=== PATIENT | female | born 1960 | race Two or more races ===

== ENCOUNTER 2017-12-22 13:53 | Inpatient (IN) | payer OTHER ==
[~2017-12-22] VITALS: Ht 149.9 cm; Wt 68.0 kg
[2017-12-22] MEDS ORDERED: ASPIRIN81 MG ORAL (14:08)
[2017-12-22] MEDS ORDERED: BENAZEPRIL HCL10 MG ORAL (14:08)
[2017-12-22] MEDS ORDERED: NITROGLYCERIN0.4 MG SL (14:08)
[2017-12-22] MEDS ORDERED: METFORMIN HCL1000 M1 ORAL (14:08)
[2017-12-22] MEDS ORDERED: LIPITOR40 MG ORAL (14:08)
[2017-12-22] MEDS ORDERED: Aspirin Baby 81mg ORAL ONE (14:15)
--- NOTE | 2017-12-22 14:20 | Emergency Room Report ---
History of Present Illness General Chief Complaint: Chest Pain Source: Patient Present Illness HPI Patient is a 57-year-old female brought in by self after increased chest discomfort. Patient had onset of symptoms approximately 7 PM last night. She reports having increased chest tightness sensation. She reports having recent cardiac stress testing but does not know results. She states that she had been having increased chest discomfort constantly since pain began. Patient was having increased fatigue with exercise but denies any worsening of chest pain. She has prior history of high blood pressure diabetes and high cholesterol. Allergies: Coded Allergies: MORPHINE (Verified Allergy, Unknown, 12/22/17) Patient History Past Medical History: see triage record Last Menstrual Period: Post Reviewed Nursing Documentation: PMH: Agreed; PSxH: Agreed Nursing Documentation-PMH Hx Hypertension: Yes Hx Diabetes: Yes - DM2 Review of Systems All Other Systems: negative except mentioned in HPI Physical Exam Vital Signs Date Time Temp Pulse Resp B/P (MAP) Pulse Ox O2 Delivery O2 Flow Rate FiO2 12/22/17 14:01 Room Air Sp02 EP Interpretation: reviewed, normal General Appearance: normal inspection, well appearing, no apparent distress, alert, GCS 15, obese Head: atraumatic ENT: normal ENT inspection, hearing grossly normal, normal voice Neck: normal inspection, full range of motion, supple, no bony tend Respiratory: normal inspection, lungs clear, normal breath sounds, no respiratory distress, no retraction, no wheezing Cardiovascular #1: regular rate, rhythm, edema - trace edema Gastrointestinal: normal inspection, normal bowel sounds, non tender, soft, no guarding, no hernia Genitourinary: no CVA tenderness Musculoskeletal: normal inspection, back normal, normal range of motion Neurologic: normal inspection, alert, oriented x3, responsive, rim buster III-XII nml as tested, speech normal Psychiatric: normal inspection, judgement/insight normal, mood/affect normal Skin: no rash, other Medical Decision Making Diagnostic Impression: Primary Impression: Chest pain Additional Impression: ACS (acute coronary syndrome) ER Course Patient presented for chest pain. Differential diagnosis included but was not limited to acute coronary syndrome, pulmonary embolism, pneumonia, aortic dissection, shingles, pneumothorax, aortic dissection, esophageal rupture, pericarditis. Because of complexity of patient's case laboratory testing and imaging studies were ordered.Laboratory testing showed negative troponin and negative d-dimer.Patient was given aspirin and nitroglycerin.Dr. Mcknight was contacted for for inpatient management Labs Test 12/22/17 14:10 White Blood Count 8.1 K/UL (4.8-10.8) Red Blood Count 4.01 M/UL (4.20-5.40) Hemoglobin 11.7 G/DL (12.0-16.0) Hematocrit 34.6 % (37.0-47.0) Mean Corpuscular Volume 86 FL (80-99) Mean Corpuscular Hemoglobin 29.1 PG (27.0-31.0) Mean Corpuscular Hemoglobin Concent 33.7 G/DL (32.0-36.0) Red Cell Distribution Width 11.9 % (11.6-14.8) Platelet Count 145 K/UL (150-450) Mean Platelet Volume 11.9 FL (6.5-10.1) Neutrophils (%) (Auto) 62.8 % (45.0-75.0) Lymphocytes (%) (Auto) 26.6 % (20.0-45.0) Monocytes (%) (Auto) 8.6 % (1.0-10.0) Eosinophils (%) (Auto) 0.9 % (0.0-3.0) Basophils (%) (Auto) 1.1 % (0.0-2.0) D-Dimer 0.23 mg/L FEU (0.00-0.49) Sodium Level 140 MMOL/L (136-145) Potassium Level 3.9 MMOL/L (3.5-5.1) Chloride Level 104 MMOL/L (98-107) Carbon Dioxide Level 27 MMOL/L (21-32) Anion Gap 9 mmol/L (5-15) Blood Urea Nitrogen 17 mg/dL (7-18) Creatinine 0.7 MG/DL (0.55-1.30) Estimat Glomerular Filtration Rate > 60 mL/min (>60) Glucose Level 254 MG/DL (74-106) Calcium Level 8.2 MG/DL (8.5-10.1) Total Bilirubin 0.9 MG/DL (0.2-1.0) Aspartate Amino Transf (AST/SGOT) 16 U/L (15-37) Alanine Aminotransferase (ALT/SGPT) 27 U/L (12-78) Alkaline Phosphatase 89 U/L (46-116) Total Creatine Kinase 74 U/L (26-308) Creatine Kinase MB 0.6 NG/ML (0.0-3.6) Creatine Kinase MB Relative Index 0.8 Troponin I 0.000 ng/mL (0.000-0.056) Pro-B-Type Natriuretic Peptide 109 pg/mL (0-125) Total Protein 7.7 G/DL (6.4-8.2) Albumin 3.8 G/DL (3.4-5.0) Globulin 3.9 g/dL Albumin/Globulin Ratio 1.0 (1.0-2.7) EKG Diagnostic Results Rate: normal - 82 Rhythm: NSR ST Segments: no acute changes Rhythm Strip Diag. Results EP Interpretation: yes Rhythm: NSR - 82., no PVC's, no ectopy Chest X-Ray Diagnostic Results Chest X-Ray Diagnostic Results : Chest X-Ray Ordered: Yes # of Views/Limited/Complete: 1 View Indication: Chest Pain EP Interpretation: Yes PA Xray: Interpretation reviewed Interpretation: no consolidation, no effusion, no pneumothorax, no acute cardiopulmonary disease Impression: No acute disease Electronically Signed by: Electronically signed by Dr. Mc Bush M.D. Last Vital Signs Date Time Temp Pulse Resp B/P (MAP) Pulse Ox O2 Delivery O2 Flow Rate FiO2 12/22/17 14:01 Room Air Status: improved Disposition: ADMITTED INPATIENT Condition: Stable Mc Bush Dec 22, 2017 14:20
[2017-12-22 14:26] LABS: BASOPHILS % (AUTO) 1.1 % (0.0-2.0); EOSINOPHILS % (AUTO) 0.9 % (0.0-3.0); HEMATOCRIT 34.6 % (37.0-47.0); HEMOGLOBIN 11.7 G/DL (12.0-16.0); LYMPHOCYTES % (AUTO) 26.6 % (20.0-45.0); MEAN CORPUSCULAR VOLUME 86 FL (80-99); MONOCYTES % (AUTO) 8.6 % (1.0-10.0); NEUTROPHILS % (AUTO) 62.8 % (45.0-75.0); PLATELET COUNT 145 K/UL (150-450); RED BLOOD COUNT 4.01 M/UL (4.20-5.40); RED CELL DISTRIBUTION WIDTH 11.9 % (11.6-14.8); WHITE BLOOD COUNT 8.1 K/UL (4.8-10.8)
[2017-12-22] MEDS ORDERED: Nitroglycerin Subl 0.4mg tab SL PRN (14:30)
[2017-12-22 14:40] LABS: ANION GAP 9 mmol/L (5-15); BLOOD UREA NITROGEN 17 mg/dL (7-18); CALCIUM 8.2 MG/DL (8.5-10.1); CARBON DIOXIDE 27 MMOL/L (21-32); CHLORIDE 104 MMOL/L (98-107); CREATININE 0.7 MG/DL (0.55-1.30); POTASSIUM 3.9 MMOL/L (3.5-5.1); SODIUM 140 MMOL/L (136-145)
[2017-12-22 14:53] VITALS: BP 139/73
[2017-12-22 14:56] LABS: ALANINE AMINOTRANSFERASE 27 U/L (12-78); ALBUMIN 3.8 G/DL (3.4-5.0); ALKALINE PHOSPHATASE 89 U/L (46-116); ASPARTATE AMINO TRANSFERASE 16 U/L (15-37); BILIRUBIN,TOTAL 0.9 MG/DL (0.2-1.0); CKMB 0.6 NG/ML (0.0-3.6); CREATINE KINASE 74 U/L (26-308)
[2017-12-22 16:09] VITALS: BP 142/80
[2017-12-22] MEDS ORDERED: Mylanta II UD 30ml ORAL PRN (16:30)
[2017-12-22] MEDS ORDERED: Milk of Magnesia 30ml Ud ORAL PRN (16:30)
[2017-12-22] MEDS ORDERED: OMEPRAZOLE10 M1 ORAL (17:11)
[2017-12-22] MEDS ORDERED: OXYBUTYNIN CHLOR5 M1 ORAL (17:11)
[2017-12-22 17:34] VITALS: BP 139/75
[2017-12-22 19:30] VITALS: BP 120/62
[2017-12-22] MEDS: Nitroglycerin Subl 0.4mg tab SL PRN ×3 (20:33→20:59)
[2017-12-22] MEDS: Heparin 5000 units/ml inj SUBQ SCH (20:45)
[2017-12-22] MEDS: Docusate 100mg cap ORAL SCH (20:50)
[2017-12-22] MEDS: Atorvastatin 20mg tab ORAL SCH (20:50)
[2017-12-22] MEDS: NovoLOG Insulin Flexpen SUBQ SCH (20:57)
[2017-12-22] MEDS: Hydromorphone 0.5mg/0.5ml inj IVP PRN (23:02)
[2017-12-23] VITALS: BP 134/74
[2017-12-23 04:00] VITALS: BP 111/67
[2017-12-23 04:52] LABS: BASOPHILS % (AUTO) 2.1 % (0.0-2.0); EOSINOPHILS % (AUTO) 2.3 % (0.0-3.0); HEMATOCRIT 33.4 % (37.0-47.0); HEMOGLOBIN 11.3 G/DL (12.0-16.0); MEAN CORPUSCULAR VOLUME 86 FL (80-99); MONOCYTES % (AUTO) 8.8 % (1.0-10.0); NEUTROPHILS % (AUTO) 42.9 % (45.0-75.0); PLATELET COUNT 144 K/UL (150-450); RED BLOOD COUNT 3.87 M/UL (4.20-5.40); RED CELL DISTRIBUTION WIDTH 11.8 % (11.6-14.8); WHITE BLOOD COUNT 6.2 K/UL (4.8-10.8)
[2017-12-23 05:23] LABS: BLOOD UREA NITROGEN 11 mg/dL (7-18); CALCIUM 8.5 MG/DL (8.5-10.1); CARBON DIOXIDE 28 MMOL/L (21-32); CHOLESTEROL 138 MG/DL (< 200); CREATININE 0.7 MG/DL (0.55-1.30); TRIGLYCERIDES 143 MG/DL (30-150)
[2017-12-23 05:34] LABS: HDL CHOLESTEROL 45 MG/DL (40-60)
[2017-12-23] MEDS: NovoLOG Insulin Flexpen SUBQ SCH ×4 (06:08→21:40)
[2017-12-23] MEDS: Hydromorphone 0.5mg/0.5ml inj IVP PRN ×2 (06:17→09:21)
[2017-12-23 07:16] LABS: CHLORIDE 106 MMOL/L (98-107); POTASSIUM 3.8 MMOL/L (3.5-5.1); SODIUM 143 MMOL/L (136-145)
[2017-12-23 07:19] LABS: ANION GAP 9 mmol/L (5-15)
[2017-12-23 08:00] VITALS: BP 125/73
[2017-12-23] MEDS: Aspirin Baby 81mg ORAL SCH (09:21)
[2017-12-23] MEDS: Docusate 100mg cap ORAL SCH ×2 (09:21→21:33)
[2017-12-23] MEDS: Benazepril 10mg tab ORAL SCH (09:21)
[2017-12-23] MEDS: Heparin 5000 units/ml inj SUBQ SCH ×2 (09:24→21:35)
[2017-12-23 12:00] VITALS: BP 111/59
--- NOTE | 2017-12-23 13:00 | Diagnostic Imaging Report ---
Indication: Shortness of breath Technique: One view of the chest Comparison: none Findings: Lungs and pleural spaces are clear. Heart size is normal Impression: No acute process
--- NOTE | 2017-12-23 14:23 | History and Physical ---
History of Present Illness General Date patient seen: Dec 23, 2017 Time patient seen: 14:23 Reason for Hospitalization: Chest Pain Present Illness HPI 57y/o female with pmh of DM2, HLD, GERD, HTN who presents with chest pain. . Patient had onset of symptoms approximately 7 PM on night of presentation to ER. She reports having increased chest tightness sensation. Pt states pain radiates to upper back and shoulder. She reports having recent cardiac stress testing but does not know results. She states that she had been having increased chest discomfort constantly since pain began. Patient was having increased fatigue with exercise but denies any worsening of chest pain. Denies SOB, f/c, n/v, d/c, chest pain, SOB. In ED, trop neg and EKG wnl. Allergies: Coded Allergies: MORPHINE (Verified Allergy, Unknown, 12/22/17) Medication History Scheduled Aspirin* (Aspirin*), 81 MG ORAL DAILY, (Reported) Atorvastatin Calcium* (Lipitor*), 40 MG ORAL DAILY, (Reported) Benazepril Hcl* (Benazepril Hcl*), 10 MG ORAL DAILY, (Reported) Metformin Hcl* (Metformin Hcl*), 1,000 MG ORAL BID, (Reported) Nitroglycerin (Nitroglycerin), 0.4 MG SL PRN, (Reported) Omeprazole (Omeprazole), 10 MG ORAL DAILY, (Reported) Oxybutynin Chloride (Oxybutynin Chloride), 5 MG ORAL BID, (Reported) Patient History History Provided By: Patient, Medical Record Healthcare decision maker Resuscitation status Advanced Directive on File Past Medical/Surgical History Past Medical/Surgical History: (1) DM2 (diabetes mellitus, type 2) (2) HTN (hypertension) (3) HLD (hyperlipidemia) (4) GERD (gastroesophageal reflux disease) Family History Family History: Patient reports no known family medical history. Social History Social History: (1) No significant social history Review of Systems Constitutional: Reports: no symptoms Eye: Reports: no symptoms Respiratory: Reports: no symptoms Cardiovascular: Reports: chest pain Gastrointestinal: Reports: no symptoms Genitourinary: Reports: no symptoms Musculoskeletal: Reports: no symptoms Skin: Reports: no symptoms Psychiatric: Reports: no symptoms Neurological: Reports: no symptoms Endocrine: Reports: no symptoms Hematologic/Lymphatic: Reports: no symptoms Physical Exam Physical Exam Narrative General: alert, cooperative, no distress, appears stated age Head: normocephalic, without obvious abnormality, atraumatic Eyes: conjunctivae/corneas clear. PERRL, EOM's intact Throat: lips, mucosa, and tongue normal. MMM Neck: supple, symmetrical, trachea midline, and no JVD Lungs: clear to auscultation bilaterally Heart: regular rate and rhythm, S1, S2 normal, no murmur, click, rub or gallop Abdomen: soft, non-tender, non-distended, bowel sounds normal; no masses or organomegaly Extremities: extremities normal, atraumatic, no cyanosis or edema Pulses: 2+ and symmetric Skin: skin color, texture, turgor normal; no rashes or lesions Neurologic: grossly normal, no focal deficits Last 24 Hour Vital Signs Date Time Temp Pulse Resp B/P (MAP) Pulse Ox O2 Delivery O2 Flow Rate FiO2 12/23/17 12:00 60 12/23/17 12:00 97.9 60 18 111/59 100 Nasal Cannula 2.0 97.9 12/23/17 09:21 97.7 12/23/17 09:21 125/73 12/23/17 08:00 61 12/23/17 08:00 97.7 77 18 125/73 98 Nasal Cannula 2.0 97.7 12/23/17 04:00 98.1 80 16 111/67 98 Nasal Cannula 2.0 98.1 12/23/17 04:00 65 12/23/17 00:00 63 12/23/17 00:00 97.3 58 17 134/74 99 Nasal Cannula 2.0 97.3 12/22/17 20:59 132/71 12/22/17 20:42 140/78 12/22/17 20:33 147/95 12/22/17 19:45 98.0 67 20 120/62 99 Room Air 98.0 12/22/17 19:30 98.0 67 20 120/62 99 Room Air 98.0 12/22/17 17:34 98.0 95 16 139/75 100 Room Air 98.0 12/22/17 16:09 98.0 67 16 142/80 100 Room Air 98.0 12/22/17 14:53 69 15 Room Air 12/22/17 14:53 98.0 69 16 139/73 100 Room Air 98.0 Intake and Output 12/22/17 12/23/17 19:00 07:00 Intake Total 240 ml 240 ml Balance 240 ml 240 ml Intake Oral 240 ml 240 ml Laboratory Tests Test 12/22/17 20:40 12/23/17 04:20 Troponin I 0.000 ng/mL (0.000-0.056) 0.000 ng/mL (0.000-0.056) White Blood Count 6.2 K/UL (4.8-10.8) Red Blood Count 3.87 M/UL (4.20-5.40) L Hemoglobin 11.3 G/DL (12.0-16.0) L Hematocrit 33.4 % (37.0-47.0) L Mean Corpuscular Volume 86 FL (80-99) Mean Corpuscular Hemoglobin 29.3 PG (27.0-31.0) Mean Corpuscular Hemoglobin Concent 33.9 G/DL (32.0-36.0) Red Cell Distribution Width 11.8 % (11.6-14.8) Platelet Count 144 K/UL (150-450) L Mean Platelet Volume 11.1 FL (6.5-10.1) H Neutrophils (%) (Auto) 42.9 % (45.0-75.0) L Lymphocytes (%) (Auto) 44.0 % (20.0-45.0) Monocytes (%) (Auto) 8.8 % (1.0-10.0) Eosinophils (%) (Auto) 2.3 % (0.0-3.0) Basophils (%) (Auto) 2.1 % (0.0-2.0) H Sodium Level 143 MMOL/L (136-145) Potassium Level 3.8 MMOL/L (3.5-5.1) Chloride Level 106 MMOL/L (98-107) Carbon Dioxide Level 28 MMOL/L (21-32) Anion Gap 9 mmol/L (5-15) Blood Urea Nitrogen 11 mg/dL (7-18) Creatinine 0.7 MG/DL (0.55-1.30) Estimat Glomerular Filtration Rate > 60 mL/min (>60) Glucose Level 115 MG/DL (74-106) #H Hemoglobin A1c 7.1 % (4.3-6.0) H Calcium Level 8.5 MG/DL (8.5-10.1) Magnesium Level 1.8 MG/DL (1.8-2.4) Pro-B-Type Natriuretic Peptide 79 pg/mL (0-125) Triglycerides Level 143 MG/DL (30-150) Cholesterol Level 138 MG/DL (< 200) LDL Cholesterol 75 mg/dL (<100) HDL Cholesterol 45 MG/DL (40-60) Cholesterol/HDL Ratio 3.1 (3.3-4.4) L Thyroid Stimulating Hormone (TSH) 5.100 uiU/mL (0.358-3.740) Height (Feet): 4 Height (Inches): 11.00 Weight (Pounds): 150 Medications Current Medications Medications (Trade) Dose Ordered Sig/Luz Maria Route PRN Reason Start Time Stop Time Status Last Admin Dose Admin Acetaminophen (Tylenol) 650 mg Q4H PRN ORAL Mild Pain (Pain Scale 1-3) 12/22/17 16:30 01/21/18 16:29 Acetaminophen (Tylenol) 650 mg Q4H PRN ORAL fever 12/22/17 16:30 01/21/18 16:29 Al Hydroxide/Mg Hydroxide (Mylanta II) 30 ml Q6H PRN ORAL dyspepsia 12/22/17 16:30 01/21/18 16:29 Aspirin (ASA) 81 mg DAILY ORAL 12/23/17 09:00 01/22/18 08:59 12/23/17 09:21 Atorvastatin Calcium (Lipitor) 40 mg QHS ORAL 12/22/17 21:00 01/21/18 20:59 12/22/17 20:50 Benazepril HCl (Lotensin) 10 mg DAILY ORAL 12/23/17 09:00 01/22/18 08:59 12/23/17 09:21 Bisacodyl (Dulcolax) 10 mg DAILYPRN PRN RECTAL Constipation 12/22/17 16:30 01/21/18 16:29 Dextrose (Dextrose 50%) STAT PRN IV Hypoglycemia 12/22/17 16:45 01/21/18 16:44 Diphenhydramine HCl (Benadryl) 25 mg Q6H PRN ORAL Itching/Pruritis 12/22/17 16:30 01/21/18 16:29 Docusate Sodium (Colace) 100 mg EVERY 12 HOURS ORAL 12/22/17 21:00 5/1/18 20:59 12/23/17 09:21 Heparin Sodium (Porcine) (Heparin 5000 units/ml) 5,000 units EVERY 12 HOURS SUBQ 12/22/17 21:00 01/21/18 20:59 12/23/17 09:24 Hydromorphone HCl (Dilaudid) 0.5 mg Q3HR PRN IVP For Pain 12/22/17 22:30 12/29/17 22:29 12/23/17 09:21 Insulin Aspart (NovoLOG) BEFORE MEALS AND HS SUBQ 12/22/17 21:00 01/21/18 20:59 12/23/17 12:49 Magnesium Hydroxide (Mom) 30 ml HSPRN PRN ORAL Constipation 12/22/17 16:30 01/21/18 16:29 Nitroglycerin (Ntg) 0.4 mg Q5M PRN SL Prn Chest Pain 12/22/17 16:30 01/21/18 16:29 12/22/17 20:59 Ondansetron HCl (Zofran) 4 mg Q6H PRN IVP Nausea & Vomiting 12/22/17 16:30 01/21/18 16:29 Assessment/Plan Problem List: (1) Chest pain Assessment & Plan: Appears atypical ICD Codes: R07.9 - Chest pain, unspecified SNOMED: 23843639 (2) DM2 (diabetes mellitus, type 2) ICD Codes: E11.9 - Type 2 diabetes mellitus without complications SNOMED: 54863374 (3) HLD (hyperlipidemia) ICD Codes: E78.5 - Hyperlipidemia, unspecified SNOMED: 19133306 (4) HTN (hypertension) ICD Codes: I10 - Essential (primary) hypertension SNOMED: 88161441 (5) GERD (gastroesophageal reflux disease) ICD Codes: K21.9 - Gastro-esophageal reflux disease without esophagitis SNOMED: 172865972 Status: stable Assessment/Plan Admit to tele Trend trop/EKG Check TTE Cardiology consulted ASA, statin Cont home meds Check CTA chest to r/o PE and aortic dissection Pain control, bowel regimen Supportive care Likely d/c tomorrow if workup neg FULL CODE D/w pt, RN, cardiology regarding mgmt and dispo Natalio Jeff M.D. Dec 23, 2017 14:23
[2017-12-23] MEDS ORDERED: Norco 5mg/325mg tab ORAL PRN (14:30)
[2017-12-23] MEDS ORDERED: HYDROcodone/Acetamin 10/325 tab ORAL PRN (14:30)
--- NOTE | 2017-12-23 14:33 | Cardiac Electrophysiology PN ---
Subjective Subjective [id number] Objective Last 24 Hour Vital Signs Date Time Temp Pulse Resp B/P (MAP) Pulse Ox O2 Delivery O2 Flow Rate FiO2 12/23/17 12:00 60 12/23/17 12:00 97.9 60 18 111/59 100 Nasal Cannula 2.0 97.9 12/23/17 09:21 97.7 12/23/17 09:21 125/73 12/23/17 08:00 61 12/23/17 08:00 97.7 77 18 125/73 98 Nasal Cannula 2.0 97.7 12/23/17 04:00 98.1 80 16 111/67 98 Nasal Cannula 2.0 98.1 12/23/17 04:00 65 12/23/17 00:00 63 12/23/17 00:00 97.3 58 17 134/74 99 Nasal Cannula 2.0 97.3 12/22/17 20:59 132/71 12/22/17 20:42 140/78 12/22/17 20:33 147/95 12/22/17 19:45 98.0 67 20 120/62 99 Room Air 98.0 12/22/17 19:30 98.0 67 20 120/62 99 Room Air 98.0 12/22/17 17:34 98.0 95 16 139/75 100 Room Air 98.0 12/22/17 16:09 98.0 67 16 142/80 100 Room Air 98.0 12/22/17 14:53 69 15 Room Air 12/22/17 14:53 98.0 69 16 139/73 100 Room Air 98.0 Intake and Output 12/22/17 12/23/17 19:00 07:00 Intake Total 240 ml 240 ml Balance 240 ml 240 ml Intake Oral 240 ml 240 ml Laboratory Tests Test 12/22/17 20:40 12/23/17 04:20 Troponin I 0.000 ng/mL (0.000-0.056) 0.000 ng/mL (0.000-0.056) White Blood Count 6.2 K/UL (4.8-10.8) Red Blood Count 3.87 M/UL (4.20-5.40) L Hemoglobin 11.3 G/DL (12.0-16.0) L Hematocrit 33.4 % (37.0-47.0) L Mean Corpuscular Volume 86 FL (80-99) Mean Corpuscular Hemoglobin 29.3 PG (27.0-31.0) Mean Corpuscular Hemoglobin Concent 33.9 G/DL (32.0-36.0) Red Cell Distribution Width 11.8 % (11.6-14.8) Platelet Count 144 K/UL (150-450) L Mean Platelet Volume 11.1 FL (6.5-10.1) H Neutrophils (%) (Auto) 42.9 % (45.0-75.0) L Lymphocytes (%) (Auto) 44.0 % (20.0-45.0) Monocytes (%) (Auto) 8.8 % (1.0-10.0) Eosinophils (%) (Auto) 2.3 % (0.0-3.0) Basophils (%) (Auto) 2.1 % (0.0-2.0) H Sodium Level 143 MMOL/L (136-145) Potassium Level 3.8 MMOL/L (3.5-5.1) Chloride Level 106 MMOL/L (98-107) Carbon Dioxide Level 28 MMOL/L (21-32) Anion Gap 9 mmol/L (5-15) Blood Urea Nitrogen 11 mg/dL (7-18) Creatinine 0.7 MG/DL (0.55-1.30) Estimat Glomerular Filtration Rate > 60 mL/min (>60) Glucose Level 115 MG/DL (74-106) #H Hemoglobin A1c 7.1 % (4.3-6.0) H Calcium Level 8.5 MG/DL (8.5-10.1) Magnesium Level 1.8 MG/DL (1.8-2.4) Pro-B-Type Natriuretic Peptide 79 pg/mL (0-125) Triglycerides Level 143 MG/DL (30-150) Cholesterol Level 138 MG/DL (< 200) LDL Cholesterol 75 mg/dL (<100) HDL Cholesterol 45 MG/DL (40-60) Cholesterol/HDL Ratio 3.1 (3.3-4.4) L Thyroid Stimulating Hormone (TSH) 5.100 uiU/mL (0.358-3.740) Vipul Toth MD Dec 23, 2017 14:33
[2017-12-23] MEDS ORDERED: Lexiscan 0.4mg/5ml syringe IV ONE (15:15)
[2017-12-23 16:00] VITALS: BP 112/62
--- NOTE | 2017-12-23 16:57 | Diagnostic Imaging Report ---
Indication: Chest pain, suspected aortic dissection Technique: IV administration nonionic contrast. Arterial phase spiral acquisitions obtained through the chest, abdomen, and pelvis Multiplanar and 3-D reconstructions were generated. Total dose length product 1020 mGycm. CTDIvol(s) 8, 40, 50 mGy. Radiation dose was minimized using automated exposure control Comparison: none Findings Vascular: The pulmonary arteries are well opacified and there is no evidence of acute pulmonary embolus. No evidence of thoracic aortic aneurysm or dissection. Classic branching anatomy of the great neck vessels, which are patent, nonstenotic. No evidence of abdominal aortic aneurysm or dissection. No significant stenosis. No significant neural atherosclerosis. The nonstenotic visceral vessels. Patent nonstenotic bilateral iliac arteries and proximal branches. Chest: The lungs demonstrate minimal atelectasis or linear scarring at the lung bases. They are otherwise clear. No infiltrates, effusions, masses, or nodules. The heart is borderline enlarged. No mediastinal or hilar mass or adenopathy. No axillary or chest wall mass or adenopathy. The bones are unremarkable. Abdomen and pelvis: The liver is diffusely hypoattenuating, consistent with fatty change. No focal abnormality. It is mildly enlarged. The gallbladder, bile ducts, pancreas, spleen, adrenals, kidneys are unremarkable. There is evidence of prior hysterectomy and oophorectomy with surgical clips suggesting prior pelvic node dissection. The bladder is unremarkable. No pelvic mass or adenopathy demonstrated. The appendix is not definitely demonstrated, but no findings to suggest acute appendicitis are evident. The small bowel is nondilated. No free or loculated intraperitoneal air or fluid is evident. No evidence of diverticulosis or diverticulitis. The bones are unremarkable. Impression: No evidence of thoracic or abdominal aortic aneurysm or dissection, pulmonary embolus, or other acute vascular pathology No findings to explain stated clinical history of chest pain Borderline cardiomegaly Enlarged fatty liver Evidence of prior hysterectomy, oophorectomy, and pelvic node dissection The CT scanner at [facility] is accredited by the [employer] and the scans are performed using protocols designed to limit radiation exposure to as low as reasonably achievable to attain images of sufficient resolution adequate for diagnostic evaluation.
--- NOTE | 2017-12-23 18:45 | Consultation ---
DATE OF CONSULTATION: 12/23/2017 CARDIOLOGY CONSULTATION CONSULTING PHYSICIAN: Vipul Toth M.D. REFERRING PHYSICIAN: Flora Osorio M.D. and Natalio Jeff M.D. REASON FOR CONSULTATION: Chest pain. HISTORY OF PRESENT ILLNESS: The patient is a 57-year-old lady who came to the emergency room complaining of chest pain that was started around 7 o'clock the night before. The patient's pain was 5/10. She states that she had a recent cardiac stress test, but she does not know the result. The chest pain has become more constant. The patient with increasing fatigue on exercise, but denies any worsening of chest pain. The patient was admitted and a Cardiology consultation was obtained for further evaluation and management. PAST MEDICAL HISTORY: 1. Hypertension. 2. Hyperlipidemia. 3. Diabetes. FAMILY HISTORY: Noncontributory. PHYSICAL EXAMINATION: VITAL SIGNS: Blood pressure is 111/59, pulse 60, respirations 18, and she is afebrile. HEAD AND NECK: No JVD or carotid bruits. LUNGS: Clear. CARDIOVASCULAR: Regular S1 and S2 with no gallop or murmur. ABDOMEN: Soft. EXTREMITIES: No pitting edema. LABORATORY AND DIAGNOSTIC DATA: Her EKG is completely normal. Troponins are negative x3. Sodium 143, potassium 3.8, BUN of 11, and creatinine 0.7. Her LDL is 75. TSH is 5.1. Her D-dimer is negative. White count 6.7, hemoglobin 11.2, hematocrit 33.5, and platelet count 144. ASSESSMENT AND PLAN: 1. Chest pain. The patient already ruled out for myocardial infarction. Her EKG is completely normal. Echocardiogram showed normal left ventricular systolic function and no wall motion abnormality. D-dimer is negative, making pulmonary embolism highly unlikely. the patient for chest CT to rule out aortic dissection or aneurysm. We will try to get old stress test that she recently had and if not able to, we may schedule the patient for a stress test in the morning or if the patient prefers can be done as an outpatient. 2. Hypertension, on benazepril 10 mg daily. 3. Hyperlipidemia, on Lipitor. 4. Diabetes, on insulin. Thank you very much, Dr. Lance, for allowing me to participate in the care of this patient. Please do not hesitate to contact me for any questions regarding my evaluation. Vipul Toth M.D. DR: OZZIE JOB#: [id number] CC:
--- NOTE | 2017-12-23 18:46 | Cardiology Report ---
APPROVED REPORT EXAM: Two-dimensional and M-mode echocardiogram with Doppler and color Doppler. INDICATION Chest Pain M-Mode DIMENSIONS IVSd1.2 (0.7-1.1cm)Left Atrium (MM)3.0 (1.6-4.0cm) LVDd5.0 (3.5-5.6cm)Aortic Root3.5 (2.0-3.7cm) PWd1.2 (0.7-1.1cm)Aortic Cusp Exc.1.9 (1.5-2.0cm) IVSs1.9 cm LVDs3.4 (2.5-4.0cm) PWs1.6 cm Technically difficult study due to poor acoustical windows. Normal left ventricular chamber size, systolic function and wall motion to extent visualized. Left ventricular ejection fraction estimated to be 70 %. No evidence of left ventricular hypertrophy. No evidence of pericardial effusion. All other cardiac chamber sizes are within normal limits. Focal aortic valve sclerosis with adequate cusp excursion. Mildly Thickened mitral valve leaflets with normal excursion. Mildly Mitral annulus and aortic root calcification. Pulmonic valve not well visualized. Normal tricuspid valve structure. IVC at normal size with physiologic collapse. A color flow and spectral Doppler study was performed and revealed: No aortic regurgitation. Mild mitral regurgitation. Mitral diastolic velocities suggest reduced left ventricular relaxation c/w mild LV diastolic dysfunction (Grade I ). Trace tricuspid regurgitation. Tricuspid systolic velocities suggests peak right ventricular systolic pressure of 24 mmHg No Pulmonic regurgitation present.
--- NOTE | 2017-12-23 18:54 | Cardiology Report ---
APPROVED REPORT EKG Measurement Heart [id number] Normal sinus rhythm Normal ECG
[2017-12-23 20:00] VITALS: BP 128/74
[2017-12-23] MEDS: Atorvastatin 20mg tab ORAL SCH (21:33)
[2017-12-23 21:54] LABS: FERRITIN 28 NG/ML (8-388)
[2017-12-23 22:03] LABS: % IRON SATURATION 14 % (15-50); IRON 53 ug/dL (50-175); TOTAL IRON BINDING CAPACITY 378 ug/dL (250-450)
[2017-12-24] VITALS: BP 138/73
[2017-12-24 02:41] LABS: LACTATE DEHYDROGENASE 230 U/L (81-234)
[2017-12-24 04:00] VITALS: BP 129/66
[2017-12-24] MEDS: NovoLOG Insulin Flexpen SUBQ SCH ×3 (06:05→17:33)
[2017-12-24 08:00] VITALS: BP 112/71
[2017-12-24] MEDS: Docusate 100mg cap ORAL SCH (09:12)
[2017-12-24] MEDS: Aspirin Baby 81mg ORAL SCH (09:12)
[2017-12-24] MEDS: Benazepril 10mg tab ORAL SCH (09:13)
[2017-12-24] MEDS: Heparin 5000 units/ml inj SUBQ SCH (09:14)
--- NOTE | 2017-12-24 09:15 | Consultation ---
DATE OF CONSULTATION: 12/23/2017 NOTE: "POOR AUDIO QUALITY" HEMATOLOGY/ONCOLOGY CONSULTATION CONSULTING PHYSICIAN: Rivas Rodgers M.D. REQUESTING PHYSICIAN: Natalio Jeff M.D. and Flora Osorio M.D. REASON FOR CONSULTATION: Evaluation of anemia and thrombocytopenia. IDENTIFYING DATA: Dear Dr. Lance and Dr. Osorio: The patient is a pleasant 57-year-old female with past medical history which is significant for diabetes mellitus, hyperlipidemia, hypertension, at this time presents with chest pain, 01/30. Review of the record reveals that this is her first admission here at [facility]. Her platelet count was noted to be decreased at 144,000 and hemoglobin 11.3. Hematology Service was consulted for further evaluation and treatment. PAST MEDICAL HISTORY: As noted above. SURGICAL HISTORY: FAMILY HISTORY: Noncontributory. ALLERGIES: Morphine. REVIEW OF SYSTEMS: CONSTITUTIONAL: No fever, chills, or night sweats. SKIN: No rashes, bumps, or itching. HEENT: No headache, hearing or vision changes. BREASTS: No lumps, pain, or discharge. PULMONARY: No cough, sputum, or shortness of breath. GASTROINTESTINAL: No nausea, vomiting, or diarrhea. GENITOURINARY: No dysuria, urgency, or frequency. MUSCULOSKELETAL: Some chest pain noted. PHYSICAL EXAMINATION: VITAL SIGNS: Reviewed. GENERAL: No distress. PULMONARY: Decreased breath sounds. Some crackles noted. CARDIOVASCULAR: Regular rate. No S3. No S4. ABDOMEN: Soft, nontender, nondistended. EXTREMITIES: No cyanosis, swelling, or edema. LABORATORY DATA: BUN 11, creatinine 0.7. Hemoglobin A1c 7.1. Troponin . TSH 5.1. . WBC 6.3, hemoglobin 11.3, platelet count . ASSESSMENT AND PLAN: 1. Thrombocytopenia. I reviewed the patient's imaging. She thus far has borderline splenomegaly and fatty liver. , likely inflammatory cause. Will obtain hepatitis panel, HIV. 2. Anemia due to underlying chronic disease. Obtain anemia workup at this time. 3. Diabetes mellitus. A1c goal is less than 7. Blood sugar goal between 80 and 120. 4. Chest pain, rule out ACS. She has been seen by Cardiology Service, Dr. Toth. Currently on aspirin, Lotensin. A 2D echo is pending. 5. Hypoxemia, currently on 2 L nasal cannula. I appreciate the consultation. Rivas Rodgers M.D. DR: Sachin JOB#: [id number] CC:
[2017-12-24 12:00] VITALS: BP_SYST 101; BP_SYST 133; BP_DIAS 64; BP_DIAS 85
--- NOTE | 2017-12-24 14:46 | Cardiac Electrophysiology PN ---
Assessment/Plan Assessment/Plan 1. Chest pain. The patient already ruled out for myocardial infarction. Her EKG is completely normal. Echocardiogram showed normal left ventricular systolic function and no wall motion abnormality. D-dimer is negative, making pulmonary embolism highly unlikely. Chest CT ruled out aortic dissection or aneurysm. Stress test result from today is pending. 2. Hypertension, on benazepril 10 mg daily. 3. Hyperlipidemia, on Lipitor. 4. Diabetes, on insulin. ALLEN RN Subjective Subjective Had nuclear stress test today. No chest pain or SOB. Objective Last 24 Hour Vital Signs Date Time Temp Pulse Resp B/P (MAP) Pulse Ox O2 Delivery O2 Flow Rate FiO2 12/24/17 12:00 98.2 72 19 101/64 96 Room Air 98.2 12/24/17 12:00 97.0 68 20 133/85 99 Room Air 97.0 12/24/17 12:00 65 12/24/17 09:13 112/71 12/24/17 08:00 97.7 90 20 112/71 97 Nasal Cannula 2.0 97.7 12/24/17 08:00 91 12/24/17 04:00 97.7 67 18 129/66 100 Nasal Cannula 2.0 97.7 12/24/17 03:25 84 12/24/17 00:00 98.2 80 18 138/73 100 Nasal Cannula 2.0 98.2 12/24/17 00:00 73 12/23/17 20:00 84 12/23/17 20:00 98.4 72 18 128/74 98 Nasal Cannula 2.0 98.4 12/23/17 16:00 69 12/23/17 16:00 98.2 69 18 112/62 100 Nasal Cannula 2.0 98.2 Intake and Output 12/23/17 12/24/17 19:00 07:00 Intake Total 360 ml 60 ml Balance 360 ml 60 ml Intake Oral 360 ml 60 ml # Voids 2 2 # Bowel Movements 1 Laboratory Tests Test 12/23/17 21:05 PTT Mixing Study Pending APTT Patient/Control Mix Pending Mix PTT Incubation Time Pending Mix PTT Normal/Saline 1:1 Immediate Pending Thrombin Time Normal Plasma Pending Fibrinogen 387 mg/dL (200-400) Iron Level 53 ug/dL (50-175) Total Iron Binding Capacity 378 ug/dL (250-450) Percent Iron Saturation 14 % (15-50) L Unsaturated Iron Binding 325 ug/dL (112-346) Ferritin 28 NG/ML (8-388) Lactate Dehydrogenase 230 U/L (81-234) Vitamin B12 Level 574 PG/ML (193-986) Methylmalonic Acid Pending Folate 16.0 NG/ML (8.6-58.9) Homocystine Pending Hepatitis A IgM Antibody Pending Hepatitis B Surface Antigen Pending Hepatitis B Core IgM Antibody Pending Hepatitis C Antibody Pending HIV (1&2) Antibody Rapid Negative (NEGATIVE) Objective HEAD AND NECK: No JVD or carotid bruits. LUNGS: Clear. CARDIOVASCULAR: Regular S1 and S2 with no gallop or murmur. ABDOMEN: Soft. EXTREMITIES: No pitting edema. Vipul Toth MD Dec 24, 2017 14:46
[2017-12-24 16:00] VITALS: BP 139/78
--- NOTE | 2017-12-24 16:16 | Diagnostic Imaging Report ---
Indications: 57-year-old female with chest pain Technique: Single day single isotope protocol utilized. Initially, resting images obtained using IV administration 10.1 millicuries 99M technetium Myoview. Subsequently, patient underwent lexiscan stress testing. See cardiology report for details. During Lexiscan infusion, IV administration 31.4 mCi 99 M technetium Myoview. SPECT and planar images obtained. SPECT images gated to 8 phases of the cardiac cycle were also obtained, and reformatted into cine images for evaluation of ejection fraction. Comparison: none Findings: Per cardiology report, patient experienced chest pain, shortness of breath, and dizziness. Per cardiology report, resting EKG demonstrates sinus rhythm with biphasic T-wave inversion. No EKG changes noted during the infusion. Imaging demonstrates normal poststress perfusion. No fixed nor reversible perfusion defects. Normal cardiac chamber size. Calculated post stress ejection fraction 89%. No focal wall motion abnormality Impression: Nondiagnostic clinical response to pharmacologic stress, per cardiology report Nondiagnostic electrocardiographic response to pharmacologic stress, per cardiology report No imaging findings to suggest ischemia, at level of stress achieved. Calculated post stress ejection fraction greater than 70%
[2017-12-24 20:00] VITALS: BP 149/70
--- NOTE | 2017-12-25 23:19 | General Progress Note ---
Assessment/Plan Status: stable Assessment/Plan 1. Thrombocytopenia. --> I reviewed the patient's imaging. --> She thus far has borderline splenomegaly and fatty liver, likely inflammatory cause. --> Hepatitis panel and HIV negative 2. Anemia due to underlying chronic disease. --> Anemia workup reviewed. Iron 53, TIBC 378, Ferritin 28, B12 574, Folate 16 --> Transfuse if hgb <7 3. Diabetes mellitus. --> A1c goal is less than 7. Blood sugar goal between 80 and 120. 4. Chest pain, rule out ACS. --> She has been seen by Cardiology Service, Dr. Toth. --> Currently on aspirin, Lotensin. A 2D echo is pending. 5. Hypoxemia, currently on 2 L nasal cannula. Subjective Date patient seen: Dec 24, 2017 Constitutional: Denies: no symptoms, chills, diaphoresis, fever, malaise, weakness, other HEENT: Denies: no symptoms, eye pain, blurred vision, tearing, double vision, ear pain, ear discharge, nose pain, nose congestion, throat pain, throat swelling, mouth pain, mouth swelling, other Cardiovascular: Denies: no symptoms, chest pain, edema, irregular heart rate, lightheadedness, palpitations, syncope, other Respiratory: Denies: no symptoms, cough, orthopnea, shortness of breath, SOB with excertion, SOB at rest, sputum, stridor, wheezing, other Gastrointestinal/Abdominal: Denies: no symptoms, abdomen distended, abdominal pain, black stools, tarry stools, blood in stool, constipated, diarrhea, difficulty swallowing, nausea, poor appetite, poor fluid intake, rectal bleeding , vomiting, other Genitourinary: Denies: no symptoms, burning, discharge, frequency, flank pain, hematuria, incontinence, pain, urgency, other Neurologic/Psychiatric: Denies: no symptoms, anxiety, depressed, emotional problems, headache, numbness, paresthesia, pre-existing deficit, seizure, tingling, tremors, weakness, other Hematologic/Lymphatic: Reports: anemia Allergies: Coded Allergies: MORPHINE (Verified Allergy, Unknown, 12/22/17) Subjective No fever or chills. No active bleeding. Objective Intake and Output 12/24/17 12/25/17 19:00 07:00 Intake Total 430 ml Balance 430 ml Other 430 ml # Voids 3 Height (Feet): 4 Height (Inches): 11.00 Weight (Pounds): 150 General Appearance: no apparent distress Respiratory/Chest: lungs clear Abdomen: soft Rivas Rodgers MD Dec 25, 2017 23:19
[2017-12-26 07:08] LABS: APTT 1:1 MIX SALINE 36.3 sec (Not Estab.); APTT 1:1 NORMAL PLASMA 24.5 sec (22.9-30.2)
--- NOTE | 2017-12-26 11:07 | Discharge Summary ---
Discharge Summary Discharge Summary Discharge Summary DATE OF ADMISSION: 12/22/2017 DATE OF DISCHARGE: 01/20/2018 CONSULTANTS: Dr. Vipul Rodgers BRIEF HOSPITAL COURSE: Patient is a 57-year-old female with medical history of diabetes mellitus, hyperlipidemia, GERD, hypertension presented to ED complaining of chest pain. Symptoms started 7 PM of the night of presentation to ED, she reported increased chest tightness sensation and pain radiates to the upper back and shoulder. She reported having cardiac stress testing done before however is not aware of the results. She stated she had been having increased chest discomfort constantly since being begun. She was having increased fatigue with exercise but denied any worsening of pain, she denied shortness of breath, nausea or vomiting, diarrhea or constipation. She underwent cardiac evaluation. Echocardiogram showed normal left ventricular systolic function and no wall motion abnormality. D-dimer was negative making pulmonary embolism this likely. Chest CT ruled out aortic dissection or aneurysm. She underwent myocardial perfusion scan results were nonischemic. She had thrombocytopenia and had borderline splenomegaly and fatty liver likely inflammatory cause. Anemia was treated underlying chronic disease. She was given aspirin and Lipitor. She was then discharged home. FINAL DIAGNOSES: Chest pain and ruled out for MO Hypertension hyperlipidemia Diabetes mellitus Thrombocytopenia anemia due to underlying chronic disease Hypoxemia DISPOSITION: Patient was discharged home DISCHARGE MEDICATIONS: Refer to Discharge Medication List. I have been assigned to dictate discharge summary on this account, and I was not involved in the patient's management. Anita Alfaro NP Dec 26, 2017 11:07
== END 2017-12-24 20:10 | disposition home or self-care (01) | DRG 203 ==
LOC: EMR 15:02 → 2W 15:20 → EDBEDREQ 16:58 → 2E 17:53 → EDBEDREQ 18:48
DX: R07.89 Other chest pain (principal); D69.6 Thrombocytopenia, unspecified; K76.0 Fatty (change of) liver, not elsewhere classified; I10 Essential (primary) hypertension; E11.9 Type 2 diabetes mellitus without complications; D63.8 Anemia in other chronic diseases classified elsewhere; Z79.4 Long term (current) use of insulin; E78.5 Hyperlipidemia, unspecified; K21.9 Gastro-esophageal reflux disease without esophagitis; Z88.6 Allergy status to analgesic agent; R09.02 Hypoxemia
CPT/HCPCS: 36415; 71045; 71275; 74174; 78452; 80048; 80053; 80061; 82550; 82553; 82607; 82728; 82746; 82962; 83036; 83090; 83540; 83550; 83615; 83735; 83880; 83921; 84439; 84443; 84484; 85025; 85379; 85384; 85730; 86703; 86705; 86709; 86803; 87340; 93005; 93017; 93306; 99285; J1815; J2785

== ENCOUNTER 2020-09-24 17:31 | Inpatient (IN) | payer OTHER ==
[~2020-09-24] VITALS: Ht 165.1 cm; Wt 61.2 kg
[~2020-09-24 17:31] MED LIST: ASPIRIN81 MG ORAL; BENAZEPRIL HCL10 MG ORAL; LIPITOR40 MG ORAL; METFORMIN HCL1000 M1 ORAL; NITROGLYCERIN0.4 MG SL; OMEPRAZOLE10 M1 ORAL; OXYBUTYNIN CHLOR5 M1 ORAL
--- NOTE | 2020-09-24 17:40 | NUR ---
ED Nurse Note:pt. came from home with c/o heart palpitations, no chest pain, VSS, placed on crepe sole scourer, EKG done, pt. is A/ox4 ambulatory
--- NOTE | 2020-09-24 18:14 | Emergency Room Report ---
History of Present Illness General Chief Complaint: Palpitations Source: Patient Present Illness HPI Disclaimer: Please note that this report is being documented using DRAGON technology. This can lead to erroneous entry secondary to incorrect interpretation by the dictating instrument. HPI: 59-year-old female presents for evaluation of palpitations. She states over the past 3 days she feels her heart is racing when walking. Relieved by rest. Denies chest pain during these episodes. Sometimes briefly short of breath when she feels her heart racing but usually resolves. Denies cough, fever, chills. No prior history of heart disease. She has a history of hypertension and diabetes. Non-smoker. She does note hemorrhoidal bleeding over the past few weeks. She has had problems with hemorrhoids in the past. Has not required transfusion in the past. Denies problems with thyroid or other hormonal imbalance. Currently asymptomatic. PMH: Hypertension, diabetes, hemorrhoids PSH: Reviewed Allergies: Morphine Social Hx: Non-smoker Allergies: Coded Allergies: MORPHINE (Verified Allergy, Unknown, 12/22/17) COVID-19 Screening Contact w/high risk pt: No Experienced COVID-19 symptoms?: No COVID-19 Testing performed NEUROLOGY HOSPITALIST: No Nursing Documentation-PMH Hx Hypertension: Yes - high cholesterol Hx Diabetes: Yes - DM2 Review of Systems All Other Systems: negative except mentioned in HPI Physical Exam Vital Signs Date Time Temp Pulse Resp B/P (MAP) Pulse Ox O2 Delivery O2 Flow Rate FiO2 09/24/20 17:42 98.6 92 18 140/80 (100) 98 Room Air General: Awake and alert, no acute distress HEENT: NC/AT. EOMI. Cardiovascular: RRR. S1 and S2 normal. No murmur appreciated Resp: Normal work of breathing. No cough, wheezing or crackles appreciated Abdomen: Abdomen is soft, nondistended. Nontender Skin: Intact. No abrasions, laceration or rash over the exposed skin MSK: Normal tone and bulk. Moving all extremities. No obvious deformity. Neuro: Awake and alert. Mentating appropriately. Procedures Critical Care Time Critical Care Time Total critical care time: Approximately 45 minutes Due to a high probability of clinically significant, life threatening deterio ration, the patient required the highest level of preparedness to intervene emergently and I personally spent this critical care time directly and personally managing the patient. This critical care time included obtaining a history, examining the patient, pulse oximetry, ordering and reviewing studies, ordering treatments, evaluating response to treatment and updating management p samina as needed, frequent reassessment and discussion with other providers as well as arranging for ultimate disposition. This critical to care time was performed to assess and manage the high probability of life-threatening deterioration that could result in multiorgan failure. This critical care time is separate from the separately billable procedures and treating other patients. Medical Decision Making Diagnostic Impression: Primary Impression: Anemia Additional Impressions: Palpitations Elevated TSH ER Course 59-year-old female presents for evaluation of palpitations. Differential includes not limited to ACS, arrhythmia, anemia, dehydration, thyroid dysfunction, electrolyte abnormality among others. She arrives with stable vital signs, saturating 100%, no acute distress and is chest pain-free at this time. EKG shows normal sinus rhythm without signs of ischemia. Hemoglobin returned critically low at 6.3. Will arrange for transfusion. Other labs are within normal limits aside from elevation in TSH. We will send off thyroid study panel. Will require admission. Accepted by [facility]. Dr. Cardoza physician global vp creative + content marketing this evening. Additional labs sent at the request of admitting team. Laboratory Tests Test 09/24/20 18:00 White Blood Count 5.1 K/UL (4.8-10.8) Red Blood Count 2.57 M/UL (4.20-5.40) L Hemoglobin 6.3 G/DL (12.0-16.0) *L Hematocrit 20.1 % (37.0-47.0) L Mean Corpuscular Volume 78 FL (80-99) L Mean Corpuscular Hemoglobin 24.4 PG (27.0-31.0) L Mean Corpuscular Hemoglobin Concent 31.2 G/DL (32.0-36.0) L Red Cell Distribution Width 17.8 % (11.6-14.8) H Platelet Count 248 K/UL (150-450) Mean Platelet Volume 8.3 FL (6.5-10.1) Neutrophils (%) (Auto) % (45.0-75.0) Lymphocytes (%) (Auto) % (20.0-45.0) Monocytes (%) (Auto) % (1.0-10.0) Eosinophils (%) (Auto) % (0.0-3.0) Basophils (%) (Auto) % (0.0-2.0) Neutrophils % (Manual) Pending Lymphocytes % (Manual) Pending Platelet Estimate Pending Platelet Morphology Pending Sodium Level 136 MMOL/L (136-145) Potassium Level 3.7 MMOL/L (3.5-5.1) Chloride Level 103 MMOL/L (98-107) Carbon Dioxide Level 29 MMOL/L (21-32) Anion Gap 4 mmol/L (5-15) L Blood Urea Nitrogen 18 mg/dL (7-18) Creatinine 1.2 MG/DL (0.55-1.30) Estimated Glomerular Filtration Rate 45.7 mL/min (>60) Glucose Level 169 MG/DL (74-106) H Calcium Level 8.9 MG/DL (8.5-10.1) Total Bilirubin 0.4 MG/DL (0.2-1.0) Aspartate Amino Transferase (AST) 12 U/L (15-37) L Alanine Aminotransferase (ALT) 15 U/L (12-78) Alkaline Phosphatase 63 U/L (46-116) Troponin I 0.003 ng/mL (0.000-0.056) Total Protein 6.9 G/DL (6.4-8.2) Albumin 3.2 G/DL (3.4-5.0) L Globulin 3.7 g/dL Albumin/Globulin Ratio 0.9 (1.0-2.7) L Thyroid Stimulating Hormone (TSH) 3.874 uiU/mL (0.358-3.740) Free Thyroxine Pending Free Triiodothyronine Pending EKG Diagnostic Results Troponin ordered: Yes When was troponin ordered?: Sep 24, 2020 EKG Time: 17:53 Rate: normal Rhythm: NSR ST Segments: no acute changes Other Impression Sinus rhythm, normal axis, normal intervals, QTC 457 ms Rhythm Strip Diag. Results Rhythm Strip Time: 17:53 EP Interpretation: yes Rate: 80s Rhythm: NSR, no PVC's, no ectopy Chest X-Ray Diagnostic Results Chest X-Ray Diagnostic Results : Chest X-Ray Ordered: Yes # of Views/Limited/Complete: 1 View Indication: Chest Pain EP Interpretation: Yes Interpretation: no consolidation, no effusion, no pneumothorax, no acute cardiopulmonary disease Impression: No acute disease Electronically Signed by: Electronically signed by Dr. Mark Anthony Crawley MD Last Vital Signs Date Time Temp Pulse Resp B/P (MAP) Pulse Ox O2 Delivery O2 Flow Rate FiO2 09/24/20 17:42 98.6 92 18 140/80 (100) 98 Room Air Disposition: ADMITTED INPATIENT Condition: Serious Mark Anthony Crawley MD Sep 24, 2020 18:14
[2020-09-24 18:39] LABS: HEMATOCRIT 20.1 % (37.0-47.0); MEAN CORPUSCULAR VOLUME 78 FL (80-99); PLATELET COUNT 248 K/UL (150-450); RED BLOOD COUNT 2.57 M/UL (4.20-5.40); RED CELL DISTRIBUTION WIDTH 17.8 % (11.6-14.8); WHITE BLOOD COUNT 5.1 K/UL (4.8-10.8)
[2020-09-24 18:45] LABS: HEMOGLOBIN 6.3 G/DL (12.0-16.0)
[2020-09-24 18:46] VITALS: BP 140/80
[2020-09-24 18:49] LABS: CALCIUM 8.9 MG/DL (8.5-10.1); CREATININE 1.2 MG/DL (0.55-1.30); POTASSIUM 3.7 MMOL/L (3.5-5.1)
[2020-09-24 19:01] LABS: ALBUMIN 3.2 G/DL (3.4-5.0); ALBUMIN/GLOBULIN RATIO 0.9 (1.0-2.7); BILIRUBIN,TOTAL 0.4 MG/DL (0.2-1.0)
--- NOTE | 2020-09-24 19:08 | Diagnostic Imaging Report ---
EXAM: XR Chest, 1 View CLINICAL HISTORY: CP TECHNIQUE: Frontal view of the chest. COMPARISON: Chest x-ray 12/22/2017 FINDINGS: Lungs: Mild opacities at the right greater than left lung bases. Pleural space: Unremarkable. No pneumothorax. Heart: Unremarkable. Mediastinum: Unremarkable. Bones/joints: Unremarkable. IMPRESSION: Mild opacities at the right greater than left lung bases compatible with atelectasis with a superimposed infectious/inflammatory process not excluded.
--- NOTE | 2020-09-24 19:08 | NUR ---
HAND-OFF: Report given to Randell.
--- NOTE | 2020-09-24 19:10 | NUR ---
ED Nurse Note: Report received from ELLIE RN Patient awake and alert on bed. VSS as documented
--- NOTE | 2020-09-24 20:00 | NUR ---
ED Nurse Note: 2nd pink top sent
--- NOTE | 2020-09-24 20:40 | NUR ---
ED Nurse Note: 2nd set of blood exam sent before start of blood transfusion.
[2020-09-24 20:54] LABS: % IRON SATURATION 4 % (15-50); IRON 18 ug/dL (50-175); TOTAL IRON BINDING CAPACITY 465 ug/dL (250-450)
[2020-09-24 20:56] LABS: FERRITIN 8 NG/ML (8-388)
[2020-09-24 21:40] VITALS: BP 114/65
--- NOTE | 2020-09-24 21:40 | NUR ---
ED Nurse Note: Blood transfuion: 1st unit of PRBC started at right AC g20. Blood infusing well, monitored for 15mins for BT reaction Baseline VS: 114/68, 83, 20, 98%, 98.6
[2020-09-24 21:55] VITALS: BP 116/68
--- NOTE | 2020-09-24 22:00 | NUR ---
ED Nurse Note: Report given to RADHA LEWIS
[2020-09-24] MEDS ORDERED: GLUCOPHAGE500 MG ORAL (22:17)
[2020-09-24] MEDS ORDERED: ATORVASTATIN CA40 MG ORAL (22:18)
[2020-09-24] MEDS ORDERED: LOTENSIN40 MG ORAL (22:18)
[2020-09-24 22:35] VITALS: BP 128/64
--- NOTE | 2020-09-24 22:38 | NUR ---
TRANSFER TO FLOOR: Patient [facility] to TELE at rm [facility] with bus driver/monitor accompanied by RN. Belongings checked and given to RN. Patient transferred safely to bed and endorsed to RN
--- NOTE | 2020-09-24 22:45 | NUR ---
NURSE NOTES: Patient received from Flo CARRANZA, RN. Patient is A/4 x0 patient Nepali speaking only. able to make needs known. belonging went over with patient, and ED RN. Patient has medication in hand went over the medication and will send them to pharmacy. Patient is on room air. No SOB or acute distress noted. Patient has IV on left forearm 20G running the first unit of PRBC out of 2units ordered. Patient and flushed. No bleeding or erythema noted. Patient is not feeling any pain or discomfort at this time. Patient placed on fall precautions. Bed locked and in lowest position, side rails up x2. explained to patient how to use the call light. patient verbalized understanding. call light and belongings within reach. Will call MD to get admission orders. Will continue to monitor.
--- NOTE | 2020-09-24 23:00 | NUR ---
NURSE NOTES: Left message for account resolution analyst MD in Dr. Phillips's group regarding admission orders. Awaiting call back from Dr. Cardoza.
[2020-09-24] MEDS ORDERED: FERROUS SULFAT325 MG ORAL (23:09)
--- NOTE | 2020-09-24 23:10 | NUR ---
NURSE NOTES: Spoke with Dr. Cardoza and received admission orders. Noted and carried out.
[2020-09-25] VITALS: BP 113/58
[2020-09-25] MEDS ORDERED: NovoLOG Insulin Flexpen SUBQ SCH
--- NOTE | 2020-09-25 00:48 | NUR ---
NURSE NOTES: Second unit of blood hanging. Verified with 2nd RN. Patient pre VS are BP 113/58, temp 97.9, and HR 68. Will continue to monitor patient.
--- NOTE | 2020-09-25 01:02 | NUR ---
NURSE NOTES: 15 mins after start second unit blood hung VS temp 98.2 hr 65 bp 122/70
--- NOTE | 2020-09-25 04:43 | NUR ---
NURSE NOTES: Patient second unit of blood transfusion is complted final VS are Temp 98.2, HR 65, BP 122/70
[2020-09-25] MEDS: NovoLOG Insulin Flexpen SUBQ SCH ×4 (06:00→22:21)
--- NOTE | 2020-09-25 07:45 | NUR ---
NURSE HAND-OFF REPORT: Important Events on Shift:Pt received 2 units PRBC Patient Status: No acute distress Diet: NPO Pending Orders: Pending Results/Labs: Pending MD notification: Latest Vital Signs: Temperature 97.9 , Pulse 70 , B/P 113 /58 , Respiratory Rate 19 , O2 SAT 98 , Room Air, O2 Flow Rate . Vital Sign Comment: EKG Rhythm: Sinus Rhythm Rhythm change?: N MD Notified?: - MD Response: Latest Christensen Fall Score: 45 Fall Risk: High Risk Safety Measures: Call light Within Reach, Bed Alarm Zone 1, Side Rails Side Rails x2, Bed position Low and Locked. Fall Precautions: Yellow Socks Yellow Gown Door Sign Patient Fall Education Report given to ILIR LEWIS .
--- NOTE | 2020-09-25 07:45 | NUR ---
NURSE NOTES: REceived patient A/A/Ox4. ambulates with steady gait. PIV patent and intact. no acute resp distress noted. NPO. awaiting for gi consult. kept bed in the lowest position. sidrails are upx2. call light is within reach. will cont to monitor.
[2020-09-25 08:00] VITALS: BP 109/59
--- NOTE | 2020-09-25 08:37 | History and Physical ---
History of Present Illness General Date patient seen: Sep 25, 2020 Reason for Hospitalization: Palpitations Present Illness Allergies: Coded Allergies: MORPHINE (Verified Allergy, Unknown, 12/22/17) COVID-19 Screening Contact w/high risk pt: Yes Experienced COVID-19 symptoms?: No Medication History Scheduled Aspirin* (Aspirin*), 81 MG ORAL DAILY, (Reported) Atorvastatin Calcium* (Lipitor*), 40 MG ORAL DAILY, (Reported) Atorvastatin Calcium* (Atorvastatin Calcium*), 80 MG ORAL BEDTIME, (Reported) Benazepril Hcl* (Benazepril Hcl*), 10 MG ORAL DAILY, (Reported) Benazepril Hcl* (Lotensin*), 40 MG ORAL DAILY, (Reported) Ferrous Sulfate* (Ferrous Sulfate*), 325 MG ORAL DAILY, (Reported) Metformin Hcl* (Metformin Hcl*), 1,000 MG ORAL BID, (Reported) Metformin Hcl* (Glucophage*), 1,000 MG ORAL DAILY, (Reported) Nitroglycerin (Nitroglycerin), 0.4 MG SL PRN, (Reported) Omeprazole (Omeprazole), 10 MG ORAL DAILY, (Reported) Oxybutynin Chloride (Oxybutynin Chloride), 5 MG ORAL BID, (Reported) Patient History Healthcare decision maker Resuscitation status Advanced Directive on File Patient History 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 She states over the past 3 days she feels her heart is racing when walking. She also feels a pressure which radiates to left shoulder, relieved by rest. It is mild 2/10. Also with some dyspnea on exertion. Not at rest, no orthopnea or LE swelling. No history of CAD or other heart history. No history of smoking or family history of CAD. Denies cough, fever, chills. No prior history of heart disease. She has a history of hypertension and diabetes. Non-smoker. She also notes hemorrhoidal bleeding over the past few weeks. She has had problems with hemorrhoids in the past. Has not required transfusion in the past. Denies problems with thyroid or other hormonal imbalance. THe patient also mentions that her has been hospitalized for the past week with COVID-19. She is not experiencing any symptoms at this time. In the ER the patient was found to have a hemoglobin of 6.3. She was given 2 units of PRBC and improved to 9.5. CXR showing airspace disease. PMH: Hypertension, diabetes, hemorrhoids PSurgHx: Oopherectomy for cysts Allergies: Morphine Meds: Reviewed Social Hx: Denies h/o smoking, drinking or drug use Family hx: no history of CAD. Family History Family History: Patient reports no known family medical history. Review of Systems ROS Narrative Review of systems: Constitutional: Denies: chills, diaphoresis, fever, malaise, weakness, HEENT: Denies: eye pain, blurred vision, double vision, ear pain, nose pain, throat pain, Cardiovascular: See HPI Respiratory: Denies: cough, orthopnea, shortness of breath, SOB with excertion, SOB at rest, Gastrointestinal/Abdominal: Denies: abdominal pain, black stools, blood in stool, constipation, diarrhea, nausea, poor fluid intake vomiting, other Genitourinary: Denies: burning, discharge, frequency, Neurologic/Psychiatric: Denies: headache, numbness, paresthesia, new weakness, other Endocrine: Denies: excessive sweating, flushing, intolerance to cold, MSK: denies joint pains, swelling, stiffness Hematologic/Lymphatic: Denies: anemia, easy bleeding, easy bruising, Psych: no anxiety, depression, SI or HI Physical Exam Physical Exam Narrative General: WDWN female in NAD, A&O x 4 HEENT: Normocephalic cephalic atraumatic, pupils equal round reactive to light and accommodation, nares patent and no symmetrical, no tonsillar exudates, mucous membranes moist CV: Regular rate regular rhythm, no murmurs, rubs, or gallops Pulm: Lungs clear to auscultation bilaterally. No wheezes, rhonchi, or rales GI: Soft, nontender, nondistended, bowel sounds present Neuro: CN 2-12 intact bilaterally, no focal signs. Ext: No lower extremity edema bilaterally Skin: no rashes lesions or ulcers Msk: Joints symmetrical in upper extremity and lower extremity bilaterally, no joint swelling. Lymph: No lymphadenopathy in upper extremity and lower extremity Last 24 Hour Vital Signs Date Time Temp Pulse Resp B/P (MAP) Pulse Ox O2 Delivery O2 Flow Rate FiO2 09/25/20 05:39 70 09/25/20 00:00 97.9 68 19 113/58 (76) 98 09/25/20 00:00 75 09/24/20 22:59 Room Air 09/24/20 22:39 98.6 80 20 116/68 99 Room Air 09/24/20 22:35 98.7 72 19 128/64 (85) 98 09/24/20 22:35 75 09/24/20 21:55 98.6 80 20 116/68 99 Room Air 09/24/20 21:40 98.6 80 20 114/65 98 Room Air 09/24/20 21:40 98.6 83 20 09/24/20 18:46 98.6 78 18 140/80 98 Room Air 09/24/20 17:42 98.6 92 18 140/80 (100) 98 Room Air Intake and Output 09/24/20 09/25/20 19:00 07:00 Intake Total 120 ml Balance 120 ml Intake Oral 120 ml Laboratory Tests Test 09/24/20 18:00 09/25/20 05:48 White Blood Count 5.1 K/UL (4.8-10.8) Red Blood Count 2.57 M/UL (4.20-5.40) L Hemoglobin 6.3 G/DL (12.0-16.0) *L Hematocrit 20.1 % (37.0-47.0) L Mean Corpuscular Volume 78 FL (80-99) L Mean Corpuscular Hemoglobin 24.4 PG (27.0-31.0) L Mean Corpuscular Hemoglobin Concent 31.2 G/DL (32.0-36.0) L Red Cell Distribution Width 17.8 % (11.6-14.8) H Platelet Count 248 K/UL (150-450) Mean Platelet Volume 8.3 FL (6.5-10.1) Neutrophils (%) (Auto) % (45.0-75.0) Lymphocytes (%) (Auto) % (20.0-45.0) Monocytes (%) (Auto) % (1.0-10.0) Eosinophils (%) (Auto) % (0.0-3.0) Basophils (%) (Auto) % (0.0-2.0) Differential Total Cells Counted 100 Neutrophils % (Manual) 52 % (45-75) Lymphocytes % (Manual) 35 % (20-45) Monocytes % (Manual) 11 % (1-10) H Eosinophils % (Manual) 2 % (0-3) Basophils % (Manual) 0 % (0-2) Band Neutrophils 0 % (0-8) Platelet Estimate Adequate Platelet Morphology Normal Hypochromasia 3+ Anisocytosis 2+ Microcytosis 2+ Reticulocyte Count 2.2 % (0.5-2.0) H Haptoglobin Pending Prothrombin Time 11.0 SEC (9.30-11.50) Prothromb Time International Ratio 1.0 (0.9-1.1) Activated Partial Thromboplast Time 19 SEC (23-33) L Sodium Level 136 MMOL/L (136-145) Potassium Level 3.7 MMOL/L (3.5-5.1) Chloride Level 103 MMOL/L (98-107) Carbon Dioxide Level 29 MMOL/L (21-32) Anion Gap 4 mmol/L (5-15) L Blood Urea Nitrogen 18 mg/dL (7-18) Creatinine 1.2 MG/DL (0.55-1.30) Estimat Glomerular Filtration Rate 45.7 mL/min (>60) Glucose Level 169 MG/DL (74-106) H Calcium Level 8.9 MG/DL (8.5-10.1) Iron Level 18 ug/dL (50-175) L Total Iron Binding Capacity 465 ug/dL (250-450) H Percent Iron Saturation 4 % (15-50) L Unsaturated Iron Binding 447 ug/dL (112-346) H Ferritin 8 NG/ML (8-388) Total Bilirubin 0.4 MG/DL (0.2-1.0) Aspartate Amino Transf (AST/SGOT) 12 U/L (15-37) L Alanine Aminotransferase (ALT/SGPT) 15 U/L (12-78) Alkaline Phosphatase 63 U/L (46-116) Lactate Dehydrogenase 329 U/L (135-225) H Troponin I 0.003 ng/mL (0.000-0.056) Total Protein 6.9 G/DL (6.4-8.2) Albumin 3.2 G/DL (3.4-5.0) L Globulin 3.7 g/dL Albumin/Globulin Ratio 0.9 (1.0-2.7) L Vitamin B12 Level 589 PG/ML (193-986) Folate 19.2 NG/ML (8.6-58.9) Thyroid Stimulating Hormone (TSH) 3.874 uiU/mL (0.358-3.740) Free Thyroxine 0.89 NG/DL (0.76-1.46) Triiodothyonine (T3) Pending Free Triiodothyronine 2.2 pg/mL (2.3-4.2) L POC Whole Blood Glucose 108 MG/DL (74-106) H Height (Feet): 5 Height (Inches): 2.00 Weight (Pounds): 135 Medications Current Medications Medications (Trade) Dose Ordered Sig/Luz Maria Route PRN Reason Start Time Stop Time Status Last Admin Dose Admin Acetaminophen (Tylenol) 650 mg Q6H PRN ORAL For Headache 09/24/20 23:45 10/24/20 23:44 Acetaminophen (Tylenol) 650 mg Q6H PRN ORAL For Pain 09/24/20 23:45 10/24/20 23:44 Acetaminophen (Tylenol) 650 mg Q6H PRN ORAL fever 09/24/20 23:45 10/24/20 23:44 Dextrose (Dextrose 50%) 25 ml Q30M PRN IV Hypoglycemia 09/24/20 23:45 12/23/20 23:44 Dextrose (Dextrose 50%) 50 ml Q30M PRN IV Hypoglycemia 09/24/20 23:45 12/23/20 23:44 Insulin Aspart (NovoLOG) Q6HR SUBQ 09/25/20 06:00 12/24/20 00:00 Assessment/Plan Assessment/Plan: #Acute blood loss anemia secondary to Hematochezia > not currently bleeding #Hematochezia secondary to hemorrhoids -Admit to tele -Transfuse for Hgb <7 -Trend CBC -Stool OB -Appreciate GI consult: Dr. Marie/Alfie -Appreciate Surgery consult: Dr. Lee #Contact with COVID + -Send COVID PCR. Not done in ER -CXR reviewed. No clinical signs of pneumonia at this time -ID and pulm consult if worsens #Chest pain rule out ACS #Palpitations suspect secondary to anemia - Trend troponins -TTE ordered -Monitor on tele -Cardiology consulted: Dr. Filsoof #Diabetes mellitus type 2 -Hold metformin -SSI -Accuchecks -Hypoglycemia protocol #Essential hypertension -Continue home benazepril 10mg daily -Hydralazine PRN #GERD -Continue home PPI FENPPX DVTPPX: SCDs. Holding HSQ due to bleed GI PPX: none Fluids: none Diet: Diabetic Lines: PIV PT/OT: pending Code status: Full Dispo: home Reason for Continued Hospitalization: Acute bleed, chest pain MIPS ([employer]-based Incentive Payment System) Applicable CPT: 26405, 55481 CHECK ALL THAT ARE MET: [] Measure #5 (CHF): All ages. Prescribe MIKE/ARB upon discharge for patients with left ventricular systolic dysfunction. If not, the reason is clearly documented in the medical chart [] Measure #8 (CHF): All ages. Prescribe a beta taylor upon discharge for patients with left ventricular systolic dysfunction. If not, the reason is clearly documented in the medical chart. [] Measure #47: Advance care plan or surrogate decision maker documented in the medical record. [x] Measure #130 The provider has documented, updated, or reviewed the patients current medication list and has documented it in the patients note. [x] Measure #374 (All): Send report to referring provider. [] Measure #407(Sepsis due to MSSA bacteremia): Age 18+ Patient treated with a beta-lactam antibiotic (Nafcillin, Oxacillin or Cefazolin) as definitive therapy. MEDICAL COMPLEXITYHigh complexity medical decision making (need 2/3 categories)Problem - need 4 points [x]Acute/new problem with new plan for workup (4 points, 1 max) [] Acute/new problem without additional workup (3 points, 1 max) [x] Unstable chronic problem actively being managed (2 point each, 2 max) [x] Stable chronic problem actively being managed (1 point each, 2 max) [] Self-limited/transient process (constipation, muscle ache, etc) (1 point each, 2 max) Data - need 4 points [x] Reviewed labs/imaging studies (1 points, 2 max) [x] Independent review of imaging (EKG, xrays, etc) (2 points, 2 max) [x] Discussed case with consult/other MD/RN (2 points, 2 max) High Risk - qualify if have one of the following: [x] Severe exacerbation of acute problem, acute mental status change, IV n arcotics, monitoring drug levels (vancomycin, INR, tacrolimus etc) I spent 73 minutes on this patient's case, and 40 mins was dedicated to counseling and/or care coordination. Discussed with GI, surgery, RN Time of note may not reflect time of encounter Jonel Stone D.O. Sep 25, 2020 08:37
[2020-09-25 10:27] LABS: EOSINOPHILS % (AUTO) 2.6 % (0.0-3.0); HEMATOCRIT 29.1 % (37.0-47.0); HEMOGLOBIN 9.5 G/DL (12.0-16.0); LYMPHOCYTES % (AUTO) 46.1 % (20.0-45.0); MEAN CORPUSCULAR VOLUME 81 FL (80-99); NEUTROPHILS % (AUTO) 39.3 % (45.0-75.0); PLATELET COUNT 257 K/UL (150-450); RED BLOOD COUNT 3.59 M/UL (4.20-5.40); RED CELL DISTRIBUTION WIDTH 17.9 % (11.6-14.8); WHITE BLOOD COUNT 5.8 K/UL (4.8-10.8)
[2020-09-25 10:56] LABS: ANION GAP 8 mmol/L (5-15); BLOOD UREA NITROGEN 13 mg/dL (7-18); CALCIUM 9.1 MG/DL (8.5-10.1); CARBON DIOXIDE 27 MMOL/L (21-32); CHLORIDE 104 MMOL/L (98-107); CREATININE 0.7 MG/DL (0.55-1.30); POTASSIUM 3.8 MMOL/L (3.5-5.1); SODIUM 139 MMOL/L (136-145)
--- NOTE | 2020-09-25 11:29 | NUR ---
NURSE NOTES: called and informed dr veliz re; current diet order NPO. no n/v noted. awaiting for a callback. will cont to monitor.
[2020-09-25 12:00] VITALS: BP 128/66
--- NOTE | 2020-09-25 13:33 | Consultation ---
History of Present Illness General Date patient seen: Sep 25, 2020 Reason for Hospitalization: Palpitations Present Illness HPI HPI: 59-year-old female presents for evaluation of palpitations. She states over the past 3 days she feels her heart is racing when walking. Relieved by re st. Denies chest pain during these episodes. Sometimes briefly short of breath when she feels her heart racing but usually resolves. Denies cough, fever, chills. No prior history of heart disease. She has a history of hypertension and diabetes. Non-smoker. She does note hemorrhoidal bleeding over the past few weeks. She has had problems with hemorrhoids in the past. Has not required transfusion in the past. Denies problems with thyroid or other hormonal imbalance. Currently asymptomatic. surgery called to evaluate for bleeding hemorrhoids. currently states not bleeding anymore. feels okay. recent covid + PMH: Hypertension, diabetes, hemorrhoids PSH: Reviewed Allergies: Morphine Social Hx: Non-smoker Allergies: Coded Allergies: MORPHINE (Verified Allergy, Unknown, 12/22/17) COVID-19 Screening Contact w/high risk pt: No Experienced COVID-19 symptoms?: No Medication History Scheduled Aspirin* (Aspirin*), 81 MG ORAL DAILY, (Reported) Atorvastatin Calcium* (Lipitor*), 40 MG ORAL DAILY, (Reported) Atorvastatin Calcium* (Atorvastatin Calcium*), 80 MG ORAL BEDTIME, (Reported) Benazepril Hcl* (Benazepril Hcl*), 10 MG ORAL DAILY, (Reported) Benazepril Hcl* (Lotensin*), 40 MG ORAL DAILY, (Reported) Ferrous Sulfate* (Ferrous Sulfate*), 325 MG ORAL DAILY, (Reported) Metformin Hcl* (Metformin Hcl*), 1,000 MG ORAL BID, (Reported) Metformin Hcl* (Glucophage*), 1,000 MG ORAL DAILY, (Reported) Nitroglycerin (Nitroglycerin), 0.4 MG SL PRN, (Reported) Omeprazole (Omeprazole), 10 MG ORAL DAILY, (Reported) Oxybutynin Chloride (Oxybutynin Chloride), 5 MG ORAL BID, (Reported) Patient History History Provided By: Patient, Medical Record, PMD Healthcare decision maker Resuscitation status Advanced Directive on File Past Medical/Surgical History Past Medical/Surgical History: (1) GERD (gastroesophageal reflux disease) (2) HTN (hypertension) (3) HLD (hyperlipidemia) (4) DM2 (diabetes mellitus, type 2) (5) Palpitations (6) Elevated TSH (7) Anemia Family History Family History: Patient reports no known family medical history. Review of Systems Review of Symptoms General ROS: no weight loss or fever Psychological ROS: no depression or mood changes, no memory loss Ophthalmic ROS: no visual changes or eye irritation ENT ROS: no nasal congestion, hearing loss, dizziness Allergy and Immunology ROS: no allergic symptoms or urticaria Hematological and Lymphatic ROS: no swollen glands, unusual bleeding or bruising Endocrine ROS: no polyuria, polydipsia, weight changes, temperature intolerance Respiratory ROS: no cough, shortness of breath, or wheezing Cardiovascular ROS: no chest pain or dyspnea on exertion Gastrointestinal ROS: denies abdominal pain, bright red blood in stool. Musculoskeletal ROS: no myalgias or arthralgias Neurological ROS: no TIA or stroke symptoms Dermatological ROS: no new or changing skin lesions, rashes or pruritis Physical Exam Physical Exam General appearance: alert, cooperative, no distress, appears stated age Head: Normocephalic, without obvious abnormality, atraumatic Eyes: conjunctivae/corneas clear. PERRL, EOM's intact. Fundi benign Throat: Lips, mucosa, and tongue normal. Teeth and gums normal Neck: supple, symmetrical, trachea midline, no adenopathy, thyroid: not enlarged, symmetric, no tenderness/mass/nodules, no carotid bruit and no JVD Lungs: clear to auscultation bilaterally Heart: regular rate and rhythm, S1, S2 normal, no murmur, click, rub or gallop Abdomen: soft, non-tender. Bowel sounds normal. No masses, no organomegaly Extremities: extremities normal, atraumatic, no cyanosis or edema Pulses: 2+ and symmetric Skin: Skin color, texture, turgor normal. No rashes or lesions Neurologic: Grossly normal Last 24 Hour Vital Signs Date Time Temp Pulse Resp B/P (MAP) Pulse Ox O2 Delivery O2 Flow Rate FiO2 09/25/20 12:00 70 09/25/20 12:00 98.2 72 18 128/66 (86) 100 09/25/20 09:00 Room Air 09/25/20 08:00 98.3 72 18 109/59 (76) 100 09/25/20 08:00 65 09/25/20 05:39 70 09/25/20 00:00 97.9 68 19 113/58 (76) 98 09/25/20 00:00 75 09/24/20 22:59 Room Air 09/24/20 22:39 98.6 80 20 116/68 99 Room Air 09/24/20 22:35 98.7 72 19 128/64 (85) 98 09/24/20 22:35 75 09/24/20 21:55 98.6 80 20 116/68 99 Room Air 09/24/20 21:40 98.6 80 20 114/65 98 Room Air 09/24/20 21:40 98.6 83 20 09/24/20 18:46 98.6 78 18 140/80 98 Room Air 09/24/20 17:42 98.6 92 18 140/80 (100) 98 Room Air Intake and Output 09/24/20 09/25/20 18:59 06:59 Intake Total 120 ml Balance 120 ml Intake Oral 120 ml Laboratory Tests Test 09/24/20 18:00 09/25/20 05:48 09/25/20 10:05 White Blood Count 5.1 K/UL (4.8-10.8) 5.8 K/UL (4.8-10.8) Red Blood Count 2.57 M/UL (4.20-5.40) L 3.59 M/UL (4.20-5.40) L Hemoglobin 6.3 G/DL (12.0-16.0) *L 9.5 G/DL (12.0-16.0) #L Hematocrit 20.1 % (37.0-47.0) L 29.1 % (37.0-47.0) #L Mean Corpuscular Volume 78 FL (80-99) L 81 FL (80-99) Mean Corpuscular Hemoglobin 24.4 PG (27.0-31.0) L 26.4 PG (27.0-31.0) L Mean Corpuscular Hemoglobin Concent 31.2 G/DL (32.0-36.0) L 32.5 G/DL (32.0-36.0) Red Cell Distribution Width 17.8 % (11.6-14.8) H 17.9 % (11.6-14.8) H Platelet Count 248 K/UL (150-450) 257 K/UL (150-450) Mean Platelet Volume 8.3 FL (6.5-10.1) 8.9 FL (6.5-10.1) Neutrophils (%) (Auto) % (45.0-75.0) 39.3 % (45.0-75.0) L Lymphocytes (%) (Auto) % (20.0-45.0) 46.1 % (20.0-45.0) H Monocytes (%) (Auto) % (1.0-10.0) 10.0 % (1.0-10.0) Eosinophils (%) (Auto) % (0.0-3.0) 2.6 % (0.0-3.0) Basophils (%) (Auto) % (0.0-2.0) 2.0 % (0.0-2.0) Differential Total Cells Counted 100 Neutrophils % (Manual) 52 % (45-75) Lymphocytes % (Manual) 35 % (20-45) Monocytes % (Manual) 11 % (1-10) H Eosinophils % (Manual) 2 % (0-3) Basophils % (Manual) 0 % (0-2) Band Neutrophils 0 % (0-8) Platelet Estimate Adequate Platelet Morphology Normal Hypochromasia 3+ Anisocytosis 2+ Microcytosis 2+ Reticulocyte Count 2.2 % (0.5-2.0) H Haptoglobin Pending Prothrombin Time 11.0 SEC (9.30-11.50) Prothromb Time International Ratio 1.0 (0.9-1.1) Activated Partial Thromboplast Time 19 SEC (23-33) L Sodium Level 136 MMOL/L (136-145) 139 MMOL/L (136-145) Potassium Level 3.7 MMOL/L (3.5-5.1) 3.8 MMOL/L (3.5-5.1) Chloride Level 103 MMOL/L (98-107) 104 MMOL/L (98-107) Carbon Dioxide Level 29 MMOL/L (21-32) 27 MMOL/L (21-32) Anion Gap 4 mmol/L (5-15) L 8 mmol/L (5-15) Blood Urea Nitrogen 18 mg/dL (7-18) 13 mg/dL (7-18) Creatinine 1.2 MG/DL (0.55-1.30) 0.7 MG/DL (0.55-1.30) Estimat Glomerular Filtration Rate 45.7 mL/min (>60) > 60 mL/min (>60) Glucose Level 169 MG/DL (74-106) H 120 MG/DL (74-106) H Calcium Level 8.9 MG/DL (8.5-10.1) 9.1 MG/DL (8.5-10.1) Iron Level 18 ug/dL (50-175) L Total Iron Binding Capacity 465 ug/dL (250-450) H Percent Iron Saturation 4 % (15-50) L Unsaturated Iron Binding 447 ug/dL (112-346) H Ferritin 8 NG/ML (8-388) Total Bilirubin 0.4 MG/DL (0.2-1.0) Aspartate Amino Transf (AST/SGOT) 12 U/L (15-37) L Alanine Aminotransferase (ALT/SGPT) 15 U/L (12-78) Alkaline Phosphatase 63 U/L (46-116) Lactate Dehydrogenase 329 U/L (135-225) H Troponin I 0.003 ng/mL (0.000-0.056) Total Protein 6.9 G/DL (6.4-8.2) Albumin 3.2 G/DL (3.4-5.0) L Globulin 3.7 g/dL Albumin/Globulin Ratio 0.9 (1.0-2.7) L Vitamin B12 Level 589 PG/ML (193-986) Folate 19.2 NG/ML (8.6-58.9) Thyroid Stimulating Hormone (TSH) 3.874 uiU/mL (0.358-3.740) Free Thyroxine 0.89 NG/DL (0.76-1.46) Triiodothyonine (T3) Pending Free Triiodothyronine 2.2 pg/mL (2.3-4.2) L POC Whole Blood Glucose 108 MG/DL (74-106) H Phosphorus Level 5.0 MG/DL (2.5-4.9) H Magnesium Level 2.1 MG/DL (1.8-2.4) Height (Feet): 5 Height (Inches): 2.00 Weight (Pounds): 135 Medications Current Medications Medications (Trade) Dose Ordered Sig/Luz Maria Route PRN Reason Start Time Stop Time Status Last Admin Dose Admin Acetaminophen (Tylenol) 650 mg Q6H PRN ORAL For Headache 09/24/20 23:45 10/24/20 23:44 Acetaminophen (Tylenol) 650 mg Q6H PRN ORAL For Pain 09/24/20 23:45 10/24/20 23:44 Acetaminophen (Tylenol) 650 mg Q6H PRN ORAL fever 09/24/20 23:45 10/24/20 23:44 Atorvastatin Calcium (Lipitor) 40 mg DAILY ORAL 09/26/20 09:00 12/25/20 08:59 Benazepril HCl (Lotensin) 10 mg DAILY ORAL 09/26/20 09:00 10/26/20 08:59 Dextrose (Dextrose 50%) 25 ml Q30M PRN IV Hypoglycemia 09/24/20 23:45 12/23/20 23:44 Dextrose (Dextrose 50%) 50 ml Q30M PRN IV Hypoglycemia 09/24/20 23:45 12/23/20 23:44 Ferrous Sulfate (Feosol) 325 mg DAILY ORAL 09/26/20 09:00 12/25/20 08:59 Hydralazine HCl (Apresoline) 10 mg Q4H PRN IV SBP >160 09/25/20 12:30 12/24/20 12:29 Insulin Aspart (NovoLOG) Q6HR SUBQ 09/25/20 06:00 12/24/20 00:00 Oxybutynin Chloride (Ditropan) 5 mg BID ORAL 09/25/20 18:00 10/25/20 17:59 Assessment/Plan Problem List: (1) Bleeding hemorrhoids Assessment & Plan: 59F presented with severe anemia noted to have hemorrhoidal bleeding afebrile, HD stable no active bleeding on exam no bleeding noted states feels better transfused prbc improved no n/v okay for diet monitor for bleeding outpatient eval for hemorrhoidal sx intervention thank you ICD Codes: K64.9 - Unspecified hemorrhoids SNOMED: 30885612 (2) Palpitations ICD Codes: R00.2 - Palpitations SNOMED: 43738805 (3) Elevated TSH ICD Codes: R79.89 - Other specified abnormal findings of blood chemistry SNOMED: 585299513 (4) Anemia ICD Codes: D64.9 - Anemia, unspecified SNOMED: 773664483 (5) GERD (gastroesophageal reflux disease) ICD Codes: K21.9 - Gastro-esophageal reflux disease without esophagitis SNOMED: 214073274 (6) HTN (hypertension) ICD Codes: I10 - Essential (primary) hypertension SNOMED: 73496088 (7) HLD (hyperlipidemia) ICD Codes: E78.5 - Hyperlipidemia, unspecified SNOMED: 24831923 (8) DM2 (diabetes mellitus, type 2) ICD Codes: E11.9 - Type 2 diabetes mellitus without complications SNOMED: 57520737 Corbin Lee Sep 25, 2020 13:33
--- NOTE | 2020-09-25 14:51 | NUR ---
NURSE NOTES: sent rapid covid swab to lab. will cont to monitor. Addendum: 09/25/20 at 1513 by CHATO OLIVER LVN rapid covid swab came positive.
--- NOTE | 2020-09-25 15:15 | NUR ---
NURSE NOTES: Dr noble made aware of the blood in stool. no acute distress noted. will cont to monitor.
--- NOTE | 2020-09-25 15:28 | General Progress Note ---
Subjective Allergies: Coded Allergies: MORPHINE (Verified Allergy, Unknown, 12/22/17) Objective Last 24 Hour Vital Signs Date Time Temp Pulse Resp B/P (MAP) Pulse Ox O2 Delivery O2 Flow Rate FiO2 09/25/20 12:00 70 09/25/20 12:00 98.2 72 18 128/66 (86) 100 09/25/20 09:00 Room Air 09/25/20 08:00 98.3 72 18 109/59 (76) 100 09/25/20 08:00 65 09/25/20 05:39 70 09/25/20 00:00 97.9 68 19 113/58 (76) 98 09/25/20 00:00 75 09/24/20 22:59 Room Air 09/24/20 22:39 98.6 80 20 116/68 99 Room Air 09/24/20 22:35 98.7 72 19 128/64 (85) 98 09/24/20 22:35 75 09/24/20 21:55 98.6 80 20 116/68 99 Room Air 09/24/20 21:40 98.6 80 20 114/65 98 Room Air 09/24/20 21:40 98.6 83 20 09/24/20 18:46 98.6 78 18 140/80 98 Room Air 09/24/20 17:42 98.6 92 18 140/80 (100) 98 Room Air Intake and Output 09/24/20 09/25/20 19:00 07:00 Intake Total 120 ml Balance 120 ml Intake Oral 120 ml Laboratory Tests 09/24/20 18:00: White Blood Count 5.1, Red Blood Count 2.57L, Hemoglobin 6.3*L, Hematocrit 20.1L , Mean Corpuscular Volume 78L, Mean Corpuscular Hemoglobin 24.4L, Mean Corpuscular Hemoglobin Concent 31.2L, Red Cell Distribution Width 17.8H, Platelet Count 248, Mean Platelet Volume 8.3, Neutrophils (%) (Auto) , Lymphocytes (%) (Auto) , Monocytes (%) (Auto) , Eosinophils (%) (Auto) , Basophils (%) (Auto) , Differential Total Cells Counted 100, Neutrophils % (Manual) 52, Lymphocytes % (Manual) 35, Monocytes % (Manual) 11H, Eosinophils % (Manual) 2, Basophils % (Manual) 0, Band Neutrophils 0, Platelet Estimate Adequate, Platelet Morphology Normal, Hypochromasia 3+, Anisocytosis 2+, Microcytosis 2+, Reticulocyte Count 2.2H, Haptoglobin [Pending], Prothrombin Time 11.0, Prothromb Time International Ratio 1.0, Activated Partial Thromboplast Time 19L, Sodium Level 136, Potassium Level 3.7, Chloride Level 103, Carbon Dioxide Level 29, Anion Gap 4L, Blood Urea Nitrogen 18, Creatinine 1.2, Estimat Glomerular Filtration Rate 45.7, Glucose Level 169H, Calcium Level 8.9, Iron Level 18L, Total Iron Binding Capacity 465H, Percent Iron Saturation 4L, Unsaturated Iron Binding 447H, Ferritin 8, Total Bilirubin 0.4, Aspartate Am vaughn Transf (AST/SGOT) 12L, Alanine Aminotransferase (ALT/SGPT) 15, Alkaline Phosphatase 63, Lactate Dehydrogenase 329H, Troponin I 0.003, Total Protein 6.9, Albumin 3.2L, Globulin 3.7, Albumin/Globulin Ratio 0.9L, Vitamin B12 Level 589, Folate 19.2, Thyroid Stimulating Hormone (TSH) 3.874H, Free Thyroxine 0.89, Triiodothyonine (T3) [Pending], Free Triiodothyronine 2.2L 09/25/20 05:48: POC Whole Blood Glucose 108H 09/25/20 10:05: White Blood Count 5.8, Red Blood Count 3.59L, Hemoglobin 9.5#L, Hematocrit 29.1#L, Mean Corpuscular Volume 81, Mean Corpuscular Hemoglobin 26.4L, Mean Corpuscular Hemoglobin Concent 32.5, Red Cell Distribution Width 17.9H, Platelet Count 257, Mean Platelet Volume 8.9, Neutrophils (%) (Auto) 39.3L, Lymphocytes (%) (Auto) 46.1H, Monocytes (%) (Auto) 10.0, Eosinophils (%) (Auto) 2.6, Basophils (%) (Auto) 2.0, Sodium Level 139, Potassium Level 3.8, Chloride Level 104, Carbon Dioxide Level 27, Anion Gap 8, Blood Urea Nitrogen 13, Creatinine 0.7, Estimat Glomerular Filtration Rate > 60, Glucose Level 120H, Calcium Level 9.1, Phosphorus Level 5.0H, Magnesium Level 2.1 09/25/20 13:25: Troponin I 0.000 Height (Feet): 5 Height (Inches): 2.00 Weight (Pounds): 135 Assessment/Plan Assessment/Plan: Assessment - rectal bleeding - microcytic, symptomatic anemia Recommendations - clear liquids - d/c po FeSO4 - PPI - IV Fe - will need EGD/Colon - timing to be determined Thank you MD Alfie Fox Payman MD Sep 25, 2020 15:28
[2020-09-25] MEDS ORDERED: Sorbitol Solution UD 30ml ORAL SCH (15:30)
[2020-09-25 16:00] VITALS: BP 148/76
[2020-09-25] MEDS: Oxybutynin 5mg tab ORAL SCH (17:09)
--- NOTE | 2020-09-25 18:01 | General Progress Note ---
Advance Care Planning Advance Care Planning Advance Care Planning [facility] An independent Hospitalist group, where every patient is our [facility] Internal Medicine Hospitalist Advanced Care Planning Note Please contact us at Date of Discussion: A [id number] discussion with the patient regarding the patient's advanced care planning took place during this hospitalization on the above date. The discussion included the explanation and discussion of advance directives and associated forms/documents, as well as the patient's current code status. We also discussed at length the patient's medical conditions (both acute and chroni c), general prognosis, treatment options, and goals of care. The following summarizes the discussion: Advance Care Planning/Goals of Care: - Will attempt to fill out an AD and/or POLST with the patient prior to discharge, if not already completed - Continue current evaluation and management of any acute and chronic medical issues - Will continue to support the patient/family - Will continue to discuss both short- and long-term goals of care DPOA-HC/Surrogate Decision Maker: None currently appointed Code Status: Full Code but no prolonged intubation Advanced Care Planning Forms/Documents Completed: Deferred until later encounter/visit A total of 16 minutes was spent on this discussion, including counseling, answering questions, and completing, if any, pertinent advanced care planning forms/documents. Time of note may not reflect time of encounter. Jonel Stone D.O. Sep 25, 2020 18:00
--- NOTE | 2020-09-25 19:10 | NUR ---
NURSE NOTES: Received report from CARY Trammell. Patient is A/O x4 and vebally responsive in Trinidadian with simple Italian. Patient is on room air. No SOB or acute distress noted. Pt has IV on LFA 20G which is saline locked. No pain at this time. Bed locked and in lowest position, side rails up x2. Pt's call light placed within reach and along with belongings. Will continue to plan of care.
--- NOTE | 2020-09-25 19:11 | NUR ---
NURSE HAND-OFF REPORT: Important Events on Shift:[rapid covid positive; monitor for rectal bleeding; ambulates with steady gait] Patient Status: [stable] Diet: [clear] Pending Orders: [labs] Pending Results/Labs:[in am] Pending MD notification:[] Latest Vital Signs: Temperature 98.5 , Pulse 69 , B/P 148 /76 , Respiratory Rate 18 , O2 SAT 99 , Room Air, O2 Flow Rate . Vital Sign Comment: [] EKG Rhythm: Sinus Rhythm Rhythm change?: N MD Notified?: - MD Response: Latest Christensen Fall Score: 45 Fall Risk: High Risk Safety Measures: Call light Within Reach, Bed Alarm Zone 1, Side Rails Side Rails x2, Bed position Low and Locked. Fall Precautions: Yellow Socks Yellow Gown Door Sign Patient Fall Education Report given to [bjorn].
[2020-09-25] MEDS: Iron Sucrose 100 MG in NS 55 ML IVPB SCH (21:00)
--- NOTE | 2020-09-25 23:14 | Consultation ---
DATE OF CONSULTATION: 09/25/2020 GASTROENTEROLOGY CONSULTATION CONSULTING PHYSICIAN: Micah Judge M.D. CHIEF COMPLAINT: I was asked to see this patient for evaluation of gastrointestinal bleeding. HISTORY OF PRESENT ILLNESS: The patient is a 59-year-old woman who comes in with lightheadedness and palpitation. She was seen in the emergency room and was found to have profound microcytic anemia. She states she has had a problem with hemorrhoids in the past and had a colonoscopy about a year ago. She states she has had 2 weeks of hematochezia the past 3 days. The patient had some bowel movements here today where they initially revealed black stools reported and subsequently red stools are reported. She has had nausea and vomiting, but no abdominal pain. The patient has not had an endoscopy in the past. PAST MEDICAL HISTORY: Hypertension, diabetes, hemorrhoids. ALLERGIES: Morphine. PAST MEDICAL HISTORY: History of diabetes, hypercholesterolemia, hypertension, hemorrhoids. FAMILY HISTORY: Negative for malignancy. SOCIAL HISTORY: The patient is . She has 4 children. She does not smoke or drink alcohol. MEDICATIONS: See chart list for details. The patient has been on proton pump inhibitor for acid reflux and iron tablet daily. REVIEW OF SYSTEMS: Otherwise negative. PHYSICAL EXAMINATION: GENERAL: A well-developed, well-nourished woman seen in her room. HEENT: Normocephalic and atraumatic. NECK: Supple. CHEST: Clear to auscultation. CARDIAC: Regular rate. ABDOMEN: Soft and nontender. The rectal exam with nurse at bedside showed no external lesions and no blood in the digital exam of the finger. LABORATORY DATA: Noted. ASSESSMENT: This patient presents with symptomatic microcytic anemia due to gastrointestinal blood loss. The patient does report some intermittent hematochezia on stools, which has been attributed to hemorrhoids. However, she is significantly anemic and also microcytic, which are not typical features of simple hemorrhoidal bleeding. The patient may require another endoscopy and colonoscopy to survey the entire GI tract for any other pathology, which could explain this level of blood loss. This can be done now or potentially done at a later date once the patient has recovered from her acute illness. The patient also has COVID infection, which will need to be monitored for anemia progression. For the time being, I would hold oral iron since it makes the stools dark and making it more difficult acute GI bleed. We also gave her intravenous iron to replace some source. Her proton pump inhibitor should be continued since she has a history of gastroesophageal reflux disease. RECOMMENDATIONS: Per above discussion and per orders written in chart. Thank you for asking me to participate in the care of this patient. Micah Judge M.D. DR: MIGUEL JOB#: [id number] CC:
[2020-09-26] VITALS: BP 129/73
[2020-09-26 04:00] VITALS: BP 126/69
[2020-09-26] MEDS: NovoLOG Insulin Flexpen SUBQ SCH ×4 (05:52→20:33)
[2020-09-26 06:36] LABS: BASOPHILS % (AUTO) 1.6 % (0.0-2.0); EOSINOPHILS % (AUTO) 3.1 % (0.0-3.0); HEMATOCRIT 27.4 % (37.0-47.0); HEMOGLOBIN 8.8 G/DL (12.0-16.0); LYMPHOCYTES % (AUTO) 36.6 % (20.0-45.0); MEAN CORPUSCULAR VOLUME 82 FL (80-99); MONOCYTES % (AUTO) 11.6 % (1.0-10.0); NEUTROPHILS % (AUTO) 47.1 % (45.0-75.0); PLATELET COUNT 246 K/UL (150-450); RED BLOOD COUNT 3.35 M/UL (4.20-5.40); RED CELL DISTRIBUTION WIDTH 17.7 % (11.6-14.8)
[2020-09-26 07:29] LABS: ALANINE AMINOTRANSFERASE 19 U/L (12-78); ALBUMIN 3.1 G/DL (3.4-5.0); ALBUMIN/GLOBULIN RATIO 0.8 (1.0-2.7); ALKALINE PHOSPHATASE 55 U/L (46-116); ANION GAP 7 mmol/L (5-15); ASPARTATE AMINO TRANSFERASE 18 U/L (15-37); BILIRUBIN,TOTAL 1.2 MG/DL (0.2-1.0); BLOOD UREA NITROGEN 11 mg/dL (7-18); CALCIUM 8.8 MG/DL (8.5-10.1); CARBON DIOXIDE 27 MMOL/L (21-32); CHLORIDE 105 MMOL/L (98-107); CREATININE 0.8 MG/DL (0.55-1.30); PHOSPHORUS 4.6 MG/DL (2.5-4.9); POTASSIUM 3.4 MMOL/L (3.5-5.1); SODIUM 139 MMOL/L (136-145)
--- NOTE | 2020-09-26 07:33 | NUR ---
NURSE HAND-OFF REPORT: Important Events on Shift: OB stool collected. Labs collected. Venofer given. Patient Status: Guarded Diet: Regular Pending Orders: Pending Results/Labs: Pending MD notification: Latest Vital Signs: Temperature 98.0 , Pulse 69 , B/P 126 /69 , Respiratory Rate 18 , O2 SAT 98 , Room Air, O2 Flow Rate . Vital Sign Comment: EKG Rhythm: Sinus Rhythm Rhythm change?: N MD Notified?: - MD Response: Latest Christenesn Fall Score: 45 Fall Risk: High Risk Safety Measures: Call light Within Reach, Bed Alarm Zone 1, Side Rails Side Rails x2, Bed position Low and Locked. Fall Precautions: Yellow Socks Yellow Gown Door Sign Patient Fall Education Report given to Pat.
--- NOTE | 2020-09-26 08:00 | NUR ---
NURSE NOTES: pt in bed resting awake and alert. 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 Bed locked and in lowest position, call light within reach. Will continue to monitor.
[2020-09-26 08:14] LABS: BILIRUBIN,DIRECT 0.1 MG/DL (0.0-0.3)
[2020-09-26] MEDS: Oxybutynin 5mg tab ORAL SCH ×2 (10:08→17:19)
[2020-09-26] MEDS: Atorvastatin 20mg tab ORAL SCH (10:09)
[2020-09-26] MEDS: Benazepril 10mg tab ORAL SCH (10:18)
--- NOTE | 2020-09-26 12:50 | General Progress Note ---
Subjective ROS Limited/Unobtainable: Yes Allergies: Coded Allergies: MORPHINE (Verified Allergy, Unknown, 12/22/17) Objective Last 24 Hour Vital Signs Date Time Temp Pulse Resp B/P (MAP) Pulse Ox O2 Delivery O2 Flow Rate FiO2 09/26/20 10:18 135/71 09/26/20 04:00 98.0 69 18 126/69 (88) 98 09/26/20 04:00 63 09/26/20 00:00 68 09/26/20 00:00 98.1 70 18 129/73 (91) 98 09/25/20 22:10 Room Air 09/25/20 20:00 64 09/25/20 16:00 98.5 69 18 148/76 (100) 99 09/25/20 16:00 67 Intake and Output 09/25/20 09/26/20 19:00 07:00 Intake Total 640 ml 680 ml Balance 640 ml 680 ml Intake Oral 640 ml 680 ml # Voids 2 # Bowel Movements 1 1 Laboratory Tests 09/25/20 13:25: Troponin I 0.000 09/25/20 19:35: Troponin I 0.000 09/25/20 22:17: POC Whole Blood Glucose 113H 09/26/20 00:50: Troponin I 0.000 09/26/20 05:30: White Blood Count 5.0, Red Blood Count 3.35L, Hemoglobin 8.8L, Hematocrit 27.4L, Mean Corpuscular Volume 82, Mean Corpuscular Hemoglobin 26.3L, Mean Corpuscular Hemoglobin Concent 32.2, Red Cell Distribution Width 17.7H, Platelet Count 246, Mean Platelet Volume 8.7, Neutrophils (%) (Auto) 47.1, Lymphocytes (%) (Auto) 36.6, Monocytes (%) (Auto) 11.6H, Eosinophils (%) (Auto) 3.1H, Basophils (%) (Auto) 1.6, Stool Occult Blood Positive, Sodium Level 139, Potassium Level 3.4L, Chloride Level 105, Carbon Dioxide Level 27, Anion Gap 7, Blood Urea Nitrogen 11, Creatinine 0.8, Estimat Glomerular Filtration Rate > 60, Glucose Level 115H, Calcium Level 8.8, Phosphorus Level 4.6, Magnesium Level 2.1, Total Bilirubin 1.2H, Direct Bilirubin 0.1, Aspartate Amino Transf (AST/SGOT) 18, Alanine Aminotransferase (ALT/SGPT) 19, Alkaline Phosphatase 55, Total Protein 7.0, Albumin 3.1L, Globulin 3.9, Albumin/Globulin Ratio 0.8L 09/26/20 05:38: POC Whole Blood Glucose 110H Height (Feet): 5 Height (Inches): 2.00 Weight (Pounds): 135 General Appearance: no apparent distress EENT: normal ENT inspection Neck: supple Cardiovascular: normal rate Respiratory/Chest: decreased breath sounds Abdomen: normal bowel sounds, non tender, soft Extremities: non-tender Assessment/Plan Assessment/Plan: Assessment - rectal bleeding - microcytic, symptomatic anemia Recommendations - clear liquids>> will advance -anusol HC - PPI - IV Fe - will need EGD/Colon - timing to be determined Andre Marie MD Sep 26, 2020 12:50
--- NOTE | 2020-09-26 13:07 | Surgery Progress Note ---
Surgery Progress Note Subjective Symptoms: improved, pain absent, tolerating diet, voiding well, passing flatus, BM Objective Last 24 Hour Vital Signs Date Time Temp Pulse Resp B/P (MAP) Pulse Ox O2 Delivery O2 Flow Rate FiO2 09/26/20 10:18 135/71 09/26/20 04:00 98.0 69 18 126/69 (88) 98 09/26/20 04:00 63 09/26/20 00:00 68 09/26/20 00:00 98.1 70 18 129/73 (91) 98 09/25/20 22:10 Room Air 09/25/20 20:00 64 09/25/20 16:00 98.5 69 18 148/76 (100) 99 09/25/20 16:00 67 I&O Intake and Output 09/25/20 09/26/20 19:00 07:00 Intake Total 640 ml 680 ml Balance 640 ml 680 ml Intake Oral 640 ml 680 ml # Voids 2 # Bowel Movements 1 1 Dressing: dry Wound: clean Cardiovascular: RSR Respiratory: clear Abdomen: soft, flat, non-tender, present bowel sounds, non-distended Extremities: no edema, no tenderness, no cyanosis Laboratory Tests Test 09/25/20 13:25 09/25/20 19:35 09/25/20 22:17 09/26/20 00:50 Troponin I 0.000 ng/mL (0.000-0.056) 0.000 ng/mL (0.000-0.056) 0.000 ng/mL (0.000-0.056) POC Whole Blood Glucose 113 MG/DL (74-106) H Test 09/26/20 05:30 09/26/20 05:38 White Blood Count 5.0 K/UL (4.8-10.8) Red Blood Count 3.35 M/UL (4.20-5.40) L Hemoglobin 8.8 G/DL (12.0-16.0) L Hematocrit 27.4 % (37.0-47.0) L Mean Corpuscular Volume 82 FL (80-99) Mean Corpuscular Hemoglobin 26.3 PG (27.0-31.0) L Mean Corpuscular Hemoglobin Concent 32.2 G/DL (32.0-36.0) Red Cell Distribution Width 17.7 % (11.6-14.8) H Platelet Count 246 K/UL (150-450) Mean Platelet Volume 8.7 FL (6.5-10.1) Neutrophils (%) (Auto) 47.1 % (45.0-75.0) Lymphocytes (%) (Auto) 36.6 % (20.0-45.0) Monocytes (%) (Auto) 11.6 % (1.0-10.0) H Eosinophils (%) (Auto) 3.1 % (0.0-3.0) H Basophils (%) (Auto) 1.6 % (0.0-2.0) Stool Occult Blood Positive (NEGATIVE) Sodium Level 139 MMOL/L (136-145) Potassium Level 3.4 MMOL/L (3.5-5.1) L Chloride Level 105 MMOL/L (98-107) Carbon Dioxide Level 27 MMOL/L (21-32) Anion Gap 7 mmol/L (5-15) Blood Urea Nitrogen 11 mg/dL (7-18) Creatinine 0.8 MG/DL (0.55-1.30) Estimat Glomerular Filtration Rate > 60 mL/min (>60) Glucose Level 115 MG/DL (74-106) H Calcium Level 8.8 MG/DL (8.5-10.1) Phosphorus Level 4.6 MG/DL (2.5-4.9) Magnesium Level 2.1 MG/DL (1.8-2.4) Total Bilirubin 1.2 MG/DL (0.2-1.0) H Direct Bilirubin 0.1 MG/DL (0.0-0.3) Aspartate Amino Transf (AST/SGOT) 18 U/L (15-37) Alanine Aminotransferase (ALT/SGPT) 19 U/L (12-78) Alkaline Phosphatase 55 U/L (46-116) Total Protein 7.0 G/DL (6.4-8.2) Albumin 3.1 G/DL (3.4-5.0) L Globulin 3.9 g/dL Albumin/Globulin Ratio 0.8 (1.0-2.7) L POC Whole Blood Glucose 110 MG/DL (74-106) H Plan Problems: (1) Bleeding hemorrhoids Assessment & Plan: 59F presented with severe anemia noted to have hemorrhoidal bleeding afebrile, HD stable no active bleeding on exam no bleeding noted states feels better transfused prbc improved no n/v okay for diet monitor for bleeding outpatient eval for hemorrhoidal sx intervention thank you (2) Palpitations (3) Elevated TSH (4) Anemia (5) GERD (gastroesophageal reflux disease) (6) HTN (hypertension) (7) HLD (hyperlipidemia) (8) DM2 (diabetes mellitus, type 2) Corbin Lee Sep 26, 2020 13:07
--- NOTE | 2020-09-26 14:01 | NUR ---
CASE MANAGEMENT:REVIEW 59 YR OLD FEMALE WALKED IN TO ER CC: PALPITATIONS SI: ANEMIA. PALPITATIONS 98.6 92 18 140/80 98% ON RA H/H-6.3/20.1 IS: TRANSFUSE 2 UNITS PRBC'S CHEST XRAY : TO TELEMETRY UNIT
--- NOTE | 2020-09-26 15:24 | General Progress Note ---
Subjective Date patient seen: Sep 26, 2020 Allergies: Coded Allergies: MORPHINE (Verified Allergy, Unknown, 12/22/17) Subjective site interpreter used. No acute events overnight per nursing. This a.m. patient with atypical left-sided intermittent chest pain described as sharp and pointing. About 8 out of 10 however did not complain to this to the nursing. Complaining of some shortness of breath. Some cough. Still with some hematochezia. Hemoglobin dropped again to 8.8. Stool occult blood is positive. GI plans noted. Telemetry reviewed Review of systems: Constitutional: Denies: chills, diaphoresis, fever, malaise, weakness, HEENT: Denies: eye pain, blurred vision, double vision, ear pain, nose pain, throat pain, Cardiovascular: See HPI Respiratory: Denies: cough, orthopnea, shortness of breath, SOB with excertion, SOB at rest, Gastrointestinal/Abdominal: Denies: abdominal pain, black stools, blood in stool, constipation, diarrhea, nausea, poor fluid intake vomiting, other Genitourinary: Denies: burning, discharge, frequency, Neurologic/Psychiatric: Denies: headache, numbness, paresthesia, new weakness, other Endocrine: Denies: excessive sweating, flushing, intolerance to cold, MSK: denies joint pains, swelling, stiffness Hematologic/Lymphatic: Denies: anemia, easy bleeding, easy bruising, Psych: no anxiety, depression, SI or HI Objective Last 24 Hour Vital Signs Date Time Temp Pulse Resp B/P (MAP) Pulse Ox O2 Delivery O2 Flow Rate FiO2 09/26/20 10:18 135/71 09/26/20 04:00 98.0 69 18 126/69 (88) 98 09/26/20 04:00 63 09/26/20 00:00 68 09/26/20 00:00 98.1 70 18 129/73 (91) 98 09/25/20 22:10 Room Air 09/25/20 20:00 64 09/25/20 16:00 98.5 69 18 148/76 (100) 99 09/25/20 16:00 67 l Intake and Output 09/25/20 09/26/20 19:00 07:00 Intake Total 640 ml 680 ml Balance 640 ml 680 ml Intake Oral 640 ml 680 ml # Voids 2 # Bowel Movements 1 1 Laboratory Tests 09/25/20 19:35: Troponin I 0.000 09/25/20 22:17: POC Whole Blood Glucose 113H 09/26/20 00:50: Troponin I 0.000 09/26/20 05:30: White Blood Count 5.0, Red Blood Count 3.35L, Hemoglobin 8.8L, Hematocrit 27.4L, Mean Corpuscular Volume 82, Mean Corpuscular Hemoglobin 26.3L, Mean Corpuscular Hemoglobin Concent 32.2, Red Cell Distribution Width 17.7H, Platelet Count 246, Mean Platelet Volume 8.7, Neutrophils (%) (Auto) 47.1, Lymphocytes (%) (Auto) 36.6, Monocytes (%) (Auto) 11.6H, Eosinophils (%) (Auto) 3.1H, Basophils (%) (Auto) 1.6, Stool Occult Blood Positive, Sodium Level 139, Potassium Level 3.4L, Chloride Level 105, Carbon Dioxide Level 27, Anion Gap 7, Blood Urea Nitrogen 11, Creatinine 0.8, Estimat Glomerular Filtration Rate > 60, Glucose Level 115H, Calcium Level 8.8, Phosphorus Level 4.6, Magnesium Level 2.1, Total Bilirubin 1.2H, Direct Bilirubin 0.1, Aspartate Amino Transf (AST/SGOT) 18, Alanine Aminotransferase (ALT/SGPT) 19, Alkaline Phosphatase 55, Total Protein 7.0, Albumin 3.1L, Globulin 3.9, Albumin/Globulin Ratio 0.8L 09/26/20 05:38: POC Whole Blood Glucose 110H Height (Feet): 5 Height (Inches): 2.00 Weight (Pounds): 135 Objective General: WDWN female in NAD, A&O x 4 HEENT: Normocephalic cephalic atraumatic, pupils equal round reactive to light and accommodation, nares patent and no symmetrical, no tonsillar exudates, mucous membranes moist CV: Regular rate regular rhythm, no murmurs, rubs, or gallops Pulm: Lungs clear to auscultation bilaterally. No wheezes, rhonchi, or rales GI: Soft, nontender, nondistended, bowel sounds present Neuro: CN 2-12 intact bilaterally, no focal signs. Ext: No lower extremity edema bilaterally Skin: no rashes lesions or ulcers Msk: Joints symmetrical in upper extremity and lower extremity bilaterally, no joint swelling. Lymph: No lymphadenopathy in upper extremity and lower extremity Assessment/Plan Assessment/Plan: #Acute blood loss anemia secondary to Hematochezia > not currently bleeding #Hematochezia secondary to hemorrhoids -Admit to tele -Transfuse for Hgb <7 -Trend CBC -Stool OB -Appreciate GI consult: Dr. Marie/Alfie - > Possible EGD and [place] needed -Appreciate Surgery consult: Dr. Lee #COVID -19 -Send COVID PCR. Not done in ER -CXR reviewed. No clinical signs of pneumonia at this time -ID and pulm consult if worsens -CTM #Chest pain rule out ACS #Palpitations suspect secondary to anemia - Trend troponins: Neg -TTE ordered -Monitor on tele -Cardiology consulted: Dr. Collazo - CTA chest to rule out PE given persistent chest pain #Diabetes mellitus type 2 -Hold metformin -SSI -Accuchecks -Hypoglycemia protocol #Essential hypertension -Continue home benazepril 10mg daily -Hydralazine PRN #GERD -Continue home PPI FENPPX DVTPPX: SCDs. Holding HSQ due to bleed GI PPX: none Fluids: none Diet: Diabetic Lines: PIV PT/OT: pending Code status: Full Dispo: home Reason for Continued Hospitalization: Acute bleed, chest pain MIPS (Merit-based Incentive Payment System) Applicable CPT: 26852, 20788 CHECK ALL THAT ARE MET: [] Measure #5 (CHF): All ages. Prescribe MIKE/ARB upon discharge for patients with left ventricular systolic dysfunction. If not, the reason is clearly documented in the medical chart [] Measure #8 (CHF): All ages. Prescribe a beta taylor upon discharge for patients with left ventricular systolic dysfunction. If not, the reason is clearly documented in the medical chart. [] Measure #47: Advance care plan or surrogate decision maker documented in the medical record. [x] Measure #130 The provider has documented, updated, or reviewed the patients current medication list and has documented it in the patients note. [x] Measure #374 (All): Send report to referring provider. [] Measure #407(Sepsis due to MSSA bacteremia): Age 18+ Patient treated with a beta-lactam antibiotic (Nafcillin, Oxacillin or Cefazolin) as definitive therapy. MEDICAL COMPLEXITYHigh complexity medical decision making (need 2/3 categories)Problem - need 4 points [x]Acute/new problem with new plan for workup (4 points, 1 max) [] Acute/new problem without additional workup (3 points, 1 max) [x] Unstable chronic problem actively being managed (2 point each, 2 max) [x] Stable chronic problem actively being managed (1 point each, 2 max) [] Self-limited/transient process (constipation, muscle ache, etc) (1 point each, 2 max) Data - need 4 points [x] Reviewed labs/imaging studies (1 points, 2 max) [x] Independent review of imaging (EKG, xrays, etc) (2 points, 2 max) [x] Discussed case with consult/other MD/RN (2 points, 2 max) High Risk - qualify if have one of the following: [x] Severe exacerbation of acute problem, acute mental status change, IV narcotics, monitoring drug levels (vancomycin, INR, tacrolimus etc) I spent 40 minutes on this patient's case, and 23 mins was dedicated to counseling and/or care coordination. Discussed with GI, cardioogy, surgery, RN Time of note may not reflect time of encounter Jonel Stone D.O. Sep 26, 2020 15:24
[2020-09-26] MEDS ORDERED: Omnipaque 350 100ml vial INJ PRN (15:30)
[2020-09-26] MEDS ORDERED: Hydrocortisone 25mg supp RECTAL SCH (18:00)
--- NOTE | 2020-09-26 19:06 | NUR ---
NURSE NOTES: Received report from DEBBIE Stewart. Patient is A/O x4 and verbally responsive in Armenian with simple Sinhala. Patient is on room air. No SOB or acute distress noted. Pt has IV on LFA 20G which is saline locked. inspector tubes shows SR. No pain at this time. Bed locked and in lowest position, side rails up x2. Pt's call light placed within reach and along with belongings. Will continue to plan of care.
[2020-09-26 20:00] VITALS: BP 118/64
--- NOTE | 2020-09-26 20:09 | NUR ---
NURSE HAND-OFF REPORT: Important Events on Shift:[]pt had CT. also pt had no BM but when she used the restroom some blood came out Patient Status: []full code Diet: []full liquid Pending Orders: [] Pending Results/Labs:[] Pending MD notification:[] Latest Vital Signs: Temperature 98.0 , Pulse 51 , B/P 135 /71 , Respiratory Rate 18 , O2 SAT 98 , Room Air, O2 Flow Rate . Vital Sign Comment: [] EKG Rhythm: Sinus Rhythm Rhythm change?: N MD Notified?: - MD Response: Latest Christensen Fall Score: 45 Fall Risk: High Risk Safety Measures: Call light Within Reach, Bed Alarm Zone 1, Side Rails Side Rails x2, Bed position Low and Locked. Fall Precautions: y Yellow Socks y Yellow Gown y Door Sign y Patient Fall Education y Report given to []. Monie/Radha
[2020-09-26] MEDS: Iron Sucrose 100 MG in NS 55 ML IVPB SCH (20:20)
--- NOTE | 2020-09-26 22:16 | Diagnostic Imaging Report ---
EXAM: CT Angiography Chest With Intravenous Contrast CLINICAL HISTORY: PE TECHNIQUE: Axial computed tomographic angiography images of the chest with intravenous contrast. CTDI is 44.20 mGy and DLP is 180.10 mGy-cm. One or more of the following dose reduction techniques were used: automated exposure control, adjustment of the mA and/or kV according to patient size, use of iterative reconstruction technique. 3D and MIP reconstructed images were created and reviewed. COMPARISON: 12/23/2017. FINDINGS: Pulmonary arteries: Unremarkable. No pulmonary embolism. Aorta: Minor atherosclerotic disease at the level of the aortic arch. No thoracic aortic aneurysm. Lungs: Unremarkable. No mass. No consolidation. Pleural space: Unremarkable. No significant effusion. No pneumothorax. Heart: Unremarkable. No cardiomegaly. No significant pericardial effusion. No evidence of RV dysfunction. Bones/joints: Multilevel disc degenerative disease through the thoracic spine. No acute fracture. No dislocation. Soft tissues: Unremarkable. Lymph nodes: Unremarkable. No enlarged lymph nodes. IMPRESSION: 1. No pulmonary embolus or aortic dissection. 2. No acute cardio pulmonary disease.
[2020-09-27] VITALS: BP 109/61
[2020-09-27 04:00] VITALS: BP 102/60
[2020-09-27] MEDS: NovoLOG Insulin Flexpen SUBQ SCH ×4 (05:36→21:55)
--- NOTE | 2020-09-27 06:44 | Consultation ---
History of Present Illness General Chief Complaint: Palpitations Present Illness Allergies: Coded Allergies: MORPHINE (Verified Allergy, Unknown, 12/22/17) Medication History Scheduled Aspirin* (Aspirin*), 81 MG ORAL DAILY, (Reported) Atorvastatin Calcium* (Lipitor*), 40 MG ORAL DAILY, (Reported) Atorvastatin Calcium* (Atorvastatin Calcium*), 80 MG ORAL BEDTIME, (Reported) Benazepril Hcl* (Benazepril Hcl*), 10 MG ORAL DAILY, (Reported) Benazepril Hcl* (Lotensin*), 40 MG ORAL DAILY, (Reported) Ferrous Sulfate* (Ferrous Sulfate*), 325 MG ORAL DAILY, (Reported) Metformin Hcl* (Metformin Hcl*), 1,000 MG ORAL BID, (Reported) Metformin Hcl* (Glucophage*), 1,000 MG ORAL DAILY, (Reported) Nitroglycerin (Nitroglycerin), 0.4 MG SL PRN, (Reported) Omeprazole (Omeprazole), 10 MG ORAL DAILY, (Reported) Oxybutynin Chloride (Oxybutynin Chloride), 5 MG ORAL BID, (Reported) Patient History Healthcare decision maker Resuscitation status Advanced Directive on File Physical Exam Last 24 Hour Vital Signs Date Time Temp Pulse Resp B/P (MAP) Pulse Ox O2 Delivery O2 Flow Rate FiO2 09/27/20 04:00 78 09/27/20 04:00 97.9 60 16 102/60 (74) 96 09/27/20 00:00 97.8 64 18 109/61 (77) 95 09/27/20 00:00 66 09/26/20 20:00 60 09/26/20 20:00 97.8 62 18 118/64 (82) 96 09/26/20 19:58 Room Air 09/26/20 16:00 51 09/26/20 12:00 59 09/26/20 10:18 135/71 09/26/20 09:00 Room Air 09/26/20 08:00 63 Intake and Output 09/26/20 09/27/20 19:00 07:00 Intake Total 680 ml 780 ml Balance 680 ml 780 ml Intake Oral 680 ml 780 ml # Voids 2 3 Height (Feet): 5 Height (Inches): 2.00 Weight (Pounds): 135 Medications Current Medications Medications (Trade) Dose Ordered Sig/Luz Maria Route PRN Reason Start Time Stop Time Status Last Admin Dose Admin Acetaminophen (Tylenol) 650 mg Q6H PRN ORAL For Headache 09/24/20 23:45 10/24/20 23:44 09/26/20 13:48 Acetaminophen (Tylenol) 650 mg Q6H PRN ORAL For Pain 09/24/20 23:45 10/24/20 23:44 09/27/20 05:38 Acetaminophen (Tylenol) 650 mg Q6H PRN ORAL fever 09/24/20 23:45 10/24/20 23:44 Atorvastatin Calcium (Lipitor) 40 mg DAILY ORAL 09/26/20 09:00 12/25/20 08:59 09/26/20 10:09 Benazepril HCl (Lotensin) 10 mg DAILY ORAL 09/26/20 09:00 10/26/20 08:59 09/26/20 10:18 Dextrose (Dextrose 50%) 25 ml Q30M PRN IV Hypoglycemia 09/24/20 23:45 12/23/20 23:44 Dextrose (Dextrose 50%) 50 ml Q30M PRN IV Hypoglycemia 09/24/20 23:45 12/23/20 23:44 Hydralazine HCl (Apresoline) 10 mg Q4H PRN IV SBP >160 09/25/20 12:30 12/24/20 12:29 Hydrocortisone (Anusol HC) 25 mg TWICE A DAY RECTAL 09/26/20 18:00 12/25/20 17:59 09/26/20 17:19 Insulin Aspart (NovoLOG) BEFORE MEALS AND HS SUBQ 09/26/20 06:30 12/24/20 00:00 09/26/20 13:02 Iohexol (Omnipaque 350 100ml) 100 ml NOW PRN INJ Radiology Procedure 09/26/20 15:30 09/28/20 15:29 Iron Sucrose 100 mg/Sodium Chloride 60 ml @ 240 mls/hr BEDTIME IVPB 09/25/20 21:00 09/29/20 21:14 09/26/20 20:20 Oxybutynin Chloride (Ditropan) 5 mg BID ORAL 09/25/20 18:00 10/25/20 17:59 09/26/20 17:19 Assessment/Plan Assessment/Plan: Hematology Consultation Note REQ MD: Jo ZULUAGA 09/27/20 RFC: GI bleeding, anemia HPI: 59-year-old female with a PMHx DM, HTN, iron deficiency anemia and hemorroids who presents for evaluation of palpitations and chest pain. She states over the past 3 days she feels her heart is racing when walking. She also feels a pressure which radiates to left shoulder, relieved by rest. It is mild 2/10. A lso with some dyspnea on exertion. Not at rest, no orthopnea or LE swelling. No history of CAD or other heart history. No history of smoking or family history of CAD. Denies cough, fever, chills. No prior history of heart disease. She has a history of hypertension and diabetes. Non-smoker. She also notes hemorrhoidal bleeding over the past few weeks. She has had problems with hemorrhoids in the past. Has not required transfusion in the past. Denies problems with thyroid or other hormonal imbalance. In the ER the patient was found to have a hemoglobin of 6.3. She was given 2 units of PRBC and improved to 9.5. CXR showing airspace disease. PMH: Hypertension, diabetes, hemorrhoids PSurgHx: Oopherectomy for cysts Allergies: Morphine Meds: Reviewed Social Hx: Denies h/o smoking, drinking or drug use Family hx: no history of CAD. Family History Family History: Patient reports no known family medical history. Review of Systems ROS Narrative Review of systems: Constitutional: Denies: chills, diaphoresis, fever, malaise, weakness, HEENT: Denies: eye pain, blurred vision, double vision, ear pain, nose pain, throat pain, Cardiovascular: See HPI Respiratory: Denies: cough, orthopnea, shortness of breath, SOB with excertion, SOB at rest, Gastrointestinal/Abdominal: Denies: abdominal pain, black stools, blood in stool+++ Genitourinary: Denies: burning, discharge, frequency, Neurologic/Psychiatric: Denies: headache, numbness, paresthesia, new weakness, other Endocrine: Denies: excessive sweating, flushing, intolerance to cold, MSK: denies joint pains, swelling, stiffness Hematologic/Lymphatic: Denies: anemia, easy bleeding, easy bruising, Psych: no anxiety, depression, SI or HI Physical Exam General: WDWN female in NAD, A&O x 4 HEENT: Normocephalic cephalic atraumatic CV: Regular rate regular rhythm, no murmurs, rubs, or gallops Pulm: Lungs clear to auscultation bilaterally. No wheezes, rhonchi, or rales GI: Soft, nontender, nondistended, bowel sounds present Neuro: CN 2-12 intact bilaterally, no focal signs. Ext: No lower extremity edema bilaterally Skin: no rashes lesions or ulcers Msk: Joints symmetrical in upper extremity and lower extremity bilaterally Lymph: No lymphadenopathy in upper extremity and lower extremity Labs: reviewed Imaging: noted Assessment/Plan: # Anemia due to iron deficiency with loss anemia secondary to Hematochezia --> is having bleeding hemorrhoidal --> as per gi eval --> iv iron daily has been started --> s/p 1 unit / --> hgb 6.3-->8.8 --> transfuse as prn basis # Hematochezia secondary to hemorrhoids --> transfuse for Hgb <7 --> as per gi, surg recs --> now improved # Chest pain rule out ACS --> trop neg, per cards # Diabetes mellitus type 2 --> Hold metformin --> SSI # Essential hypertension --> Continue home benazepril 10mg daily --> Hydralazine PRN # GERD --> Continue home PPI # DVT PPX: SCDs Appreciate consultation and dw Rivas Stapleton MD Sep 27, 2020 06:44
--- NOTE | 2020-09-27 07:20 | NUR ---
NURSE HAND-OFF REPORT: Important Events on Shift: Bleeding still occurring. Ana Maria added to the case. Ferrous Sulfate started again. Patient Status: Stable Diet: Full Liquid Diet Pending Orders: Pending Results/Labs: Pending MD notification: Latest Vital Signs: Temperature 97.9 , Pulse 78 , B/P 102 /60 , Respiratory Rate 16 , O2 SAT 96 , Room Air, O2 Flow Rate . Vital Sign Comment: EKG Rhythm: Sinus Rhythm Rhythm change?: N MD Notified?: - MD Response: Latest Christensen Fall Score: 45 Fall Risk: High Risk Safety Measures: Call light Within Reach, Bed Alarm Zone 1, Side Rails Side Rails x2, Bed position Low and Locked. Fall Precautions: Yellow Socks Yellow Gown Door Sign Patient Fall Education Report given to
[2020-09-27 07:58] LABS: BASOPHILS % (AUTO) 1.1 % (0.0-2.0); EOSINOPHILS % (AUTO) 2.6 % (0.0-3.0); HEMATOCRIT 27.9 % (37.0-47.0); LYMPHOCYTES % (AUTO) 38.8 % (20.0-45.0); MEAN CORPUSCULAR VOLUME 81 FL (80-99); MONOCYTES % (AUTO) 9.8 % (1.0-10.0); NEUTROPHILS % (AUTO) 47.7 % (45.0-75.0); PLATELET COUNT 228 K/UL (150-450); RED BLOOD COUNT 3.43 M/UL (4.20-5.40); RED CELL DISTRIBUTION WIDTH 18.3 % (11.6-14.8); WHITE BLOOD COUNT 5.9 K/UL (4.8-10.8)
[2020-09-27 08:00] VITALS: BP 136/62
--- NOTE | 2020-09-27 08:12 | CDS Physician Query ---
Clarification is required for compliance, coding accuracy, and to reflect severity of illness for this patient Dear Dr. Jonel Stone D.O Date 09/27/2020 CDIS Name Kevin Enciso 59-year-old female with a PMHx DM, HTN, iron deficiency anemia and hemorroids who presents for evaluation of palpitations and chest pain. Assessment/Plan: Acute blood loss anemia secondary to Hematochezia, Contact with COVID +, Chest pain rule out ACS Palpitations suspect secondary to anemia, DM2, GERD, HTN Labs: 09/24/20 18:00: White Blood Count 5.1, Red Blood Count 2.57L, Hemoglobin 6.3*L, Hematocrit 20.1L , Mean Corpuscular Volume 78L, Mean Corpuscular Hemoglobin 24.4L, Mean Corpuscular Hemoglobin Concent 31.2L, Red Cell Distribution Width 17.8H, Platelet Count 248, Mean Platelet Volume 8.3, Please document the suspected etiology of Chest Pain: [] Aortic dissection [] Acute myocardial infarction [] Acute Coronary Syndrome [] Pericarditis [] Anxiety [] Pneumonia [] Costochondritis [] Pneumothorax [] GERD/Esophagitis [] Pulmonary embolism [] Other: [] Unable to determine Present on Admission: [] Yes [] No [] Clinically Undetermined Physician signature Date Please also document in your Progress Notes and/or Discharge Summary and indicate if the condition was present on admission. CECIL
--- NOTE | 2020-09-27 08:16 | NUR ---
NURSE NOTES: pt in bed, AOx4, pt is able to verbalize needs. pt on playground monitor no signs of cardiac or respiratory distress. Bed is locked and in lowest position. Call light within reach. Notified doctor Paul pt bleeds from the rectum everytime she feels like she needs to have a BM.
[2020-09-27 08:24] LABS: ALANINE AMINOTRANSFERASE 21 U/L (12-78); ALBUMIN 3.2 G/DL (3.4-5.0); ALBUMIN/GLOBULIN RATIO 0.9 (1.0-2.7); ALKALINE PHOSPHATASE 53 U/L (46-116); ANION GAP 9 mmol/L (5-15); ASPARTATE AMINO TRANSFERASE 17 U/L (15-37); BILIRUBIN,TOTAL 0.9 MG/DL (0.2-1.0); BLOOD UREA NITROGEN 13 mg/dL (7-18); CALCIUM 8.6 MG/DL (8.5-10.1); CARBON DIOXIDE 25 MMOL/L (21-32); CHLORIDE 106 MMOL/L (98-107); CREATININE 0.7 MG/DL (0.55-1.30); POTASSIUM 3.4 MMOL/L (3.5-5.1); SODIUM 140 MMOL/L (136-145)
--- NOTE | 2020-09-27 08:24 | General Progress Note ---
Subjective ROS Limited/Unobtainable: Yes Allergies: Coded Allergies: MORPHINE (Verified Allergy, Unknown, 12/22/17) Objective Last 24 Hour Vital Signs Date Time Temp Pulse Resp B/P (MAP) Pulse Ox O2 Delivery O2 Flow Rate FiO2 09/27/20 04:00 78 09/27/20 04:00 97.9 60 16 102/60 (74) 96 09/27/20 00:00 97.8 64 18 109/61 (77) 95 09/27/20 00:00 66 09/26/20 20:00 60 09/26/20 20:00 97.8 62 18 118/64 (82) 96 09/26/20 19:58 Room Air 09/26/20 16:00 51 09/26/20 12:00 59 09/26/20 10:18 135/71 09/26/20 09:00 Room Air Intake and Output 09/26/20 09/27/20 19:00 07:00 Intake Total 680 ml 780 ml Balance 680 ml 780 ml Intake Oral 680 ml 780 ml # Voids 2 3 Laboratory Tests 09/27/20 06:00: White Blood Count [Pending], Red Blood Count [Pending], Hemoglobin [Pending], Hematocrit [Pending], Mean Corpuscular Volume [Pending], Mean Corpuscular Hemoglobin [Pending], Mean Corpuscular Hemoglobin Concent [Pending], Red Cell Distribution Width [Pending], Platelet Count [Pending], Mean Platelet Volume [Pending], Neutrophils (%) (Auto) [Pending], Lymphocytes (%) (Auto) [Pending], Monocytes (%) (Auto) [Pending], Eosinophils (%) (Auto) [Pending], Basophils (%) (Auto) [Pending], Sodium Level [Pending], Potassium Level [Pending], Chloride Level [Pending], Carbon Dioxide Level [Pending], Blood Urea Nitrogen [Pending], Creatinine [Pending], Estimat Glomerular Filtration Rate [Pending], Glucose Level [Pending], Calcium Level [Pending], Phosphorus Level [Pending], Magnesium Level [Pending], Total Bilirubin [Pending], Aspartate Amino Transf (AST/SGOT) [Pending], Alanine Aminotransferase (ALT/SGPT) [Pending], Alkaline Phosphatase [Pending], Total Protein [Pending], Albumin [Pending], Globulin [Pending] Height (Feet): 5 Height (Inches): 2.00 Weight (Pounds): 135 General Appearance: no apparent distress EENT: normal ENT inspection Neck: supple Cardiovascular: normal rate Respiratory/Chest: decreased breath sounds Abdomen: normal bowel sounds, non tender, soft Extremities: non-tender Assessment/Plan Assessment/Plan: Assessment - rectal bleeding - microcytic, symptomatic anemia Recommendations -anusol HC -sitz bath - PPI - IV Fe - will need Colon - plan in patient if cont to bleed o/w as out patient Andre Marie MD Sep 27, 2020 08:24
[2020-09-27 08:26] LABS: PHOSPHORUS 4.9 MG/DL (2.5-4.9)
[2020-09-27] MEDS: Hydrocortisone 25mg supp RECTAL SCH ×3 (09:04→18:13)
[2020-09-27] MEDS: Atorvastatin 20mg tab ORAL SCH (09:04)
[2020-09-27] MEDS: Oxybutynin 5mg tab ORAL SCH ×2 (09:04→18:13)
[2020-09-27] MEDS: Benazepril 10mg tab ORAL SCH (09:18)
[2020-09-27 12:00] VITALS: BP 125/69
--- NOTE | 2020-09-27 13:06 | NUR ---
CASE MANAGEMENT:REVIEW 09/27/20 SI: PALPITATIONS.COVID PNA. ANEMIA...S/P 2 UNIT PRBC RECTAL BLEEDING 98.1 65 16 136/62 98% ON RA H/H-9.0/27.9 K-3.4 IS: IV VENOFER QHS ANUSOL IL TID LOTENSIN PO QD DITROPAN PO BID : TELEMETRY STATUS DCP: FROM HOME Addendum: 09/27/20 at 1329 by ANGELA DE LOS SANTOS LVN LVN PLAN::: COLONOSCOPY
--- NOTE | 2020-09-27 14:56 | Surgery Progress Note ---
Surgery Progress Note Subjective Additional Comments doing well no acute events comfortable stable no n/v no bleeding Objective Last 24 Hour Vital Signs Date Time Temp Pulse Resp B/P (MAP) Pulse Ox O2 Delivery O2 Flow Rate FiO2 09/27/20 09:18 136/62 09/27/20 08:00 98.1 65 16 136/62 (86) 98 09/27/20 04:00 78 09/27/20 04:00 97.9 60 16 102/60 (74) 96 09/27/20 00:00 97.8 64 18 109/61 (77) 95 09/27/20 00:00 66 09/26/20 20:00 60 09/26/20 20:00 97.8 62 18 118/64 (82) 96 09/26/20 19:58 Room Air 09/26/20 16:00 51 I&O Intake and Output 09/26/20 09/27/20 19:00 07:00 Intake Total 680 ml 780 ml Balance 680 ml 780 ml Intake Oral 680 ml 780 ml # Voids 2 3 Cardiovascular: RSR Respiratory: clear, decreased breath sounds Abdomen: soft, non-tender, present bowel sounds, non-distended Extremities: no tenderness, no cyanosis Laboratory Tests Test 09/27/20 06:00 09/27/20 13:31 White Blood Count 5.9 K/UL (4.8-10.8) Red Blood Count 3.43 M/UL (4.20-5.40) L Hemoglobin 9.0 G/DL (12.0-16.0) L Hematocrit 27.9 % (37.0-47.0) L Mean Corpuscular Volume 81 FL (80-99) Mean Corpuscular Hemoglobin 26.3 PG (27.0-31.0) L Mean Corpuscular Hemoglobin Concent 32.3 G/DL (32.0-36.0) Red Cell Distribution Width 18.3 % (11.6-14.8) H Platelet Count 228 K/UL (150-450) Mean Platelet Volume 8.5 FL (6.5-10.1) Neutrophils (%) (Auto) 47.7 % (45.0-75.0) Lymphocytes (%) (Auto) 38.8 % (20.0-45.0) Monocytes (%) (Auto) 9.8 % (1.0-10.0) Eosinophils (%) (Auto) 2.6 % (0.0-3.0) Basophils (%) (Auto) 1.1 % (0.0-2.0) Sodium Level 140 MMOL/L (136-145) Potassium Level 3.4 MMOL/L (3.5-5.1) L Chloride Level 106 MMOL/L (98-107) Carbon Dioxide Level 25 MMOL/L (21-32) Anion Gap 9 mmol/L (5-15) Blood Urea Nitrogen 13 mg/dL (7-18) Creatinine 0.7 MG/DL (0.55-1.30) Estimat Glomerular Filtration Rate > 60 mL/min (>60) Glucose Level 81 MG/DL (74-106) Calcium Level 8.6 MG/DL (8.5-10.1) Phosphorus Level 4.9 MG/DL (2.5-4.9) Magnesium Level 2.1 MG/DL (1.8-2.4) Total Bilirubin 0.9 MG/DL (0.2-1.0) Aspartate Amino Transf (AST/SGOT) 17 U/L (15-37) Alanine Aminotransferase (ALT/SGPT) 21 U/L (12-78) Alkaline Phosphatase 53 U/L (46-116) Total Protein 6.8 G/DL (6.4-8.2) Albumin 3.2 G/DL (3.4-5.0) L Globulin 3.6 g/dL Albumin/Globulin Ratio 0.9 (1.0-2.7) L POC Whole Blood Glucose 85 MG/DL (74-106) Plan Problems: (1) Bleeding hemorrhoids Assessment & Plan: 59F presented with severe anemia noted to have hemorrhoidal bleeding afebrile, HD stable no active bleeding on exam no bleeding noted states feels better transfused prbc improved no n/v okay for diet monitor for bleeding outpatient eval for hemorrhoidal sx intervention thank you (2) Palpitations (3) Elevated TSH (4) Anemia (5) GERD (gastroesophageal reflux disease) (6) HTN (hypertension) (7) HLD (hyperlipidemia) (8) DM2 (diabetes mellitus, type 2) Corbin Lee Sep 27, 2020 14:56
[2020-09-27 16:00] VITALS: BP 132/75
[2020-09-27] MEDS ORDERED: Golytely 4L ORAL SCH (16:00)
--- NOTE | 2020-09-27 17:50 | General Progress Note ---
Subjective Date patient seen: Sep 27, 2020 ROS Limited/Unobtainable: No Allergies: Coded Allergies: MORPHINE (Verified Allergy, Unknown, 12/22/17) Subjective No acute events overnight per nursing. Reports still seeing blood in stool. Chest pain improved today. Review of systems: Constitutional: Denies: chills, diaphoresis, fever, malaise, weakness, HEENT: Denies: eye pain, blurred vision, double vision, ear pain, nose pain, throat pain, Cardiovascular: See HPI Respiratory: Denies: cough, orthopnea, shortness of breath, SOB with excertion, SOB at rest, Gastrointestinal/Abdominal: Denies: abdominal pain, black stools, blood in stool, constipation, diarrhea, nausea, poor fluid intake vomiting, other Genitourinary: Denies: burning, discharge, frequency, Neurologic/Psychiatric: Denies: headache, numbness, paresthesia, new weakness, other Endocrine: Denies: excessive sweating, flushing, intolerance to cold, MSK: denies joint pains, swelling, stiffness Hematologic/Lymphatic: Denies: anemia, easy bleeding, easy bruising, Psych: no anxiety, depression, SI or HI Objective Last 24 Hour Vital Signs Date Time Temp Pulse Resp B/P (MAP) Pulse Ox O2 Delivery O2 Flow Rate FiO2 09/27/20 09:18 136/62 09/27/20 08:00 98.1 65 16 136/62 (86) 98 09/27/20 04:00 78 09/27/20 04:00 97.9 60 16 102/60 (74) 96 09/27/20 00:00 97.8 64 18 109/61 (77) 95 09/27/20 00:00 66 09/26/20 20:00 60 09/26/20 20:00 97.8 62 18 118/64 (82) 96 09/26/20 19:58 Room Air Intake and Output 09/26/20 09/27/20 19:00 07:00 Intake Total 680 ml 780 ml Balance 680 ml 780 ml Intake Oral 680 ml 780 ml # Voids 2 3 Laboratory Tests 09/27/20 06:00: White Blood Count 5.9, Red Blood Count 3.43L, Hemoglobin 9.0L, Hematocrit 27.9L, Mean Corpuscular Volume 81, Mean Corpuscular Hemoglobin 26.3L, Mean Corpuscular Hemoglobin Concent 32.3, Red Cell Distribution Width 18.3H, Platelet Count 228, Mean Platelet Volume 8.5, Neutrophils (%) (Auto) 47.7, Lymphocytes (%) (Auto) 38.8, Monocytes (%) (Auto) 9.8, Eosinophils (%) (Auto) 2.6, Basophils (%) (Auto) 1.1, Sodium Level 140, Potassium Level 3.4L, Chloride Level 106, Carbon Dioxide Level 25, Anion Gap 9, Blood Urea Nitrogen 13, Creatinine 0.7, Estimat Glomerular Filtration Rate > 60, Glucose Level 81, Calcium Level 8.6, Phosphorus Level 4.9, Magnesium Level 2.1, Total Bilirubin 0.9, Aspartate Amino Transf (AST/SGOT) 17, Alanine Aminotransferase (ALT/SGPT) 21, Alkaline Phosphatase 53, Total Protein 6.8, Albumin 3.2L, Globulin 3.6, Albumin/Globulin Ratio 0.9L 09/27/20 13:31: POC Whole Blood Glucose 85 Height (Feet): 5 Height (Inches): 2.00 Weight (Pounds): 135 Objective General: WDWN female in NAD, A&O x 4, pleasant, conversant HEENT: Normocephalic cephalic atraumatic, pupils equal round reactive to light and accommodation, nares patent and no symmetrical, no tonsillar exudates, mucous membranes moist CV: Regular rate regular rhythm, no murmurs, rubs, or gallops Pulm: Lungs clear to auscultation bilaterally. No wheezes, rhonchi, or rales GI: Soft, nontender, nondistended, bowel sounds present Neuro: CN 2-12 intact bilaterally, no focal signs. Ext: No lower extremity edema bilaterally Skin: no rashes lesions or ulcers Msk: Joints symmetrical in upper extremity and lower extremity bilaterally, no joint swelling. Lymph: No lymphadenopathy in upper extremity and lower extremity Assessment/Plan Assessment/Plan: #Acute blood loss anemia secondary to Hematochezia - Ggb stable > reports blood in BM, discussed with GI #Hematochezia secondary to hemorrhoids -Admit to tele -Transfuse for Hgb <7 -Trend CBC -Stool OB positive -Appreciate GI consult: Dr. Marie/Alfie - > Possible EGD and [place] needed -Appreciate Surgery consult: Dr. Lee #COVID -19 -PCR positive -CXR reviewed. No clinical signs of pneumonia at this time -ID and pulm consult if worsens -CTM #Chest pain rule out ACS #Palpitations suspect secondary to anemia - Trend troponins: Neg -TTE with possible early diastolic dysfunction, likely needs outpatient follow up with cardiology -Monitor on tele -Cardiology consulted: Dr. Collazo - CTA chest negative for PE #Diabetes mellitus type 2 -Hold metformin -SSI -Accuchecks -Hypoglycemia protocol #Essential hypertension -Continue home benazepril 10mg daily -Hydralazine PRN #GERD -Continue home PPI FENPPX DVTPPX: SCDs. Holding HSQ due to bleed GI PPX: none Fluids: none Diet: Diabetic Lines: PIV PT/OT: pending Code status: Full Dispo: home Reason for Continued Hospitalization: rectal bleed MIPS ([employer]-based Incentive Payment System) Applicable CPT: 11863, 90590 CHECK ALL THAT ARE MET: [] Measure #5 (CHF): All ages. Prescribe MIKE/ARB upon discharge for patients with left ventricular systolic dysfunction. If not, the reason is clearly documented in the medical chart [] Measure #8 (CHF): All ages. Prescribe a beta taylor upon discharge for patients with left ventricular systolic dysfunction. If not, the reason is clearly documented in the medical chart. [] Measure #47: Advance care plan or surrogate decision maker documented in the medical record. [x] Measure #130 The provider has documented, updated, or reviewed the patients current medication list and has documented it in the patients note. [x] Measure #374 (All): Send report to referring provider. [] Measure #407(Sepsis due to MSSA bacteremia): Age 18+ Patient treated with a beta-lactam antibiotic (Nafcillin, Oxacillin or Cefazolin) as definitive therapy. MEDICAL COMPLEXITYHigh complexity medical decision making (need 2/3 categories)Problem - need 4 points [x]Acute/new problem with new plan for workup (4 points, 1 max) [] Acute/new problem without additional workup (3 points, 1 max) [x] Unstable chronic problem actively being managed (2 point each, 2 max) [x] Stable chronic problem actively being managed (1 point each, 2 max) [] Self-limited/transient process (constipation, muscle ache, etc) (1 point each, 2 max) Data - need 4 points [x] Reviewed labs/imaging studies (1 points, 2 max) [x] Independent review of imaging (EKG, xrays, etc) (2 points, 2 max) [x] Discussed case with consult/other MD/RN (2 points, 2 max) High Risk - qualify if have one of the following: [x] Severe exacerbation of acute problem, acute mental status change, IV narcotics, monitoring drug levels (vancomycin, INR, tacrolimus etc) I spent 36 minutes on this patient's case, and 20 mins was dedicated to counseling and/or care coordination. Discussed with GI, cardiology, surgery, RN Time of note may not reflect time of encounter Robi Aguirre M.D. Sep 27, 2020 17:50
--- NOTE | 2020-09-27 19:30 | NUR ---
NURSE NOTES: Received pt and report from DEBBIE Stewart. Observed pt sitting on bedside chair and watching television. Pt is A/Ox4. hotel engineer is in placed; pt is NSR. IV site intact, asymptomatic, and patent. Pt is on room air; sating at 100%. Bed is in the lowest position and locked. Call light and bedside table is within reach. Pt is currently drinking Golytely for scheduled colonoscopy in AM. No signs/symptoms of acute distress noted. Will continue plan care.
[2020-09-27 20:00] VITALS: BP 110/65
--- NOTE | 2020-09-27 20:29 | NUR ---
NURSE HAND-OFF REPORT: Important Events on Shift:[]pt started taking golitely, and is going to the restroom to clean her bowl, however pt stated she that on her last trip to restroom she didnt bleed. Patient Status: []full code Diet: []NPO for colonoscopy consent is signed Pending Orders: [] Pending Results/Labs:[] Pending MD notification:[] Latest Vital Signs: Temperature 98.5 , Pulse 67 , B/P 132 /75 , Respiratory Rate 18 , O2 SAT 98 , Room Air, O2 Flow Rate . Vital Sign Comment: [] EKG Rhythm: Sinus Rhythm Rhythm change?: N MD Notified?: - MD Response: Latest Christensen Fall Score: 45 Fall Risk: High Risk Safety Measures: Call light Within Reach, Bed Alarm Zone 1, Side Rails Side Rails x2, Bed position Low and Locked. Fall Precautions: Yellow Socks y Yellow Gown y Door Sign y Patient Fall Education Report given to []. Angely/DEBBIE
[2020-09-27] MEDS: Iron Sucrose 100 MG in NS 55 ML IVPB SCH (21:54)
--- NOTE | 2020-09-27 23:15 | NUR ---
NURSE NOTES: Pt completed Golytely 4L bottle and been having clear BMs. Witnessed by RN.
[2020-09-28] VITALS (12 sets, daily range): BP systolic 110–171; BP diastolic 54–91
[2020-09-28 06:07] LABS: BASOPHILS % (AUTO) 1.3 % (0.0-2.0); EOSINOPHILS % (AUTO) 3.7 % (0.0-3.0); HEMOGLOBIN 8.1 G/DL (12.0-16.0); LYMPHOCYTES % (AUTO) 33.7 % (20.0-45.0); MEAN CORPUSCULAR VOLUME 81 FL (80-99); MONOCYTES % (AUTO) 10.3 % (1.0-10.0); NEUTROPHILS % (AUTO) 51.1 % (45.0-75.0); PLATELET COUNT 215 K/UL (150-450); RED BLOOD COUNT 3.09 M/UL (4.20-5.40); RED CELL DISTRIBUTION WIDTH 18.8 % (11.6-14.8); WHITE BLOOD COUNT 5.2 K/UL (4.8-10.8)
[2020-09-28 06:26] LABS: ANION GAP 7 mmol/L (5-15); BLOOD UREA NITROGEN 6 mg/dL (7-18); CALCIUM 8.5 MG/DL (8.5-10.1); CARBON DIOXIDE 29 MMOL/L (21-32); CHLORIDE 108 MMOL/L (98-107); CREATININE 0.7 MG/DL (0.55-1.30); POTASSIUM 3.3 MMOL/L (3.5-5.1); SODIUM 144 MMOL/L (136-145)
--- NOTE | 2020-09-28 06:28 | Hematology/Onc Progress Note ---
Assessment/Plan Assessment/Plan Assessment/Plan: # Anemia due to iron deficiency with loss anemia secondary to Hematochezia --> is having bleeding hemorrhoidal --> as per gi eval endoscopy --> iv iron daily has been started --> s/p 1 unit 09/25 --> hgb 6.3-->8.8 --> transfuse as prn basis # Hematochezia secondary to hemorrhoids --> transfuse for Hgb <7 --> as per gi, surg recs --> now improved # Chest pain rule out ACS --> trop neg, per cards # Diabetes mellitus type 2 --> Hold metformin --> SSI # Essential hypertension --> Continue home benazepril 10mg daily --> Hydralazine PRN # GERD --> Continue home PPI # DVT PPX: SCDs Appreciate consultation and prince LEWIS Subjective HEENT: Denies: no symptoms, eye pain, blurred vision, tearing, double vision, ear pain, ear discharge, nose pain, nose congestion, throat pain, throat swelling, mouth pain, mouth swelling, other Respiratory: Denies: no symptoms, cough, shortness of breath, SOB with excertion, SOB at rest, sputum, wheezing, other Genitourinary: Denies: no symptoms, burning, discharge, frequency, flank pain, hematuria, incontinence, pain, urgency, other Neurologic/Psychiatric: Denies: no symptoms, anxiety, depressed, emotional problems, headache, numbness, paresthesia, pre-existing deficit, seizure, tingling, tremors, weakness, other Endocrine: Denies: no symptoms, excessive sweating, flushing, intolerance to cold, intolerance to heat, increased hunger, increased thirst, increased urine, unexplained weight gain, unexplained weight loss, other Hematologic/Lymphatic: Denies: no symptoms, anemia, easy bleeding, easy bruising, adenopathy, other Allergies: Coded Allergies: MORPHINE (Verified Allergy, Unknown, 12/22/17) Subjective 09/28 labs noted, meds reviewed, remains on iv iron, for endoscopy Objective Objective Current Medications Medications (Trade) Dose Ordered Sig/Luz Maria Route PRN Reason Start Time Stop Time Status Last Admin Dose Admin Acetaminophen (Tylenol) 650 mg Q6H PRN ORAL For Headache 09/24/20 23:45 10/24/20 23:44 09/26/20 13:48 Acetaminophen (Tylenol) 650 mg Q6H PRN ORAL For Pain 09/24/20 23:45 10/24/20 23:44 09/27/20 05:38 Acetaminophen (Tylenol) 650 mg Q6H PRN ORAL fever 09/24/20 23:45 10/24/20 23:44 Atorvastatin Calcium (Lipitor) 40 mg DAILY ORAL 09/26/20 09:00 12/25/20 08:59 09/27/20 09:04 Benazepril HCl (Lotensin) 10 mg DAILY ORAL 09/26/20 09:00 10/26/20 08:59 09/27/20 09:18 Dextrose (Dextrose 50%) 25 ml Q30M PRN IV Hypoglycemia 09/24/20 23:45 12/23/20 23:44 Dextrose (Dextrose 50%) 50 ml Q30M PRN IV Hypoglycemia 09/24/20 23:45 12/23/20 23:44 Ferrous Sulfate (Feosol) 325 mg DAILY ORAL 09/27/20 09:00 12/26/20 08:59 09/27/20 09:03 Hydralazine HCl (Apresoline) 10 mg Q4H PRN IV SBP >160 09/25/20 12:30 12/24/20 12:29 Hydrocortisone (Anusol HC) 25 mg TID RECTAL 09/27/20 09:00 09/28/20 18:01 09/27/20 18:13 Insulin Aspart (NovoLOG) BEFORE MEALS AND HS SUBQ 09/26/20 06:30 12/24/20 00:00 09/27/20 21:55 Iohexol (Omnipaque 350 100ml) 100 ml NOW PRN INJ Radiology Procedure 09/26/20 15:30 09/28/20 15:29 Iron Sucrose 100 mg/Sodium Chloride 60 ml @ 240 mls/hr BEDTIME IVPB 09/25/20 21:00 09/29/20 21:14 09/27/20 21:54 Oxybutynin Chloride (Ditropan) 5 mg BID ORAL 09/25/20 18:00 10/25/20 17:59 09/27/20 18:13 Last 24 Hour Vital Signs Date Time Temp Pulse Resp B/P (MAP) Pulse Ox O2 Delivery O2 Flow Rate FiO2 09/28/20 04:00 97.9 66 16 118/56 (76) 99 09/28/20 04:00 58 09/28/20 00:00 97.6 56 17 133/68 (89) 100 09/28/20 00:00 53 09/27/20 21:00 Room Air 09/27/20 20:00 51 09/27/20 20:00 97.9 61 17 110/65 (80) 100 09/27/20 16:00 67 09/27/20 16:00 98.5 75 18 132/75 (94) 98 09/27/20 12:00 63 09/27/20 12:00 98.9 70 18 125/69 (87) 96 09/27/20 09:18 136/62 09/27/20 09:00 Room Air 09/27/20 08:00 76 09/27/20 08:00 98.1 65 16 136/62 (86) 98 09/27/20 04:00 78 09/27/20 04:00 97.9 60 16 102/60 (74) 96 09/27/20 00:00 97.8 64 18 109/61 (77) 95 09/27/20 00:00 66 09/26/20 20:00 60 09/26/20 20:00 97.8 62 18 118/64 (82) 96 09/26/20 19:58 Room Air 09/26/20 16:00 51 09/26/20 12:00 59 09/26/20 10:18 135/71 09/26/20 09:00 Room Air 09/26/20 08:00 63 Intake and Output 09/27/20 09/28/20 19:00 07:00 Intake Total 640 ml 2200 ml Balance 640 ml 2200 ml Intake Oral 640 ml 2200 ml # Voids 2 3 # Bowel Movements 4 6 Labs Test 09/25/20 10:05 09/25/20 13:25 09/25/20 19:35 09/25/20 22:17 White Blood Count 5.8 K/UL (4.8-10.8) Red Blood Count 3.59 M/UL (4.20-5.40) Hemoglobin 9.5 G/DL (12.0-16.0) Hematocrit 29.1 % (37.0-47.0) Mean Corpuscular Volume 81 FL (80-99) Mean Corpuscular Hemoglobin 26.4 PG (27.0-31.0) Mean Corpuscular Hemoglobin Concent 32.5 G/DL (32.0-36.0) Red Cell Distribution Width 17.9 % (11.6-14.8) Platelet Count 257 K/UL (150-450) Mean Platelet Volume 8.9 FL (6.5-10.1) Neutrophils (%) (Auto) 39.3 % (45.0-75.0) Lymphocytes (%) (Auto) 46.1 % (20.0-45.0) Monocytes (%) (Auto) 10.0 % (1.0-10.0) Eosinophils (%) (Auto) 2.6 % (0.0-3.0) Basophils (%) (Auto) 2.0 % (0.0-2.0) Sodium Level 139 MMOL/L (136-145) Potassium Level 3.8 MMOL/L (3.5-5.1) Chloride Level 104 MMOL/L (98-107) Carbon Dioxide Level 27 MMOL/L (21-32) Anion Gap 8 mmol/L (5-15) Blood Urea Nitrogen 13 mg/dL (7-18) Creatinine 0.7 MG/DL (0.55-1.30) Estimat Glomerular Filtration Rate > 60 mL/min (>60) Glucose Level 120 MG/DL (74-106) Calcium Level 9.1 MG/DL (8.5-10.1) Phosphorus Level 5.0 MG/DL (2.5-4.9) Magnesium Level 2.1 MG/DL (1.8-2.4) Troponin I 0.000 ng/mL (0.000-0.056) 0.000 ng/mL (0.000-0.056) POC Whole Blood Glucose 113 MG/DL (74-106) Test 09/26/20 00:50 09/26/20 05:30 09/26/20 05:38 09/27/20 06:00 Troponin I 0.000 ng/mL (0.000-0.056) White Blood Count 5.0 K/UL (4.8-10.8) 5.9 K/UL (4.8-10.8) Red Blood Count 3.35 M/UL (4.20-5.40) 3.43 M/UL (4.20-5.40) Hemoglobin 8.8 G/DL (12.0-16.0) 9.0 G/DL (12.0-16.0) Hematocrit 27.4 % (37.0-47.0) 27.9 % (37.0-47.0) Mean Corpuscular Volume 82 FL (80-99) 81 FL (80-99) Mean Corpuscular Hemoglobin 26.3 PG (27.0-31.0) 26.3 PG (27.0-31.0) Mean Corpuscular Hemoglobin Concent 32.2 G/DL (32.0-36.0) 32.3 G/DL (32.0-36.0) Red Cell Distribution Width 17.7 % (11.6-14.8) 18.3 % (11.6-14.8) Platelet Count 246 K/UL (150-450) 228 K/UL (150-450) Mean Platelet Volume 8.7 FL (6.5-10.1) 8.5 FL (6.5-10.1) Neutrophils (%) (Auto) 47.1 % (45.0-75.0) 47.7 % (45.0-75.0) Lymphocytes (%) (Auto) 36.6 % (20.0-45.0) 38.8 % (20.0-45.0) Monocytes (%) (Auto) 11.6 % (1.0-10.0) 9.8 % (1.0-10.0) Eosinophils (%) (Auto) 3.1 % (0.0-3.0) 2.6 % (0.0-3.0) Basophils (%) (Auto) 1.6 % (0.0-2.0) 1.1 % (0.0-2.0) Stool Occult Blood Positive (NEGATIVE) Sodium Level 139 MMOL/L (136-145) 140 MMOL/L (136-145) Potassium Level 3.4 MMOL/L (3.5-5.1) 3.4 MMOL/L (3.5-5.1) Chloride Level 105 MMOL/L (98-107) 106 MMOL/L (98-107) Carbon Dioxide Level 27 MMOL/L (21-32) 25 MMOL/L (21-32) Anion Gap 7 mmol/L (5-15) 9 mmol/L (5-15) Blood Urea Nitrogen 11 mg/dL (7-18) 13 mg/dL (7-18) Creatinine 0.8 MG/DL (0.55-1.30) 0.7 MG/DL (0.55-1.30) Estimat Glomerular Filtration Rate > 60 mL/min (>60) > 60 mL/min (>60) Glucose Level 115 MG/DL (74-106) 81 MG/DL (74-106) Calcium Level 8.8 MG/DL (8.5-10.1) 8.6 MG/DL (8.5-10.1) Phosphorus Level 4.6 MG/DL (2.5-4.9) 4.9 MG/DL (2.5-4.9) Magnesium Level 2.1 MG/DL (1.8-2.4) 2.1 MG/DL (1.8-2.4) Total Bilirubin 1.2 MG/DL (0.2-1.0) 0.9 MG/DL (0.2-1.0) Direct Bilirubin 0.1 MG/DL (0.0-0.3) Aspartate Amino Transf (AST/SGOT) 18 U/L (15-37) 17 U/L (15-37) Alanine Aminotransferase (ALT/SGPT) 19 U/L (12-78) 21 U/L (12-78) Alkaline Phosphatase 55 U/L (46-116) 53 U/L (46-116) Total Protein 7.0 G/DL (6.4-8.2) 6.8 G/DL (6.4-8.2) Albumin 3.1 G/DL (3.4-5.0) 3.2 G/DL (3.4-5.0) Globulin 3.9 g/dL 3.6 g/dL Albumin/Globulin Ratio 0.8 (1.0-2.7) 0.9 (1.0-2.7) POC Whole Blood Glucose 110 MG/DL (74-106) Test 09/27/20 13:31 09/28/20 04:55 09/28/20 05:17 POC Whole Blood Glucose 85 MG/DL (74-106) White Blood Count 5.2 K/UL (4.8-10.8) Red Blood Count 3.09 M/UL (4.20-5.40) Hemoglobin 8.1 G/DL (12.0-16.0) Hematocrit 25.0 % (37.0-47.0) Mean Corpuscular Volume 81 FL (80-99) Mean Corpuscular Hemoglobin 26.3 PG (27.0-31.0) Mean Corpuscular Hemoglobin Concent 32.6 G/DL (32.0-36.0) Red Cell Distribution Width 18.8 % (11.6-14.8) Platelet Count 215 K/UL (150-450) Mean Platelet Volume 8.6 FL (6.5-10.1) Neutrophils (%) (Auto) 51.1 % (45.0-75.0) Lymphocytes (%) (Auto) 33.7 % (20.0-45.0) Monocytes (%) (Auto) 10.3 % (1.0-10.0) Eosinophils (%) (Auto) 3.7 % (0.0-3.0) Basophils (%) (Auto) 1.3 % (0.0-2.0) Height (Feet): 5 Height (Inches): 2.00 Weight (Pounds): 135 Objective Physical Exam General: WDWN female in NAD, A&O x 4 HEENT: Normocephalic cephalic atraumatic CV: Regular rate regular rhythm, no murmurs, rubs, or gallops Pulm: Lungs clear to auscultation bilaterally. No wheezes, rhonchi, or rales GI: Soft, nontender, nondistended, bowel sounds present Neuro: CN 2-12 intact bilaterally, no focal signs. Ext: No lower extremity edema bilaterally Skin: no rashes lesions or ulcers Msk: Joints symmetrical in upper extremity and lower extremity bilaterally Lymph: No lymphadenopathy in upper extremity and lower extremity Rivas Rodgers MD Sep 28, 2020 06:28
[2020-09-28] MEDS: NovoLOG Insulin Flexpen SUBQ SCH ×4 (06:30→21:00)
--- NOTE | 2020-09-28 07:23 | NUR ---
NURSE HAND-OFF REPORT: Important Events on Shift: No significant changes during night shit. Pt had bowel prep last night. BM clear. Dayshift RN made aware. Pt has been NPO since midnight. Patient Status: Stable Diet: NPO Pending Orders: Colonoscopy Pending Results/Labs: AM Labs Pending MD notification: N Latest Vital Signs: Temperature 97.9 , Pulse 58 , B/P 118 /56 , Respiratory Rate 16 , O2 SAT 99 , Room Air, O2 Flow Rate . EKG Rhythm: Sinus Bradycardia Rhythm change?: N Latest Christensen Fall Score: 45 Fall Risk: High Risk Safety Measures: Call light Within Reach, Bed Alarm Zone 1, Side Rails Side Rails x2, Bed position Low and Locked. Fall Precautions: Yellow Socks Yellow Gown Door Sign Patient Fall Education Report given to DEBBIE Lopez.
--- NOTE | 2020-09-28 07:30 | NUR ---
NURSE NOTES: Received pt from RN Angely, pt is awake and alert, pt is in RA, no SOB or acute respiratory distress noted. pt has intact iv access LAC 20G SL. pt is on continues heart monitoring, Pt is NPO due to colonoscopy today. Dr Marie notified K 3.3, waiting to call back. All needs attended, bed is locked and is in the lowest position, call light within easy reach. will continue to monitor.
--- NOTE | 2020-09-28 08:50 | Pre-Procedure Note/Attestation ---
Pre-Procedure Note/Attestation Complete Prior to Procedure Planned Procedure: not applicable Procedure Narrative: colonoscopy Indications for Procedure Pre-Operative Diagnosis: rectal bleed Attestation I attest that I discussed the nature of the procedure; its benefits; risks and complications; and alternatives (and the risks and benefits of such alternatives), prior to the procedure, with the patient (or the patient's legal promotional representative). I attest that, if there was a reasonable possibility of needing a blood transfusion, the patient (or the patient's legal promotional representative) was given the [facility] standardized written summary, pursuant to the Shorty Lesia Blood Safety Act ([place] Health and Safety Code # 1645, as amended). I attest that I re-evaluated the patient just prior to the surgery and that there has been no change in the patient's H&P, except as documented below: Andre Marie MD Sep 28, 2020 08:50
[2020-09-28] MEDS: Benazepril 10mg tab ORAL SCH (09:00)
[2020-09-28] MEDS: Atorvastatin 20mg tab ORAL SCH (09:06)
[2020-09-28] MEDS: Hydrocortisone 25mg supp RECTAL SCH ×3 (09:06→17:09)
[2020-09-28] MEDS: Oxybutynin 5mg tab ORAL SCH ×2 (09:07→17:08)
--- NOTE | 2020-09-28 09:35 | NUR ---
NURSE NOTES: Lotensin wasted in med room.
--- NOTE | 2020-09-28 10:08 | General Progress Note ---
Subjective Constitutional: Reports: weakness Allergies: Coded Allergies: MORPHINE (Verified Allergy, Unknown, 12/22/17) All Systems: reviewed and negative except above Subjective calm in bed Objective Last 24 Hour Vital Signs Date Time Temp Pulse Resp B/P (MAP) Pulse Ox O2 Delivery O2 Flow Rate FiO2 09/28/20 09:00 110/59 09/28/20 08:00 98.0 97 18 110/59 (76) 100 09/28/20 04:00 97.9 66 16 118/56 (76) 99 09/28/20 04:00 58 09/28/20 00:00 97.6 56 17 133/68 (89) 100 09/28/20 00:00 53 09/27/20 21:00 Room Air 09/27/20 20:00 51 09/27/20 20:00 97.9 61 17 110/65 (80) 100 09/27/20 16:00 67 09/27/20 16:00 98.5 75 18 132/75 (94) 98 09/27/20 12:00 63 09/27/20 12:00 98.9 70 18 125/69 (87) 96 Intake and Output 09/27/20 09/28/20 19:00 07:00 Intake Total 640 ml 2200 ml Balance 640 ml 2200 ml Intake Oral 640 ml 2200 ml # Voids 2 3 # Bowel Movements 4 6 Laboratory Tests 09/27/20 13:31: POC Whole Blood Glucose 85 09/28/20 04:55: White Blood Count 5.2, Red Blood Count 3.09L, Hemoglobin 8.1L, Hematocrit 25.0L, Mean Corpuscular Volume 81, Mean Corpuscular Hemoglobin 26.3L, Mean Corpuscular Hemoglobin Concent 32.6, Red Cell Distribution Width 18.8H, Platelet Count 215, Mean Platelet Volume 8.6, Neutrophils (%) (Auto) 51.1, Lymphocytes (%) (Auto) 33.7, Monocytes (%) (Auto) 10.3H, Eosinophils (%) (Auto) 3.7H, Basophils (%) (Auto) 1.3, Sodium Level 144, Potassium Level 3.3L, Chloride Level 108H, Carbon Dioxide Level 29, Anion Gap 7, Blood Urea Nitrogen 6L, Creatinine 0.7, Estimat Glomerular Filtration Rate > 60, Glucose Level 86, Calcium Level 8.5 09/28/20 05:17: POC Whole Blood Glucose [Pending] Height (Feet): 5 Height (Inches): 5.00 Weight (Pounds): 135 General Appearance: lethargic EENT: normal ENT inspection Neck: normal alignment Cardiovascular: normal peripheral pulses, normal rate, regular rhythm Respiratory/Chest: chest wall non-tender, lungs clear, normal breath sounds Abdomen: normal bowel sounds, non tender, soft Extremities: normal inspection Edema: no edema noted Arm (L), no edema noted Arm (R), no edema noted Leg (L), no edema noted Leg (R), no edema noted Pedal (L), no edema noted Pedal (R), no edema noted Generalized Neurologic: motor weakness Skin: normal pigmentation, warm/dry Assessment/Plan Problem List: (1) Anemia ICD Codes: D64.9 - Anemia, unspecified SNOMED: 580038480 (2) COVID-19 ICD Codes: U07.1 - COVID-19 SNOMED: 470861486 (3) GIB (gastrointestinal bleeding) ICD Codes: K92.2 - Gastrointestinal hemorrhage, unspecified SNOMED: 26762324 Status: unchanged Assessment/Plan: o2 pulm tx abx cbc bmp am Stuart Palmer DO Sep 28, 2020 10:08
--- NOTE | 2020-09-28 10:14 | Anethesia Preoperative Eval ---
Anesthesia Pre-op PMH/ROS General Date of Evaluation: Sep 28, 2020 Time of Evaluation: 10:59 Anesthesiologist: Sejal ASA Score: ASA 3 Mallampati Score Class I : Soft palate, uvula, fauces, pillars visible Class II: Soft palate, uvula, fauces visible Class III: Soft palate, base of uvula visible Class IV: Only hard plate visible Mallampati Classification: Class II Surgeon: Cynthia Diagnosis: Abd Pain Surgical Procedure: Colonoscopy Anesthesia History: none Family History: no anesthesia problems Allergies: Coded Allergies: MORPHINE (Verified Allergy, Unknown, 12/22/17) Medications: see eMAR Patient NPO?: Yes Past Medical History Cardiovascular: Reports: HTN, other - HL Endocrine: Reports: DM Hematology/Immune: Reports: anemia Anesthesia Pre-op Phys. Exam Physician Exam Last Vital Signs Date Time Temp Pulse Resp B/P (MAP) Pulse Ox O2 Delivery O2 Flow Rate FiO2 09/28/20 09:00 110/59 09/28/20 08:00 98.0 97 18 100 09/27/20 21:00 Room Air Constitutional: NAD Neurologic: CN 2-12 intact Cardiovascular: RRR Respiratory: CTA Gastrointestinal: S/NT/ND Airway Exam Mallampati Score: Class I MO: limited ROM: limited Teeth: missing, intact Anesthesia Pre-op A/P Labs Hematology Test 09/28/20 04:55 White Blood Count 5.2 K/UL (4.8-10.8) Red Blood Count 3.09 M/UL (4.20-5.40) L Hemoglobin 8.1 G/DL (12.0-16.0) L Hematocrit 25.0 % (37.0-47.0) L Mean Corpuscular Volume 81 FL (80-99) Mean Corpuscular Hemoglobin 26.3 PG (27.0-31.0) L Mean Corpuscular Hemoglobin Concent 32.6 G/DL (32.0-36.0) Red Cell Distribution Width 18.8 % (11.6-14.8) H Platelet Count 215 K/UL (150-450) Mean Platelet Volume 8.6 FL (6.5-10.1) Neutrophils (%) (Auto) 51.1 % (45.0-75.0) Lymphocytes (%) (Auto) 33.7 % (20.0-45.0) Monocytes (%) (Auto) 10.3 % (1.0-10.0) H Eosinophils (%) (Auto) 3.7 % (0.0-3.0) H Basophils (%) (Auto) 1.3 % (0.0-2.0) Chemistry Test 09/27/20 13:31 09/28/20 04:55 09/28/20 05:17 POC Whole Blood Glucose 85 MG/DL (74-106) Pending Sodium Level 144 MMOL/L (136-145) Potassium Level 3.3 MMOL/L (3.5-5.1) L Chloride Level 108 MMOL/L (98-107) H Carbon Dioxide Level 29 MMOL/L (21-32) Anion Gap 7 mmol/L (5-15) Blood Urea Nitrogen 6 mg/dL (7-18) L Creatinine 0.7 MG/DL (0.55-1.30) Estimat Glomerular Filtration Rate > 60 mL/min (>60) Glucose Level 86 MG/DL (74-106) Calcium Level 8.5 MG/DL (8.5-10.1) Risk Assessment & Plan Assessment: ASA 3 Plan: TIVA Status Change Before Surgery: No Mik Post MD Sep 28, 2020 10:14
--- NOTE | 2020-09-28 10:16 | 48 Hour Post Anesthesia Eval ---
Post Anesthesia Evaluation Procedure: Colonoscopy Date of Evaluation: Sep 28, 2020 Time of Evaluation: 14:12 Blood Pressure Systolic: 162 0: 88 Pulse Rate: 67 Respiratory Rate: 18 Temperature (Fahrenheit): 98 O2 Sat by Pulse Oximetry: 100 Airway: patent Nausea: No Vomiting: No Pain Intensity: 1 Hydration Status: adequate Cardiopulmonary Status: Stable Mental Status/LOC: patient returned to baseline Follow-up Care/Observations: 0 Post-Anesthesia Complications: 0 Follow-up care needed: ready to discharge Mik Post MD Sep 28, 2020 10:16
--- NOTE | 2020-09-28 10:16 | Immediate Post-Op Evaluation ---
Immediate Post-Op Evalulation Immediate Post-Op Evalulation Procedure: Colonoscopy Date of Evaluation: Sep 28, 2020 Time of Evaluation: 11:58 IV Fluids: 400 LR Blood Products: 0 Estimated Blood Loss: 2 Urinary Output: 0 Blood Pressure Systolic: 163 Blood Pressure Diastolic: 82 Pulse Rate: 92 Respiratory Rate: 16 O2 Sat by Pulse Oximetry: 100 Temperature (Fahrenheit): 98 Pain Score (1-10): 1 Nausea: No Vomiting: No Complications 0 Patient Status: awake, reacts, patent, none Hydration Status: adequate Mik Post MD Sep 28, 2020 10:16
[2020-09-28] MEDS ORDERED: NS 500ML IVPB ONE (10:50)
[2020-09-28] MEDS ORDERED: LR 1000ml ONE (11:00)
[2020-09-28] MEDS ORDERED: Lidocaine 1% MPF 10mg/ml 5ml ONE (11:00)
--- NOTE | 2020-09-28 11:00 | NUR ---
NURSE NOTES: Dr Marie visited pt and is aware HB 8.1, NNO. Will continue to monitor.
--- NOTE | 2020-09-28 11:15 | NUR ---
NURSE NOTES: pt is alert and stable, V/S stable, HR 70 BS 88, gi lab are here to do procedure in pt's room.
--- NOTE | 2020-09-28 11:51 | Endoscopy Procedure Note ---
Endoscopy Procedure Note General Indication for Procedure: rectal bleed Procedures Performed: colonoscopy Operative Findings/Diagnosis: hemorrhoids Specimen: none Pt Tolerated Procedure Well: Yes Estimated Blood Loss: none Anesthesia Anesthesiologist: josselyn Anesthesia: MAC Inserted Devices Implant(s) used?: No GI Core Measures 50 yrs or older w/o bx or poly: Not Applicable 10yrs. F/U recommended: Not Applicable Andre Marie MD Sep 28, 2020 11:51
--- NOTE | 2020-09-28 12:00 | NUR ---
NURSE NOTES: colonoscopy finished now, pt is awake and alert and have dizziness, V/S stable, will continue to close monitoring.
--- NOTE | 2020-09-28 12:09 | NUR ---
NURSE NOTES: per Dr Marie pt can get diet and hydrocortisone supp now. will continue to monitor.
--- NOTE | 2020-09-28 12:29 | Procedure Note ---
DATE OF PROCEDURE: 09/28/2020 SURGEON: Andre Marie MD. PROCEDURE: Colonoscopy. INDICATION: Rectal bleeding. ANESTHESIA: Per Dr. Bishop. REASON FOR PROCEDURE: The procedure, risks, benefits, and possible consequences, including hemorrhage, aspiration, perforation and infection, and alternative treatments, were explained to the patient/legal guardian by Dr. Andre Marie and the patient/legal guardian understood and accepted these risks. PROCEDURE IN DETAIL: After informed consent was obtained and the patient was adequately sedated, first rectal exam was performed, which was positive for internal hemorrhoids. Then, the scope was advanced from rectum into the cecum documented by appendiceal orifice, ileocecal valve, and right upper quadrant palpation. Quality of prep was overall good. The patient had normal colonoscopy examination. No obvious mass, diverticulosis, polyp, or any pathology was seen. Retroflexion of rectum showed evidence of internal hemorrhoids most probably the source of bleeding. The patient tolerated procedure very well without complication. SUMMARY FINDINGS: Internal hemorrhoids, most probably the source of bleeding. Otherwise normal colonoscopy examination. RECOMMENDATIONS: 1. Resume diet. 2. Follow labs. 3. Transfuse as needed. 4. Treat for the internal hemorrhoids aggressively. Andre Marie M.D. DR: Lisa JOB#: [id number] CC:
--- NOTE | 2020-09-28 12:38 | Surgery Progress Note ---
Surgery Progress Note Subjective Additional Comments Patient seen and examined bedside. No acute events. Resting comfortably. Labs noted. Exam stable. No complaints at this time. Imaging reviewed micro revi ewed afebrile hemodynamic stable Objective Last 24 Hour Vital Signs Date Time Temp Pulse Resp B/P (MAP) Pulse Ox O2 Delivery O2 Flow Rate FiO2 09/28/20 12:00 98.2 69 20 130/74 (92) 97 09/28/20 11:42 67 18 100 09/28/20 09:00 110/59 09/28/20 09:00 Room Air 09/28/20 08:00 98.0 97 18 110/59 (76) 100 09/28/20 07:31 82 09/28/20 04:00 97.9 66 16 118/56 (76) 99 09/28/20 04:00 58 09/28/20 00:00 97.6 56 17 133/68 (89) 100 09/28/20 00:00 53 09/27/20 21:00 Room Air 09/27/20 20:00 51 09/27/20 20:00 97.9 61 17 110/65 (80) 100 09/27/20 16:00 67 09/27/20 16:00 98.5 75 18 132/75 (94) 98 I&O Intake and Output 09/27/20 09/28/20 19:00 07:00 Intake Total 640 ml 2200 ml Balance 640 ml 2200 ml Intake Oral 640 ml 2200 ml # Voids 2 3 # Bowel Movements 4 6 Dressing: other Cardiovascular: RSR Respiratory: decreased breath sounds Abdomen: soft, non-tender, present bowel sounds Extremities: no tenderness, no cyanosis Laboratory Tests Test 09/27/20 13:31 09/28/20 04:55 09/28/20 05:17 09/28/20 11:13 POC Whole Blood Glucose 85 MG/DL (74-106) Pending 88 MG/DL (74-106) White Blood Count 5.2 K/UL (4.8-10.8) Red Blood Count 3.09 M/UL (4.20-5.40) L Hemoglobin 8.1 G/DL (12.0-16.0) L Hematocrit 25.0 % (37.0-47.0) L Mean Corpuscular Volume 81 FL (80-99) Mean Corpuscular Hemoglobin 26.3 PG (27.0-31.0) L Mean Corpuscular Hemoglobin Concent 32.6 G/DL (32.0-36.0) Red Cell Distribution Width 18.8 % (11.6-14.8) H Platelet Count 215 K/UL (150-450) Mean Platelet Volume 8.6 FL (6.5-10.1) Neutrophils (%) (Auto) 51.1 % (45.0-75.0) Lymphocytes (%) (Auto) 33.7 % (20.0-45.0) Monocytes (%) (Auto) 10.3 % (1.0-10.0) H Eosinophils (%) (Auto) 3.7 % (0.0-3.0) H Basophils (%) (Auto) 1.3 % (0.0-2.0) Sodium Level 144 MMOL/L (136-145) Potassium Level 3.3 MMOL/L (3.5-5.1) L Chloride Level 108 MMOL/L (98-107) H Carbon Dioxide Level 29 MMOL/L (21-32) Anion Gap 7 mmol/L (5-15) Blood Urea Nitrogen 6 mg/dL (7-18) L Creatinine 0.7 MG/DL (0.55-1.30) Estimat Glomerular Filtration Rate > 60 mL/min (>60) Glucose Level 86 MG/DL (74-106) Calcium Level 8.5 MG/DL (8.5-10.1) Plan Problems: (1) Bleeding hemorrhoids Assessment & Plan: 59F presented with severe anemia noted to have hemorrhoidal bleeding afebrile, HD stable no active bleeding on exam no bleeding noted states feels better transfused prbc improved no n/v okay for diet monitor for bleeding outpatient eval for hemorrhoidal sx intervention thank you (2) Palpitations (3) Elevated TSH (4) Anemia (5) GERD (gastroesophageal reflux disease) (6) HTN (hypertension) (7) HLD (hyperlipidemia) (8) DM2 (diabetes mellitus, type 2) Corbin Lee Sep 28, 2020 12:38
--- NOTE | 2020-09-28 13:07 | NUR ---
CASE MANAGEMENT:REVIEW 09/28/20 SI: PALPITATIONS.COVID PNA. ANEMIA...S/P 2 UNIT PRBC RECTAL BLEEDING 98.2 103 20 130/74 97% ON RA H/H-8.1/25.0 K-3.3 IS: K-DUR PO X1 ANUSOL CO TID FEOSOL PO QD LOTENSIN PO QD LIPITOR PO QD IV VENOFER QHS DITROPAN PO BID : TELEMETRY STATUS DCP: FROM HOME
--- NOTE | 2020-09-28 19:15 | Cardiology Report ---
APPROVED REPORT EXAM: Two-dimensional and M-mode echocardiogram with Doppler and color Doppler. INDICATION Congestive Heart Failure M-Mode DIMENSIONS IVSd0.9 (0.7-1.1cm)Left Atrium (MM)3.7 (1.6-4.0cm) LVDd4.1 (3.5-5.6cm)Aortic Root3.0 (2.0-3.7cm) PWd0.9 (0.7-1.1cm)Aortic Cusp Exc.2.0 (1.5-2.0cm) IVSs1.6 cm LVDs2.6 (2.5-4.0cm) PWs1.5 cm <Conclusion> Technically difficult study due to poor parasternal acoustical windows. M-mode measurements of left ventricle not obtainable due to cardiac position (angle) Normal left ventricular chamber size, systolic function and wall motion to extent visualized. Left ventricular ejection fraction estimated to be 60-65 %. Anterior Echo-free space, may be due to pericardial fat or effusion. All other cardiac chamber sizes are within normal limits. Focal aortic valve sclerosis with adequate cusp excursion. Thickened mitral valve leaflets with normal excursion. Mitral annulus and aortic root calcification. Pulmonic valve not well visualized. Normal tricuspid valve structure. IVC at normal size with physiologic collapse. A color flow and spectral Doppler study was performed and revealed: Trace aortic regurgitation. Mitral diastolic velocities of E & A equalization & Tissue Doppler Imaging suggest mildly reduced left ventricular relaxation c/w impaired relaxation diastolic dysfunction. Trace mitral regurgitation. Mild tricuspid regurgitation. Tricuspid systolic velocities suggests peak right ventricular systolic pressure of 35 mmHg, consistent with boderline mild pulmonary hypertension. Pulmonic regurgitation present.
--- NOTE | 2020-09-28 19:16 | NUR ---
NURSE HAND-OFF REPORT: Important Events on Shift: Colonoscopy done today. Patient Status: Diet: Pending Orders: Pending Results/Labs: Pending MD notification: Latest Vital Signs: Temperature 98.9 , Pulse 72 , B/P 113 /54 , Respiratory Rate 20 , O2 SAT 98 , Room Air, O2 Flow Rate 6 . Vital Sign Comment: EKG Rhythm: Sinus Rhythm Rhythm change?: N MD Notified?: - MD Response: Latest Christensen Fall Score: 45 Fall Risk: High Risk Safety Measures: Call light Within Reach, Bed Alarm Zone 1, Side Rails Side Rails x2, Bed position Low and Locked. Fall Precautions: Yellow Socks Yellow Gown Door Sign Patient Fall Education Report given to . Pt is awake and stable, no stress noted, endorsed plan of care, endorsed to monitor K tomorrow.
--- NOTE | 2020-09-28 19:33 | Cardiology Report ---
APPROVED REPORT EKG Measurement Heart [id number] <Conclusion> Normal sinus rhythm Normal ECG
--- NOTE | 2020-09-28 19:46 | NUR ---
NURSE NOTES: Patient received from Taylorsoon RN. Patient is alert and oriented x4. No s/s of respiratory distress and no c/o pain. On room air. IV site patent and intact on Left FA 20G saline locked. Bed in lowest position and locked. Call light and bedside table within reach.
[2020-09-28] MEDS: Iron Sucrose 100 MG in NS 55 ML IVPB SCH (21:04)
[2020-09-29] VITALS: BP 127/63
[2020-09-29 04:00] VITALS: BP 114/61
[2020-09-29 06:08] LABS: BASOPHILS % (AUTO) 0.9 % (0.0-2.0); HEMATOCRIT 24.4 % (37.0-47.0); LYMPHOCYTES % (AUTO) 35.3 % (20.0-45.0); MEAN CORPUSCULAR VOLUME 82 FL (80-99); NEUTROPHILS % (AUTO) 52.8 % (45.0-75.0); PLATELET COUNT 201 K/UL (150-450); RED BLOOD COUNT 2.98 M/UL (4.20-5.40); RED CELL DISTRIBUTION WIDTH 18.6 % (11.6-14.8); WHITE BLOOD COUNT 6.5 K/UL (4.8-10.8)
[2020-09-29 06:11] LABS: ANION GAP 5 mmol/L (5-15); BLOOD UREA NITROGEN 10 mg/dL (7-18); CALCIUM 8.4 MG/DL (8.5-10.1); CARBON DIOXIDE 28 MMOL/L (21-32); CHLORIDE 107 MMOL/L (98-107); CREATININE 0.7 MG/DL (0.55-1.30); POTASSIUM 3.6 MMOL/L (3.5-5.1); SODIUM 140 MMOL/L (136-145)
--- NOTE | 2020-09-29 06:26 | Hematology/Onc Progress Note ---
Assessment/Plan Assessment/Plan Assessment/Plan: # Anemia due to iron deficiency with loss anemia secondary to Hematochezia --> is having bleeding hemorrhoidal --> as per gi endoscopy 09/28 shows hemorrhoids --> iv iron daily has been started --> s/p 1 unit 09/25 --> hgb 6.3-->8.8->8 --> transfuse as prn basis # Hematochezia secondary to hemorrhoids --> transfuse for Hgb <7 --> as per gi, surg recs --> now improved # Chest pain rule out ACS --> trop neg, per cards # Diabetes mellitus type 2 --> Hold metformin --> SSI # Essential hypertension --> Continue home benazepril 10mg daily --> Hydralazine PRN # GERD --> Continue home PPI # DVT PPX: SCDs Appreciate consultation and dw RN Subjective Constitutional: Denies: no symptoms, chills, fever, malaise, weakness, other HEENT: Denies: no symptoms, eye pain, blurred vision, tearing, double vision, ear pain, ear discharge, nose pain, nose congestion, throat pain, throat swelling, mouth pain, mouth swelling, other Cardiovascular: Denies: no symptoms, chest pain, edema, irregular heart rate, lightheadedness, palpitations, syncope, other Genitourinary: Denies: no symptoms, burning, discharge, frequency, flank pain, hematuria, incontinence, pain, urgency, other Neurologic/Psychiatric: Denies: no symptoms, anxiety, depressed, emotional problems, headache, numbness, paresthesia, pre-existing deficit, seizure, tingling, tremors, weakness, other Endocrine: Denies: no symptoms, excessive sweating, flushing, intolerance to cold, intolerance to heat, increased hunger, increased thirst, increased urine, unexplained weight gain, unexplained weight loss, other Allergies: Coded Allergies: MORPHINE (Verified Allergy, Unknown, 12/22/17) Subjective 09/28 labs noted, meds reviewed, remains on iv iron, for endoscopy 09/29 labs reviewed, colo results noted, with hemorrhoids, meds reviewed Objective Objective Current Medications Medications (Trade) Dose Ordered Sig/Luz Maria Route PRN Reason Start Time Stop Time Status Last Admin Dose Admin Acetaminophen (Tylenol) 650 mg Q6H PRN ORAL For Headache 09/24/20 23:45 10/24/20 23:44 09/26/20 13:48 Acetaminophen (Tylenol) 650 mg Q6H PRN ORAL For Pain 09/24/20 23:45 10/24/20 23:44 09/28/20 21:15 Acetaminophen (Tylenol) 650 mg Q6H PRN ORAL fever 09/24/20 23:45 10/24/20 23:44 Atorvastatin Calcium (Lipitor) 40 mg DAILY ORAL 09/26/20 09:00 12/25/20 08:59 09/28/20 09:06 Benazepril HCl (Lotensin) 10 mg DAILY ORAL 09/26/20 09:00 10/26/20 08:59 09/27/20 09:18 Dextrose (Dextrose 50%) 25 ml Q30M PRN IV Hypoglycemia 09/24/20 23:45 12/23/20 23:44 Dextrose (Dextrose 50%) 50 ml Q30M PRN IV Hypoglycemia 09/24/20 23:45 12/23/20 23:44 Ferrous Sulfate (Feosol) 325 mg DAILY ORAL 09/27/20 09:00 12/26/20 08:59 09/28/20 09:07 Hydralazine HCl (Apresoline) 10 mg Q4H PRN IV SBP >160 09/25/20 12:30 12/24/20 12:29 Insulin Aspart (NovoLOG) BEFORE MEALS AND HS SUBQ 09/26/20 06:30 12/24/20 00:00 09/27/20 21:55 Iron Sucrose 100 mg/Sodium Chloride 60 ml @ 240 mls/hr BEDTIME IVPB 09/25/20 21:00 09/29/20 21:14 09/28/20 21:04 Oxybutynin Chloride (Ditropan) 5 mg BID ORAL 09/25/20 18:00 10/25/20 17:59 09/28/20 17:08 Last 24 Hour Vital Signs Date Time Temp Pulse Resp B/P (MAP) Pulse Ox O2 Delivery O2 Flow Rate FiO2 09/29/20 04:00 69 09/29/20 04:00 98.3 67 17 114/61 (78) 98 09/29/20 00:00 98.2 68 18 127/63 (84) 98 09/29/20 00:00 59 09/28/20 21:00 Room Air 09/28/20 20:00 69 09/28/20 20:00 97.6 73 18 118/61 (80) 97 09/28/20 16:00 98.9 72 20 113/54 (73) 98 09/28/20 15:21 81 09/28/20 12:00 98.2 69 20 130/74 (92) 97 09/28/20 11:55 66 16 155/70 100 Room Air 09/28/20 11:50 74 16 160/83 100 Room Air 09/28/20 11:45 99 16 160/82 100 Room Air 09/28/20 11:42 67 18 100 09/28/20 11:40 123 18 171/91 100 Simple Mask 6 09/28/20 11:35 118 18 160/85 100 Simple Mask 6 09/28/20 11:35 103 09/28/20 11:30 97.2 65 18 163/85 100 Simple Mask 6 09/28/20 09:00 110/59 09/28/20 09:00 Room Air 09/28/20 08:00 98.0 97 18 110/59 (76) 100 09/28/20 07:31 82 09/28/20 04:00 97.9 66 16 118/56 (76) 99 09/28/20 04:00 58 09/28/20 00:00 97.6 56 17 133/68 (89) 100 09/28/20 00:00 53 09/27/20 21:00 Room Air 09/27/20 20:00 51 09/27/20 20:00 97.9 61 17 110/65 (80) 100 09/27/20 16:00 67 09/27/20 16:00 98.5 75 18 132/75 (94) 98 09/27/20 12:00 63 09/27/20 12:00 98.9 70 18 125/69 (87) 96 09/27/20 09:18 136/62 09/27/20 09:00 Room Air 09/27/20 08:00 76 09/27/20 08:00 98.1 65 16 136/62 (86) 98 Intake and Output 09/28/20 09/29/20 19:00 07:00 Intake Total 390 ml Balance 390 ml Intake Oral 240 ml IV Total 150 ml # Voids 3 # Bowel Movements 4 Labs Test 09/27/20 06:00 09/27/20 13:31 09/28/20 04:55 09/28/20 05:17 White Blood Count 5.9 K/UL (4.8-10.8) 5.2 K/UL (4.8-10.8) Red Blood Count 3.43 M/UL (4.20-5.40) 3.09 M/UL (4.20-5.40) Hemoglobin 9.0 G/DL (12.0-16.0) 8.1 G/DL (12.0-16.0) Hematocrit 27.9 % (37.0-47.0) 25.0 % (37.0-47.0) Mean Corpuscular Volume 81 FL (80-99) 81 FL (80-99) Mean Corpuscular Hemoglobin 26.3 PG (27.0-31.0) 26.3 PG (27.0-31.0) Mean Corpuscular Hemoglobin Concent 32.3 G/DL (32.0-36.0) 32.6 G/DL (32.0-36.0) Red Cell Distribution Width 18.3 % (11.6-14.8) 18.8 % (11.6-14.8) Platelet Count 228 K/UL (150-450) 215 K/UL (150-450) Mean Platelet Volume 8.5 FL (6.5-10.1) 8.6 FL (6.5-10.1) Neutrophils (%) (Auto) 47.7 % (45.0-75.0) 51.1 % (45.0-75.0) Lymphocytes (%) (Auto) 38.8 % (20.0-45.0) 33.7 % (20.0-45.0) Monocytes (%) (Auto) 9.8 % (1.0-10.0) 10.3 % (1.0-10.0) Eosinophils (%) (Auto) 2.6 % (0.0-3.0) 3.7 % (0.0-3.0) Basophils (%) (Auto) 1.1 % (0.0-2.0) 1.3 % (0.0-2.0) Sodium Level 140 MMOL/L (136-145) 144 MMOL/L (136-145) Potassium Level 3.4 MMOL/L (3.5-5.1) 3.3 MMOL/L (3.5-5.1) Chloride Level 106 MMOL/L (98-107) 108 MMOL/L (98-107) Carbon Dioxide Level 25 MMOL/L (21-32) 29 MMOL/L (21-32) Anion Gap 9 mmol/L (5-15) 7 mmol/L (5-15) Blood Urea Nitrogen 13 mg/dL (7-18) 6 mg/dL (7-18) Creatinine 0.7 MG/DL (0.55-1.30) 0.7 MG/DL (0.55-1.30) Estimat Glomerular Filtration Rate > 60 mL/min (>60) > 60 mL/min (>60) Glucose Level 81 MG/DL (74-106) 86 MG/DL (74-106) Calcium Level 8.6 MG/DL (8.5-10.1) 8.5 MG/DL (8.5-10.1) Phosphorus Level 4.9 MG/DL (2.5-4.9) Magnesium Level 2.1 MG/DL (1.8-2.4) Total Bilirubin 0.9 MG/DL (0.2-1.0) Aspartate Amino Transf (AST/SGOT) 17 U/L (15-37) Alanine Aminotransferase (ALT/SGPT) 21 U/L (12-78) Alkaline Phosphatase 53 U/L (46-116) Total Protein 6.8 G/DL (6.4-8.2) Albumin 3.2 G/DL (3.4-5.0) Globulin 3.6 g/dL Albumin/Globulin Ratio 0.9 (1.0-2.7) POC Whole Blood Glucose 85 MG/DL (74-106) Test 09/28/20 11:13 09/28/20 17:15 09/28/20 21:07 09/29/20 03:30 POC Whole Blood Glucose 88 MG/DL (74-106) 116 MG/DL (74-106) White Blood Count 6.5 K/UL (4.8-10.8) Red Blood Count 2.98 M/UL (4.20-5.40) Hemoglobin 8.0 G/DL (12.0-16.0) Hematocrit 24.4 % (37.0-47.0) Mean Corpuscular Volume 82 FL (80-99) Mean Corpuscular Hemoglobin 26.7 PG (27.0-31.0) Mean Corpuscular Hemoglobin Concent 32.7 G/DL (32.0-36.0) Red Cell Distribution Width 18.6 % (11.6-14.8) Platelet Count 201 K/UL (150-450) Mean Platelet Volume 8.7 FL (6.5-10.1) Neutrophils (%) (Auto) 52.8 % (45.0-75.0) Lymphocytes (%) (Auto) 35.3 % (20.0-45.0) Monocytes (%) (Auto) 8.0 % (1.0-10.0) Eosinophils (%) (Auto) 3.0 % (0.0-3.0) Basophils (%) (Auto) 0.9 % (0.0-2.0) Sodium Level 140 MMOL/L (136-145) Potassium Level 3.6 MMOL/L (3.5-5.1) Chloride Level 107 MMOL/L (98-107) Carbon Dioxide Level 28 MMOL/L (21-32) Anion Gap 5 mmol/L (5-15) Blood Urea Nitrogen 10 mg/dL (7-18) Creatinine 0.7 MG/DL (0.55-1.30) Estimat Glomerular Filtration Rate > 60 mL/min (>60) Glucose Level 84 MG/DL (74-106) Calcium Level 8.4 MG/DL (8.5-10.1) Test 09/29/20 05:43 POC Whole Blood Glucose 93 MG/DL (74-106) Height (Feet): 5 Height (Inches): 5.00 Weight (Pounds): 135 Objective Physical Exam General: WDWN female in NAD, A&O x 4 HEENT: Normocephalic cephalic atraumatic CV: Regular rate regular rhythm, no murmurs, rubs, or gallops Pulm: Lungs clear to auscultation bilaterally. No wheezes, rhonchi, or rales GI: Soft, nontender, nondistended, bowel sounds present Neuro: CN 2-12 intact bilaterally, no focal signs. Ext: No lower extremity edema bilaterally Skin: no rashes lesions or ulcers Msk: Joints symmetrical in upper extremity and lower extremity bilaterally Lymph: No lymphadenopathy in upper extremity and lower extremity Rivas Rodgers MD Sep 29, 2020 06:26
[2020-09-29] MEDS: NovoLOG Insulin Flexpen SUBQ SCH ×4 (06:30→21:00)
--- NOTE | 2020-09-29 07:28 | NUR ---
NURSE HAND-OFF REPORT: Important Events on Shift:[Still with hematochezia MD aware] Patient Status: [FC, ALert oriented x4] Diet: [CCHO low] Pending Orders: [] Pending Results/Labs:[] Pending MD notification:[] Latest Vital Signs: Temperature 98.3 , Pulse 69 , B/P 114 /61 , Respiratory Rate 17 , O2 SAT 98 , Room Air, O2 Flow Rate 6 . Vital Sign Comment: [] EKG Rhythm: Sinus Rhythm Rhythm change?: N MD Notified?: - MD Response: Latest Christensen Fall Score: 45 Fall Risk: High Risk Safety Measures: Call light Within Reach, Bed Alarm Zone 1, Side Rails Side Rails x2, Bed position Low and Locked. Fall Precautions: Yellow Socks Yellow Gown Door Sign Patient Fall Education Report given to [Tori LEWIS].
--- NOTE | 2020-09-29 07:32 | NUR ---
NURSE NOTES: Received report from DEBBIE Reynoso. Pt is stable, sitting high fowlers eating breakfast independently. Pt is stable on RA unlabored and even respirations. Pt IV on LFA 20g, SL. Pt bed low and locked, call light in reach and bed alarm on. Pt verbalized understanding to call for help. Cane and bedside commode within reach as well.
[2020-09-29 08:00] VITALS: BP 130/61
[2020-09-29] MEDS: Atorvastatin 20mg tab ORAL SCH (08:15)
[2020-09-29] MEDS: Oxybutynin 5mg tab ORAL SCH ×2 (08:15→18:04)
[2020-09-29] MEDS: Benazepril 10mg tab ORAL SCH (08:16)
--- NOTE | 2020-09-29 09:13 | General Progress Note ---
Subjective Constitutional: Reports: weakness Allergies: Coded Allergies: MORPHINE (Verified Allergy, Unknown, 12/22/17) All Systems: reviewed and negative except above Subjective calm in bed Objective Last 24 Hour Vital Signs Date Time Temp Pulse Resp B/P (MAP) Pulse Ox O2 Delivery O2 Flow Rate FiO2 09/29/20 09:05 Room Air 09/29/20 08:16 130/61 09/29/20 08:00 68 09/29/20 08:00 98.3 70 18 130/61 (84) 98 09/29/20 04:00 69 09/29/20 04:00 98.3 67 17 114/61 (78) 98 09/29/20 00:00 98.2 68 18 127/63 (84) 98 09/29/20 00:00 59 09/28/20 21:00 Room Air 09/28/20 20:00 69 09/28/20 20:00 97.6 73 18 118/61 (80) 97 09/28/20 16:00 98.9 72 20 113/54 (73) 98 09/28/20 15:21 81 09/28/20 12:00 98.2 69 20 130/74 (92) 97 09/28/20 11:55 66 16 155/70 100 Room Air 09/28/20 11:50 74 16 160/83 100 Room Air 09/28/20 11:45 99 16 160/82 100 Room Air 09/28/20 11:42 67 18 100 09/28/20 11:40 123 18 171/91 100 Simple Mask 6 09/28/20 11:35 118 18 160/85 100 Simple Mask 6 09/28/20 11:35 103 09/28/20 11:30 97.2 65 18 163/85 100 Simple Mask 6 l Intake and Output 09/28/20 09/29/20 19:00 07:00 Intake Total 390 ml 120 ml Balance 390 ml 120 ml Intake Oral 240 ml 120 ml IV Total 150 ml # Voids 3 1 # Bowel Movements 4 Laboratory Tests 09/28/20 11:13: POC Whole Blood Glucose 88 09/28/20 17:15: POC Whole Blood Glucose [Pending] 09/28/20 21:07: POC Whole Blood Glucose 116H 09/29/20 03:30: White Blood Count 6.5, Red Blood Count 2.98L, Hemoglobin 8.0L, Hematocrit 24.4L, Mean Corpuscular Volume 82, Mean Corpuscular Hemoglobin 26.7L, Mean Corpuscular Hemoglobin Concent 32.7, Red Cell Distribution Width 18.6H, Platelet Count 201, Mean Platelet Volume 8.7, Neutrophils (%) (Auto) 52.8, Lymphocytes (%) (Auto) 35.3, Monocytes (%) (Auto) 8.0, Eosinophils (%) (Auto) 3.0, Basophils (%) (Auto) 0.9, Sodium Level 140, Potassium Level 3.6, Chloride Level 107, Carbon Dioxide Level 28, Anion Gap 5, Blood Urea Nitrogen 10, Creatinine 0.7, Estimat Glomerular Filtration Rate > 60, Glucose Level 84, Calcium Level 8.4L 09/29/20 05:43: POC Whole Blood Glucose 93 Height (Feet): 5 Height (Inches): 5.00 Weight (Pounds): 135 General Appearance: lethargic EENT: normal ENT inspection Neck: normal alignment Cardiovascular: normal peripheral pulses, normal rate, regular rhythm Respiratory/Chest: chest wall non-tender, lungs clear, normal breath sounds Abdomen: normal bowel sounds, non tender, soft Extremities: normal inspection Edema: no edema noted Arm (L), no edema noted Arm (R), no edema noted Leg (L), no edema noted Leg (R), no edema noted Pedal (L), no edema noted Pedal (R), no edema noted Generalized Neurologic: motor weakness Skin: normal pigmentation, warm/dry Lymphatic: normal anterior cervical (L), normal anterior cervical (R), normal posterior cervical (L), normal posterior cervical (R), normal submandibular (L), normal submandibular (R), normal supraclavicular (L), normal supraclavicular (R), normal axillary (L), normal axillary (R), normal inguinal (L), normal inguinal (R), normal other Assessment/Plan Problem List: (1) Anemia ICD Codes: D64.9 - Anemia, unspecified SNOMED: 215706679 (2) COVID-19 ICD Codes: U07.1 - COVID-19 SNOMED: 504233496 (3) GIB (gastrointestinal bleeding) ICD Codes: K92.2 - Gastrointestinal hemorrhage, unspecified SNOMED: 35622156 Status: unchanged Assessment/Plan: o2 pulm tx abx cbc bmp am Stuart Palmer DO Sep 29, 2020 09:13
--- NOTE | 2020-09-29 11:58 | Surgery Progress Note ---
Surgery Progress Note Subjective Symptoms: improved, pain absent, tolerating diet, voiding well, passing flatus, BM Objective Last 24 Hour Vital Signs Date Time Temp Pulse Resp B/P (MAP) Pulse Ox O2 Delivery O2 Flow Rate FiO2 09/29/20 09:05 Room Air 09/29/20 08:16 130/61 09/29/20 08:00 68 09/29/20 08:00 98.3 70 18 130/61 (84) 98 09/29/20 04:00 69 09/29/20 04:00 98.3 67 17 114/61 (78) 98 09/29/20 00:00 98.2 68 18 127/63 (84) 98 09/29/20 00:00 59 09/28/20 21:00 Room Air 09/28/20 20:00 69 09/28/20 20:00 97.6 73 18 118/61 (80) 97 09/28/20 16:00 98.9 72 20 113/54 (73) 98 09/28/20 15:21 81 09/28/20 12:00 98.2 69 20 130/74 (92) 97 I&O Intake and Output 09/28/20 09/29/20 19:00 07:00 Intake Total 390 ml 120 ml Balance 390 ml 120 ml Intake Oral 240 ml 120 ml IV Total 150 ml # Voids 3 1 # Bowel Movements 4 Cardiovascular: RSR Respiratory: clear Abdomen: soft, non-tender, present bowel sounds, non-distended Extremities: no edema, no tenderness, no cyanosis Laboratory Tests Test 09/28/20 17:15 09/28/20 21:07 09/29/20 03:30 09/29/20 05:43 POC Whole Blood Glucose Pending 116 MG/DL (74-106) H 93 MG/DL (74-106) White Blood Count 6.5 K/UL (4.8-10.8) Red Blood Count 2.98 M/UL (4.20-5.40) L Hemoglobin 8.0 G/DL (12.0-16.0) L Hematocrit 24.4 % (37.0-47.0) L Mean Corpuscular Volume 82 FL (80-99) Mean Corpuscular Hemoglobin 26.7 PG (27.0-31.0) L Mean Corpuscular Hemoglobin Concent 32.7 G/DL (32.0-36.0) Red Cell Distribution Width 18.6 % (11.6-14.8) H Platelet Count 201 K/UL (150-450) Mean Platelet Volume 8.7 FL (6.5-10.1) Neutrophils (%) (Auto) 52.8 % (45.0-75.0) Lymphocytes (%) (Auto) 35.3 % (20.0-45.0) Monocytes (%) (Auto) 8.0 % (1.0-10.0) Eosinophils (%) (Auto) 3.0 % (0.0-3.0) Basophils (%) (Auto) 0.9 % (0.0-2.0) Sodium Level 140 MMOL/L (136-145) Potassium Level 3.6 MMOL/L (3.5-5.1) Chloride Level 107 MMOL/L (98-107) Carbon Dioxide Level 28 MMOL/L (21-32) Anion Gap 5 mmol/L (5-15) Blood Urea Nitrogen 10 mg/dL (7-18) Creatinine 0.7 MG/DL (0.55-1.30) Estimat Glomerular Filtration Rate > 60 mL/min (>60) Glucose Level 84 MG/DL (74-106) Calcium Level 8.4 MG/DL (8.5-10.1) L Test 09/29/20 11:27 POC Whole Blood Glucose 130 MG/DL (74-106) H Plan Problems: (1) Bleeding hemorrhoids Assessment & Plan: 59F presented with severe anemia noted to have hemorrhoidal bleeding afebrile, HD stable no active bleeding on exam no bleeding noted states feels better transfused prbc improved no n/v okay for diet monitor for bleeding outpatient eval for hemorrhoidal sx intervention thank you no bleeding stable okay to d/c (2) Palpitations (3) Elevated TSH (4) Anemia (5) GERD (gastroesophageal reflux disease) (6) HTN (hypertension) (7) HLD (hyperlipidemia) (8) DM2 (diabetes mellitus, type 2) Corbin Lee Sep 29, 2020 11:58
[2020-09-29 12:00] VITALS: BP 106/60
--- NOTE | 2020-09-29 13:28 | Diagnostic Imaging Report ---
Indication: Lower extremity pain Technique: Grayscale and duplex images of the bilateral lower extremity veins Comparison: none Findings: Bilaterally, grayscale and duplex images demonstrate no evidence of intraluminal thrombus. Normal phasic Doppler waveforms, demonstrating normal augmentation response and no evidence of valvular insufficiency. Greater saphenous vein(s) and tibial veins are patent. Normal compressibility. Incidental finding is varicose veins in the left calf region Impression: Negative for evidence of lower extremity deep venous thrombosis bilaterally
--- NOTE | 2020-09-29 13:32 | NUR ---
CASE MANAGEMENT:REVIEW 09/29/20 SI: PALPITATIONS.COVID PNA. ANEMIA...S/P 2 UNIT PRBC RECTAL BLEEDING 98.4 77 18 106/60 98% ON RA H/H-8.0/24.4 IS:FEOSOL PO QD LOTENSIN PO QD LIPITOR PO QD IV VENOFER QHS DITROPAN PO BID : TELEMETRY STATUS DCP: FROM HOME
--- NOTE | 2020-09-29 13:57 | General Progress Note ---
Subjective ROS Limited/Unobtainable: No Allergies: Coded Allergies: MORPHINE (Verified Allergy, Unknown, 12/22/17) Objective Last 24 Hour Vital Signs Date Time Temp Pulse Resp B/P (MAP) Pulse Ox O2 Delivery O2 Flow Rate FiO2 09/29/20 12:00 98.4 77 18 106/60 (75) 98 09/29/20 12:00 87 09/29/20 09:05 Room Air 09/29/20 08:16 130/61 09/29/20 08:00 68 09/29/20 08:00 98.3 70 18 130/61 (84) 98 09/29/20 04:00 69 09/29/20 04:00 98.3 67 17 114/61 (78) 98 09/29/20 00:00 98.2 68 18 127/63 (84) 98 09/29/20 00:00 59 09/28/20 21:00 Room Air 09/28/20 20:00 69 09/28/20 20:00 97.6 73 18 118/61 (80) 97 09/28/20 16:00 98.9 72 20 113/54 (73) 98 09/28/20 15:21 81 Intake and Output 09/28/20 09/29/20 19:00 07:00 Intake Total 390 ml 120 ml Balance 390 ml 120 ml Intake Oral 240 ml 120 ml IV Total 150 ml # Voids 3 1 # Bowel Movements 4 Laboratory Tests 09/28/20 17:15: POC Whole Blood Glucose [Pending] 09/28/20 21:07: POC Whole Blood Glucose 116H 09/29/20 03:30: White Blood Count 6.5, Red Blood Count 2.98L, Hemoglobin 8.0L, Hematocrit 24.4L, Mean Corpuscular Volume 82, Mean Corpuscular Hemoglobin 26.7L, Mean Corpuscular Hemoglobin Concent 32.7, Red Cell Distribution Width 18.6H, Platelet Count 201, Mean Platelet Volume 8.7, Neutrophils (%) (Auto) 52.8, Lymphocytes (%) (Auto) 35.3, Monocytes (%) (Auto) 8.0, Eosinophils (%) (Auto) 3.0, Basophils (%) (Auto) 0.9, Sodium Level 140, Potassium Level 3.6, Chloride Level 107, Carbon Dioxide Level 28, Anion Gap 5, Blood Urea Nitrogen 10, Creatinine 0.7, Estimat Glomerular Filtration Rate > 60, Glucose Level 84, Calcium Level 8.4L 09/29/20 05:43: POC Whole Blood Glucose 93 09/29/20 11:27: POC Whole Blood Glucose 130H Height (Feet): 5 Height (Inches): 5.00 Weight (Pounds): 135 General Appearance: no apparent distress EENT: normal ENT inspection Neck: supple Cardiovascular: normal rate Respiratory/Chest: decreased breath sounds Abdomen: hypoactive bowel sounds Extremities: non-tender Assessment/Plan Status: unchanged Assessment/Plan: Assessment - rectal bleeding - microcytic, symptomatic anemia Recommendations -anusol HC -sitz bath - PPI - IV Fe s/p colonoscopy Andre Marie MD Sep 29, 2020 13:57
[2020-09-29 16:00] VITALS: BP 106/66
--- NOTE | 2020-09-29 16:00 | NUR ---
NURSE NOTES: Report previously given to Melinda/DEBBIE Malone at [facility]. Pt tele removed. pt cleaned at this time, BMx1, urine x1. Pt optifoam dressings changed at this time. Awaiting berry picker. Addendum: 09/29/20 at 1756 by Tori Ngo RN RN wrong Pt. disregard.
--- NOTE | 2020-09-29 17:19 | NUR ---
NURSE NOTES: Called central supply and spoke to Handy regarding acquiring a sitz bath for the Pt. Per Handy, there are none in stock at this time and to call back tmr morning to see if there are more in stock. Notified Dr Marie via telephone at this time regarding lack of supplies and Pt blood w/ stool continues. Dr Marie acknowledged this page, no new orders at this time.
--- NOTE | 2020-09-29 18:00 | NUR ---
NURSE HAND-OFF REPORT: Important Events on Shift: no sitz bath per Handy, central supply Patient Status: FC, stable Diet: CCHO low, regular texture, independent nutrition Pending Orders: NEED SITZ BATH, ask central in AM 09/30 Pending Results/Labs:09/30 0400 CBC BMP Pending MD notification: Latest Vital Signs: Temperature 98.2 , Pulse 62 , B/P 106 /66 , Respiratory Rate 16 , O2 SAT 97 , Room Air, O2 Flow Rate 6 . Vital Sign Comment: EKG Rhythm: Sinus Rhythm Rhythm change?: N MD Notified?: - MD Response: Latest Christensen Fall Score: 45 Fall Risk: High Risk Safety Measures: Call light Within Reach, Bed Alarm Zone 1, Side Rails Side Rails x2, Bed position Low and Locked. Fall Precautions: Yellow Socks Yellow Gown Door Sign Patient Fall Education Report to be given. Addendum: 09/29/20 at 1905 by Tori Ngo RN RN Report update given to DEBBIE Reynoso. pt is stable on RA, no s/s or complaint of distress at this time.
--- NOTE | 2020-09-29 19:48 | NUR ---
NURSE NOTES: Patient received from Tori Ngo. Patient comfortable in bed. Alert and oriented x4. Saturating well on room air. No s/s of respiratory distress and no c/o pain. IV site patent and intact on Left AC 20G SL. Bed in lowest position and locked. Call light, bedside table, cane and bedside commode within reach.
[2020-09-29 20:00] VITALS: BP 143/78
[2020-09-29] MEDS: Iron Sucrose 100 MG in NS 55 ML IVPB SCH (21:06)
[2020-09-30] VITALS: BP 119/56
[2020-09-30 04:00] VITALS: BP 109/50
[2020-09-30 04:52] LABS: BASOPHILS % (AUTO) 0.6 % (0.0-2.0); EOSINOPHILS % (AUTO) 1.8 % (0.0-3.0); HEMATOCRIT 25.5 % (37.0-47.0); HEMOGLOBIN 8.3 G/DL (12.0-16.0); LYMPHOCYTES % (AUTO) 26.3 % (20.0-45.0); MEAN CORPUSCULAR VOLUME 82 FL (80-99); MONOCYTES % (AUTO) 7.4 % (1.0-10.0); NEUTROPHILS % (AUTO) 63.9 % (45.0-75.0); PLATELET COUNT 193 K/UL (150-450); RED BLOOD COUNT 3.12 M/UL (4.20-5.40); WHITE BLOOD COUNT 7.5 K/UL (4.8-10.8)
[2020-09-30 05:07] LABS: ANION GAP 4 mmol/L (5-15); BLOOD UREA NITROGEN 13 mg/dL (7-18); CALCIUM 8.7 MG/DL (8.5-10.1); CARBON DIOXIDE 30 MMOL/L (21-32); CHLORIDE 105 MMOL/L (98-107); CREATININE 0.7 MG/DL (0.55-1.30); POTASSIUM 4.2 MMOL/L (3.5-5.1); SODIUM 138 MMOL/L (136-145)
[2020-09-30] MEDS: NovoLOG Insulin Flexpen SUBQ SCH ×4 (06:30→21:00)
--- NOTE | 2020-09-30 07:23 | NUR ---
NURSE NOTES: Received report update from DEBBIE Reynoso. Pt is stable, sitting high fowlers eating breakfast independently. Pt is stable on RA unlabored and even respirations. Pt IV on LFA 20g, SL. Pt bed low and locked, call light in reach and bed alarm on. Pt verbalized understanding to call for help. Cane bedside and belongings in reach.
--- NOTE | 2020-09-30 07:27 | NUR ---
NURSE HAND-OFF REPORT: Important Events on Shift:[No significant events] Patient Status: [FC, Stable, A&Ox4] Diet: [CCHO LOW] Pending Orders: [] Pending Results/Labs:[] Pending MD notification:[] Latest Vital Signs: Temperature 98.1 , Pulse 75 , B/P 109 /50 , Respiratory Rate 16 , O2 SAT 98 , Room Air, O2 Flow Rate 6 . Vital Sign Comment: [] EKG Rhythm: Sinus Rhythm Rhythm change?: N MD Notified?: - MD Response: Latest Christensen Fall Score: 45 Fall Risk: High Risk Safety Measures: Call light Within Reach, Bed Alarm Zone 1, Side Rails Side Rails x2, Bed position Low and Locked. Fall Precautions: Yellow Socks Yellow Gown Door Sign Patient Fall Education Report given to [Tori Ngo RN].
[2020-09-30 08:00] VITALS: BP 116/57
[2020-09-30] MEDS: Benazepril 10mg tab ORAL SCH (08:05)
[2020-09-30] MEDS: Oxybutynin 5mg tab ORAL SCH ×3 (08:06→17:10)
[2020-09-30] MEDS: Atorvastatin 20mg tab ORAL SCH (08:06)
--- NOTE | 2020-09-30 08:10 | NUR ---
NURSE NOTES: Pt refusing oxybutinin at this time because she believes to make her throat dry and make her cough. risks and benefits explained.
--- NOTE | 2020-09-30 08:13 | NUR ---
RD ASSESSMENT & RECOMMENDATIONS SEE CARE ACTIVITY FOR COMPLETE ASSESSMENT DAILY ESTIMATED NEEDS: Needs based on DM, pulmonary 61.5kg 25-30 kcals/kg 1327-7377 total kcals 1-1.5 g protein/kg 62-92 g total protein 25-30 mL/kg 6811-0771 total fluid mLs NUTRITION DIAGNOSIS: Altered nutrition related lab values r/t hemorrhoids as evidenced by low Hgb (8.3), s/p colonoscopy. CURRENT DIET: CCHO LOW PO DIET RECOMMENDATIONS: CCHO LOW/ LOW FIBER DIET ADDITIONAL RECOMMENDATIONS: 1) maintain daily wts 2) good glycemic control, monitor for hypoglycemia
--- NOTE | 2020-09-30 08:57 | General Progress Note ---
Subjective Constitutional: Reports: weakness Allergies: Coded Allergies: MORPHINE (Verified Allergy, Unknown, 12/22/17) All Systems: reviewed and negative except above Subjective calm in bed Objective Last 24 Hour Vital Signs Date Time Temp Pulse Resp B/P (MAP) Pulse Ox O2 Delivery O2 Flow Rate FiO2 09/30/20 08:05 116/57 09/30/20 04:00 98.1 66 16 109/50 (69) 98 09/30/20 04:00 75 09/30/20 00:00 67 09/30/20 00:00 98.1 68 16 119/56 (77) 99 09/29/20 21:00 Room Air 09/29/20 20:00 98.4 80 18 143/78 (99) 99 09/29/20 20:00 72 09/29/20 16:00 62 09/29/20 16:00 98.2 72 16 106/66 (79) 97 09/29/20 12:00 98.4 77 18 106/60 (75) 98 09/29/20 12:00 87 09/29/20 09:05 Room Air Intake and Output 09/29/20 09/30/20 19:00 07:00 Intake Total 600 ml Balance 600 ml Intake Oral 600 ml # Voids 2 2 Laboratory Tests 09/29/20 11:27: POC Whole Blood Glucose 130H 09/30/20 04:00: White Blood Count 7.5, Red Blood Count 3.12L, Hemoglobin 8.3L, Hematocrit 25.5L, Mean Corpuscular Volume 82, Mean Corpuscular Hemoglobin 26.7L, Mean Corpuscular Hemoglobin Concent 32.7, Red Cell Distribution Width 20.0H, Platelet Count 193, Mean Platelet Volume 8.1, Neutrophils (%) (Auto) 63.9, Lymphocytes (%) (Auto) 26.3, Monocytes (%) (Auto) 7.4, Eosinophils (%) (Auto) 1.8, Basophils (%) (Auto) 0.6, Sodium Level 138, Potassium Level 4.2, Chloride Level 105, Carbon Dioxide Level 30, Anion Gap 4L, Blood Urea Nitrogen 13, Creatinine 0.7, Estimat Glomerular Filtration Rate > 60, Glucose Level 91, Calcium Level 8.7 Height (Feet): 5 Height (Inches): 5.00 Weight (Pounds): 135 General Appearance: lethargic EENT: normal ENT inspection Cardiovascular: normal peripheral pulses, normal rate, regular rhythm Respiratory/Chest: chest wall non-tender, lungs clear, normal breath sounds Abdomen: normal bowel sounds, non tender, soft Extremities: normal inspection Edema: no edema noted Arm (L), no edema noted Arm (R), no edema noted Leg (L), no edema noted Leg (R), no edema noted Pedal (L), no edema noted Pedal (R), no edema noted Generalized Neurologic: motor weakness Skin: normal pigmentation, warm/dry Assessment/Plan Problem List: (1) Anemia ICD Codes: D64.9 - Anemia, unspecified SNOMED: 333116335 (2) COVID-19 ICD Codes: U07.1 - COVID-19 SNOMED: 367332216 (3) GIB (gastrointestinal bleeding) ICD Codes: K92.2 - Gastrointestinal hemorrhage, unspecified SNOMED: 41096918 Status: unchanged Assessment/Plan: o2 pulm tx abx cbc bmp am dc if clear by all Sutart Palmer DO Sep 30, 2020 08:57
--- NOTE | 2020-09-30 11:01 | Surgery Progress Note ---
Surgery Progress Note Subjective Additional Comments Patient seen and examined bedside. No acute events. Resting comfortably. Labs reviewed micro reviewed imaging reviewed. Afebrile hemodynamically stable at this time Objective Last 24 Hour Vital Signs Date Time Temp Pulse Resp B/P (MAP) Pulse Ox O2 Delivery O2 Flow Rate FiO2 09/30/20 09:00 Room Air 09/30/20 08:05 116/57 09/30/20 08:00 98.3 79 16 116/57 (76) 97 09/30/20 08:00 77 09/30/20 04:00 98.1 66 16 109/50 (69) 98 09/30/20 04:00 75 09/30/20 00:00 67 09/30/20 00:00 98.1 68 16 119/56 (77) 99 09/29/20 21:00 Room Air 09/29/20 20:00 98.4 80 18 143/78 (99) 99 09/29/20 20:00 72 09/29/20 16:00 62 09/29/20 16:00 98.2 72 16 106/66 (79) 97 09/29/20 12:00 98.4 77 18 106/60 (75) 98 09/29/20 12:00 87 I&O Intake and Output 09/29/20 09/30/20 19:00 07:00 Intake Total 600 ml Balance 600 ml Intake Oral 600 ml # Voids 2 2 Cardiovascular: RSR Respiratory: clear Abdomen: soft, non-tender, present bowel sounds Extremities: no tenderness, no cyanosis Laboratory Tests Test 09/29/20 11:27 09/30/20 04:00 POC Whole Blood Glucose 130 MG/DL (74-106) H White Blood Count 7.5 K/UL (4.8-10.8) Red Blood Count 3.12 M/UL (4.20-5.40) L Hemoglobin 8.3 G/DL (12.0-16.0) L Hematocrit 25.5 % (37.0-47.0) L Mean Corpuscular Volume 82 FL (80-99) Mean Corpuscular Hemoglobin 26.7 PG (27.0-31.0) L Mean Corpuscular Hemoglobin Concent 32.7 G/DL (32.0-36.0) Red Cell Distribution Width 20.0 % (11.6-14.8) H Platelet Count 193 K/UL (150-450) Mean Platelet Volume 8.1 FL (6.5-10.1) Neutrophils (%) (Auto) 63.9 % (45.0-75.0) Lymphocytes (%) (Auto) 26.3 % (20.0-45.0) Monocytes (%) (Auto) 7.4 % (1.0-10.0) Eosinophils (%) (Auto) 1.8 % (0.0-3.0) Basophils (%) (Auto) 0.6 % (0.0-2.0) Sodium Level 138 MMOL/L (136-145) Potassium Level 4.2 MMOL/L (3.5-5.1) Chloride Level 105 MMOL/L (98-107) Carbon Dioxide Level 30 MMOL/L (21-32) Anion Gap 4 mmol/L (5-15) L Blood Urea Nitrogen 13 mg/dL (7-18) Creatinine 0.7 MG/DL (0.55-1.30) Estimat Glomerular Filtration Rate > 60 mL/min (>60) Glucose Level 91 MG/DL (74-106) Calcium Level 8.7 MG/DL (8.5-10.1) Plan Problems: (1) Bleeding hemorrhoids Assessment & Plan: 59F presented with severe anemia noted to have hemorrhoidal bleeding afebrile, HD stable no active bleeding on exam no bleeding noted states feels better transfused prbc improved no n/v okay for diet monitor for bleeding outpatient eval for hemorrhoidal sx intervention thank you no bleeding stable okay to d/c (2) Palpitations (3) Elevated TSH (4) Anemia (5) GERD (gastroesophageal reflux disease) (6) HTN (hypertension) (7) HLD (hyperlipidemia) (8) DM2 (diabetes mellitus, type 2) Corbin Lee Sep 30, 2020 11:01
--- NOTE | 2020-09-30 11:21 | Hematology/Onc Progress Note ---
Assessment/Plan Assessment/Plan Assessment/Plan: # Anemia due to iron deficiency with loss anemia secondary to Hematochezia --> is having bleeding hemorrhoidal --> as per gi endoscopy 09/28 shows hemorrhoids --> iv iron daily has been started --> s/p 1 unit 09/25 --> hgb 6.3-->8.8->8 --> transfuse as prn basis # Hematochezia secondary to hemorrhoids --> transfuse for Hgb <7 --> as per gi, surg recs --> now improved # Chest pain rule out ACS --> trop neg, per cards # Diabetes mellitus type 2 --> Hold metformin --> SSI # Essential hypertension --> Continue home benazepril 10mg daily --> Hydralazine PRN # GERD --> Continue home PPI # DVT PPX: SCDs Appreciate consultation and dw RN Subjective Allergies: Coded Allergies: MORPHINE (Verified Allergy, Unknown, 12/22/17) Subjective 09/30: pt is on RA, no acute distress noted. Objective Objective Current Medications Medications (Trade) Dose Ordered Sig/Luz Maria Route PRN Reason Start Time Stop Time Status Last Admin Dose Admin Acetaminophen (Tylenol) 650 mg Q6H PRN ORAL For Headache 09/24/20 23:45 10/24/20 23:44 09/26/20 13:48 Acetaminophen (Tylenol) 650 mg Q6H PRN ORAL For Pain 09/24/20 23:45 10/24/20 23:44 09/28/20 21:15 Acetaminophen (Tylenol) 650 mg Q6H PRN ORAL fever 09/24/20 23:45 10/24/20 23:44 Atorvastatin Calcium (Lipitor) 40 mg DAILY ORAL 09/26/20 09:00 12/25/20 08:59 09/30/20 08:06 Benazepril HCl (Lotensin) 10 mg DAILY ORAL 09/26/20 09:00 10/26/20 08:59 09/30/20 08:05 Dextrose (Dextrose 50%) 25 ml Q30M PRN IV Hypoglycemia 09/24/20 23:45 12/23/20 23:44 Dextrose (Dextrose 50%) 50 ml Q30M PRN IV Hypoglycemia 09/24/20 23:45 12/23/20 23:44 Ferrous Sulfate (Feosol) 325 mg DAILY ORAL 09/27/20 09:00 12/26/20 08:59 09/30/20 08:06 Hydralazine HCl (Apresoline) 10 mg Q4H PRN IV SBP >160 09/25/20 12:30 12/24/20 12:29 Insulin Aspart (NovoLOG) BEFORE MEALS AND HS SUBQ 09/26/20 06:30 12/24/20 00:00 09/29/20 16:36 Oxybutynin Chloride (Ditropan) 5 mg BID ORAL 09/25/20 18:00 10/25/20 17:59 09/29/20 18:04 Last 24 Hour Vital Signs Date Time Temp Pulse Resp B/P (MAP) Pulse Ox O2 Delivery O2 Flow Rate FiO2 09/30/20 09:00 Room Air 09/30/20 08:05 116/57 09/30/20 08:00 98.3 79 16 116/57 (76) 97 09/30/20 08:00 77 09/30/20 04:00 98.1 66 16 109/50 (69) 98 09/30/20 04:00 75 09/30/20 00:00 67 09/30/20 00:00 98.1 68 16 119/56 (77) 99 09/29/20 21:00 Room Air 09/29/20 20:00 98.4 80 18 143/78 (99) 99 09/29/20 20:00 72 09/29/20 16:00 62 09/29/20 16:00 98.2 72 16 106/66 (79) 97 09/29/20 12:00 98.4 77 18 106/60 (75) 98 09/29/20 12:00 87 09/29/20 09:05 Room Air 09/29/20 08:16 130/61 09/29/20 08:00 68 09/29/20 08:00 98.3 70 18 130/61 (84) 98 09/29/20 04:00 69 09/29/20 04:00 98.3 67 17 114/61 (78) 98 09/29/20 00:00 98.2 68 18 127/63 (84) 98 09/29/20 00:00 59 09/28/20 21:00 Room Air 09/28/20 20:00 69 09/28/20 20:00 97.6 73 18 118/61 (80) 97 09/28/20 16:00 98.9 72 20 113/54 (73) 98 09/28/20 15:21 81 09/28/20 12:00 98.2 69 20 130/74 (92) 97 09/28/20 11:55 66 16 155/70 100 Room Air 09/28/20 11:50 74 16 160/83 100 Room Air 09/28/20 11:45 99 16 160/82 100 Room Air 09/28/20 11:42 67 18 100 09/28/20 11:40 123 18 171/91 100 Simple Mask 6 09/28/20 11:35 118 18 160/85 100 Simple Mask 6 09/28/20 11:35 103 09/28/20 11:30 97.2 65 18 163/85 100 Simple Mask 6 l Intake and Output 09/29/20 09/30/20 19:00 07:00 Intake Total 600 ml Balance 600 ml Intake Oral 600 ml # Voids 2 2 Labs Test 09/27/20 13:31 09/28/20 04:55 09/28/20 05:17 09/28/20 11:13 POC Whole Blood Glucose 85 MG/DL (74-106) 88 MG/DL (74-106) White Blood Count 5.2 K/UL (4.8-10.8) Red Blood Count 3.09 M/UL (4.20-5.40) Hemoglobin 8.1 G/DL (12.0-16.0) Hematocrit 25.0 % (37.0-47.0) Mean Corpuscular Volume 81 FL (80-99) Mean Corpuscular Hemoglobin 26.3 PG (27.0-31.0) Mean Corpuscular Hemoglobin Concent 32.6 G/DL (32.0-36.0) Red Cell Distribution Width 18.8 % (11.6-14.8) Platelet Count 215 K/UL (150-450) Mean Platelet Volume 8.6 FL (6.5-10.1) Neutrophils (%) (Auto) 51.1 % (45.0-75.0) Lymphocytes (%) (Auto) 33.7 % (20.0-45.0) Monocytes (%) (Auto) 10.3 % (1.0-10.0) Eosinophils (%) (Auto) 3.7 % (0.0-3.0) Basophils (%) (Auto) 1.3 % (0.0-2.0) Sodium Level 144 MMOL/L (136-145) Potassium Level 3.3 MMOL/L (3.5-5.1) Chloride Level 108 MMOL/L (98-107) Carbon Dioxide Level 29 MMOL/L (21-32) Anion Gap 7 mmol/L (5-15) Blood Urea Nitrogen 6 mg/dL (7-18) Creatinine 0.7 MG/DL (0.55-1.30) Estimat Glomerular Filtration Rate > 60 mL/min (>60) Glucose Level 86 MG/DL (74-106) Calcium Level 8.5 MG/DL (8.5-10.1) Test 09/28/20 17:15 09/28/20 21:07 09/29/20 03:30 09/29/20 05:43 POC Whole Blood Glucose 116 MG/DL (74-106) 93 MG/DL (74-106) White Blood Count 6.5 K/UL (4.8-10.8) Red Blood Count 2.98 M/UL (4.20-5.40) Hemoglobin 8.0 G/DL (12.0-16.0) Hematocrit 24.4 % (37.0-47.0) Mean Corpuscular Volume 82 FL (80-99) Mean Corpuscular Hemoglobin 26.7 PG (27.0-31.0) Mean Corpuscular Hemoglobin Concent 32.7 G/DL (32.0-36.0) Red Cell Distribution Width 18.6 % (11.6-14.8) Platelet Count 201 K/UL (150-450) Mean Platelet Volume 8.7 FL (6.5-10.1) Neutrophils (%) (Auto) 52.8 % (45.0-75.0) Lymphocytes (%) (Auto) 35.3 % (20.0-45.0) Monocytes (%) (Auto) 8.0 % (1.0-10.0) Eosinophils (%) (Auto) 3.0 % (0.0-3.0) Basophils (%) (Auto) 0.9 % (0.0-2.0) Sodium Level 140 MMOL/L (136-145) Potassium Level 3.6 MMOL/L (3.5-5.1) Chloride Level 107 MMOL/L (98-107) Carbon Dioxide Level 28 MMOL/L (21-32) Anion Gap 5 mmol/L (5-15) Blood Urea Nitrogen 10 mg/dL (7-18) Creatinine 0.7 MG/DL (0.55-1.30) Estimat Glomerular Filtration Rate > 60 mL/min (>60) Glucose Level 84 MG/DL (74-106) Calcium Level 8.4 MG/DL (8.5-10.1) Test 09/29/20 11:27 09/30/20 04:00 POC Whole Blood Glucose 130 MG/DL (74-106) White Blood Count 7.5 K/UL (4.8-10.8) Red Blood Count 3.12 M/UL (4.20-5.40) Hemoglobin 8.3 G/DL (12.0-16.0) Hematocrit 25.5 % (37.0-47.0) Mean Corpuscular Volume 82 FL (80-99) Mean Corpuscular Hemoglobin 26.7 PG (27.0-31.0) Mean Corpuscular Hemoglobin Concent 32.7 G/DL (32.0-36.0) Red Cell Distribution Width 20.0 % (11.6-14.8) Platelet Count 193 K/UL (150-450) Mean Platelet Volume 8.1 FL (6.5-10.1) Neutrophils (%) (Auto) 63.9 % (45.0-75.0) Lymphocytes (%) (Auto) 26.3 % (20.0-45.0) Monocytes (%) (Auto) 7.4 % (1.0-10.0) Eosinophils (%) (Auto) 1.8 % (0.0-3.0) Basophils (%) (Auto) 0.6 % (0.0-2.0) Sodium Level 138 MMOL/L (136-145) Potassium Level 4.2 MMOL/L (3.5-5.1) Chloride Level 105 MMOL/L (98-107) Carbon Dioxide Level 30 MMOL/L (21-32) Anion Gap 4 mmol/L (5-15) Blood Urea Nitrogen 13 mg/dL (7-18) Creatinine 0.7 MG/DL (0.55-1.30) Estimat Glomerular Filtration Rate > 60 mL/min (>60) Glucose Level 91 MG/DL (74-106) Calcium Level 8.7 MG/DL (8.5-10.1) Height (Feet): 5 Height (Inches): 5.00 Weight (Pounds): 135 Objective Physical Exam General: WDWN female in NAD, A&O x 4 HEENT: Normocephalic cephalic atraumatic CV: Regular rate regular rhythm, no murmurs, rubs, or gallops Pulm: Lungs clear to auscultation bilaterally. No wheezes, rhonchi, or rales GI: Soft, nontender, nondistended, bowel sounds present Neuro: CN 2-12 intact bilaterally, no focal signs. Ext: No lower extremity edema bilaterally Skin: no rashes lesions or ulcers Msk: Joints symmetrical in upper extremity and lower extremity bilaterally Lymph: No lymphadenopathy in upper extremity and lower extremity Julia Gamino NP Sep 30, 2020 11:21
[2020-09-30 12:00] VITALS: BP 103/56
--- NOTE | 2020-09-30 12:02 | NUR ---
NURSE NOTES: Contacted Spencer regarding Pt L arm from possible [id number] ago. pt arm is hard and swollen at bend. said ok for venous duplex. and to notify alok. order acknowledged and carried out
--- NOTE | 2020-09-30 12:34 | General Progress Note ---
Subjective Allergies: Coded Allergies: MORPHINE (Verified Allergy, Unknown, 12/22/17) Objective Last 24 Hour Vital Signs Date Time Temp Pulse Resp B/P (MAP) Pulse Ox O2 Delivery O2 Flow Rate FiO2 09/30/20 12:00 98.4 65 16 103/56 (72) 97 09/30/20 09:00 Room Air 09/30/20 08:05 116/57 09/30/20 08:00 98.3 79 16 116/57 (76) 97 09/30/20 08:00 77 09/30/20 04:00 98.1 66 16 109/50 (69) 98 09/30/20 04:00 75 09/30/20 00:00 67 09/30/20 00:00 98.1 68 16 119/56 (77) 99 09/29/20 21:00 Room Air 09/29/20 20:00 98.4 80 18 143/78 (99) 99 09/29/20 20:00 72 09/29/20 16:00 62 09/29/20 16:00 98.2 72 16 106/66 (79) 97 Intake and Output 09/29/20 09/30/20 19:00 07:00 Intake Total 600 ml Balance 600 ml Intake Oral 600 ml # Voids 2 2 Laboratory Tests 09/30/20 04:00: White Blood Count 7.5, Red Blood Count 3.12L, Hemoglobin 8.3L, Hematocrit 25.5L, Mean Corpuscular Volume 82, Mean Corpuscular Hemoglobin 26.7L, Mean Corpuscular Hemoglobin Concent 32.7, Red Cell Distribution Width 20.0H, Platelet Count 193, Mean Platelet Volume 8.1, Neutrophils (%) (Auto) 63.9, Lymphocytes (%) (Auto) 26.3, Monocytes (%) (Auto) 7.4, Eosinophils (%) (Auto) 1.8, Basophils (%) (Auto) 0.6, Sodium Level 138, Potassium Level 4.2, Chloride Level 105, Carbon Dioxide Level 30, Anion Gap 4L, Blood Urea Nitrogen 13, Creatinine 0.7, Estimat Glomerular Filtration Rate > 60, Glucose Level 91, Calcium Level 8.7 Height (Feet): 5 Height (Inches): 5.00 Weight (Pounds): 135 General Appearance: no apparent distress EENT: PERRL/EOMI Neck: supple Cardiovascular: normal rate Respiratory/Chest: decreased breath sounds Abdomen: normal bowel sounds, non tender, soft Extremities: non-tender Assessment/Plan Status: unchanged Assessment/Plan: Assessment - rectal bleeding - microcytic, symptomatic anemia Recommendations -anusol HC -sitz bath - PPI - IV Fe s/p colonoscopy Andre Marie MD Sep 30, 2020 12:34
--- NOTE | 2020-09-30 14:39 | NUR ---
NURSE NOTES: Alerted Md Palmer of clot in Pts L arm result from VD. awaiting call back Pt is stable Addendum: 09/30/20 at 1504 by Tori Ngo RN RN ordered to patito Rodgers.. order acknowledged and carried out
--- NOTE | 2020-09-30 14:58 | NUR ---
NURSE NOTES: Removed IV on LFA, catheter intact, minimal bleeding. new IV placed on R hand 22g, SL. Pt educated on test result.
[2020-09-30 16:00] VITALS: BP 110/60
[2020-09-30] MEDS ORDERED: Enoxaparin 40mg Inj SUBQ SCH (16:00)
--- NOTE | 2020-09-30 16:05 | NUR ---
NURSE NOTES: Per Dr Rodgers, Ok to give even with bleeding from hemrroids.
--- NOTE | 2020-09-30 16:06 | Diagnostic Imaging Report ---
Indication: Left arm pain and swelling Technique: Grayscale and duplex images of the left upper extremity veins Comparison: none Findings: Acute thrombus is seen in the left cephalic vein in the forearm to the mid upper arm. The remaining venous segments are patent, demonstrating normal Doppler signal and compressibility. Impression: Positive for left cephalic venous thrombosis. Patient's nurse notified at the time of interpretation
--- NOTE | 2020-09-30 16:23 | NUR ---
CASE MANAGEMENT:REVIEW 09/30/20 SI: PALPITATIONS.COVID PNA. ANEMIA...S/P 2 UNIT PRBC RECTAL BLEEDING 98.4 65 16 103/56 97% ON RA H/H-8.3/25.5 IS:FEOSOL PO QD LOVENOX SQ QD LOTENSIN PO QD LIPITOR PO QD IV VENOFER QHS : TELEMETRY STATUS DCP: FROM HOME PLAN: PLAN WAS TO DISCHARGE HOME TODAY AFTER VENOUS DUPLEX OF UPPER EXTREMITY HOWEVER DUPLEX WAS POSITIVE FOR THROMBOSIS
--- NOTE | 2020-09-30 17:23 | NUR ---
NURSE HAND-OFF REPORT: Important Events on Shift: L arm clot- MD aware, D/C held Patient Status: FC, stable, Diet: ccho low Pending Orders: D/C Pending Results/Labs: Pending MD notification: Latest Vital Signs: Temperature 98.4 , Pulse 77 , B/P 110 /60 , Respiratory Rate 16 , O2 SAT 97 , Room Air, O2 Flow Rate 6 . Vital Sign Comment: EKG Rhythm: Sinus Rhythm Rhythm change?: N MD Notified?: - MD Response: Latest Christensen Fall Score: 45 Fall Risk: High Risk Safety Measures: Call light Within Reach, Bed Alarm Zone 1, Side Rails Side Rails x2, Bed position Low and Locked. Fall Precautions: Yellow Socks Yellow Gown Door Sign Patient Fall Education Report to be given. Addendum: 09/30/20 at 1920 by Tori Ngo RN RN Report given to DEBBIE Werner
[2020-09-30] MEDS ORDERED: NS 275ml ONE (17:45)
[2020-09-30] MEDS ORDERED: Tubing IV Secondary IV ONE (17:45)
--- NOTE | 2020-09-30 19:20 | NUR ---
NURSE NOTES: Discharge held at this time per Ana Marai DONALD
[2020-09-30 20:00] VITALS: BP 129/66
--- NOTE | 2020-09-30 20:00 | NUR ---
NURSE NOTES: RECEIVED PATIENT LYING IN BED, APPEAR TO BE ASLEEP, AWAKENED TO NAME, ORIENTED X3, VERBALLY RESPONSIVE, DENIES PAIN. PATIENT ON ROOM AIR, SP02 97%, NO SIGNS AND SYMPTOMS OF ACUTE CARDIO RESPIRATORY DISTRESS/SHORTNESS OF BREATH, DENIES CHEST PAIN, NO PERIPHERAL EDEMA NOTED. IV INTACT TO LEFT FOREARM/GAUGE 20, NO REDNESS/SWELLING NOTED. DENIES GI DISCOMFORT, NO N/V/D. SIDE RAILS UP X2 FOR MOBILITY, CANE AT BEDSIDE. BED IN LOWEST POSITION FOR SAFETY, ENCOURAGED PATIENT TO UTILIZE CALL LIGHT FOR ASSISTANCE, VERBALIZED UNDERSTANDING. DISCHARGE HOME HELD DUE TO POSITIVE VENOUS DUPLEX LEFT UPPER EXTREMITY.
[2020-10-01] VITALS: BP 126/69
[2020-10-01 04:00] VITALS: BP 118/66
[2020-10-01 06:21] LABS: EOSINOPHILS % (AUTO) 2.7 % (0.0-3.0); HEMATOCRIT 25.4 % (37.0-47.0); HEMOGLOBIN 8.1 G/DL (12.0-16.0); LYMPHOCYTES % (AUTO) 35.2 % (20.0-45.0); MEAN CORPUSCULAR VOLUME 84 FL (80-99); NEUTROPHILS % (AUTO) 52.2 % (45.0-75.0); PLATELET COUNT 168 K/UL (150-450); RED BLOOD COUNT 3.03 M/UL (4.20-5.40); RED CELL DISTRIBUTION WIDTH 19.7 % (11.6-14.8); WHITE BLOOD COUNT 5.4 K/UL (4.8-10.8)
[2020-10-01 06:24] LABS: ANION GAP 8 mmol/L (5-15); BLOOD UREA NITROGEN 11 mg/dL (7-18); CALCIUM 8.3 MG/DL (8.5-10.1); CARBON DIOXIDE 26 MMOL/L (21-32); CHLORIDE 108 MMOL/L (98-107); CREATININE 0.6 MG/DL (0.55-1.30); POTASSIUM 3.5 MMOL/L (3.5-5.1); SODIUM 142 MMOL/L (136-145)
[2020-10-01] MEDS: NovoLOG Insulin Flexpen SUBQ SCH ×4 (06:30→21:00)
--- NOTE | 2020-10-01 07:00 | General Progress Note ---
Subjective ROS Limited/Unobtainable: Yes Allergies: Coded Allergies: MORPHINE (Verified Allergy, Unknown, 12/22/17) Objective Last 24 Hour Vital Signs Date Time Temp Pulse Resp B/P (MAP) Pulse Ox O2 Delivery O2 Flow Rate FiO2 10/01/20 00:00 97.8 60 18 126/69 (88) 99 10/01/20 00:00 57 09/30/20 21:00 Room Air 09/30/20 20:00 57 09/30/20 20:00 98.7 79 18 129/66 (87) 99 09/30/20 16:50 98.4 09/30/20 16:00 98.2 77 16 110/60 (77) 97 09/30/20 15:59 61 09/30/20 12:00 98.4 65 16 103/56 (72) 97 09/30/20 12:00 63 09/30/20 09:00 Room Air 09/30/20 08:05 116/57 09/30/20 08:00 98.3 79 16 116/57 (76) 97 09/30/20 08:00 77 Intake and Output 09/30/20 10/01/20 19:00 07:00 Intake Total 900 ml Balance 900 ml Intake Oral 900 ml # Voids 3 Laboratory Tests 09/30/20 16:23: POC Whole Blood Glucose 123H 09/30/20 21:09: POC Whole Blood Glucose [Pending] 10/01/20 05:00: White Blood Count 5.4, Red Blood Count 3.03L, Hemoglobin 8.1L, Hematocrit 25.4L, Mean Corpuscular Volume 84, Mean Corpuscular Hemoglobin 26.7L, Mean Corpuscular Hemoglobin Concent 31.8L, Red Cell Distribution Width 19.7H, Platelet Count 168, Mean Platelet Volume 9.0, Neutrophils (%) (Auto) 52.2, Lymphocytes (%) (Auto) 35.2, Monocytes (%) (Auto) 9.0, Eosinophils (%) (Auto) 2.7, Basophils (%) (Auto) 1.0, Sodium Level 142, Potassium Level 3.5, Chloride Level 108H, Carbon Dioxide Level 26, Anion Gap 8, Blood Urea Nitrogen 11, Creatinine 0.6, Estimat Glomerular Filtration Rate > 60, Glucose Level 86, Calcium Level 8.3L Height (Feet): 5 Height (Inches): 5.00 Weight (Pounds): 135 General Appearance: no apparent distress EENT: normal ENT inspection Neck: supple Cardiovascular: normal rate Respiratory/Chest: decreased breath sounds Abdomen: normal bowel sounds, non tender, soft Extremities: non-tender Assessment/Plan Status: unchanged Assessment/Plan: Assessment - rectal bleeding - microcytic, symptomatic anemia Recommendations -anusol HC -sitz bath - PPI - IV Fe s/p colonoscopy -dc canceled due to LUE Andre Beltran MD Oct 01, 2020 07:00
--- NOTE | 2020-10-01 07:35 | NUR ---
NURSE NOTES: RECEIVED PATIENT SITTING ON A CHAIR. CALM AND COMFORTABLE. ABLE TO MAKE NEEDS KNOWN. DENIES PAIN/DISCOMFORT. PATIENT ON ROOM AIR, ON LEAD ATHLETE INPLACED. NO SIGNS AND SYMPTOMS OF ACUTE CARDIO- RESPIRATORY DISTRESS/SHORTNESS OF BREATH, DENIES CHEST PAIN, NO PERIPHERAL EDEMA NOTED. PIV INTACT TO LEFT FOREARM/GAUGE 20, NO REDNESS/SWELLING NOTED. DENIES GI DISCOMFORT, NO N/V/D. SIDE RAILS UP X2 FOR MOBILITY, CANE AT BEDSIDE. BED IN LOWEST POSITION FOR SAFETY. CALL LIGHT IS WITHIN EASY REACH. ENCOURAGED PATIENT TO UTILIZE CALL LIGHT FOR ASSISTANCE, VERBALIZED UNDERSTANDING. WILL CONT TO MONITOR
[2020-10-01 08:00] VITALS: BP 130/58
--- NOTE | 2020-10-01 08:19 | NUR ---
NURSE HAND-OFF REPORT: Important Events on Shift: PATIENT REQUESTED SITZ BATH (HEMORRHOID) THIS MORNING, ENDORSED TO AM NURSE-RESTED WELL, NAD. ] Patient Status: [STABLE] Diet: [CCHO] Pending Orders: [AM LABS] Pending Results/Labs:[] Pending MD notification:[N/A] Latest Vital Signs: Temperature 97.1 , Pulse 68 , B/P 118 /66 , Respiratory Rate 18 , O2 SAT 96 , Room Air, O2 Flow Rate 6 . Vital Sign Comment: [STABLE, AFEBRILE] EKG Rhythm: Sinus Rhythm Rhythm change?: N MD Notified?: - MD Response: Latest Christensen Fall Score: 45 Fall Risk: High Risk Safety Measures: Call light Within Reach, Bed Alarm Zone 1, Side Rails Side Rails x2, Bed position Low and Locked. Fall Precautions: Yellow Socks Yellow Gown Door Sign Patient Fall Education Report given to [CARY ORTEGA].
[2020-10-01] MEDS: Oxybutynin 5mg tab ORAL SCH ×2 (08:26→17:06)
[2020-10-01] MEDS: Benazepril 10mg tab ORAL SCH (08:27)
[2020-10-01] MEDS: Atorvastatin 20mg tab ORAL SCH (08:27)
--- NOTE | 2020-10-01 08:33 | General Progress Note ---
Subjective Constitutional: Reports: weakness Allergies: Coded Allergies: MORPHINE (Verified Allergy, Unknown, 12/22/17) All Systems: reviewed and negative except above Subjective calm in bed Objective Last 24 Hour Vital Signs Date Time Temp Pulse Resp B/P (MAP) Pulse Ox O2 Delivery O2 Flow Rate FiO2 10/01/20 08:27 130/58 10/01/20 08:00 97.7 74 18 130/58 (82) 94 10/01/20 04:00 97.1 68 18 118/66 (83) 96 10/01/20 03:41 64 10/01/20 00:00 97.8 60 18 126/69 (88) 99 10/01/20 00:00 57 09/30/20 21:00 Room Air 09/30/20 20:00 57 09/30/20 20:00 98.7 79 18 129/66 (87) 99 09/30/20 16:50 98.4 09/30/20 16:00 98.2 77 16 110/60 (77) 97 09/30/20 15:59 61 09/30/20 12:00 98.4 65 16 103/56 (72) 97 09/30/20 12:00 63 09/30/20 09:00 Room Air Intake and Output 09/30/20 10/01/20 19:00 07:00 Intake Total 900 ml 480 ml Balance 900 ml 480 ml Intake Oral 900 ml 480 ml # Voids 3 3 Laboratory Tests 09/30/20 16:23: POC Whole Blood Glucose 123H 09/30/20 21:09: POC Whole Blood Glucose [Pending] 10/01/20 05:00: White Blood Count 5.4, Red Blood Count 3.03L, Hemoglobin 8.1L, Hematocrit 25.4L, Mean Corpuscular Volume 84, Mean Corpuscular Hemoglobin 26.7L, Mean Corpuscular Hemoglobin Concent 31.8L, Red Cell Distribution Width 19.7H, Platelet Count 168, Mean Platelet Volume 9.0, Neutrophils (%) (Auto) 52.2, Lymphocytes (%) (Auto) 35.2, Monocytes (%) (Auto) 9.0, Eosinophils (%) (Auto) 2.7, Basophils (%) (Auto) 1.0, Sodium Level 142, Potassium Level 3.5, Chloride Level 108H, Carbon Dioxide Level 26, Anion Gap 8, Blood Urea Nitrogen 11, Creatinine 0.6, Estimat Glomerular Filtration Rate > 60, Glucose Level 86, Calcium Level 8.3L 10/01/20 07:11: POC Whole Blood Glucose [Pending] Height (Feet): 5 Height (Inches): 5.00 Weight (Pounds): 135 General Appearance: lethargic EENT: normal ENT inspection Neck: normal alignment Cardiovascular: normal peripheral pulses, normal rate, regular rhythm Respiratory/Chest: chest wall non-tender, lungs clear, normal breath sounds Abdomen: normal bowel sounds, non tender, soft Extremities: normal inspection Edema: no edema noted Arm (L), no edema noted Arm (R), no edema noted Leg (L), no edema noted Leg (R), no edema noted Pedal (L), no edema noted Pedal (R), no edema noted Generalized Neurologic: motor weakness Skin: normal pigmentation, warm/dry Assessment/Plan Problem List: (1) Anemia ICD Codes: D64.9 - Anemia, unspecified SNOMED: 085217640 (2) COVID-19 ICD Codes: U07.1 - COVID-19 SNOMED: 805718777 (3) GIB (gastrointestinal bleeding) ICD Codes: K92.2 - Gastrointestinal hemorrhage, unspecified SNOMED: 22426330 Status: unchanged Assessment/Plan: o2 pulm tx abx cbc bmp am dc if clear by all Stuart Palmer DO Oct 01, 2020 08:33
[2020-10-01 12:00] VITALS: BP 121/58
--- NOTE | 2020-10-01 12:03 | Surgery Progress Note ---
Surgery Progress Note Subjective Symptoms: improved, tolerating diet, passing flatus Objective Last 24 Hour Vital Signs Date Time Temp Pulse Resp B/P (MAP) Pulse Ox O2 Delivery O2 Flow Rate FiO2 10/01/20 08:27 130/58 10/01/20 08:00 97.7 74 18 130/58 (82) 94 10/01/20 04:00 97.1 68 18 118/66 (83) 96 10/01/20 03:41 64 10/01/20 00:00 97.8 60 18 126/69 (88) 99 10/01/20 00:00 57 09/30/20 21:00 Room Air 09/30/20 20:00 57 09/30/20 20:00 98.7 79 18 129/66 (87) 99 09/30/20 16:50 98.4 09/30/20 16:00 98.2 77 16 110/60 (77) 97 09/30/20 15:59 61 I&O Intake and Output 09/30/20 10/01/20 19:00 07:00 Intake Total 900 ml 480 ml Balance 900 ml 480 ml Intake Oral 900 ml 480 ml # Voids 3 3 Cardiovascular: RSR Respiratory: clear Abdomen: soft, non-tender, present bowel sounds Extremities: no edema, no tenderness, no cyanosis Laboratory Tests Test 09/30/20 16:23 09/30/20 21:09 10/01/20 05:00 10/01/20 07:11 POC Whole Blood Glucose 123 MG/DL (74-106) H Pending Pending White Blood Count 5.4 K/UL (4.8-10.8) Red Blood Count 3.03 M/UL (4.20-5.40) L Hemoglobin 8.1 G/DL (12.0-16.0) L Hematocrit 25.4 % (37.0-47.0) L Mean Corpuscular Volume 84 FL (80-99) Mean Corpuscular Hemoglobin 26.7 PG (27.0-31.0) L Mean Corpuscular Hemoglobin Concent 31.8 G/DL (32.0-36.0) L Red Cell Distribution Width 19.7 % (11.6-14.8) H Platelet Count 168 K/UL (150-450) Mean Platelet Volume 9.0 FL (6.5-10.1) Neutrophils (%) (Auto) 52.2 % (45.0-75.0) Lymphocytes (%) (Auto) 35.2 % (20.0-45.0) Monocytes (%) (Auto) 9.0 % (1.0-10.0) Eosinophils (%) (Auto) 2.7 % (0.0-3.0) Basophils (%) (Auto) 1.0 % (0.0-2.0) Sodium Level 142 MMOL/L (136-145) Potassium Level 3.5 MMOL/L (3.5-5.1) Chloride Level 108 MMOL/L (98-107) H Carbon Dioxide Level 26 MMOL/L (21-32) Anion Gap 8 mmol/L (5-15) Blood Urea Nitrogen 11 mg/dL (7-18) Creatinine 0.6 MG/DL (0.55-1.30) Estimat Glomerular Filtration Rate > 60 mL/min (>60) Glucose Level 86 MG/DL (74-106) Calcium Level 8.3 MG/DL (8.5-10.1) L Plan Problems: (1) Bleeding hemorrhoids Assessment & Plan: 59F presented with severe anemia noted to have hemorrhoidal bleeding afebrile, HD stable no active bleeding on exam no bleeding noted states feels better transfused prbc improved no n/v okay for diet monitor for bleeding outpatient eval for hemorrhoidal sx intervention thank you no bleeding stable okay to d/c (2) Palpitations (3) Elevated TSH (4) Anemia (5) GERD (gastroesophageal reflux disease) (6) HTN (hypertension) (7) HLD (hyperlipidemia) (8) DM2 (diabetes mellitus, type 2) Corbin Lee Oct 01, 2020 12:03
--- NOTE | 2020-10-01 14:36 | NUR ---
NURSE NOTES: applied warm compress to left arm affected area. will cont to monitor. spoke with Dr lee regarding the venous duplex result on the left arm. Touched base with Dr dickinson if agrees to Dr Lee suggestions. ibuprofen and eliquis. awaiting for dr dickinson called back. will cont to monitor.
[2020-10-01 16:00] VITALS: BP 134/74
[2020-10-01] MEDS: Eliquis 5mg tablet ORAL SCH (17:06)
--- NOTE | 2020-10-01 19:25 | NUR ---
NURSE HAND-OFF REPORT: Important Events on Shift:[ APPLIED WARM COMPRESS ON THE LEFT ARM; SITZ BATH PERFORMED ] Patient Status: [STABLE] Diet: [CCHO MED] Pending Orders: [] Pending Results/Labs:[] Pending MD notification:[] Latest Vital Signs: Temperature 96.6 , Pulse 67 , B/P 134 /74 , Respiratory Rate 18 , O2 SAT 95 , Room Air, O2 Flow Rate 6 . Vital Sign Comment: [] EKG Rhythm: Sinus Rhythm Rhythm change?: N MD Notified?: - MD Response: Latest Christensen Fall Score: 45 Fall Risk: High Risk Safety Measures: Call light Within Reach, Bed Alarm Zone 2, Side Rails Side Rails x3, Bed position Low and Locked. Fall Precautions: Yellow Socks Yellow Gown Door Sign Patient Fall Education Report given to [MILES].
--- NOTE | 2020-10-01 19:30 | NUR ---
NURSE NOTES: Report received from DEBBIE Trammell. Patient is awake on bed, alert and oriented x 4. On CCHO (Medium), instructed and amenable. On room air, sating 95-96% at this time and no complaints of . IV site is on right forearm g-22 saline locked that is patent and intact. Per RN, patient can ambulate with steady gait. Safety measures are in place, bed in lowest and locked position, side rails up x 2, bedside table and call light button place within reach, will continue plan of care.
[2020-10-01 20:00] VITALS: BP 117/60
[2020-10-02] VITALS: BP 116/53
[2020-10-02 04:00] VITALS: BP 112/58
[2020-10-02 05:24] LABS: BASOPHILS % (AUTO) 1.3 % (0.0-2.0); EOSINOPHILS % (AUTO) 3.1 % (0.0-3.0); HEMATOCRIT 25.3 % (37.0-47.0); HEMOGLOBIN 8.3 G/DL (12.0-16.0); LYMPHOCYTES % (AUTO) 41.3 % (20.0-45.0); MEAN CORPUSCULAR VOLUME 83 FL (80-99); MONOCYTES % (AUTO) 9.1 % (1.0-10.0); NEUTROPHILS % (AUTO) 45.2 % (45.0-75.0); PLATELET COUNT 171 K/UL (150-450); RED BLOOD COUNT 3.05 M/UL (4.20-5.40); RED CELL DISTRIBUTION WIDTH 20.4 % (11.6-14.8); WHITE BLOOD COUNT 4.6 K/UL (4.8-10.8)
[2020-10-02 05:35] LABS: ANION GAP 5 mmol/L (5-15); BLOOD UREA NITROGEN 12 mg/dL (7-18); CALCIUM 8.4 MG/DL (8.5-10.1); CARBON DIOXIDE 28 MMOL/L (21-32); CHLORIDE 108 MMOL/L (98-107); CREATININE 0.7 MG/DL (0.55-1.30); POTASSIUM 3.9 MMOL/L (3.5-5.1); SODIUM 141 MMOL/L (136-145)
[2020-10-02] MEDS: NovoLOG Insulin Flexpen SUBQ SCH ×4 (06:30→20:50)
--- NOTE | 2020-10-02 06:30 | General Progress Note ---
Subjective ROS Limited/Unobtainable: No Allergies: Coded Allergies: MORPHINE (Verified Allergy, Unknown, 12/22/17) Objective Last 24 Hour Vital Signs Date Time Temp Pulse Resp B/P (MAP) Pulse Ox O2 Delivery O2 Flow Rate FiO2 10/02/20 04:30 57 10/02/20 04:00 98.2 65 16 112/58 (76) 98 10/02/20 00:00 98.1 60 15 116/53 (74) 99 10/01/20 23:52 62 10/01/20 21:00 Room Air 10/01/20 20:00 98.2 63 17 117/60 (79) 98 10/01/20 20:00 54 10/01/20 16:00 96.6 67 18 134/74 (94) 95 10/01/20 16:00 67 10/01/20 12:00 63 10/01/20 12:00 99.2 65 18 121/58 (79) 96 10/01/20 09:00 Room Air 10/01/20 08:27 130/58 10/01/20 08:00 68 10/01/20 08:00 97.7 74 18 130/58 (82) 94 Intake and Output 10/01/20 10/02/20 19:00 07:00 Intake Total 720 ml 480 ml Balance 720 ml 480 ml Intake Oral 720 ml 480 ml # Voids 5 2 # Bowel Movements 1 Laboratory Tests 10/01/20 07:11: POC Whole Blood Glucose [Pending] 10/01/20 16:51: POC Whole Blood Glucose 111H 10/02/20 04:00: White Blood Count 4.6L, Red Blood Count 3.05L, Hemoglobin 8.3L, Hematocrit 25.3L , Mean Corpuscular Volume 83, Mean Corpuscular Hemoglobin 27.1, Mean Corpuscular Hemoglobin Concent 32.7, Red Cell Distribution Width 20.4H, Platelet Count 171, Mean Platelet Volume 9.5, Neutrophils (%) (Auto) 45.2, Lymphocytes (%) (Auto) 41.3, Monocytes (%) (Auto) 9.1, Eosinophils (%) (Auto) 3.1H, Basophils (%) (Auto) 1.3, Sodium Level 141, Potassium Level 3.9, Chloride Level 108H, Carbon Dioxide Level 28, Anion Gap 5, Blood Urea Nitrogen 12, Creatinine 0.7, Estimat Glomerular Filtration Rate > 60, Glucose Level 85, Calcium Level 8.4L Height (Feet): 5 Height (Inches): 5.00 Weight (Pounds): 135 General Appearance: no apparent distress EENT: normal ENT inspection Neck: supple Cardiovascular: normal rate Respiratory/Chest: decreased breath sounds Abdomen: normal bowel sounds, non tender, soft Extremities: non-tender Assessment/Plan Status: unchanged Assessment/Plan: Assessment - rectal bleeding - microcytic, symptomatic anemia Recommendations -anusol HC -sitz bath - PPI - IV Fe s/p colonoscopy -dc canceled due to LUE DVT>>> fu hematology Andre Marie MD Oct 02, 2020 06:30
--- NOTE | 2020-10-02 06:50 | NUR ---
NURSE HAND-OFF REPORT: Important Events on Shift: Patient has been resting well the whole shift with no complaints made the whole shift. No desaturation noted as well. Patient Status: Patient is awake on bed in stable condition. Plan of care endorsed. Diet: CCHO (Medium) Pending Orders: none Pending Results/Labs: AM lab result Pending MD notification:none Latest Vital Signs: Temperature 98.2 , Pulse 57 , B/P 112 /58 , Respiratory Rate 16 , O2 SAT 98 , Room Air, O2 Flow Rate 6 . Vital Sign Comment: stable EKG Rhythm: Sinus Bradycardia Rhythm change?: N MD Notified?: - MD Response: Latest Christensen Fall Score: 45 Fall Risk: High Risk Safety Measures: Call light Within Reach, Bed Alarm Zone 1, Side Rails Side Rails x2, Bed position Low and Locked. Fall Precautions: Yellow Socks Yellow Gown Door Sign Patient Fall Education Report given to DEBBIE Stewart.
--- NOTE | 2020-10-02 07:40 | NUR ---
NURSE NOTES: pt AO and able to verbalize needs. pt in bed and will have breakfast right now. 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 Bed is locked and in lowest position. call light within reach. will continue to monitor pt.
[2020-10-02 08:00] VITALS: BP 115/63
[2020-10-02] MEDS: Oxybutynin 5mg tab ORAL SCH ×2 (09:39→17:20)
[2020-10-02] MEDS: Benazepril 10mg tab ORAL SCH (09:40)
[2020-10-02] MEDS: Atorvastatin 20mg tab ORAL SCH (09:40)
[2020-10-02] MEDS: Eliquis 5mg tablet ORAL SCH ×2 (09:41→17:20)
--- NOTE | 2020-10-02 09:52 | Hematology/Onc Progress Note ---
Assessment/Plan Assessment/Plan Assessment/Plan: # Positive for left cephalic venous thrombosis.on duplex imaging --> h/h is low, started on apixaban po bid, monitor for bleed closely --> ok for nsaids also arm elevation --> warm compresses --> monitor h/h rescan duplex on 10/08 # Anemia due to iron deficiency with loss anemia secondary to Hematochezia --> is having bleeding hemorrhoidal --> as per gi endoscopy 09/28 shows hemorrhoids --> iv iron daily has been started --> s/p 1 unit 09/25 --> hgb 6.3-->8.8->8 --> transfuse as prn basis # Hematochezia secondary to hemorrhoids --> transfuse for Hgb <7 --> as per gi, surg recs --> now improved # Chest pain rule out ACS --> trop neg, per cards # Diabetes mellitus type 2 --> Hold metformin --> SSI # Essential hypertension --> Continue home benazepril 10mg daily --> Hydralazine PRN # GERD --> Continue home PPI # DVT PPX: apixaban Appreciate consultation and prince RN Subjective Constitutional: Denies: no symptoms, chills, fever, malaise, weakness, other HEENT: Denies: no symptoms, eye pain, blurred vision, tearing, double vision, ear pain, ear discharge, nose pain, nose congestion, throat pain, throat swelling, mouth pain, mouth swelling, other Cardiovascular: Denies: no symptoms, chest pain, edema, irregular heart rate, lightheadedness, palpitations, syncope, other Gastrointestinal/Abdominal: Denies: no symptoms, abdomen distended, abdominal pain, black stools, tarry stools, blood in stool, constipated, diarrhea, difficulty swallowing, nausea, poor appetite, poor fluid intake, rectal bleeding, vomiting, other Endocrine: Denies: no symptoms, excessive sweating, flushing, intolerance to cold, intolerance to heat, increased hunger, increased thirst, increased urine, unexplained weight gain, unexplained weight loss, other Hematologic/Lymphatic: Denies: no symptoms, anemia, easy bleeding, easy bruising, adenopathy, other Allergies: Coded Allergies: MORPHINE (Verified Allergy, Unknown, 12/22/17) Subjective 09/28 labs noted, meds reviewed, remains on iv iron, for endoscopy 09/29 labs reviewed, colo results noted, with hemorrhoids, meds reviewed 09/30: pt is on RA, no acute distress noted. 10/02 labs reviewed as well as imaging, duplex upper arm is noted, : Positive for left cephalic venous thrombosis. Objective Objective Current Medications Medications (Trade) Dose Ordered Sig/Luz Maria Route PRN Reason Start Time Stop Time Status Last Admin Dose Admin Acetaminophen (Tylenol) 650 mg Q6H PRN ORAL For Headache 09/24/20 23:45 10/24/20 23:44 10/02/20 09:39 Acetaminophen (Tylenol) 650 mg Q6H PRN ORAL MILD PAIN 09/24/20 23:45 10/24/20 23:44 09/30/20 16:21 Acetaminophen (Tylenol) 650 mg Q6H PRN ORAL fever 09/24/20 23:45 10/24/20 23:44 Apixaban (Eliquis) 5 mg BID ORAL 10/01/20 18:00 12/30/20 17:59 10/02/20 09:41 Atorvastatin Calcium (Lipitor) 40 mg DAILY ORAL 09/26/20 09:00 12/25/20 08:59 10/02/20 09:40 Benazepril HCl (Lotensin) 10 mg DAILY ORAL 09/26/20 09:00 10/26/20 08:59 10/02/20 09:40 Dextrose (Dextrose 50%) 25 ml Q30M PRN IV Hypoglycemia 09/24/20 23:45 12/23/20 23:44 Dextrose (Dextrose 50%) 50 ml Q30M PRN IV Hypoglycemia 09/24/20 23:45 12/23/20 23:44 Ferrous Sulfate (Feosol) 325 mg DAILY ORAL 09/27/20 09:00 12/26/20 08:59 10/02/20 09:41 Hydralazine HCl (Apresoline) 10 mg Q4H PRN IV SBP >160 09/25/20 12:30 12/24/20 12:29 Ibuprofen (Motrin) 600 mg Q6H PRN ORAL pain (4-10) 10/01/20 15:15 10/31/20 15:14 Insulin Aspart (NovoLOG) BEFORE MEALS AND HS SUBQ 09/26/20 06:30 12/24/20 00:00 09/29/20 16:36 Oxybutynin Chloride (Ditropan) 5 mg BID ORAL 09/25/20 18:00 10/25/20 17:59 10/02/20 09:39 Last 24 Hour Vital Signs Date Time Temp Pulse Resp B/P (MAP) Pulse Ox O2 Delivery O2 Flow Rate FiO2 10/02/20 09:40 115/63 10/02/20 04:30 57 10/02/20 04:00 98.2 65 16 112/58 (76) 98 10/02/20 00:00 98.1 60 15 116/53 (74) 99 10/01/20 23:52 62 10/01/20 21:00 Room Air 10/01/20 20:00 98.2 63 17 117/60 (79) 98 10/01/20 20:00 54 10/01/20 16:00 96.6 67 18 134/74 (94) 95 10/01/20 16:00 67 10/01/20 12:00 63 10/01/20 12:00 99.2 65 18 121/58 (79) 96 10/01/20 09:00 Room Air 10/01/20 08:27 130/58 10/01/20 08:00 68 10/01/20 08:00 97.7 74 18 130/58 (82) 94 10/01/20 04:00 97.1 68 18 118/66 (83) 96 10/01/20 03:41 64 10/01/20 00:00 97.8 60 18 126/69 (88) 99 10/01/20 00:00 57 09/30/20 21:00 Room Air 09/30/20 20:00 57 09/30/20 20:00 98.7 79 18 129/66 (87) 99 09/30/20 16:50 98.4 09/30/20 16:00 98.2 77 16 110/60 (77) 97 09/30/20 15:59 61 09/30/20 12:00 98.4 65 16 103/56 (72) 97 09/30/20 12:00 63 Intake and Output 10/01/20 10/02/20 19:00 07:00 Intake Total 720 ml 480 ml Balance 720 ml 480 ml Intake Oral 720 ml 480 ml # Voids 5 2 # Bowel Movements 1 Labs Test 09/29/20 11:27 09/30/20 04:00 09/30/20 16:23 09/30/20 21:09 POC Whole Blood Glucose 130 MG/DL (74-106) 123 MG/DL (74-106) White Blood Count 7.5 K/UL (4.8-10.8) Red Blood Count 3.12 M/UL (4.20-5.40) Hemoglobin 8.3 G/DL (12.0-16.0) Hematocrit 25.5 % (37.0-47.0) Mean Corpuscular Volume 82 FL (80-99) Mean Corpuscular Hemoglobin 26.7 PG (27.0-31.0) Mean Corpuscular Hemoglobin Concent 32.7 G/DL (32.0-36.0) Red Cell Distribution Width 20.0 % (11.6-14.8) Platelet Count 193 K/UL (150-450) Mean Platelet Volume 8.1 FL (6.5-10.1) Neutrophils (%) (Auto) 63.9 % (45.0-75.0) Lymphocytes (%) (Auto) 26.3 % (20.0-45.0) Monocytes (%) (Auto) 7.4 % (1.0-10.0) Eosinophils (%) (Auto) 1.8 % (0.0-3.0) Basophils (%) (Auto) 0.6 % (0.0-2.0) Sodium Level 138 MMOL/L (136-145) Potassium Level 4.2 MMOL/L (3.5-5.1) Chloride Level 105 MMOL/L (98-107) Carbon Dioxide Level 30 MMOL/L (21-32) Anion Gap 4 mmol/L (5-15) Blood Urea Nitrogen 13 mg/dL (7-18) Creatinine 0.7 MG/DL (0.55-1.30) Estimat Glomerular Filtration Rate > 60 mL/min (>60) Glucose Level 91 MG/DL (74-106) Calcium Level 8.7 MG/DL (8.5-10.1) Test 10/01/20 05:00 10/01/20 07:11 10/01/20 16:51 10/02/20 04:00 White Blood Count 5.4 K/UL (4.8-10.8) 4.6 K/UL (4.8-10.8) Red Blood Count 3.03 M/UL (4.20-5.40) 3.05 M/UL (4.20-5.40) Hemoglobin 8.1 G/DL (12.0-16.0) 8.3 G/DL (12.0-16.0) Hematocrit 25.4 % (37.0-47.0) 25.3 % (37.0-47.0) Mean Corpuscular Volume 84 FL (80-99) 83 FL (80-99) Mean Corpuscular Hemoglobin 26.7 PG (27.0-31.0) 27.1 PG (27.0-31.0) Mean Corpuscular Hemoglobin Concent 31.8 G/DL (32.0-36.0) 32.7 G/DL (32.0-36.0) Red Cell Distribution Width 19.7 % (11.6-14.8) 20.4 % (11.6-14.8) Platelet Count 168 K/UL (150-450) 171 K/UL (150-450) Mean Platelet Volume 9.0 FL (6.5-10.1) 9.5 FL (6.5-10.1) Neutrophils (%) (Auto) 52.2 % (45.0-75.0) 45.2 % (45.0-75.0) Lymphocytes (%) (Auto) 35.2 % (20.0-45.0) 41.3 % (20.0-45.0) Monocytes (%) (Auto) 9.0 % (1.0-10.0) 9.1 % (1.0-10.0) Eosinophils (%) (Auto) 2.7 % (0.0-3.0) 3.1 % (0.0-3.0) Basophils (%) (Auto) 1.0 % (0.0-2.0) 1.3 % (0.0-2.0) Sodium Level 142 MMOL/L (136-145) 141 MMOL/L (136-145) Potassium Level 3.5 MMOL/L (3.5-5.1) 3.9 MMOL/L (3.5-5.1) Chloride Level 108 MMOL/L (98-107) 108 MMOL/L (98-107) Carbon Dioxide Level 26 MMOL/L (21-32) 28 MMOL/L (21-32) Anion Gap 8 mmol/L (5-15) 5 mmol/L (5-15) Blood Urea Nitrogen 11 mg/dL (7-18) 12 mg/dL (7-18) Creatinine 0.6 MG/DL (0.55-1.30) 0.7 MG/DL (0.55-1.30) Estimat Glomerular Filtration Rate > 60 mL/min (>60) > 60 mL/min (>60) Glucose Level 86 MG/DL (74-106) 85 MG/DL (74-106) Calcium Level 8.3 MG/DL (8.5-10.1) 8.4 MG/DL (8.5-10.1) POC Whole Blood Glucose 111 MG/DL (74-106) Height (Feet): 5 Height (Inches): 5.00 Weight (Pounds): 135 Objective Physical Exam General: WDWN female in NAD, A&O x 4 HEENT: Normocephalic cephalic atraumatic CV: Regular rate regular rhythm, no murmurs, rubs, or gallops Pulm: Lungs clear to auscultation bilaterally. No wheezes, rhonchi, or rales GI: Soft, nontender, nondistended, bowel sounds present Neuro: CN 2-12 intact bilaterally, no focal signs. Ext: No lower extremity edema bilaterally Skin: no rashes lesions or ulcers Msk: Joints symmetrical in upper extremity and lower extremity bilaterally Lymph: No lymphadenopathy in upper extremity and lower extremity Rivas Rodgers MD Oct 02, 2020 09:52
[2020-10-02 12:00] VITALS: BP 110/72
--- NOTE | 2020-10-02 13:45 | Surgery Progress Note ---
Surgery Progress Note Subjective Additional Comments left arm dvt likely related to iv site hard and tender warm compress helps as per heme anticoag dc Objective Last 24 Hour Vital Signs Date Time Temp Pulse Resp B/P (MAP) Pulse Ox O2 Delivery O2 Flow Rate FiO2 10/02/20 10:09 98.2 10/02/20 09:40 115/63 10/02/20 08:00 63 10/02/20 08:00 97.1 64 14 115/63 (80) 100 10/02/20 04:30 57 10/02/20 04:00 98.2 65 16 112/58 (76) 98 10/02/20 00:00 98.1 60 15 116/53 (74) 99 10/01/20 23:52 62 10/01/20 21:00 Room Air 10/01/20 20:00 98.2 63 17 117/60 (79) 98 10/01/20 20:00 54 10/01/20 16:00 96.6 67 18 134/74 (94) 95 10/01/20 16:00 67 I&O Intake and Output 10/01/20 10/02/20 19:00 07:00 Intake Total 720 ml 480 ml Balance 720 ml 480 ml Intake Oral 720 ml 480 ml # Voids 5 2 # Bowel Movements 1 Dressing: dry Wound: clean Cardiovascular: RSR Respiratory: clear Abdomen: soft, non-tender, present bowel sounds, non-distended Extremities: edema, tenderness, no cyanosis, pulses, other Laboratory Tests Test 10/01/20 16:51 10/02/20 04:00 POC Whole Blood Glucose 111 MG/DL (74-106) H White Blood Count 4.6 K/UL (4.8-10.8) L Red Blood Count 3.05 M/UL (4.20-5.40) L Hemoglobin 8.3 G/DL (12.0-16.0) L Hematocrit 25.3 % (37.0-47.0) L Mean Corpuscular Volume 83 FL (80-99) Mean Corpuscular Hemoglobin 27.1 PG (27.0-31.0) Mean Corpuscular Hemoglobin Concent 32.7 G/DL (32.0-36.0) Red Cell Distribution Width 20.4 % (11.6-14.8) H Platelet Count 171 K/UL (150-450) Mean Platelet Volume 9.5 FL (6.5-10.1) Neutrophils (%) (Auto) 45.2 % (45.0-75.0) Lymphocytes (%) (Auto) 41.3 % (20.0-45.0) Monocytes (%) (Auto) 9.1 % (1.0-10.0) Eosinophils (%) (Auto) 3.1 % (0.0-3.0) H Basophils (%) (Auto) 1.3 % (0.0-2.0) Sodium Level 141 MMOL/L (136-145) Potassium Level 3.9 MMOL/L (3.5-5.1) Chloride Level 108 MMOL/L (98-107) H Carbon Dioxide Level 28 MMOL/L (21-32) Anion Gap 5 mmol/L (5-15) Blood Urea Nitrogen 12 mg/dL (7-18) Creatinine 0.7 MG/DL (0.55-1.30) Estimat Glomerular Filtration Rate > 60 mL/min (>60) Glucose Level 85 MG/DL (74-106) Calcium Level 8.4 MG/DL (8.5-10.1) L Plan Problems: (1) Bleeding hemorrhoids Assessment & Plan: 59F presented with severe anemia noted to have hemorrhoidal bleeding afebrile, HD stable no active bleeding on exam no bleeding noted states feels better transfused prbc improved no n/v okay for diet monitor for bleeding outpatient eval for hemorrhoidal sx intervention thank you no bleeding stable okay to d/c (2) Palpitations (3) Elevated TSH (4) Anemia (5) GERD (gastroesophageal reflux disease) (6) HTN (hypertension) (7) HLD (hyperlipidemia) (8) DM2 (diabetes mellitus, type 2) (9) GIB (gastrointestinal bleeding) Assessment & Plan: no acute bleeding h/h stable comfortable (10) COVID-19 Assessment & Plan: ++ Corbin Lee Oct 02, 2020 13:45
[2020-10-02 16:00] VITALS: BP 112/60
--- NOTE | 2020-10-02 18:24 | General Progress Note ---
Subjective Constitutional: Reports: weakness Allergies: Coded Allergies: MORPHINE (Verified Allergy, Unknown, 12/22/17) All Systems: reviewed and negative except above Subjective calm in bed Objective Last 24 Hour Vital Signs Date Time Temp Pulse Resp B/P (MAP) Pulse Ox O2 Delivery O2 Flow Rate FiO2 10/02/20 16:00 99.0 63 18 112/60 (77) 100 10/02/20 16:00 59 10/02/20 12:00 98.9 64 16 110/72 (85) 100 10/02/20 12:00 60 10/02/20 10:09 98.2 10/02/20 09:40 115/63 10/02/20 09:00 Room Air 10/02/20 08:00 63 10/02/20 08:00 97.1 64 14 115/63 (80) 100 10/02/20 04:30 57 10/02/20 04:00 98.2 65 16 112/58 (76) 98 10/02/20 00:00 98.1 60 15 116/53 (74) 99 10/01/20 23:52 62 10/01/20 21:00 Room Air 10/01/20 20:00 98.2 63 17 117/60 (79) 98 10/01/20 20:00 54 Intake and Output 10/01/20 10/02/20 19:00 07:00 Intake Total 720 ml 480 ml Balance 720 ml 480 ml Intake Oral 720 ml 480 ml # Voids 5 2 # Bowel Movements 1 Laboratory Tests 10/02/20 04:00: White Blood Count 4.6L, Red Blood Count 3.05L, Hemoglobin 8.3L, Hematocrit 25.3L , Mean Corpuscular Volume 83, Mean Corpuscular Hemoglobin 27.1, Mean Corpuscular Hemoglobin Concent 32.7, Red Cell Distribution Width 20.4H, Platelet Count 171, Mean Platelet Volume 9.5, Neutrophils (%) (Auto) 45.2, Lymphocytes (%) (Auto) 41.3, Monocytes (%) (Auto) 9.1, Eosinophils (%) (Auto) 3.1H, Basophils (%) (Auto) 1.3, Sodium Level 141, Potassium Level 3.9, Chloride Level 108H, Carbon Dioxide Level 28, Anion Gap 5, Blood Urea Nitrogen 12, Creatinine 0.7, Estimat Glomerular Filtration Rate > 60, Glucose Level 85, Calcium Level 8.4L 10/02/20 17:23: POC Whole Blood Glucose [Pending] Height (Feet): 5 Height (Inches): 5.00 Weight (Pounds): 135 General Appearance: lethargic EENT: normal ENT inspection Neck: normal alignment Cardiovascular: normal peripheral pulses, normal rate, regular rhythm Respiratory/Chest: chest wall non-tender, lungs clear, normal breath sounds Abdomen: normal bowel sounds, non tender, soft Extremities: normal inspection Edema: no edema noted Arm (L), no edema noted Arm (R), no edema noted Leg (L), no edema noted Leg (R), no edema noted Pedal (L), no edema noted Pedal (R), no edema noted Generalized Neurologic: motor weakness Skin: normal pigmentation, warm/dry Assessment/Plan Problem List: (1) Anemia ICD Codes: D64.9 - Anemia, unspecified SNOMED: 190868366 (2) COVID-19 ICD Codes: U07.1 - COVID-19 SNOMED: 377093214 (3) GIB (gastrointestinal bleeding) ICD Codes: K92.2 - Gastrointestinal hemorrhage, unspecified SNOMED: 20278288 Status: unchanged Assessment/Plan: o2 pulm tx abx cbc bmp am id pulm Stuart Ramos DO Oct 02, 2020 18:24
--- NOTE | 2020-10-02 19:34 | NUR ---
NURSE HAND-OFF REPORT: Important Events on Shift:[]per doctor Estela, pt is ok for DC, Doctor Spencer will decide once he assess pt today. both doctor's are aware that pt and pt family want to talk to them. Both doctors are aware pt has a Left venous thrombus. Patient Status: [] full Diet: []ccho Pending Orders: [] Pending Results/Labs:[] Pending MD notification:[] Latest Vital Signs: Temperature 99.0 , Pulse 59 , B/P 112 /60 , Respiratory Rate 18 , O2 SAT 100 , Room Air, O2 Flow Rate 6 . Vital Sign Comment: [] EKG Rhythm: Sinus Rhythm Rhythm change?: N MD Notified?: - MD Response: Latest Christensen Fall Score: 45 Fall Risk: High Risk Safety Measures: Call light Within Reach, Bed Alarm Zone 1, Side Rails Side Rails x2, Bed position Low and Locked. Fall Precautions: Yellow Socks y Yellow Gown y Door Sign y Patient Fall Education Report given to [].Candy/DEBBIE
--- NOTE | 2020-10-02 19:35 | NUR ---
NURSE NOTES: Report received from DEBBIE Stewart. Patient is awake on bed, alert and oriented x 4. monitoring manager is in place, shows sinus rhythm with no chest pain reported. On CCHO (medium) instructed and amenable. IV site is on right forearm g-20 saline locked that is patent and intact. Safety measures are in place, bed in lowest and locked position, side rails up x 2, call light button and bedside table within reach, instructed to call for any assistance needed. Will continue plan of care.
[2020-10-02 20:00] VITALS: BP 119/65
[2020-10-03] VITALS: BP 115/61
[2020-10-03 04:00] VITALS: BP 109/66
[2020-10-03 05:11] LABS: BASOPHILS % (AUTO) 1.4 % (0.0-2.0); EOSINOPHILS % (AUTO) 3.4 % (0.0-3.0); HEMATOCRIT 25.6 % (37.0-47.0); HEMOGLOBIN 8.3 G/DL (12.0-16.0); LYMPHOCYTES % (AUTO) 42.3 % (20.0-45.0); MEAN CORPUSCULAR VOLUME 84 FL (80-99); MONOCYTES % (AUTO) 10.2 % (1.0-10.0); NEUTROPHILS % (AUTO) 42.8 % (45.0-75.0); PLATELET COUNT 171 K/UL (150-450); RED BLOOD COUNT 3.05 M/UL (4.20-5.40); RED CELL DISTRIBUTION WIDTH 20.6 % (11.6-14.8); WHITE BLOOD COUNT 5.1 K/UL (4.8-10.8)
[2020-10-03 05:36] LABS: ANION GAP 7 mmol/L (5-15); BLOOD UREA NITROGEN 18 mg/dL (7-18); CALCIUM 8.6 MG/DL (8.5-10.1); CARBON DIOXIDE 26 MMOL/L (21-32); CHLORIDE 108 MMOL/L (98-107); CREATININE 0.8 MG/DL (0.55-1.30); POTASSIUM 3.6 MMOL/L (3.5-5.1); SODIUM 141 MMOL/L (136-145)
[2020-10-03] MEDS: NovoLOG Insulin Flexpen SUBQ SCH ×4 (06:30→21:00)
--- NOTE | 2020-10-03 06:40 | Hematology/Onc Progress Note ---
Assessment/Plan Assessment/Plan Assessment/Plan: # Positive for left cephalic venous thrombosis.on duplex imaging --> h/h is low, started on apixaban po bid, monitor for bleed closely --> ok for nsaids also arm elevation --> warm compresses --> monitor h/h rescan duplex on 10/08 # Anemia due to iron deficiency with loss anemia secondary to Hematochezia --> is having bleeding hemorrhoidal --> as per gi endoscopy 09/28 shows hemorrhoids --> iv iron daily has been started --> s/p 1 unit 09/25 --> hgb 6.3-->8.8->8 --> transfuse as prn basis # Hematochezia secondary to hemorrhoids --> transfuse for Hgb <7 --> as per gi, surg recs --> now improved # Chest pain rule out ACS --> trop neg, per cards # Diabetes mellitus type 2 --> Hold metformin --> SSI # Essential hypertension --> Continue home benazepril 10mg daily --> Hydralazine PRN # GERD --> Continue home PPI # DVT PPX: apixaban Appreciate consultation and dw RN Subjective Constitutional: Denies: no symptoms, chills, fever, malaise, weakness, other HEENT: Denies: no symptoms, eye pain, blurred vision, tearing, double vision, ear pain, ear discharge, nose pain, nose congestion, throat pain, throat swelling, mouth pain, mouth swelling, other Cardiovascular: Denies: no symptoms, chest pain, edema, irregular heart rate, lightheadedness, palpitations, syncope, other Respiratory: Denies: no symptoms, cough, shortness of breath, SOB with excertion, SOB at rest, sputum, wheezing, other Gastrointestinal/Abdominal: Denies: no symptoms, abdomen distended, abdominal pain, black stools, tarry stools, blood in stool, constipated, diarrhea, difficulty swallowing, nausea, poor appetite, poor fluid intake, rectal bleeding, vomiting, other Neurologic/Psychiatric: Denies: no symptoms, anxiety, depressed, emotional problems, headache, numbness, paresthesia, pre-existing deficit, seizure, tingli ng, tremors, weakness, other Endocrine: Denies: no symptoms, excessive sweating, flushing, intolerance to cold, intolerance to heat, increased hunger, increased thirst, increased urine, unexplained weight gain, unexplained weight loss, other Allergies: Coded Allergies: MORPHINE (Verified Allergy, Unknown, 12/22/17) Subjective 09/28 labs noted, meds reviewed, remains on iv iron, for endoscopy 09/29 labs reviewed, colo results noted, with hemorrhoids, meds reviewed 09/30: pt is on RA, no acute distress noted. 10/02 labs reviewed as well as imaging, duplex upper arm is noted, : Positive for left cephalic venous thrombosis. 10/03 labs are noted, no bleeding, meds reviewed, no new changes, on apix Objective Objective Current Medications Medications (Trade) Dose Ordered Sig/Luz Maria Route PRN Reason Start Time Stop Time Status Last Admin Dose Admin Acetaminophen (Tylenol) 650 mg Q6H PRN ORAL For Headache 09/24/20 23:45 10/24/20 23:44 10/02/20 09:39 Acetaminophen (Tylenol) 650 mg Q6H PRN ORAL MILD PAIN 09/24/20 23:45 10/24/20 23:44 09/30/20 16:21 Acetaminophen (Tylenol) 650 mg Q6H PRN ORAL fever 09/24/20 23:45 10/24/20 23:44 Apixaban (Eliquis) 5 mg BID ORAL 10/01/20 18:00 12/30/20 17:59 10/02/20 17:20 Atorvastatin Calcium (Lipitor) 40 mg DAILY ORAL 09/26/20 09:00 12/25/20 08:59 10/02/20 09:40 Benazepril HCl (Lotensin) 10 mg DAILY ORAL 09/26/20 09:00 10/26/20 08:59 10/02/20 09:40 Dextrose (Dextrose 50%) 25 ml Q30M PRN IV Hypoglycemia 09/24/20 23:45 12/23/20 23:44 Dextrose (Dextrose 50%) 50 ml Q30M PRN IV Hypoglycemia 09/24/20 23:45 12/23/20 23:44 Ferrous Sulfate (Feosol) 325 mg DAILY ORAL 09/27/20 09:00 12/26/20 08:59 10/02/20 09:41 Hydralazine HCl (Apresoline) 10 mg Q4H PRN IV SBP >160 09/25/20 12:30 12/24/20 12:29 Ibuprofen (Motrin) 600 mg Q6H PRN ORAL pain (4-10) 10/01/20 15:15 10/31/20 15:14 Insulin Aspart (NovoLOG) BEFORE MEALS AND HS SUBQ 09/26/20 06:30 12/24/20 00:00 10/02/20 20:50 Oxybutynin Chloride (Ditropan) 5 mg BID ORAL 09/25/20 18:00 10/25/20 17:59 10/02/20 17:20 Last 24 Hour Vital Signs Date Time Temp Pulse Resp B/P (MAP) Pulse Ox O2 Delivery O2 Flow Rate FiO2 10/03/20 04:00 59 10/03/20 04:00 98.7 60 18 109/66 (80) 98 10/03/20 00:00 57 10/03/20 00:00 99.8 62 20 115/61 (79) 98 10/02/20 21:00 Room Air 10/02/20 20:00 99.5 65 19 119/65 (83) 99 10/02/20 20:00 65 10/02/20 16:00 99.0 63 18 112/60 (77) 100 10/02/20 16:00 59 10/02/20 12:00 98.9 64 16 110/72 (85) 100 10/02/20 12:00 60 10/02/20 10:09 98.2 10/02/20 09:40 115/63 10/02/20 09:00 Room Air 10/02/20 08:00 63 10/02/20 08:00 97.1 64 14 115/63 (80) 100 10/02/20 04:30 57 10/02/20 04:00 98.2 65 16 112/58 (76) 98 10/02/20 00:00 98.1 60 15 116/53 (74) 99 10/01/20 23:52 62 10/01/20 21:00 Room Air 10/01/20 20:00 98.2 63 17 117/60 (79) 98 10/01/20 20:00 54 10/01/20 16:00 96.6 67 18 134/74 (94) 95 10/01/20 16:00 67 10/01/20 12:00 63 10/01/20 12:00 99.2 65 18 121/58 (79) 96 10/01/20 09:00 Room Air 10/01/20 08:27 130/58 10/01/20 08:00 68 10/01/20 08:00 97.7 74 18 130/58 (82) 94 Intake and Output 10/02/20 10/03/20 19:00 07:00 Intake Total 700 ml 500 ml Balance 700 ml 500 ml Intake Oral 700 ml 500 ml # Voids 3 2 Labs Test 09/30/20 16:23 09/30/20 21:09 10/01/20 05:00 10/01/20 07:11 POC Whole Blood Glucose 123 MG/DL (74-106) White Blood Count 5.4 K/UL (4.8-10.8) Red Blood Count 3.03 M/UL (4.20-5.40) Hemoglobin 8.1 G/DL (12.0-16.0) Hematocrit 25.4 % (37.0-47.0) Mean Corpuscular Volume 84 FL (80-99) Mean Corpuscular Hemoglobin 26.7 PG (27.0-31.0) Mean Corpuscular Hemoglobin Concent 31.8 G/DL (32.0-36.0) Red Cell Distribution Width 19.7 % (11.6-14.8) Platelet Count 168 K/UL (150-450) Mean Platelet Volume 9.0 FL (6.5-10.1) Neutrophils (%) (Auto) 52.2 % (45.0-75.0) Lymphocytes (%) (Auto) 35.2 % (20.0-45.0) Monocytes (%) (Auto) 9.0 % (1.0-10.0) Eosinophils (%) (Auto) 2.7 % (0.0-3.0) Basophils (%) (Auto) 1.0 % (0.0-2.0) Sodium Level 142 MMOL/L (136-145) Potassium Level 3.5 MMOL/L (3.5-5.1) Chloride Level 108 MMOL/L (98-107) Carbon Dioxide Level 26 MMOL/L (21-32) Anion Gap 8 mmol/L (5-15) Blood Urea Nitrogen 11 mg/dL (7-18) Creatinine 0.6 MG/DL (0.55-1.30) Estimat Glomerular Filtration Rate > 60 mL/min (>60) Glucose Level 86 MG/DL (74-106) Calcium Level 8.3 MG/DL (8.5-10.1) Test 10/01/20 16:51 10/02/20 04:00 10/02/20 17:23 10/03/20 04:00 POC Whole Blood Glucose 111 MG/DL (74-106) White Blood Count 4.6 K/UL (4.8-10.8) 5.1 K/UL (4.8-10.8) Red Blood Count 3.05 M/UL (4.20-5.40) 3.05 M/UL (4.20-5.40) Hemoglobin 8.3 G/DL (12.0-16.0) 8.3 G/DL (12.0-16.0) Hematocrit 25.3 % (37.0-47.0) 25.6 % (37.0-47.0) Mean Corpuscular Volume 83 FL (80-99) 84 FL (80-99) Mean Corpuscular Hemoglobin 27.1 PG (27.0-31.0) 27.1 PG (27.0-31.0) Mean Corpuscular Hemoglobin Concent 32.7 G/DL (32.0-36.0) 32.2 G/DL (32.0-36.0) Red Cell Distribution Width 20.4 % (11.6-14.8) 20.6 % (11.6-14.8) Platelet Count 171 K/UL (150-450) 171 K/UL (150-450) Mean Platelet Volume 9.5 FL (6.5-10.1) 10.3 FL (6.5-10.1) Neutrophils (%) (Auto) 45.2 % (45.0-75.0) 42.8 % (45.0-75.0) Lymphocytes (%) (Auto) 41.3 % (20.0-45.0) 42.3 % (20.0-45.0) Monocytes (%) (Auto) 9.1 % (1.0-10.0) 10.2 % (1.0-10.0) Eosinophils (%) (Auto) 3.1 % (0.0-3.0) 3.4 % (0.0-3.0) Basophils (%) (Auto) 1.3 % (0.0-2.0) 1.4 % (0.0-2.0) Sodium Level 141 MMOL/L (136-145) 141 MMOL/L (136-145) Potassium Level 3.9 MMOL/L (3.5-5.1) 3.6 MMOL/L (3.5-5.1) Chloride Level 108 MMOL/L (98-107) 108 MMOL/L (98-107) Carbon Dioxide Level 28 MMOL/L (21-32) 26 MMOL/L (21-32) Anion Gap 5 mmol/L (5-15) 7 mmol/L (5-15) Blood Urea Nitrogen 12 mg/dL (7-18) 18 mg/dL (7-18) Creatinine 0.7 MG/DL (0.55-1.30) 0.8 MG/DL (0.55-1.30) Estimat Glomerular Filtration Rate > 60 mL/min (>60) > 60 mL/min (>60) Glucose Level 85 MG/DL (74-106) 80 MG/DL (74-106) Calcium Level 8.4 MG/DL (8.5-10.1) 8.6 MG/DL (8.5-10.1) Test 10/03/20 05:56 POC Whole Blood Glucose 96 MG/DL (74-106) Height (Feet): 5 Height (Inches): 5.00 Weight (Pounds): 135 Objective Physical Exam General: WDWN female in NAD, A&O x 4 HEENT: Normocephalic cephalic atraumatic CV: Regular rate regular rhythm, no murmurs, rubs, or gallops Pulm: Lungs clear to auscultation bilaterally. No wheezes, rhonchi, or rales GI: Soft, nontender, nondistended, bowel sounds present Neuro: CN 2-12 intact bilaterally, no focal signs. Ext: No lower extremity edema bilaterally Skin: no rashes lesions or ulcers Msk: Joints symmetrical in upper extremity and lower extremity bilaterally Lymph: No lymphadenopathy in upper extremity and lower extremity Rivas Rodgers MD Oct 03, 2020 06:40
--- NOTE | 2020-10-03 07:45 | NUR ---
NURSE HAND-OFF REPORT: Important Events on Shift: Patient has been resting the whole shift with no complaints made the whole shift. Patient Status: Ema is awake on bed in stable condition. Plan of care endorsed. Diet: CCHO (Medium) Pending Orders: none Pending Results/Labs:AM lab result Pending MD notification:none Latest Vital Signs: Temperature 98.7 , Pulse 59 , B/P 109 /66 , Respiratory Rate 18 , O2 SAT 98 , Room Air, O2 Flow Rate 6 . Vital Sign Comment: stable EKG Rhythm: Sinus Bradycardia Rhythm change?: N MD Notified?: - MD Response: Latest Christensen Fall Score: 20 Fall Risk: Low Risk Safety Measures: Call light Within Reach, Bed Alarm Zone 1, Side Rails Side Rails x2, Bed position Low and Locked. Fall Precautions: Yellow Socks Yellow Gown Door Sign Patient Fall Education Report given to DEBBIE [place].
[2020-10-03 08:00] VITALS: BP 129/69
--- NOTE | 2020-10-03 08:22 | Consultation ---
History of Present Illness General Date patient seen: Oct 03, 2020 Time patient seen: 14:21 Chief Complaint: Palpitations Referring physician: Dr. Palmer Reason for Consultation: COVID+ Present Illness HPI 59yo F who p/w palpitations and CP, found to be COVID+ for which ID is consulted. Since admission, pt has been AF, HDS, satting well on RA. No leukocytosis. CTA chest unremarkable for PE nor airspace disease. Reports breathing prior was a little hard, but now is normal. No fevers/chills, NVD, abd pain, CP, cough, SOB. Walking around wo issues. No dysuria. Doing well. Wants to go home PMH: DM2 HTN GARRY Hemorrhoids Allergies: Coded Allergies: MORPHINE (Verified Allergy, Unknown, 12/22/17) Medication History Scheduled Aspirin* (Aspirin*), 81 MG ORAL DAILY, (Reported) Atorvastatin Calcium* (Lipitor*), 40 MG ORAL DAILY, (Reported) Benazepril Hcl* (Benazepril Hcl*), 10 MG ORAL DAILY, (Reported) Ferrous Sulfate* (Ferrous Sulfate*), 325 MG ORAL DAILY, (Reported) Metformin Hcl* (Metformin Hcl*), 1,000 MG ORAL BID, (Reported) Nitroglycerin (Nitroglycerin), 0.4 MG SL PRN, (Reported) Omeprazole (Omeprazole), 10 MG ORAL DAILY, (Reported) Oxybutynin Chloride (Oxybutynin Chloride), 5 MG ORAL BID, (Reported) Discontinued Medications Atorvastatin Calcium* (Atorvastatin Calcium*), 80 MG ORAL BEDTIME, (Reported) Discontinued Reason: Therapy completed Benazepril Hcl* (Lotensin*), 40 MG ORAL DAILY, (Reported) Discontinued Reason: Therapy completed Metformin Hcl* (Glucophage*), 1,000 MG ORAL DAILY, (Reported) Discontinued Reason: Therapy completed Patient History Healthcare decision maker Resuscitation status Advanced Directive on File Review of Systems ROS Narrative 10-point neg except as noted in HPI Physical Exam Physical Exam Narrative Gen: NAD HEENT: NCAT Pulm: BL chest rise Abd: Soft, NTND Ext: No c/c/e Skin: No visible rashes Neuro: Awake, alert, interactive Last 24 Hour Vital Signs Date Time Temp Pulse Resp B/P (MAP) Pulse Ox O2 Delivery O2 Flow Rate FiO2 10/03/20 04:00 59 10/03/20 04:00 98.7 60 18 109/66 (80) 98 10/03/20 00:00 57 10/03/20 00:00 99.8 62 20 115/61 (79) 98 10/02/20 21:00 Room Air 10/02/20 20:00 99.5 65 19 119/65 (83) 99 10/02/20 20:00 65 10/02/20 16:00 99.0 63 18 112/60 (77) 100 10/02/20 16:00 59 10/02/20 12:00 98.9 64 16 110/72 (85) 100 10/02/20 12:00 60 10/02/20 10:09 98.2 10/02/20 09:40 115/63 10/02/20 09:00 Room Air Intake and Output 10/02/20 10/03/20 19:00 07:00 Intake Total 700 ml 500 ml Balance 700 ml 500 ml Intake Oral 700 ml 500 ml # Voids 3 2 Laboratory Tests Test 10/02/20 17:23 10/03/20 04:00 10/03/20 05:56 POC Whole Blood Glucose Pending 96 MG/DL (74-106) White Blood Count 5.1 K/UL (4.8-10.8) Red Blood Count 3.05 M/UL (4.20-5.40) L Hemoglobin 8.3 G/DL (12.0-16.0) L Hematocrit 25.6 % (37.0-47.0) L Mean Corpuscular Volume 84 FL (80-99) Mean Corpuscular Hemoglobin 27.1 PG (27.0-31.0) Mean Corpuscular Hemoglobin Concent 32.2 G/DL (32.0-36.0) Red Cell Distribution Width 20.6 % (11.6-14.8) H Platelet Count 171 K/UL (150-450) Mean Platelet Volume 10.3 FL (6.5-10.1) H Neutrophils (%) (Auto) 42.8 % (45.0-75.0) L Lymphocytes (%) (Auto) 42.3 % (20.0-45.0) Monocytes (%) (Auto) 10.2 % (1.0-10.0) H Eosinophils (%) (Auto) 3.4 % (0.0-3.0) H Basophils (%) (Auto) 1.4 % (0.0-2.0) Sodium Level 141 MMOL/L (136-145) Potassium Level 3.6 MMOL/L (3.5-5.1) Chloride Level 108 MMOL/L (98-107) H Carbon Dioxide Level 26 MMOL/L (21-32) Anion Gap 7 mmol/L (5-15) Blood Urea Nitrogen 18 mg/dL (7-18) Creatinine 0.8 MG/DL (0.55-1.30) Estimat Glomerular Filtration Rate > 60 mL/min (>60) Glucose Level 80 MG/DL (74-106) Calcium Level 8.6 MG/DL (8.5-10.1) Height (Feet): 5 Height (Inches): 5.00 Weight (Pounds): 135 Medications Current Medications Medications (Trade) Dose Ordered Sig/Luz Maria Route PRN Reason Start Time Stop Time Status Last Admin Dose Admin Acetaminophen (Tylenol) 650 mg Q6H PRN ORAL For Headache 09/24/20 23:45 10/24/20 23:44 10/02/20 09:39 Acetaminophen (Tylenol) 650 mg Q6H PRN ORAL MILD PAIN 09/24/20 23:45 10/24/20 23:44 09/30/20 16:21 Acetaminophen (Tylenol) 650 mg Q6H PRN ORAL fever 09/24/20 23:45 10/24/20 23:44 Apixaban (Eliquis) 5 mg BID ORAL 10/01/20 18:00 12/30/20 17:59 10/02/20 17:20 Atorvastatin Calcium (Lipitor) 40 mg DAILY ORAL 09/26/20 09:00 12/25/20 08:59 10/02/20 09:40 Benazepril HCl (Lotensin) 10 mg DAILY ORAL 09/26/20 09:00 10/26/20 08:59 10/02/20 09:40 Dextrose (Dextrose 50%) 25 ml Q30M PRN IV Hypoglycemia 09/24/20 23:45 12/23/20 23:44 Dextrose (Dextrose 50%) 50 ml Q30M PRN IV Hypoglycemia 09/24/20 23:45 12/23/20 23:44 Ferrous Sulfate (Feosol) 325 mg DAILY ORAL 09/27/20 09:00 12/26/20 08:59 10/02/20 09:41 Hydralazine HCl (Apresoline) 10 mg Q4H PRN IV SBP >160 09/25/20 12:30 12/24/20 12:29 Ibuprofen (Motrin) 600 mg Q6H PRN ORAL pain (4-10) 10/01/20 15:15 10/31/20 15:14 Insulin Aspart (NovoLOG) BEFORE MEALS AND HS SUBQ 09/26/20 06:30 12/24/20 00:00 10/02/20 20:50 Oxybutynin Chloride (Ditropan) 5 mg BID ORAL 09/25/20 18:00 10/25/20 17:59 10/02/20 17:20 Assessment/Plan Assessment/Plan: 59yo F with: COVID+, relatively asymptomatic Afebrile Normal WBC 09/25 COVID rapid test positive 09/26 CTA chest neg for PE and airspace disease L cephalic DVT No LE DVT on US Cr 0.8 PMH: DM2 HTN GARRY Hemorrhoids Plan: Cont to monitor off abx and off therapeutics for COVID given satting well on RA Ok to d/c home from ID standpoint as doing well on RA Needs 10 days of isolation for COVID from diagnosis, 09/25 - 10/04. Explained to pt and she can home isolate. Monitor CBC/CMP Monitor temp curve, hemodynamics Monitor resp status D/w RN Thank you for this consult. [facility] will continue to follow. dOilia Sommer M.D. Oct 03, 2020 08:22
--- NOTE | 2020-10-03 08:28 | NUR ---
NURSE NOTES: pt A/O x 4. pt able to verbalize needs, no complains of pain. pt on clinical research monitor, no signs of cardiac or respiratory distress. Bed is locked and in lowest position, call light within reach. Will continue to monitor.
--- NOTE | 2020-10-03 09:08 | General Progress Note ---
Subjective Constitutional: Reports: weakness Allergies: Coded Allergies: MORPHINE (Verified Allergy, Unknown, 12/22/17) All Systems: reviewed and negative except above Subjective calm in bed Objective Last 24 Hour Vital Signs Date Time Temp Pulse Resp B/P (MAP) Pulse Ox O2 Delivery O2 Flow Rate FiO2 10/03/20 04:00 59 10/03/20 04:00 98.7 60 18 109/66 (80) 98 10/03/20 00:00 57 10/03/20 00:00 99.8 62 20 115/61 (79) 98 10/02/20 21:00 Room Air 10/02/20 20:00 99.5 65 19 119/65 (83) 99 10/02/20 20:00 65 10/02/20 16:00 99.0 63 18 112/60 (77) 100 10/02/20 16:00 59 10/02/20 12:00 98.9 64 16 110/72 (85) 100 10/02/20 12:00 60 10/02/20 10:09 98.2 10/02/20 09:40 115/63 Intake and Output 10/02/20 10/03/20 19:00 07:00 Intake Total 700 ml 500 ml Balance 700 ml 500 ml Intake Oral 700 ml 500 ml # Voids 3 2 Laboratory Tests 10/02/20 17:23: POC Whole Blood Glucose [Pending] 10/03/20 04:00: White Blood Count 5.1, Red Blood Count 3.05L, Hemoglobin 8.3L, Hematocrit 25.6L, Mean Corpuscular Volume 84, Mean Corpuscular Hemoglobin 27.1, Mean Corpuscular Hemoglobin Concent 32.2, Red Cell Distribution Width 20.6H, Platelet Count 171, Mean Platelet Volume 10.3H, Neutrophils (%) (Auto) 42.8L, Lymphocytes (%) (Auto) 42.3, Monocytes (%) (Auto) 10.2H, Eosinophils (%) (Auto) 3.4H, Basophils (%) (Auto) 1.4, Sodium Level 141, Potassium Level 3.6, Chloride Level 108H, Carbon Dioxide Level 26, Anion Gap 7, Blood Urea Nitrogen 18, Creatinine 0.8, Estimat Glomerular Filtration Rate > 60, Glucose Level 80, Calcium Level 8.6 10/03/20 05:56: POC Whole Blood Glucose 96 Height (Feet): 5 Height (Inches): 5.00 Weight (Pounds): 135 General Appearance: lethargic EENT: normal ENT inspection Neck: normal alignment Cardiovascular: normal peripheral pulses, normal rate, regular rhythm Respiratory/Chest: chest wall non-tender, lungs clear, normal breath sounds Abdomen: normal bowel sounds, non tender, soft Extremities: normal inspection Edema: no edema noted Arm (L), no edema noted Arm (R), no edema noted Leg (L), no edema noted Leg (R), no edema noted Pedal (L), no edema noted Pedal (R), no edema noted Generalized Neurologic: motor weakness Skin: normal pigmentation, warm/dry Assessment/Plan Problem List: (1) Anemia ICD Codes: D64.9 - Anemia, unspecified SNOMED: 866087823 (2) COVID-19 ICD Codes: U07.1 - COVID-19 SNOMED: 800042406 (3) GIB (gastrointestinal bleeding) ICD Codes: K92.2 - Gastrointestinal hemorrhage, unspecified SNOMED: 96228166 Status: unchanged Assessment/Plan: o2 pulm tx abx cbc bmp am id pulm endo Stuart Ramos DO Oct 03, 2020 09:08
[2020-10-03] MEDS: Atorvastatin 20mg tab ORAL SCH (09:11)
[2020-10-03] MEDS: Oxybutynin 5mg tab ORAL SCH ×2 (09:12→17:32)
[2020-10-03] MEDS: Eliquis 5mg tablet ORAL SCH ×2 (09:12→17:32)
[2020-10-03] MEDS: Benazepril 10mg tab ORAL SCH (09:23)
--- NOTE | 2020-10-03 11:09 | Consultation ---
History of Present Illness General Date patient seen: Oct 03, 2020 Time patient seen: 09:30 Chief Complaint: Palpitations Referring physician: Dr. Palmer Reason for Consultation: COVID+ Present Illness HPI 59 years old female with past medical history of hypertension, presented to emergency department complaining of palpitations over the last 3 days. Patient reported that her heart was racing while she was walking and relieved by rest. She denied chest pain. She reported briefly shortness of breath while the heart was racing , which resolved. No cough. No fever or chills. Patient denied smoking. Patient also reported hemorrhoidal bleeding over the past few weeks. Patient reported problems with hemorrhoids in the past. Patient did not require any blood transfusion in the past. Upon evaluation vital signs were stable. Patient saturated well on room air. Rapid COVID-19 in ED was positive. Laboratory work-up revealed no leukocytosis ,hemoglobin 6.3 ,hematocrit 20.1 ,platelet count 248. Stable electrolytes . BUN 18, creatinine 1.2. Glucose 169. Stable LFT Troponin negative . EKG revealed sinus rhythm, no acute ischemic changes . TSH slightly elevated 3.874. Chest x-ray revealed mild opacities at the right greater than left lung bases compatible with atelectasis with a superimposed infectious/inflammatory process not excluded. Venous duplex bilateral lower extremity was negative. CTA of the chest revealed no evidence of PE. Lungs unremarkable: no mass, no consolidation Venous duplex of the upper extremity showed left cephalic venous thrombosis , and patient started on anticoagulation with Eliquis when hemoglobin and hematocrit stabilized. During the course of stay Patient received 2 u of PRBC , and had a colonoscopy, which revealed internal hemorrhoids , presumed to be a source of bleeding. Hemoglobin hematocrit currently stable. Pulmonology consult was requested to assist in management of this patient. Patient remains on RA. No cough, no SOB, no CP. Pulmonology consult was requested to assist in management of this patient. PMH: HTN, DM, anemia Past surgery: hysterectomy Social history: Smoking, EtOH abuse, illicit drug use Family history: Noncontributory Residents: Home Allergy: Morphine Medications: Reviewed Allergies: Coded Allergies: MORPHINE (Verified Allergy, Unknown, 12/22/17) Medication History Scheduled Aspirin* (Aspirin*), 81 MG ORAL DAILY, (Reported) Atorvastatin Calcium* (Lipitor*), 40 MG ORAL DAILY, (Reported) Benazepril Hcl* (Benazepril Hcl*), 10 MG ORAL DAILY, (Reported) Ferrous Sulfate* (Ferrous Sulfate*), 325 MG ORAL DAILY, (Reported) Metformin Hcl* (Metformin Hcl*), 1,000 MG ORAL BID, (Reported) Nitroglycerin (Nitroglycerin), 0.4 MG SL PRN, (Reported) Omeprazole (Omeprazole), 10 MG ORAL DAILY, (Reported) Oxybutynin Chloride (Oxybutynin Chloride), 5 MG ORAL BID, (Reported) Discontinued Medications Atorvastatin Calcium* (Atorvastatin Calcium*), 80 MG ORAL BEDTIME, (Reported) Discontinued Reason: Therapy completed Benazepril Hcl* (Lotensin*), 40 MG ORAL DAILY, (Reported) Discontinued Reason: Therapy completed Metformin Hcl* (Glucophage*), 1,000 MG ORAL DAILY, (Reported) Discontinued Reason: Therapy completed Patient History Healthcare decision maker Resuscitation status Full code Advanced Directive on File Review of Systems Constitutional: Reports: no symptoms Eye: Reports: no symptoms ENT: Reports: no symptoms Respiratory: Reports: no symptoms Cardiovascular: Reports: palpitations - prior Gastrointestinal: Reports: other - rectal bleeding Genitourinary: Reports: no symptoms Musculoskeletal: Reports: no symptoms Skin: Reports: no symptoms Psychiatric: Reports: no symptoms Neurological: Reports: no symptoms Endocrine: Reports: other - DM Hematologic/Lymphatic: Reports: anemia Physical Exam General Appearance: WD/WN, no apparent distress, alert - [place] speaking female Lines, tubes and drains: peripheral HEENT: normocephalic, atraumatic, anicteric, mucous membranes moist Neck: non-tender, supple Respiratory/Chest: lungs clear, no respiratory distress, no accessory muscle use Cardiovascular/Chest: normal rate - SR on tele Abdomen: normal bowel sounds, non tender, soft Neurologic: no motor/sensory deficits, alert, oriented x 3, responsive Musculoskeletal: normal muscle bulk Last 24 Hour Vital Signs Date Time Temp Pulse Resp B/P (MAP) Pulse Ox O2 Delivery O2 Flow Rate FiO2 10/03/20 09:23 129/69 10/03/20 04:00 59 10/03/20 04:00 98.7 60 18 109/66 (80) 98 10/03/20 00:00 57 10/03/20 00:00 99.8 62 20 115/61 (79) 98 10/02/20 21:00 Room Air 10/02/20 20:00 99.5 65 19 119/65 (83) 99 10/02/20 20:00 65 10/02/20 16:00 99.0 63 18 112/60 (77) 100 10/02/20 16:00 59 10/02/20 12:00 98.9 64 16 110/72 (85) 100 10/02/20 12:00 60 Intake and Output 10/02/20 10/03/20 19:00 07:00 Intake Total 700 ml 500 ml Balance 700 ml 500 ml Intake Oral 700 ml 500 ml # Voids 3 2 Laboratory Tests Test 10/02/20 17:23 10/03/20 04:00 10/03/20 05:56 POC Whole Blood Glucose Pending 96 MG/DL (74-106) White Blood Count 5.1 K/UL (4.8-10.8) Red Blood Count 3.05 M/UL (4.20-5.40) L Hemoglobin 8.3 G/DL (12.0-16.0) L Hematocrit 25.6 % (37.0-47.0) L Mean Corpuscular Volume 84 FL (80-99) Mean Corpuscular Hemoglobin 27.1 PG (27.0-31.0) Mean Corpuscular Hemoglobin Concent 32.2 G/DL (32.0-36.0) Red Cell Distribution Width 20.6 % (11.6-14.8) H Platelet Count 171 K/UL (150-450) Mean Platelet Volume 10.3 FL (6.5-10.1) H Neutrophils (%) (Auto) 42.8 % (45.0-75.0) L Lymphocytes (%) (Auto) 42.3 % (20.0-45.0) Monocytes (%) (Auto) 10.2 % (1.0-10.0) H Eosinophils (%) (Auto) 3.4 % (0.0-3.0) H Basophils (%) (Auto) 1.4 % (0.0-2.0) Sodium Level 141 MMOL/L (136-145) Potassium Level 3.6 MMOL/L (3.5-5.1) Chloride Level 108 MMOL/L (98-107) H Carbon Dioxide Level 26 MMOL/L (21-32) Anion Gap 7 mmol/L (5-15) Blood Urea Nitrogen 18 mg/dL (7-18) Creatinine 0.8 MG/DL (0.55-1.30) Estimat Glomerular Filtration Rate > 60 mL/min (>60) Glucose Level 80 MG/DL (74-106) Calcium Level 8.6 MG/DL (8.5-10.1) Height (Feet): 5 Height (Inches): 5.00 Weight (Pounds): 135 Medications Current Medications Medications (Trade) Dose Ordered Sig/Luz Maria Route PRN Reason Start Time Stop Time Status Last Admin Dose Admin Acetaminophen (Tylenol) 650 mg Q6H PRN ORAL For Headache 09/24/20 23:45 10/24/20 23:44 10/02/20 09:39 Acetaminophen (Tylenol) 650 mg Q6H PRN ORAL MILD PAIN 09/24/20 23:45 10/24/20 23:44 09/30/20 16:21 Acetaminophen (Tylenol) 650 mg Q6H PRN ORAL fever 09/24/20 23:45 10/24/20 23:44 Apixaban (Eliquis) 5 mg BID ORAL 10/01/20 18:00 12/30/20 17:59 10/03/20 09:12 Atorvastatin Calcium (Lipitor) 40 mg DAILY ORAL 09/26/20 09:00 12/25/20 08:59 10/03/20 09:11 Benazepril HCl (Lotensin) 10 mg DAILY ORAL 09/26/20 09:00 10/26/20 08:59 10/03/20 09:23 Dextrose (Dextrose 50%) 25 ml Q30M PRN IV Hypoglycemia 09/24/20 23:45 12/23/20 23:44 Dextrose (Dextrose 50%) 50 ml Q30M PRN IV Hypoglycemia 09/24/20 23:45 12/23/20 23:44 Ferrous Sulfate (Feosol) 325 mg DAILY ORAL 09/27/20 09:00 12/26/20 08:59 10/03/20 09:11 Hydralazine HCl (Apresoline) 10 mg Q4H PRN IV SBP >160 09/25/20 12:30 12/24/20 12:29 Ibuprofen (Motrin) 600 mg Q6H PRN ORAL pain (4-10) 1/9/21 15:15 10/31/20 15:14 Insulin Aspart (NovoLOG) BEFORE MEALS AND HS SUBQ 09/26/20 06:30 12/24/20 00:00 10/02/20 20:50 Oxybutynin Chloride (Ditropan) 5 mg BID ORAL 09/25/20 18:00 10/25/20 17:59 10/03/20 09:12 Assessment/Plan Assessment/Plan: ASSESSMENT Covid 19 infection Anemia secondary to rectal bleeding Rectal bleeding likely due to internal hemorrhoids DVT left cephalic vein Palpitations Abnormal TFT probably mild hypothyroidism Hypertension Diabetes mellitus PLAN OF CARE tele Date of sx onset: 3 days prior to ED visit Positive test: 09/25 rapid COVID + O2 RA HFA No DEX given no hypoxia, remains stable on RA No indications for Remdesivivr, given relatively asymptomatic a/c with Eliquis Venous Duplex BLE NGT Venous Duple YE + L cephalic thrombus D dimer Trend CRP Abx as per ID recs-> no need for abx Monitor volumes and renal function resp status stable serial trop NGT, ECHO with pEF BP stable on low dose MIKE TFT abnormal mild elevation in TSH and low T3, endo eval pending, may need low dose of Synthroid-per endo recs s/p 2 u PRBC, HH stable on oral iron supplements s/p colonoscopy - > internal hemorrhoids BS with SSI Fup with consultants recs FC dc plan soon case discussed and evaluated by supervising physician Rosa Elena Barboza NP Oct 03, 2020 11:09
[2020-10-03 12:00] VITALS: BP 125/72
--- NOTE | 2020-10-03 12:59 | General Progress Note ---
Subjective ROS Limited/Unobtainable: No Allergies: Coded Allergies: MORPHINE (Verified Allergy, Unknown, 12/22/17) Objective Last 24 Hour Vital Signs Date Time Temp Pulse Resp B/P (MAP) Pulse Ox O2 Delivery O2 Flow Rate FiO2 10/03/20 09:23 129/69 10/03/20 04:00 59 10/03/20 04:00 98.7 60 18 109/66 (80) 98 10/03/20 00:00 57 10/03/20 00:00 99.8 62 20 115/61 (79) 98 10/02/20 21:00 Room Air 10/02/20 20:00 99.5 65 19 119/65 (83) 99 10/02/20 20:00 65 10/02/20 16:00 99.0 63 18 112/60 (77) 100 10/02/20 16:00 59 Intake and Output 10/02/20 10/03/20 19:00 07:00 Intake Total 700 ml 500 ml Balance 700 ml 500 ml Intake Oral 700 ml 500 ml # Voids 3 2 Laboratory Tests 10/02/20 17:23: POC Whole Blood Glucose [Pending] 10/03/20 04:00: White Blood Count 5.1, Red Blood Count 3.05L, Hemoglobin 8.3L, Hematocrit 25.6L, Mean Corpuscular Volume 84, Mean Corpuscular Hemoglobin 27.1, Mean Corpuscular Hemoglobin Concent 32.2, Red Cell Distribution Width 20.6H, Platelet Count 171, Mean Platelet Volume 10.3H, Neutrophils (%) (Auto) 42.8L, Lymphocytes (%) (Auto) 42.3, Monocytes (%) (Auto) 10.2H, Eosinophils (%) (Auto) 3.4H, Basophils (%) (Auto) 1.4, Sodium Level 141, Potassium Level 3.6, Chloride Level 108H, Carbon Dioxide Level 26, Anion Gap 7, Blood Urea Nitrogen 18, Creatinine 0.8, Estimat Glomerular Filtration Rate > 60, Glucose Level 80, Calcium Level 8.6 10/03/20 05:56: POC Whole Blood Glucose 96 Height (Feet): 5 Height (Inches): 5.00 Weight (Pounds): 135 General Appearance: no apparent distress EENT: normal ENT inspection Neck: supple Cardiovascular: normal rate Respiratory/Chest: decreased breath sounds Abdomen: normal bowel sounds, non tender, soft Extremities: non-tender Assessment/Plan Status: unchanged Assessment/Plan: Assessment - rectal bleeding - microcytic, symptomatic anemia Recommendations -anusol HC -sitz bath - PPI - IV Fe s/p colonoscopy -dc canceled due to LUE DVT>>> [facility] hematology Andre Maire MD Oct 03, 2020 12:59
--- NOTE | 2020-10-03 14:18 | NUR ---
CASE MANAGEMENT:REVIEW SI;PALPITATIONS. COVID PNA. RECTAL BLEEDING. LUE DVT. 99.8 57 20 129/69 98% ON RA H/H 8.3/25.6 IS;ELIQUIS PO BID FEOSOL PO QD DITROPAN PO BID LIPITOR PO QD TELE STATUS DCP;FROM HOME
[2020-10-03 16:00] VITALS: BP 141/70
--- NOTE | 2020-10-03 18:58 | Surgery Progress Note ---
Surgery Progress Note Subjective Symptoms: improved, tolerating diet, voiding well, passing flatus, BM, pain decreased Objective Last 24 Hour Vital Signs Date Time Temp Pulse Resp B/P (MAP) Pulse Ox O2 Delivery O2 Flow Rate FiO2 10/03/20 09:23 129/69 10/03/20 09:00 Room Air 10/03/20 04:00 59 10/03/20 04:00 98.7 60 18 109/66 (80) 98 10/03/20 00:00 57 10/03/20 00:00 99.8 62 20 115/61 (79) 98 10/02/20 21:00 Room Air 10/02/20 20:00 99.5 65 19 119/65 (83) 99 10/02/20 20:00 65 I&O Intake and Output 10/02/20 10/03/20 19:00 07:00 Intake Total 700 ml 500 ml Balance 700 ml 500 ml Intake Oral 700 ml 500 ml # Voids 3 2 Dressing: dry Wound: clean Cardiovascular: RSR Respiratory: clear Abdomen: soft, flat, non-tender, tenderness, non-distended Extremities: no tenderness, no cyanosis, other - pain resolved vein clot stable Laboratory Tests Test 10/03/20 04:00 10/03/20 05:56 White Blood Count 5.1 K/UL (4.8-10.8) Red Blood Count 3.05 M/UL (4.20-5.40) L Hemoglobin 8.3 G/DL (12.0-16.0) L Hematocrit 25.6 % (37.0-47.0) L Mean Corpuscular Volume 84 FL (80-99) Mean Corpuscular Hemoglobin 27.1 PG (27.0-31.0) Mean Corpuscular Hemoglobin Concent 32.2 G/DL (32.0-36.0) Red Cell Distribution Width 20.6 % (11.6-14.8) H Platelet Count 171 K/UL (150-450) Mean Platelet Volume 10.3 FL (6.5-10.1) H Neutrophils (%) (Auto) 42.8 % (45.0-75.0) L Lymphocytes (%) (Auto) 42.3 % (20.0-45.0) Monocytes (%) (Auto) 10.2 % (1.0-10.0) H Eosinophils (%) (Auto) 3.4 % (0.0-3.0) H Basophils (%) (Auto) 1.4 % (0.0-2.0) Sodium Level 141 MMOL/L (136-145) Potassium Level 3.6 MMOL/L (3.5-5.1) Chloride Level 108 MMOL/L (98-107) H Carbon Dioxide Level 26 MMOL/L (21-32) Anion Gap 7 mmol/L (5-15) Blood Urea Nitrogen 18 mg/dL (7-18) Creatinine 0.8 MG/DL (0.55-1.30) Estimat Glomerular Filtration Rate > 60 mL/min (>60) Glucose Level 80 MG/DL (74-106) Calcium Level 8.6 MG/DL (8.5-10.1) POC Whole Blood Glucose 96 MG/DL (74-106) Plan Problems: (1) Bleeding hemorrhoids Assessment & Plan: 59F presented with severe anemia noted to have hemorrhoidal bleeding afebrile, HD stable no active bleeding on exam no bleeding noted states feels better transfused prbc improved no n/v okay for diet monitor for bleeding outpatient eval for hemorrhoidal sx intervention thank you no bleeding stable okay to d/c (2) Palpitations (3) Elevated TSH (4) Anemia (5) GERD (gastroesophageal reflux disease) (6) HTN (hypertension) (7) HLD (hyperlipidemia) (8) DM2 (diabetes mellitus, type 2) (9) GIB (gastrointestinal bleeding) Assessment & Plan: no acute bleeding h/h stable comfortable (10) COVID-19 Assessment & Plan: ++ Corbin Lee Oct 03, 2020 18:58
[2020-10-03 20:00] VITALS: BP 136/68
--- NOTE | 2020-10-03 20:02 | NUR ---
NURSE HAND-OFF REPORT: Important Events on Shift:[]pt in stable condition, possible DC in 1 day. endo needs to see pt first per Jabari/MARGO Patient Status: []full Diet: []same Pending Orders: [] Pending Results/Labs:[] Pending MD notification:[] Latest Vital Signs: Temperature 97.8 , Pulse 70 , B/P 141 /70 , Respiratory Rate 18 , O2 SAT 96 , Room Air, O2 Flow Rate 6 . Vital Sign Comment: [] EKG Rhythm: Sinus Rhythm Rhythm change?: N MD Notified?: - MD Response: Latest Christensen Fall Score: 45 Fall Risk: High Risk Safety Measures: Call light Within Reach, Bed Alarm Zone 1, Side Rails Side Rails x2, Bed position Low and Locked. Fall Precautions: Yellow Socks Yellow Gown Door Sign Patient Fall Education Report given to [].Ricky/DEBBIE
--- NOTE | 2020-10-03 20:07 | NUR ---
NURSE NOTES: Report received from DEBBIE Stewart. Patient is awake on bed, alert and oriented x 4. cafeteria monitor is in place, shows sinus rhythm with no chest pain reported. On CCHO (medium) instructed and amenable. IV site is on right forearm g-20 saline locked that is patent and intact. Safety measures are in place, bed in lowest and locked position, side rails up x 2, call light button and bedside table within reach, instructed to call for any assistance needed. Will continue plan of care.
[2020-10-04] VITALS: BP 128/65
--- NOTE | 2020-10-04 | NUR ---
NURSE NOTES: Report received from DEBBIE dasilva. Patient is awake on bed, alert and oriented x 4. panel monitor is in place, shows sinus rhythm with no chest pain reported. patient is on room air On CCHO low instructed and amenable. IV site is on right forearm g-20 saline locked that is patent and intact. Safety measures are in place, bed in lowest and locked position, side rails up x 2, call light button and bedside table within reach, instructed to call for any assistance needed. Will continue plan of care. Addendum: 10/05/20 at 0642 by Paola Ramirez RN wrong time and date
[2020-10-04 04:00] VITALS: BP 114/66
[2020-10-04] MEDS: NovoLOG Insulin Flexpen SUBQ SCH ×4 (06:17→21:00)
--- NOTE | 2020-10-04 06:33 | Hematology/Onc Progress Note ---
Assessment/Plan Assessment/Plan Assessment/Plan: # Positive for left cephalic venous thrombosis.on duplex imaging --> h/h is low, started on apixaban po bid, monitor for bleed closely --> ok for nsaids also arm elevation --> warm compresses --> monitor h/h rescan duplex on 10/08 # Anemia due to iron deficiency with loss anemia secondary to Hematochezia --> is having bleeding hemorrhoidal --> as per gi endoscopy 09/28 shows hemorrhoids --> iv iron daily has been started --> s/p 1 unit 09/25 --> hgb 6.3-->8.8->8 --> transfuse as prn basis # Hematochezia secondary to hemorrhoids --> transfuse for Hgb <7 --> as per gi, surg recs --> now improved # Chest pain rule out ACS --> trop neg, per cards # Diabetes mellitus type 2 --> Hold metformin --> SSI # Essential hypertension --> Continue home benazepril 10mg daily --> Hydralazine PRN # GERD --> Continue home PPI # DVT PPX: apixaban Appreciate consultation and prince RN Subjective Constitutional: Denies: no symptoms, chills, fever, malaise, weakness, other HEENT: Denies: no symptoms, eye pain, blurred vision, tearing, double vision, ear pain, ear discharge, nose pain, nose congestion, throat pain, throat swelling, mouth pain, mouth swelling, other Cardiovascular: Denies: no symptoms, chest pain, edema, irregular heart rate, lightheadedness, palpitations, syncope, other Gastrointestinal/Abdominal: Denies: no symptoms, abdomen distended, abdominal pain, black stools, tarry stools, blood in stool, constipated, diarrhea, difficulty swallowing, nausea, poor appetite, poor fluid intake, rectal bleeding, vomiting, other Genitourinary: Denies: no symptoms, burning, discharge, frequency, flank pain, hematuria, incontinence, pain, urgency, other Neurologic/Psychiatric: Denies: no symptoms, anxiety, depressed, emotional problems, headache, numbness, paresthesia, pre-existing deficit, seizure, tingling, tremors, weakness, other Allergies: Coded Allergies: MORPHINE (Verified Allergy, Unknown, 4/1/18) Subjective 09/28 labs noted, meds reviewed, remains on iv iron, for endoscopy 09/29 labs reviewed, colo results noted, with hemorrhoids, meds reviewed 09/30: pt is on RA, no acute distress noted. 10/02 labs reviewed as well as imaging, duplex upper arm is noted, : Positive for left cephalic venous thrombosis. 10/03 labs are noted, no bleeding, meds reviewed, no new changes, on apix 10/04 labs noted, no new events, no bleeding, on anticoag, h/h stable Objective Objective Current Medications Medications (Trade) Dose Ordered Sig/Luz Maria Route PRN Reason Start Time Stop Time Status Last Admin Dose Admin Acetaminophen (Tylenol) 650 mg Q6H PRN ORAL For Headache 09/24/20 23:45 10/24/20 23:44 10/02/20 09:39 Acetaminophen (Tylenol) 650 mg Q6H PRN ORAL MILD PAIN 09/24/20 23:45 10/24/20 23:44 09/30/20 16:21 Acetaminophen (Tylenol) 650 mg Q6H PRN ORAL fever 09/24/20 23:45 10/24/20 23:44 Apixaban (Eliquis) 5 mg BID ORAL 10/01/20 18:00 12/30/20 17:59 10/03/20 17:32 Atorvastatin Calcium (Lipitor) 40 mg DAILY ORAL 09/26/20 09:00 12/25/20 08:59 10/03/20 09:11 Benazepril HCl (Lotensin) 10 mg DAILY ORAL 09/26/20 09:00 10/26/20 08:59 10/03/20 09:23 Dextrose (Dextrose 50%) 25 ml Q30M PRN IV Hypoglycemia 09/24/20 23:45 12/23/20 23:44 Dextrose (Dextrose 50%) 50 ml Q30M PRN IV Hypoglycemia 09/24/20 23:45 12/23/20 23:44 Ferrous Sulfate (Feosol) 325 mg DAILY ORAL 09/27/20 09:00 12/26/20 08:59 10/03/20 09:11 Hydralazine HCl (Apresoline) 10 mg Q4H PRN IV SBP >160 09/25/20 12:30 12/24/20 12:29 Ibuprofen (Motrin) 600 mg Q6H PRN ORAL pain (4-10) 10/01/20 15:15 10/31/20 15:14 Insulin Aspart (NovoLOG) BEFORE MEALS AND HS SUBQ 09/26/20 06:30 12/24/20 00:00 10/02/20 20:50 Oxybutynin Chloride (Ditropan) 5 mg BID ORAL 09/25/20 18:00 10/25/20 17:59 10/03/20 17:32 Last 24 Hour Vital Signs Date Time Temp Pulse Resp B/P (MAP) Pulse Ox O2 Delivery O2 Flow Rate FiO2 10/04/20 04:00 97.9 75 18 114/66 (82) 97 10/04/20 03:29 67 10/04/20 00:00 98.5 68 18 128/65 (86) 96 10/04/20 00:00 60 10/03/20 21:00 Room Air 10/03/20 20:00 63 10/03/20 20:00 98.1 74 18 136/68 (90) 98 10/03/20 16:00 70 10/03/20 16:00 97.8 72 18 141/70 (93) 96 10/03/20 12:00 63 10/03/20 12:00 98.7 65 16 125/72 (89) 98 10/03/20 09:23 129/69 10/03/20 09:00 Room Air 10/03/20 08:00 62 10/03/20 08:00 98.9 64 18 129/69 (89) 98 10/03/20 04:00 59 10/03/20 04:00 98.7 60 18 109/66 (80) 98 10/03/20 00:00 57 10/03/20 00:00 99.8 62 20 115/61 (79) 98 10/02/20 21:00 Room Air 10/02/20 20:00 99.5 65 19 119/65 (83) 99 10/02/20 20:00 65 10/02/20 16:00 99.0 63 18 112/60 (77) 100 10/02/20 16:00 59 10/02/20 12:00 98.9 64 16 110/72 (85) 100 10/02/20 12:00 60 10/02/20 10:09 98.2 10/02/20 09:40 115/63 10/02/20 09:00 Room Air 10/02/20 08:00 63 10/02/20 08:00 97.1 64 14 115/63 (80) 100 Intake and Output 10/03/20 10/04/20 19:00 07:00 Intake Total 800 ml Balance 800 ml Intake Oral 800 ml # Voids 3 # Bowel Movements 1 Labs Test 10/01/20 07:11 10/01/20 16:51 10/02/20 04:00 10/02/20 17:23 POC Whole Blood Glucose 111 MG/DL (74-106) White Blood Count 4.6 K/UL (4.8-10.8) Red Blood Count 3.05 M/UL (4.20-5.40) Hemoglobin 8.3 G/DL (12.0-16.0) Hematocrit 25.3 % (37.0-47.0) Mean Corpuscular Volume 83 FL (80-99) Mean Corpuscular Hemoglobin 27.1 PG (27.0-31.0) Mean Corpuscular Hemoglobin Concent 32.7 G/DL (32.0-36.0) Red Cell Distribution Width 20.4 % (11.6-14.8) Platelet Count 171 K/UL (150-450) Mean Platelet Volume 9.5 FL (6.5-10.1) Neutrophils (%) (Auto) 45.2 % (45.0-75.0) Lymphocytes (%) (Auto) 41.3 % (20.0-45.0) Monocytes (%) (Auto) 9.1 % (1.0-10.0) Eosinophils (%) (Auto) 3.1 % (0.0-3.0) Basophils (%) (Auto) 1.3 % (0.0-2.0) Sodium Level 141 MMOL/L (136-145) Potassium Level 3.9 MMOL/L (3.5-5.1) Chloride Level 108 MMOL/L (98-107) Carbon Dioxide Level 28 MMOL/L (21-32) Anion Gap 5 mmol/L (5-15) Blood Urea Nitrogen 12 mg/dL (7-18) Creatinine 0.7 MG/DL (0.55-1.30) Estimat Glomerular Filtration Rate > 60 mL/min (>60) Glucose Level 85 MG/DL (74-106) Calcium Level 8.4 MG/DL (8.5-10.1) Test 10/03/20 04:00 10/03/20 05:56 White Blood Count 5.1 K/UL (4.8-10.8) Red Blood Count 3.05 M/UL (4.20-5.40) Hemoglobin 8.3 G/DL (12.0-16.0) Hematocrit 25.6 % (37.0-47.0) Mean Corpuscular Volume 84 FL (80-99) Mean Corpuscular Hemoglobin 27.1 PG (27.0-31.0) Mean Corpuscular Hemoglobin Concent 32.2 G/DL (32.0-36.0) Red Cell Distribution Width 20.6 % (11.6-14.8) Platelet Count 171 K/UL (150-450) Mean Platelet Volume 10.3 FL (6.5-10.1) Neutrophils (%) (Auto) 42.8 % (45.0-75.0) Lymphocytes (%) (Auto) 42.3 % (20.0-45.0) Monocytes (%) (Auto) 10.2 % (1.0-10.0) Eosinophils (%) (Auto) 3.4 % (0.0-3.0) Basophils (%) (Auto) 1.4 % (0.0-2.0) Sodium Level 141 MMOL/L (136-145) Potassium Level 3.6 MMOL/L (3.5-5.1) Chloride Level 108 MMOL/L (98-107) Carbon Dioxide Level 26 MMOL/L (21-32) Anion Gap 7 mmol/L (5-15) Blood Urea Nitrogen 18 mg/dL (7-18) Creatinine 0.8 MG/DL (0.55-1.30) Estimat Glomerular Filtration Rate > 60 mL/min (>60) Glucose Level 80 MG/DL (74-106) Calcium Level 8.6 MG/DL (8.5-10.1) POC Whole Blood Glucose 96 MG/DL (74-106) Height (Feet): 5 Height (Inches): 5.00 Weight (Pounds): 135 Objective Physical Exam General: WDWN female in NAD, A&O x 4 HEENT: Normocephalic cephalic atraumatic CV: Regular rate regular rhythm, no murmurs, rubs, or gallops Pulm: Lungs clear to auscultation bilaterally. No wheezes, rhonchi, or rales GI: Soft, nontender, nondistended, bowel sounds present Neuro: CN 2-12 intact bilaterally, no focal signs. Ext: No lower extremity edema bilaterally Skin: no rashes lesions or ulcers Msk: Joints symmetrical in upper extremity and lower extremity bilaterally Lymph: No lymphadenopathy in upper extremity and lower extremity Rivas Rodgers MD Oct 04, 2020 06:33
--- NOTE | 2020-10-04 06:35 | NUR ---
NURSE HAND-OFF REPORT: Important Events on Shift:Pt continued scheduled medications Patient Status: Stable Diet: CCHO Medium Pending Orders: Pending Results/Labs:AM Labs Pending MD notification: Latest Vital Signs: Temperature 97.9 , Pulse 75 , B/P 114 /66 , Respiratory Rate 18 , O2 SAT 97 , Room Air, O2 Flow Rate 6 . Vital Sign Comment: VSS EKG Rhythm: Sinus Rhythm Rhythm change?: N MD Notified?: - MD Response: Latest Christensen Fall Score: 20 Fall Risk: Low Risk Safety Measures: Call light Within Reach, Bed Alarm Zone 1, Side Rails Side Rails x2, Bed position Low and Locked. Fall Precautions: Yellow Socks Yellow Gown Door Sign Patient Fall Education Report given to DEBBIE Gomez.
[2020-10-04 07:07] LABS: BASOPHILS % (AUTO) 1.1 % (0.0-2.0); EOSINOPHILS % (AUTO) 2.8 % (0.0-3.0); HEMATOCRIT 30.7 % (37.0-47.0); HEMOGLOBIN 9.8 G/DL (12.0-16.0); LYMPHOCYTES % (AUTO) 41.9 % (20.0-45.0); MEAN CORPUSCULAR VOLUME 85 FL (80-99); MONOCYTES % (AUTO) 5.8 % (1.0-10.0); NEUTROPHILS % (AUTO) 48.4 % (45.0-75.0); PLATELET COUNT 226 K/UL (150-450); RED BLOOD COUNT 3.59 M/UL (4.20-5.40); RED CELL DISTRIBUTION WIDTH 20.3 % (11.6-14.8); WHITE BLOOD COUNT 6.9 K/UL (4.8-10.8)
--- NOTE | 2020-10-04 07:23 | NUR ---
NURSE NOTES: Received report from Branden/RN. Observed patient awake, Lying semi-espino's, resting comfortably. On room air no acute distress/SOB noted. Able to make needs known. IV on right FA patent and intact. Bed in low position and locked, Call light within reach, Encouraged to use call light when needed. Will continue plan of care.
[2020-10-04 07:28] LABS: ANION GAP 7 mmol/L (5-15); BLOOD UREA NITROGEN 17 mg/dL (7-18); CALCIUM 8.4 MG/DL (8.5-10.1); CARBON DIOXIDE 28 MMOL/L (21-32); CHLORIDE 104 MMOL/L (98-107); CREATININE 0.8 MG/DL (0.55-1.30); POTASSIUM 3.5 MMOL/L (3.5-5.1); SODIUM 139 MMOL/L (136-145)
[2020-10-04 08:00] VITALS: BP 119/59
--- NOTE | 2020-10-04 08:08 | General Progress Note ---
Subjective ROS Limited/Unobtainable: Yes Allergies: Coded Allergies: MORPHINE (Verified Allergy, Unknown, 12/22/17) Objective Last 24 Hour Vital Signs Date Time Temp Pulse Resp B/P (MAP) Pulse Ox O2 Delivery O2 Flow Rate FiO2 10/04/20 04:00 97.9 75 18 114/66 (82) 97 10/04/20 03:29 67 10/04/20 00:00 98.5 68 18 128/65 (86) 96 10/04/20 00:00 60 10/03/20 21:00 Room Air 10/03/20 20:00 63 10/03/20 20:00 98.1 74 18 136/68 (90) 98 10/03/20 16:00 70 10/03/20 16:00 97.8 72 18 141/70 (93) 96 10/03/20 12:00 63 10/03/20 12:00 98.7 65 16 125/72 (89) 98 10/03/20 09:23 129/69 10/03/20 09:00 Room Air Intake and Output 10/03/20 10/04/20 19:00 07:00 Intake Total 800 ml 800 ml Balance 800 ml 800 ml Intake Oral 800 ml 800 ml # Voids 3 2 # Bowel Movements 1 1 Laboratory Tests 10/04/20 05:40: White Blood Count 6.9, Red Blood Count 3.59L, Hemoglobin 9.8L, Hematocrit 30.7L, Mean Corpuscular Volume 85, Mean Corpuscular Hemoglobin 27.4, Mean Corpuscular Hemoglobin Concent 32.0, Red Cell Distribution Width 20.3H, Platelet Count 226, Mean Platelet Volume 8.9, Neutrophils (%) (Auto) 48.4, Lymphocytes (%) (Auto) 41.9, Monocytes (%) (Auto) 5.8, Eosinophils (%) (Auto) 2.8, Basophils (%) (Auto) 1.1, Sodium Level 139, Potassium Level 3.5, Chloride Level 104, Carbon Dioxide Level 28, Anion Gap 7, Blood Urea Nitrogen 17, Creatinine 0.8, Estimat Glomerular Filtration Rate > 60, Glucose Level 91, Calcium Level 8.4L, C- Reactive Protein, Quantitative < 0.4, Thyroid Stimulating Hormone (TSH) [Pending] Height (Feet): 5 Height (Inches): 5.00 Weight (Pounds): 135 General Appearance: no apparent distress EENT: normal ENT inspection Neck: supple Cardiovascular: normal rate Respiratory/Chest: decreased breath sounds Abdomen: normal bowel sounds, non tender, soft Extremities: non-tender Assessment/Plan Status: unchanged Assessment/Plan: Assessment - rectal bleeding - microcytic, symptomatic anemia Recommendations -anusol HC -sitz bath - PPI - IV Fe s/p colonoscopy -dc canceled due to LUE DVT>>> [facility] hematology Andre Marie MD Oct 04, 2020 08:08
[2020-10-04] MEDS: Oxybutynin 5mg tab ORAL SCH ×2 (09:08→17:16)
[2020-10-04] MEDS: Benazepril 10mg tab ORAL SCH (09:09)
[2020-10-04] MEDS: Eliquis 5mg tablet ORAL SCH ×2 (09:09→17:16)
[2020-10-04] MEDS: Atorvastatin 20mg tab ORAL SCH (09:10)
--- NOTE | 2020-10-04 10:35 | Infectious Diseases Prog Note ---
Assessment/Plan 59yo F with: COVID+, relatively asymptomatic Afebrile Normal WBC 09/25 COVID rapid test positive 09/26 CTA chest neg for PE and airspace disease L cephalic DVT No LE DVT on US Cr 0.8 PMH: DM2 HTN GARRY Hemorrhoids Plan: Cont to monitor off abx and off therapeutics for COVID given satting well on RA Ok to d/c home from ID standpoint as doing well on RA Needs 10 days of isolation for COVID from diagnosis, 09/25 - 10/04 Monitor CBC/CMP Monitor temp curve, hemodynamics Monitor resp status D/w RN Thank you for this consult. [facility] will continue to follow. Subjective Allergies: Coded Allergies: MORPHINE (Verified Allergy, Unknown, 12/22/17) AF NAD on RA No leukocytosis no resp sx, doing well Objective Last 24 Hour Vital Signs Date Time Temp Pulse Resp B/P (MAP) Pulse Ox O2 Delivery O2 Flow Rate FiO2 10/04/20 09:09 119/59 10/04/20 08:00 97.7 63 17 119/59 (79) 99 10/04/20 04:00 97.9 75 18 114/66 (82) 97 10/04/20 03:29 67 10/04/20 00:00 98.5 68 18 128/65 (86) 96 10/04/20 00:00 60 10/03/20 21:00 Room Air 10/03/20 20:00 63 10/03/20 20:00 98.1 74 18 136/68 (90) 98 10/03/20 16:00 70 10/03/20 16:00 97.8 72 18 141/70 (93) 96 10/03/20 12:00 63 10/03/20 12:00 98.7 65 16 125/72 (89) 98 Height (Feet): 5 Height (Inches): 5.00 Weight (Pounds): 135 Respiratory/Chest: no accessory muscle use Gen: NAD HEENT: NCAT Pulm: BL chest rise Abd: Non-distended Ext: No c/c/e Skin: No visible rashes Neuro: Awake Laboratory Tests Test 10/04/20 05:40 White Blood Count 6.9 K/UL (4.8-10.8) Red Blood Count 3.59 M/UL (4.20-5.40) L Hemoglobin 9.8 G/DL (12.0-16.0) L Hematocrit 30.7 % (37.0-47.0) L Mean Corpuscular Volume 85 FL (80-99) Mean Corpuscular Hemoglobin 27.4 PG (27.0-31.0) Mean Corpuscular Hemoglobin Concent 32.0 G/DL (32.0-36.0) Red Cell Distribution Width 20.3 % (11.6-14.8) H Platelet Count 226 K/UL (150-450) Mean Platelet Volume 8.9 FL (6.5-10.1) Neutrophils (%) (Auto) 48.4 % (45.0-75.0) Lymphocytes (%) (Auto) 41.9 % (20.0-45.0) Monocytes (%) (Auto) 5.8 % (1.0-10.0) Eosinophils (%) (Auto) 2.8 % (0.0-3.0) Basophils (%) (Auto) 1.1 % (0.0-2.0) Sodium Level 139 MMOL/L (136-145) Potassium Level 3.5 MMOL/L (3.5-5.1) Chloride Level 104 MMOL/L (98-107) Carbon Dioxide Level 28 MMOL/L (21-32) Anion Gap 7 mmol/L (5-15) Blood Urea Nitrogen 17 mg/dL (7-18) Creatinine 0.8 MG/DL (0.55-1.30) Estimat Glomerular Filtration Rate > 60 mL/min (>60) Glucose Level 91 MG/DL (74-106) Calcium Level 8.4 MG/DL (8.5-10.1) L C-Reactive Protein, Quantitative < 0.4 mg/dL (0.00-0.90) Thyroid Stimulating Hormone (TSH) 7.561 uiU/mL (0.358-3.740) Current Medications Medications (Trade) Dose Ordered Sig/Luz Maria Route PRN Reason Start Time Stop Time Status Last Admin Dose Admin Acetaminophen (Tylenol) 650 mg Q6H PRN ORAL For Headache 09/24/20 23:45 10/24/20 23:44 10/02/20 09:39 Acetaminophen (Tylenol) 650 mg Q6H PRN ORAL MILD PAIN 09/24/20 23:45 10/24/20 23:44 09/30/20 16:21 Acetaminophen (Tylenol) 650 mg Q6H PRN ORAL fever 09/24/20 23:45 10/24/20 23:44 Apixaban (Eliquis) 5 mg BID ORAL 10/01/20 18:00 12/30/20 17:59 10/04/20 09:09 Atorvastatin Calcium (Lipitor) 40 mg DAILY ORAL 09/26/20 09:00 12/25/20 08:59 10/04/20 09:10 Benazepril HCl (Lotensin) 10 mg DAILY ORAL 09/26/20 09:00 10/26/20 08:59 10/04/20 09:09 Dextrose (Dextrose 50%) 25 ml Q30M PRN IV Hypoglycemia 09/24/20 23:45 12/23/20 23:44 Dextrose (Dextrose 50%) 50 ml Q30M PRN IV Hypoglycemia 09/24/20 23:45 12/23/20 23:44 Ferrous Sulfate (Feosol) 325 mg DAILY ORAL 09/27/20 09:00 12/26/20 08:59 10/04/20 09:09 Hydralazine HCl (Apresoline) 10 mg Q4H PRN IV SBP >160 09/25/20 12:30 12/24/20 12:29 Ibuprofen (Motrin) 600 mg Q6H PRN ORAL pain (4-10) 10/01/20 15:15 10/31/20 15:14 Insulin Aspart (NovoLOG) BEFORE MEALS AND HS SUBQ 09/26/20 06:30 12/24/20 00:00 10/02/20 20:50 Oxybutynin Chloride (Ditropan) 5 mg BID ORAL 09/25/20 18:00 10/25/20 17:59 10/04/20 09:08 Odilia Sommer M.D. Oct 04, 2020 10:35
--- NOTE | 2020-10-04 11:12 | Pulmonology Progress Note ---
Subjective ROS Limited/Unobtainable: Yes Allergies: Coded Allergies: MORPHINE (Verified Allergy, Unknown, 12/22/17) All Systems: reviewed and negative except above Subjective remains afebrile, on RA no signs of resp distress tele stable Objective Last 24 Hour Vital Signs Date Time Temp Pulse Resp B/P (MAP) Pulse Ox O2 Delivery O2 Flow Rate FiO2 10/04/20 09:09 119/59 10/04/20 08:00 97.7 63 17 119/59 (79) 99 10/04/20 04:00 97.9 75 18 114/66 (82) 97 10/04/20 03:29 67 10/04/20 00:00 98.5 68 18 128/65 (86) 96 10/04/20 00:00 60 10/03/20 21:00 Room Air 10/03/20 20:00 63 10/03/20 20:00 98.1 74 18 136/68 (90) 98 10/03/20 16:00 70 10/03/20 16:00 97.8 72 18 141/70 (93) 96 10/03/20 12:00 63 10/03/20 12:00 98.7 65 16 125/72 (89) 98 Intake and Output 10/03/20 10/04/20 19:00 07:00 Intake Total 800 ml 800 ml Balance 800 ml 800 ml Intake Oral 800 ml 800 ml # Voids 3 2 # Bowel Movements 1 1 Objective General Appearance: WD/WN, no apparent distress, alert - [place] speaking female Lines, tubes and drains: peripheral HEENT: normocephalic, atraumatic, anicteric, mucous membranes moist Neck: non-tender, supple Respiratory/Chest: lungs clear, no respiratory distress, no accessory muscle use Cardiovascular/Chest: normal rate - SR on tele Abdomen: normal bowel sounds, non tender, soft Neurologic: no motor/sensory deficits, alert, oriented x 3, responsive Musculoskeletal: normal muscle bulk Laboratory Tests 10/04/20 05:40: White Blood Count 6.9, Red Blood Count 3.59L, Hemoglobin 9.8L, Hematocrit 30.7L, Mean Corpuscular Volume 85, Mean Corpuscular Hemoglobin 27.4, Mean Corpuscular Hemoglobin Concent 32.0, Red Cell Distribution Width 20.3H, Platelet Count 226, Mean Platelet Volume 8.9, Neutrophils (%) (Auto) 48.4, Lymphocytes (%) (Auto) 41.9, Monocytes (%) (Auto) 5.8, Eosinophils (%) (Auto) 2.8, Basophils (%) (Auto) 1.1, Sodium Level 139, Potassium Level 3.5, Chloride Level 104, Carbon Dioxide Level 28, Anion Gap 7, Blood Urea Nitrogen 17, Creatinine 0.8, Estimat Glomerular Filtration Rate > 60, Glucose Level 91, Calcium Level 8.4L, C- Reactive Protein, Quantitative < 0.4, Thyroid Stimulating Hormone (TSH) 7.561H Current Medications Medications (Trade) Dose Ordered Sig/Luz Maria Route PRN Reason Start Time Stop Time Status Last Admin Dose Admin Acetaminophen (Tylenol) 650 mg Q6H PRN ORAL For Headache 09/24/20 23:45 10/24/20 23:44 10/02/20 09:39 Acetaminophen (Tylenol) 650 mg Q6H PRN ORAL MILD PAIN 09/24/20 23:45 10/24/20 23:44 09/30/20 16:21 Acetaminophen (Tylenol) 650 mg Q6H PRN ORAL fever 09/24/20 23:45 10/24/20 23:44 Apixaban (Eliquis) 5 mg BID ORAL 10/01/20 18:00 12/30/20 17:59 10/04/20 09:09 Atorvastatin Calcium (Lipitor) 40 mg DAILY ORAL 09/26/20 09:00 12/25/20 08:59 10/04/20 09:10 Benazepril HCl (Lotensin) 10 mg DAILY ORAL 09/26/20 09:00 10/26/20 08:59 10/04/20 09:09 Dextrose (Dextrose 50%) 25 ml Q30M PRN IV Hypoglycemia 09/24/20 23:45 12/23/20 23:44 Dextrose (Dextrose 50%) 50 ml Q30M PRN IV Hypoglycemia 09/24/20 23:45 12/23/20 23:44 Ferrous Sulfate (Feosol) 325 mg DAILY ORAL 09/27/20 09:00 12/26/20 08:59 10/04/20 09:09 Hydralazine HCl (Apresoline) 10 mg Q4H PRN IV SBP >160 09/25/20 12:30 12/24/20 12:29 Ibuprofen (Motrin) 600 mg Q6H PRN ORAL pain (4-10) 10/01/20 15:15 10/31/20 15:14 Insulin Aspart (NovoLOG) BEFORE MEALS AND HS SUBQ 09/26/20 06:30 12/24/20 00:00 10/02/20 20:50 Oxybutynin Chloride (Ditropan) 5 mg BID ORAL 09/25/20 18:00 10/25/20 17:59 10/04/20 09:08 Assessment/Plan Assessment/Plan ASSESSMENT Covid 19 infection Anemia secondary to rectal bleeding Rectal bleeding likely due to internal hemorrhoids DVT left cephalic vein Palpitations Abnormal TFT probably mild hypothyroidism Hypertension Diabetes mellitus PLAN OF CARE tele Date of sx onset: 3 days prior to ED visit Positive test: 09/25 rapid COVID + O2 RA HFA No DEX given no hypoxia, remains stable on RA No indications for Remdesivivr, given relatively asymptomatic a/c with Eliquis Venous Duplex BLE NGT Venous Duple UE + L cephalic thrombus D dimer Trend CRP Abx as per ID recs-> no need for abx Monitor volumes and renal function resp status stable serial trop NGT, ECHO with pEF BP stable on low dose MIKE TFT abnormal mild elevation in TSH and low T3, endo eval pending, may need low dose of Synthroid-per endo recs s/p 2 u PRBC, HH stable on oral iron supplements s/p colonoscopy - > internal hemorrhoids BS with SSI Fup with consultants recs FC clear for dc from pulmo standpoint can have endo eval as OP if not available this am case discussed and evaluated by supervising physician Rosa Elena Barboza NP Oct 04, 2020 11:12
[2020-10-04 12:00] VITALS: BP 105/59
--- NOTE | 2020-10-04 12:06 | General Progress Note ---
Subjective Constitutional: Reports: weakness Allergies: Coded Allergies: MORPHINE (Verified Allergy, Unknown, 12/22/17) All Systems: reviewed and negative except above Subjective calm in bed Objective Last 24 Hour Vital Signs Date Time Temp Pulse Resp B/P (MAP) Pulse Ox O2 Delivery O2 Flow Rate FiO2 10/04/20 09:09 119/59 10/04/20 09:00 Room Air 10/04/20 08:00 97.7 63 17 119/59 (79) 99 10/04/20 08:00 76 10/04/20 04:00 97.9 75 18 114/66 (82) 97 10/04/20 03:29 67 10/04/20 00:00 98.5 68 18 128/65 (86) 96 10/04/20 00:00 60 10/03/20 21:00 Room Air 10/03/20 20:00 63 10/03/20 20:00 98.1 74 18 136/68 (90) 98 10/03/20 16:00 70 10/03/20 16:00 97.8 72 18 141/70 (93) 96 Intake and Output 10/03/20 10/04/20 19:00 07:00 Intake Total 800 ml 800 ml Balance 800 ml 800 ml Intake Oral 800 ml 800 ml # Voids 3 2 # Bowel Movements 1 1 Laboratory Tests 10/04/20 05:40: White Blood Count 6.9, Red Blood Count 3.59L, Hemoglobin 9.8L, Hematocrit 30.7L, Mean Corpuscular Volume 85, Mean Corpuscular Hemoglobin 27.4, Mean Corpuscular Hemoglobin Concent 32.0, Red Cell Distribution Width 20.3H, Platelet Count 226, Mean Platelet Volume 8.9, Neutrophils (%) (Auto) 48.4, Lymphocytes (%) (Auto) 41.9, Monocytes (%) (Auto) 5.8, Eosinophils (%) (Auto) 2.8, Basophils (%) (Auto) 1.1, Sodium Level 139, Potassium Level 3.5, Chloride Level 104, Carbon Dioxide Level 28, Anion Gap 7, Blood Urea Nitrogen 17, Creatinine 0.8, Estimat Glomerular Filtration Rate > 60, Glucose Level 91, Calcium Level 8.4L, C- Reactive Protein, Quantitative < 0.4, Thyroid Stimulating Hormone (TSH) 7.561H 10/04/20 11:33: POC Whole Blood Glucose [Pending] Height (Feet): 5 Height (Inches): 5.00 Weight (Pounds): 135 General Appearance: lethargic EENT: normal ENT inspection Neck: normal alignment Cardiovascular: normal peripheral pulses, normal rate, regular rhythm Respiratory/Chest: chest wall non-tender, lungs clear, normal breath sounds Abdomen: normal bowel sounds, non tender, soft Extremities: normal inspection Edema: no edema noted Arm (L), no edema noted Arm (R), no edema noted Leg (L), no edema noted Leg (R), no edema noted Pedal (L), no edema noted Pedal (R), no edema noted Generalized Neurologic: motor weakness Skin: normal pigmentation, warm/dry Assessment/Plan Problem List: (1) Anemia ICD Codes: D64.9 - Anemia, unspecified SNOMED: 324394884 (2) COVID-19 ICD Codes: U07.1 - COVID-19 SNOMED: 882983553 (3) GIB (gastrointestinal bleeding) ICD Codes: K92.2 - Gastrointestinal hemorrhage, unspecified SNOMED: 67105127 Status: unchanged Assessment/Plan: o2 pulm tx abx cbc bmp am id pulm endo lisaal Stuart Palmer DO Oct 04, 2020 12:06
--- NOTE | 2020-10-04 12:44 | NUR ---
CASE MANAGEMENT:REVIEW 10/04/20 SI: DRE PNA. ANEMIA. LUE THROMBOSIS 97.7 63 17 119/59 99% ON RA H/H-9.8/30.7 IS: ELIQUIS PO BID IRON PO QD LOTENSIN PO QD LIPITOR PO QD DITROPAN PO BID : TELEMETRY STATUS DCP: FROM HOME PLAN: AWAIT CLEARANCE FROM [employer] WORKER AND INFECTIOUS DISEASE PHYSICIAN
--- NOTE | 2020-10-04 13:00 | NUR ---
NURSE NOTES: Patient got clearance from Senior Clinical Research Associate (Jabari), and ID ( Sarah). Spoke with Dr. Palmer for Medication reconciliation and dc order, He said he will contact Ana Maria.
--- NOTE | 2020-10-04 14:44 | Consultation ---
DATE OF CONSULTATION: 10/04/2020 ENDOCRINOLOGY CONSULTATION CONSULTING PHYSICIAN: Livan Thomas MD. REFERRING PHYSICIAN: Stuart Palmer DO. REASON FOR CONSULTATION: Abnormal thyroid function tests. HISTORY OF PRESENT ILLNESS: The patient is a 59-year-old female with past medical history of hypertension and diabetes presented to the emergency department with palpitation. The patient was tested positive for COVID, noted to have a slightly elevated TSH of 3.8, also noted to have anemia. Endocrinology was consulted in order to assist in the management of hypothyroidism. PAST MEDICAL HISTORY: 1. Hypertension. 2. Diabetes. 3. Anemia. PAST SURGICAL HISTORY: Hysterectomy. SOCIAL HISTORY: No smoking, alcohol, or drug use. FAMILY HISTORY: Noncontributory. ALLERGIES: To morphine. MEDICATIONS: Reviewed and reconciled. REVIEW OF SYSTEMS: As per HPI. PHYSICAL EXAMINATION: VITAL SIGNS: Blood pressure 114/66, heart rate 75, respiratory rate 18, temperature 97.9. Full exam was deferred due to the COVID isolation. LABORATORY VALUES: Sodium 141, potassium 3.6, chloride 100, bicarb 26, BUN 18, creatinine 0.8. TSH of 3.8, free T4 of 0.89, and free T3 2.2, this is from 09/24/2020. DISCUSSION: 1. COVID infection. 2. Diabetes, fair control. 3. Abnormal thyroid function. TSH was mildly elevated on 09/24/2020 with a normal free T4 and a low free T3. This is most likely represent abnormal thyroid due to known thyroidal illness. I will recommend to start the patient on thyroid hormone. I will repeat the TSH to see if it has improved. I will follow the results and further advice. Thank you, Dr. Palmer, for the courtesy of this consultation. Livan Thomas M.D. DR: Bhavesh JOB#: [id number] CC:
[2020-10-04 16:00] VITALS: BP 123/62
--- NOTE | 2020-10-04 19:16 | NUR ---
NURSE HAND-OFF REPORT: Important Events on Shift:NA Patient Status: Stable Diet: CCHO Pending Orders: NA Pending Results/Labs:Morning labs Pending MD notification:NA Latest Vital Signs: Temperature 97.6 , Pulse 61 , B/P 123 /62 , Respiratory Rate 18 , O2 SAT 98 , Room Air, O2 Flow Rate 6 . Vital Sign Comment: Stable EKG Rhythm: Sinus Rhythm Rhythm change?: N MD Notified?: - MD Response: Latest Christensen Fall Score: 20 Fall Risk: Low Risk Safety Measures: Call light Within Reach, Bed Alarm Zone 1, Side Rails Side Rails x2, Bed position Low and Locked. Fall Precautions: Yellow Socks Yellow Gown Door Sign Patient Fall Education Report given to Marino/DEBBIE.
--- NOTE | 2020-10-04 19:50 | NUR ---
NURSE NOTES: Report received from DEBBIE Gomez. Patient is awake on bed, alert and oriented x 4. gambling monitor is in place, shows sinus rhythm with no chest pain reported. On CCHO low instructed and amenable. IV site is on right forearm g-20 saline locked that is patent and intact. Safety measures are in place, bed in lowest and locked position, side rails up x 2, call light button and bedside table within reach, instructed to call for any assistance needed. Will continue plan of care.
[2020-10-04 20:00] VITALS: BP 128/57
--- NOTE | 2020-10-04 20:51 | Surgery Progress Note ---
Surgery Progress Note Subjective Symptoms: improved, pain absent, tolerating diet, voiding well, passing flatus, BM Objective Last 24 Hour Vital Signs Date Time Temp Pulse Resp B/P (MAP) Pulse Ox O2 Delivery O2 Flow Rate FiO2 10/04/20 16:00 97.6 58 18 123/62 (82) 98 10/04/20 16:00 61 10/04/20 12:00 96.4 60 18 105/59 (74) 95 10/04/20 12:00 66 10/04/20 09:09 119/59 10/04/20 09:00 Room Air 10/04/20 08:00 97.7 63 17 119/59 (79) 99 10/04/20 08:00 76 10/04/20 04:00 97.9 75 18 114/66 (82) 97 10/04/20 03:29 67 10/04/20 00:00 98.5 68 18 128/65 (86) 96 10/04/20 00:00 60 10/03/20 21:00 Room Air I&O Intake and Output 10/03/20 10/04/20 19:00 07:00 Intake Total 800 ml 800 ml Balance 800 ml 800 ml Intake Oral 800 ml 800 ml # Voids 3 2 # Bowel Movements 1 1 Cardiovascular: RSR Respiratory: clear Abdomen: soft, flat, non-tender, present bowel sounds, non-distended Extremities: no edema, no tenderness, no cyanosis Laboratory Tests Test 10/04/20 05:40 10/04/20 11:33 10/04/20 16:46 White Blood Count 6.9 K/UL (4.8-10.8) Red Blood Count 3.59 M/UL (4.20-5.40) L Hemoglobin 9.8 G/DL (12.0-16.0) L Hematocrit 30.7 % (37.0-47.0) L Mean Corpuscular Volume 85 FL (80-99) Mean Corpuscular Hemoglobin 27.4 PG (27.0-31.0) Mean Corpuscular Hemoglobin Concent 32.0 G/DL (32.0-36.0) Red Cell Distribution Width 20.3 % (11.6-14.8) H Platelet Count 226 K/UL (150-450) Mean Platelet Volume 8.9 FL (6.5-10.1) Neutrophils (%) (Auto) 48.4 % (45.0-75.0) Lymphocytes (%) (Auto) 41.9 % (20.0-45.0) Monocytes (%) (Auto) 5.8 % (1.0-10.0) Eosinophils (%) (Auto) 2.8 % (0.0-3.0) Basophils (%) (Auto) 1.1 % (0.0-2.0) Sodium Level 139 MMOL/L (136-145) Potassium Level 3.5 MMOL/L (3.5-5.1) Chloride Level 104 MMOL/L (98-107) Carbon Dioxide Level 28 MMOL/L (21-32) Anion Gap 7 mmol/L (5-15) Blood Urea Nitrogen 17 mg/dL (7-18) Creatinine 0.8 MG/DL (0.55-1.30) Estimat Glomerular Filtration Rate > 60 mL/min (>60) Glucose Level 91 MG/DL (74-106) Calcium Level 8.4 MG/DL (8.5-10.1) L C-Reactive Protein, Quantitative < 0.4 mg/dL (0.00-0.90) Thyroid Stimulating Hormone (TSH) 7.561 uiU/mL (0.358-3.740) POC Whole Blood Glucose Pending 121 MG/DL (74-106) H Plan Problems: (1) Bleeding hemorrhoids Assessment & Plan: 59F presented with severe anemia noted to have hemorrhoidal bleeding afebrile, HD stable no active bleeding on exam no bleeding noted states feels better transfused prbc improved no n/v okay for diet monitor for bleeding outpatient eval for hemorrhoidal sx intervention thank you no bleeding stable okay to d/c (2) Palpitations (3) Elevated TSH (4) Anemia (5) GERD (gastroesophageal reflux disease) (6) HTN (hypertension) (7) HLD (hyperlipidemia) (8) DM2 (diabetes mellitus, type 2) (9) GIB (gastrointestinal bleeding) Assessment & Plan: no acute bleeding h/h stable comfortable (10) COVID-19 Assessment & Plan: ++ Corbin Lee Oct 04, 2020 20:51
[2020-10-05] VITALS: BP 126/53
--- NOTE | 2020-10-05 | NUR ---
NURSE NOTES: Report received from DEBBIE dasilva. Patient is awake on bed, alert and oriented x 4. air sampling and monitoring is in place, shows sinus rhythm with no chest pain reported. patient is on room air On CCHO low instructed and amenable. IV site is on right forearm g-20 saline locked that is patent and intact. Safety measures are in place, bed in lowest and locked position, side rails up x 2, call light button and bedside table within reach, instructed to call for any assistance needed. Will continue plan of care.
[2020-10-05 04:00] VITALS: BP 127/59
[2020-10-05] MEDS: NovoLOG Insulin Flexpen SUBQ SCH (06:07)
--- NOTE | 2020-10-05 06:23 | General Progress Note ---
Subjective ROS Limited/Unobtainable: Yes Allergies: Coded Allergies: MORPHINE (Verified Allergy, Unknown, 12/22/17) Subjective events noted interval notes reviewed glucose values are stable TSH repeated and is higher Item Value Date Time Bedside Blood Glucose 99 mg/dl 10/05/20 0607 Bedside Blood Glucose 122 mg/dl H 10/04/20 2100 Bedside Blood Glucose 121 mg/dl H 10/04/20 1630 Bedside Blood Glucose 122 mg/dl H 10/04/20 1130 Bedside Blood Glucose 106 mg/dl 10/04/20 0617 Objective Last 24 Hour Vital Signs Date Time Temp Pulse Resp B/P (MAP) Pulse Ox O2 Delivery O2 Flow Rate FiO2 10/05/20 04:00 97.2 55 18 127/59 (81) 99 10/05/20 03:11 52 10/05/20 00:00 97.9 56 16 126/53 (77) 98 10/04/20 23:14 65 10/04/20 21:00 Room Air 10/04/20 20:00 97.7 78 16 128/57 (80) 100 10/04/20 16:00 97.6 58 18 123/62 (82) 98 10/04/20 16:00 61 10/04/20 12:00 96.4 60 18 105/59 (74) 95 10/04/20 12:00 66 10/04/20 09:09 119/59 10/04/20 09:00 Room Air 10/04/20 08:00 97.7 63 17 119/59 (79) 99 10/04/20 08:00 76 Intake and Output 10/04/20 10/05/20 18:59 06:59 Intake Total 930 ml Balance 930 ml Intake Oral 930 ml # Voids 5 # Bowel Movements 1 Laboratory Tests 10/04/20 11:33: POC Whole Blood Glucose [Pending] 10/04/20 16:46: POC Whole Blood Glucose 121H 10/05/20 05:41: POC Whole Blood Glucose 90 Height (Feet): 5 Height (Inches): 5.00 Weight (Pounds): 135 Objective Current Medications Medications (Trade) Dose Ordered Sig/Luz Maria Route PRN Reason Start Time Stop Time Status Last Admin Dose Admin Acetaminophen (Tylenol) 650 mg Q6H PRN ORAL For Headache 09/24/20 23:45 10/24/20 23:44 10/02/20 09:39 Acetaminophen (Tylenol) 650 mg Q6H PRN ORAL MILD PAIN 09/24/20 23:45 10/24/20 23:44 09/30/20 16:21 Acetaminophen (Tylenol) 650 mg Q6H PRN ORAL fever 09/24/20 23:45 10/24/20 23:44 Apixaban (Eliquis) 5 mg BID ORAL 10/01/20 18:00 12/30/20 17:59 10/04/20 17:16 Atorvastatin Calcium (Lipitor) 40 mg DAILY ORAL 09/26/20 09:00 12/25/20 08:59 10/04/20 09:10 Benazepril HCl (Lotensin) 10 mg DAILY ORAL 09/26/20 09:00 10/26/20 08:59 10/04/20 09:09 Dextrose (Dextrose 50%) 25 ml Q30M PRN IV Hypoglycemia 09/24/20 23:45 12/23/20 23:44 Dextrose (Dextrose 50%) 50 ml Q30M PRN IV Hypoglycemia 09/24/20 23:45 12/23/20 23:44 Ferrous Sulfate (Feosol) 325 mg DAILY ORAL 09/27/20 09:00 12/26/20 08:59 10/04/20 09:09 Hydralazine HCl (Apresoline) 10 mg Q4H PRN IV SBP >160 09/25/20 12:30 12/24/20 12:29 Ibuprofen (Motrin) 600 mg Q6H PRN ORAL pain (4-10) 10/01/20 15:15 10/31/20 15:14 Insulin Aspart (NovoLOG) BEFORE MEALS AND HS SUBQ 09/26/20 06:30 12/24/20 00:00 10/02/20 20:50 Oxybutynin Chloride (Ditropan) 5 mg BID ORAL 09/25/20 18:00 10/25/20 17:59 10/04/20 17:16 Assessment/Plan Problem List: (1) COVID-19 ICD Codes: U07.1 - COVID-19 SNOMED: 871370421 (2) Elevated TSH ICD Codes: R79.89 - Other specified abnormal findings of blood chemistry SNOMED: 200263846 (3) Palpitations ICD Codes: R00.2 - Palpitations SNOMED: 35372761 (4) HTN (hypertension) ICD Codes: I10 - Essential (primary) hypertension SNOMED: 45416270 (5) DM2 (diabetes mellitus, type 2) ICD Codes: E11.9 - Type 2 diabetes mellitus without complications SNOMED: 55584311 Status: unchanged Assessment/Plan: start Levothyroxine 25 mcg daily repeat TSH, free T4 in 3 weeks continue Novolog sliding scale ac Livan Thomas MD Oct 05, 2020 06:22
[2020-10-05] MEDS ORDERED: Levothyroxine 25mcg tab ORAL SCH (06:30)
--- NOTE | 2020-10-05 06:42 | NUR ---
NURSE HAND-OFF REPORT: Important Events on Shift: Patient Status:no changes Diet: CCHO LOW Pending Orders: Pending Results/Labs: Pending MD notification: Latest Vital Signs: Temperature 97.2 , Pulse 55 , B/P 127 /59 , Respiratory Rate 18 , O2 SAT 99 , Room Air, O2 Flow Rate 6 . Vital Sign Comment: EKG Rhythm: Sinus Rhythm Rhythm change?: N MD Notified?: - MD Response: Latest Christensen Fall Score: 20 Fall Risk: Low Risk Safety Measures: Call light Within Reach, Bed Alarm Zone 1, Side Rails Side Rails x2, Bed position Low and Locked. Fall Precautions: Yellow Socks Yellow Gown Door Sign Patient Fall Education Report to be given to Patricia LEWIS. Addendum: 10/05/20 at 0708 by Paola Ramirez RN report given to Patricia LEWIS.
--- NOTE | 2020-10-05 06:44 | Hematology/Onc Progress Note ---
Assessment/Plan Assessment/Plan Assessment/Plan: # Positive for left cephalic venous thrombosis.on duplex imaging --> h/h is low, started on apixaban po bid, monitor for bleed closely --> ok for nsaids also arm elevation --> warm compresses --> monitor h/h rescan duplex on 10/08 # Anemia due to iron deficiency with loss anemia secondary to Hematochezia --> is having bleeding hemorrhoidal --> as per gi endoscopy 09/28 shows hemorrhoids --> iv iron daily has been started --> s/p 1 unit 09/25 --> hgb 6.3-->8.8->8 --> transfuse as prn basis # Hematochezia secondary to hemorrhoids --> transfuse for Hgb <7 --> as per gi, surg recs --> now improved # Chest pain rule out ACS --> trop neg, per cards # Diabetes mellitus type 2 --> Hold metformin --> SSI # Essential hypertension --> Continue home benazepril 10mg daily --> Hydralazine PRN # GERD --> Continue home PPI # DVT PPX: apixaban Appreciate consultation and dw RN Subjective Constitutional: Denies: no symptoms, chills, fever, malaise, weakness, other HEENT: Denies: no symptoms, eye pain, blurred vision, tearing, double vision, ear pain, ear discharge, nose pain, nose congestion, throat pain, throat swelling, mouth pain, mouth swelling, other Cardiovascular: Denies: no symptoms, chest pain, edema, irregular heart rate, lightheadedness, palpitations, syncope, other Respiratory: Denies: no symptoms, cough, shortness of breath, SOB with excertion, SOB at rest, sputum, wheezing, other Gastrointestinal/Abdominal: Denies: no symptoms, abdomen distended, abdominal pain, black stools, tarry stools, blood in stool, constipated, diarrhea, difficulty swallowing, nausea, poor appetite, poor fluid intake, rectal bleeding, vomiting, other Endocrine: Denies: no symptoms, excessive sweating, flushing, intolerance to cold, intolerance to heat, increased hunger, increased thirst, increased urine, unexplained weight gain, unexplained weight loss, other Hematologic/Lymphatic: Denies: no symptoms, anemia, easy bleeding, easy bruising, adenopathy, other Allergies: Coded Allergies: MORPHINE (Verified Allergy, Unknown, 12/22/17) Subjective 09/28 labs noted, meds reviewed, remains on iv iron, for endoscopy 09/29 labs reviewed, colo results noted, with hemorrhoids, meds reviewed 09/30: pt is on RA, no acute distress noted. 10/02 labs reviewed as well as imaging, duplex upper arm is noted, : Positive for left cephalic venous thrombosis. 10/03 labs are noted, no bleeding, meds reviewed, no new changes, on apix 10/04 labs noted, no new events, no bleeding, on anticoag, h/h stable 10/05 labs reviewed, no majkor bleeding, no new changes Objective Objective Current Medications Medications (Trade) Dose Ordered Sig/Luz Maria Route PRN Reason Start Time Stop Time Status Last Admin Dose Admin Acetaminophen (Tylenol) 650 mg Q6H PRN ORAL For Headache 09/24/20 23:45 10/24/20 23:44 10/02/20 09:39 Acetaminophen (Tylenol) 650 mg Q6H PRN ORAL MILD PAIN 09/24/20 23:45 10/24/20 23:44 09/30/20 16:21 Acetaminophen (Tylenol) 650 mg Q6H PRN ORAL fever 09/24/20 23:45 10/24/20 23:44 Apixaban (Eliquis) 5 mg BID ORAL 10/01/20 18:00 12/30/20 17:59 10/04/20 17:16 Atorvastatin Calcium (Lipitor) 40 mg DAILY ORAL 09/26/20 09:00 12/25/20 08:59 10/04/20 09:10 Benazepril HCl (Lotensin) 10 mg DAILY ORAL 09/26/20 09:00 10/26/20 08:59 10/04/20 09:09 Dextrose (Dextrose 50%) 25 ml Q30M PRN IV Hypoglycemia 09/24/20 23:45 12/23/20 23:44 Dextrose (Dextrose 50%) 50 ml Q30M PRN IV Hypoglycemia 09/24/20 23:45 12/23/20 23:44 Ferrous Sulfate (Feosol) 325 mg DAILY ORAL 09/27/20 09:00 12/26/20 08:59 10/04/20 09:09 Hydralazine HCl (Apresoline) 10 mg Q4H PRN IV SBP >160 09/25/20 12:30 12/24/20 12:29 Ibuprofen (Motrin) 600 mg Q6H PRN ORAL pain (4-10) 10/01/20 15:15 10/31/20 15:14 Insulin Aspart (NovoLOG) BEFORE MEALS AND HS SUBQ 09/26/20 06:30 12/24/20 00:00 10/02/20 20:50 Levothyroxine Sodium (Synthroid) 25 mcg DAILY@0630 ORAL 10/05/20 06:30 11/04/20 06:29 Oxybutynin Chloride (Ditropan) 5 mg BID ORAL 09/25/20 18:00 10/25/20 17:59 10/04/20 17:16 Last 24 Hour Vital Signs Date Time Temp Pulse Resp B/P (MAP) Pulse Ox O2 Delivery O2 Flow Rate FiO2 10/05/20 04:00 97.2 55 18 127/59 (81) 99 10/05/20 03:11 52 10/05/20 00:00 97.9 56 16 126/53 (77) 98 10/04/20 23:14 65 10/04/20 21:00 Room Air 10/04/20 20:00 97.7 78 16 128/57 (80) 100 10/04/20 16:00 97.6 58 18 123/62 (82) 98 10/04/20 16:00 61 10/04/20 12:00 96.4 60 18 105/59 (74) 95 10/04/20 12:00 66 10/04/20 09:09 119/59 10/04/20 09:00 Room Air 10/04/20 08:00 97.7 63 17 119/59 (79) 99 10/04/20 08:00 76 10/04/20 04:00 97.9 75 18 114/66 (82) 97 10/04/20 03:29 67 10/04/20 00:00 98.5 68 18 128/65 (86) 96 10/04/20 00:00 60 10/03/20 21:00 Room Air 10/03/20 20:00 63 10/03/20 20:00 98.1 74 18 136/68 (90) 98 10/03/20 16:00 70 10/03/20 16:00 97.8 72 18 141/70 (93) 96 10/03/20 12:00 63 10/03/20 12:00 98.7 65 16 125/72 (89) 98 10/03/20 09:23 129/69 10/03/20 09:00 Room Air 10/03/20 08:00 62 10/03/20 08:00 98.9 64 18 129/69 (89) 98 Intake and Output 10/04/20 10/05/20 19:00 07:00 Intake Total 930 ml 120 ml Balance 930 ml 120 ml Intake Oral 930 ml 120 ml # Voids 5 1 # Bowel Movements 1 Labs Test 10/02/20 17:23 10/03/20 04:00 10/03/20 05:56 10/04/20 05:40 White Blood Count 5.1 K/UL (4.8-10.8) 6.9 K/UL (4.8-10.8) Red Blood Count 3.05 M/UL (4.20-5.40) 3.59 M/UL (4.20-5.40) Hemoglobin 8.3 G/DL (12.0-16.0) 9.8 G/DL (12.0-16.0) Hematocrit 25.6 % (37.0-47.0) 30.7 % (37.0-47.0) Mean Corpuscular Volume 84 FL (80-99) 85 FL (80-99) Mean Corpuscular Hemoglobin 27.1 PG (27.0-31.0) 27.4 PG (27.0-31.0) Mean Corpuscular Hemoglobin Concent 32.2 G/DL (32.0-36.0) 32.0 G/DL (32.0-36.0) Red Cell Distribution Width 20.6 % (11.6-14.8) 20.3 % (11.6-14.8) Platelet Count 171 K/UL (150-450) 226 K/UL (150-450) Mean Platelet Volume 10.3 FL (6.5-10.1) 8.9 FL (6.5-10.1) Neutrophils (%) (Auto) 42.8 % (45.0-75.0) 48.4 % (45.0-75.0) Lymphocytes (%) (Auto) 42.3 % (20.0-45.0) 41.9 % (20.0-45.0) Monocytes (%) (Auto) 10.2 % (1.0-10.0) 5.8 % (1.0-10.0) Eosinophils (%) (Auto) 3.4 % (0.0-3.0) 2.8 % (0.0-3.0) Basophils (%) (Auto) 1.4 % (0.0-2.0) 1.1 % (0.0-2.0) Sodium Level 141 MMOL/L (136-145) 139 MMOL/L (136-145) Potassium Level 3.6 MMOL/L (3.5-5.1) 3.5 MMOL/L (3.5-5.1) Chloride Level 108 MMOL/L (98-107) 104 MMOL/L (98-107) Carbon Dioxide Level 26 MMOL/L (21-32) 28 MMOL/L (21-32) Anion Gap 7 mmol/L (5-15) 7 mmol/L (5-15) Blood Urea Nitrogen 18 mg/dL (7-18) 17 mg/dL (7-18) Creatinine 0.8 MG/DL (0.55-1.30) 0.8 MG/DL (0.55-1.30) Estimat Glomerular Filtration Rate > 60 mL/min (>60) > 60 mL/min (>60) Glucose Level 80 MG/DL (74-106) 91 MG/DL (74-106) Calcium Level 8.6 MG/DL (8.5-10.1) 8.4 MG/DL (8.5-10.1) POC Whole Blood Glucose 96 MG/DL (74-106) C-Reactive Protein, Quantitative < 0.4 mg/dL (0.00-0.90) Thyroid Stimulating Hormone (TSH) 7.561 uiU/mL (0.358-3.740) Test 10/04/20 11:33 10/04/20 16:46 10/05/20 05:41 POC Whole Blood Glucose 121 MG/DL (74-106) 90 MG/DL (74-106) Height (Feet): 5 Height (Inches): 5.00 Weight (Pounds): 135 Objective Physical Exam General: WDWN female in NAD, A&O x 4 HEENT: Normocephalic cephalic atraumatic CV: Regular rate regular rhythm, no murmurs, rubs, or gallops Pulm: Lungs clear to auscultation bilaterally. No wheezes, rhonchi, or rales GI: Soft, nontender, nondistended, bowel sounds present Neuro: CN 2-12 intact bilaterally, no focal signs. Ext: No lower extremity edema bilaterally Skin: no rashes lesions or ulcers Msk: Joints symmetrical in upper extremity and lower extremity bilaterally Lymph: No lymphadenopathy in upper extremity and lower extremity Rivas Rodgers MD Oct 05, 2020 06:44
--- NOTE | 2020-10-05 07:25 | NUR ---
NURSE NOTES: Received report from Paola/RN. Observed patient awake, sitting up in bed, eating breakfast. On room air no acute distress/SOB noted. Able to make needs known. Denies pain at this time. IV on right FA, patent and intact. Bed in low position and locked, Call light within reach, Encouraged to use call light when needed. Will continue plan of care.
[2020-10-05 08:00] VITALS: BP 128/95
[2020-10-05 08:16] VITALS: BP 128/95
[2020-10-05] MEDS: Benazepril 10mg tab ORAL SCH (08:16)
[2020-10-05] MEDS: Atorvastatin 20mg tab ORAL SCH (08:19)
[2020-10-05] MEDS: Eliquis 5mg tablet ORAL SCH (08:19)
[2020-10-05] MEDS: Oxybutynin 5mg tab ORAL SCH (08:19)
--- NOTE | 2020-10-05 08:48 | General Progress Note ---
Subjective ROS Limited/Unobtainable: No Allergies: Coded Allergies: MORPHINE (Verified Allergy, Unknown, 12/22/17) Objective Last 24 Hour Vital Signs Date Time Temp Pulse Resp B/P (MAP) Pulse Ox O2 Delivery O2 Flow Rate FiO2 10/05/20 08:16 128/95 10/05/20 08:00 97.6 61 18 128/95 (106) 100 10/05/20 04:00 97.2 55 18 127/59 (81) 99 10/05/20 03:11 52 10/05/20 00:00 97.9 56 16 126/53 (77) 98 10/04/20 23:14 65 10/04/20 21:00 Room Air 10/04/20 20:00 97.7 78 16 128/57 (80) 100 10/04/20 16:00 97.6 58 18 123/62 (82) 98 10/04/20 16:00 61 10/04/20 12:00 96.4 60 18 105/59 (74) 95 10/04/20 12:00 66 10/04/20 09:09 119/59 10/04/20 09:00 Room Air Intake and Output 10/04/20 10/05/20 19:00 07:00 Intake Total 930 ml 120 ml Balance 930 ml 120 ml Intake Oral 930 ml 120 ml # Voids 5 1 # Bowel Movements 1 Laboratory Tests 10/04/20 11:33: POC Whole Blood Glucose [Pending] 10/04/20 16:46: POC Whole Blood Glucose 121H 10/05/20 05:41: POC Whole Blood Glucose 90 Height (Feet): 5 Height (Inches): 5.00 Weight (Pounds): 135 General Appearance: no apparent distress EENT: normal ENT inspection Neck: supple Cardiovascular: normal rate Respiratory/Chest: decreased breath sounds Abdomen: normal bowel sounds, non tender, soft Extremities: non-tender Assessment/Plan Status: unchanged Assessment/Plan: Assessment - rectal bleeding - microcytic, symptomatic anemia Recommendations -anusol HC -sitz bath - PPI - IV Fe s/p colonoscopy -dc canceled due to LUE DVT>>> fu hematology Andre Marie MD Oct 05, 2020 08:48
--- NOTE | 2020-10-05 09:15 | General Progress Note ---
Subjective Constitutional: Reports: weakness Allergies: Coded Allergies: MORPHINE (Verified Allergy, Unknown, 12/22/17) All Systems: reviewed and negative except above Subjective calm in bed Objective Last 24 Hour Vital Signs Date Time Temp Pulse Resp B/P (MAP) Pulse Ox O2 Delivery O2 Flow Rate FiO2 10/05/20 09:00 Room Air 10/05/20 08:16 128/95 10/05/20 08:00 97.6 61 18 128/95 (106) 100 10/05/20 08:00 78 10/05/20 04:00 97.2 55 18 127/59 (81) 99 10/05/20 03:11 52 10/05/20 00:00 97.9 56 16 126/53 (77) 98 10/04/20 23:14 65 10/04/20 21:00 Room Air 10/04/20 20:00 97.7 78 16 128/57 (80) 100 10/04/20 16:00 97.6 58 18 123/62 (82) 98 10/04/20 16:00 61 10/04/20 12:00 96.4 60 18 105/59 (74) 95 10/04/20 12:00 66 Intake and Output 10/04/20 10/05/20 19:00 07:00 Intake Total 930 ml 120 ml Balance 930 ml 120 ml Intake Oral 930 ml 120 ml # Voids 5 1 # Bowel Movements 1 Laboratory Tests 10/04/20 11:33: POC Whole Blood Glucose [Pending] 10/04/20 16:46: POC Whole Blood Glucose 121H 10/05/20 05:41: POC Whole Blood Glucose 90 Height (Feet): 5 Height (Inches): 5.00 Weight (Pounds): 135 General Appearance: lethargic EENT: normal ENT inspection Neck: normal alignment Cardiovascular: normal peripheral pulses, normal rate, regular rhythm Respiratory/Chest: chest wall non-tender, lungs clear, normal breath sounds Abdomen: normal bowel sounds, non tender, soft Extremities: normal inspection Edema: no edema noted Arm (L), no edema noted Arm (R), no edema noted Leg (L), no edema noted Leg (R), no edema noted Pedal (L), no edema noted Pedal (R), no edema noted Generalized Neurologic: responsive, motor weakness Skin: normal pigmentation, warm/dry Assessment/Plan Problem List: (1) Anemia ICD Codes: D64.9 - Anemia, unspecified SNOMED: 764277714 (2) COVID-19 ICD Codes: U07.1 - COVID-19 SNOMED: 084396238 (3) GIB (gastrointestinal bleeding) ICD Codes: K92.2 - Gastrointestinal hemorrhage, unspecified SNOMED: 56681197 Status: stable, progressing Assessment/Plan: o2 pulm tx abx cbc bmp am id pulm endo eval dc plan if all clear Stuart Palmer DO Oct 05, 2020 09:15
--- NOTE | 2020-10-05 10:22 | Pulmonology Progress Note ---
Subjective ROS Limited/Unobtainable: No Allergies: Coded Allergies: MORPHINE (Verified Allergy, Unknown, 12/22/17) All Systems: reviewed and negative except above Subjective remains afebrile, on RA no signs of resp distress tele stable seen by endo, started on Levothyroxine Objective Last 24 Hour Vital Signs Date Time Temp Pulse Resp B/P (MAP) Pulse Ox O2 Delivery O2 Flow Rate FiO2 10/05/20 09:00 Room Air 10/05/20 08:16 128/95 10/05/20 08:00 97.6 61 18 128/95 (106) 100 10/05/20 08:00 78 10/05/20 04:00 97.2 55 18 127/59 (81) 99 10/05/20 03:11 52 10/05/20 00:00 97.9 56 16 126/53 (77) 98 10/04/20 23:14 65 10/04/20 21:00 Room Air 10/04/20 20:00 97.7 78 16 128/57 (80) 100 10/04/20 16:00 97.6 58 18 123/62 (82) 98 10/04/20 16:00 61 10/04/20 12:00 96.4 60 18 105/59 (74) 95 10/04/20 12:00 66 Intake and Output 10/04/20 10/05/20 19:00 07:00 Intake Total 930 ml 120 ml Balance 930 ml 120 ml Intake Oral 930 ml 120 ml # Voids 5 1 # Bowel Movements 1 Objective General Appearance: WD/WN, no apparent distress, alert - Sami speaking female Lines, tubes and drains: peripheral HEENT: normocephalic, atraumatic, anicteric, mucous membranes moist Neck: non-tender, supple Respiratory/Chest: lungs clear, no respiratory distress, no accessory muscle use Cardiovascular/Chest: normal rate - SR on tele Abdomen: normal bowel sounds, non tender, soft Neurologic: no motor/sensory deficits, alert, oriented x 3, responsive Musculoskeletal: normal muscle bulk Laboratory Tests 10/04/20 11:33: POC Whole Blood Glucose [Pending] 10/04/20 16:46: POC Whole Blood Glucose 121H 10/05/20 05:41: POC Whole Blood Glucose 90 Current Medications Medications (Trade) Dose Ordered Sig/Luz Maria Route PRN Reason Start Time Stop Time Status Last Admin Dose Admin Acetaminophen (Tylenol) 650 mg Q6H PRN ORAL For Headache 09/24/20 23:45 10/24/20 23:44 10/02/20 09:39 Acetaminophen (Tylenol) 650 mg Q6H PRN ORAL MILD PAIN 09/24/20 23:45 10/24/20 23:44 09/30/20 16:21 Acetaminophen (Tylenol) 650 mg Q6H PRN ORAL fever 09/24/20 23:45 10/24/20 23:44 Apixaban (Eliquis) 5 mg BID ORAL 10/01/20 18:00 12/30/20 17:59 10/05/20 08:19 Atorvastatin Calcium (Lipitor) 40 mg DAILY ORAL 09/26/20 09:00 12/25/20 08:59 10/05/20 08:19 Benazepril HCl (Lotensin) 10 mg DAILY ORAL 09/26/20 09:00 10/26/20 08:59 10/05/20 08:16 Dextrose (Dextrose 50%) 25 ml Q30M PRN IV Hypoglycemia 09/24/20 23:45 12/23/20 23:44 Dextrose (Dextrose 50%) 50 ml Q30M PRN IV Hypoglycemia 09/24/20 23:45 12/23/20 23:44 Ferrous Sulfate (Feosol) 325 mg DAILY ORAL 09/27/20 09:00 12/26/20 08:59 10/05/20 08:16 Hydralazine HCl (Apresoline) 10 mg Q4H PRN IV SBP >160 09/25/20 12:30 12/24/20 12:29 Ibuprofen (Motrin) 600 mg Q6H PRN ORAL pain (4-10) 10/01/20 15:15 10/31/20 15:14 Insulin Aspart (NovoLOG) BEFORE MEALS AND HS SUBQ 09/26/20 06:30 12/24/20 00:00 10/02/20 20:50 Levothyroxine Sodium (Synthroid) 25 mcg DAILY@0630 ORAL 10/05/20 06:30 11/04/20 06:29 10/05/20 06:45 Oxybutynin Chloride (Ditropan) 5 mg BID ORAL 09/25/20 18:00 10/25/20 17:59 10/05/20 08:19 Assessment/Plan Assessment/Plan ASSESSMENT Covid 19 infection Anemia secondary to rectal bleeding Rectal bleeding likely due to internal hemorrhoids DVT left cephalic vein Palpitations Abnormal TFT probably/ hypothyroidism Hypertension Diabetes mellitus PLAN OF CARE tele Date of sx onset: 3 days prior to ED visit Positive test: 09/25 rapid COVID + O2 RA HFA No DEX given no hypoxia, remains stable on RA No indications for Remdesivivr, given relatively asymptomatic a/c with Eliquis Venous Duplex BLE NGT Venous Duple UE + L cephalic thrombus D dimer Trend CRP Abx as per ID recs-> no need for abx Monitor volumes and renal function resp status stable serial trop NGT, ECHO with pEF BP stable on low dose MIKE TFT abnormal mild elevation in TSH and low T3, endo eval pending, may need low dose of Synthroid-per endo recs s/p 2 u PRBC, HH stable on oral iron supplements s/p colonoscopy - > internal hemorrhoids BS with SSI Fup with consultants recs FC clear for dc from pulmo standpoint endo started on levothyroxine dc pending for today case discussed and evaluated by supervising physician Rosa Elena Barboza NP Oct 05, 2020 10:22
[2020-10-05 10:31] LABS: BASOPHILS % (AUTO) 1.2 % (0.0-2.0); EOSINOPHILS % (AUTO) 1.3 % (0.0-3.0); HEMATOCRIT 32.7 % (37.0-47.0); HEMOGLOBIN 10.2 G/DL (12.0-16.0); LYMPHOCYTES % (AUTO) 37.2 % (20.0-45.0); MEAN CORPUSCULAR VOLUME 85 FL (80-99); MONOCYTES % (AUTO) 7.1 % (1.0-10.0); NEUTROPHILS % (AUTO) 53.2 % (45.0-75.0); PLATELET COUNT 251 K/UL (150-450); RED BLOOD COUNT 3.85 M/UL (4.20-5.40); RED CELL DISTRIBUTION WIDTH 19.4 % (11.6-14.8); WHITE BLOOD COUNT 7.3 K/UL (4.8-10.8)
[2020-10-05 10:40] LABS: ANION GAP 10 mmol/L (5-15); BLOOD UREA NITROGEN 17 mg/dL (7-18); CARBON DIOXIDE 25 MMOL/L (21-32); CHLORIDE 105 MMOL/L (98-107); CREATININE 0.9 MG/DL (0.55-1.30); POTASSIUM 3.7 MMOL/L (3.5-5.1); SODIUM 140 MMOL/L (136-145)
--- NOTE | 2020-10-05 12:03 | NUR ---
NURSE NOTES: Patient was discharged at 1150 to home. Discharge paper works explained and signed by patient, no missing belongings noted. Denies any pain or discomfort upon discharge. Prescription given to patient. IV line and ID band removed. VS WNL upon DC. Patient was picked up by daughter at 1150 in stable condition accompanied by primary nurse.
--- NOTE | 2020-10-05 17:31 | Surgery Progress Note ---
Surgery Progress Note Subjective Additional Comments late entry p[samina for d/c today anticoag as per heme f/u outpatient with pcp and heme Objective Last 24 Hour Vital Signs Date Time Temp Pulse Resp B/P (MAP) Pulse Ox O2 Delivery O2 Flow Rate FiO2 10/05/20 09:00 Room Air 10/05/20 08:16 128/95 10/05/20 08:00 97.6 61 18 128/95 (106) 100 10/05/20 08:00 78 10/05/20 04:00 97.2 55 18 127/59 (81) 99 10/05/20 03:11 52 10/05/20 00:00 97.9 56 16 126/53 (77) 98 10/04/20 23:14 65 10/04/20 21:00 Room Air 10/04/20 20:00 97.7 78 16 128/57 (80) 100 I&O Intake and Output 10/04/20 10/05/20 19:00 07:00 Intake Total 930 ml 120 ml Balance 930 ml 120 ml Intake Oral 930 ml 120 ml # Voids 5 1 # Bowel Movements 1 Cardiovascular: RSR Respiratory: decreased breath sounds Abdomen: soft, flat, non-tender, present bowel sounds, non-distended Extremities: no edema, no tenderness, no cyanosis, pulses, other Laboratory Tests Test 10/05/20 05:41 10/05/20 10:15 POC Whole Blood Glucose 90 MG/DL (74-106) White Blood Count 7.3 K/UL (4.8-10.8) Red Blood Count 3.85 M/UL (4.20-5.40) L Hemoglobin 10.2 G/DL (12.0-16.0) L Hematocrit 32.7 % (37.0-47.0) L Mean Corpuscular Volume 85 FL (80-99) Mean Corpuscular Hemoglobin 26.3 PG (27.0-31.0) L Mean Corpuscular Hemoglobin Concent 31.0 G/DL (32.0-36.0) L Red Cell Distribution Width 19.4 % (11.6-14.8) H Platelet Count 251 K/UL (150-450) Mean Platelet Volume 9.8 FL (6.5-10.1) Neutrophils (%) (Auto) 53.2 % (45.0-75.0) Lymphocytes (%) (Auto) 37.2 % (20.0-45.0) Monocytes (%) (Auto) 7.1 % (1.0-10.0) Eosinophils (%) (Auto) 1.3 % (0.0-3.0) Basophils (%) (Auto) 1.2 % (0.0-2.0) Sodium Level 140 MMOL/L (136-145) Potassium Level 3.7 MMOL/L (3.5-5.1) Chloride Level 105 MMOL/L (98-107) Carbon Dioxide Level 25 MMOL/L (21-32) Anion Gap 10 mmol/L (5-15) Blood Urea Nitrogen 17 mg/dL (7-18) Creatinine 0.9 MG/DL (0.55-1.30) Estimat Glomerular Filtration Rate > 60 mL/min (>60) Glucose Level 107 MG/DL (74-106) H Calcium Level 9.0 MG/DL (8.5-10.1) Plan Problems: (1) Bleeding hemorrhoids Assessment & Plan: 59F presented with severe anemia noted to have hemorrhoidal bleeding afebrile, HD stable no active bleeding on exam no bleeding noted states feels better transfused prbc improved no n/v okay for diet monitor for bleeding outpatient eval for hemorrhoidal sx intervention thank you no bleeding stable okay to d/c (2) Palpitations (3) Elevated TSH (4) Anemia (5) GERD (gastroesophageal reflux disease) (6) HTN (hypertension) (7) HLD (hyperlipidemia) (8) DM2 (diabetes mellitus, type 2) (9) GIB (gastrointestinal bleeding) Assessment & Plan: no acute bleeding h/h stable comfortable (10) COVID-19 Assessment & Plan: ++ Corbin Lee Oct 05, 2020 17:31
--- NOTE | 2020-10-07 11:36 | Discharge Summary ---
Discharge Summary Discharge Summary _ Date of admission: 09/24/2020 Date of discharge: 10/05/[address] Osorio History of Present Illness and Brief Hospital Course Ms. Biggs is a 59-year-old female with past medical history of hypertension, diabetes mellitus, and hemorrhoids, who presented to the ED for evaluation of palpitations x3 days. She denied chest pain during these episodes. Initial EKG showed normal sinus rhythm without signs of ischemia. She remained asymptomatic in the ER. Her hemoglobin, however, returned critically low at 6.3. Other labs were within normal limits except for elevated TSH. She was admitted to the hospital for further work-up. Patient tested positive for COVID-19 on 09/25/2020. Given no signs of respiratory distress on room air, no dexamethasone was given. And there was no indication for remdesivir, given relatively asymptomatic nature of her presentation. Patient was started on IV iron. Stool occult blood was positive. She received 2 units of transfusions. On a follow-up colonoscopy, she was found to have an internal hemorrhoid. She continued to have blood in her stool. Her hemoglobin remained low in the 8 and 9's until the day of discharge when her hemoglobin improved to 10.2. For her hemorrhoid, Anusol HC, and sitz bath were utilized. For her recurrent palpitations, troponins were monitored. However, they were negative. CT angio of the chest was also negative for PE.scale. On 09/30/2020, she was found to be positive for left cephalic venous thrombosis on extremity venous study. She was given Lovenox. She also had a history of essential hypertension in her home benazepril was continued. She also had history of GERD and her home PPI was continued. Given her elevated TSH, she was started on levothyroxine. She was to have repeat TSH, free T4 and T3 in 3 weeks. For her history of diabetes mellitus, patient was given NovoLog sliding scale. On the day of discharge patient was medically stable. Patient was picked up by daughter and was taken home. Consultants: Endocrinology Dr. Mason or Pulmonology Rosa Elena Barboza NP Infectious disease Dr. Sommer Hematology oncology Dr. Rodgers Gastroenterology Dr. Holly Surgery Dr. Lee Discharge Condition Improved and stable Final diagnoses Left cephalic venous thrombosis Anemia due to iron deficiency Anemia secondary to hematochezia Hematochezia secondary to hemorrhoids Internal hemorrhoid Chest pain Diabetes mellitus Essential hypertension GERD Gastrointestinal bleeding Palpitations Hypothyroidism I have been assigned to dictate discharge summary for this account. I was not involved in the patient's management Dragan Hendricks Oct 07, 2020 11:36
== END 2020-10-05 11:53 | disposition home or self-care (01) | DRG 207 ==
LOC: EMR 18:14 → 2E 19:45 → EDBEDREQSVC 20:10 → EDBEDREQ 21:14
PROC: 0DJD8ZZ Inspection of Lower Intestinal Tract, Via Natural or Artificial Opening Endoscopic (ICD-10-PCS; principal; 2020-09-28 11:21)
DX: R00.2 Palpitations (principal); D62 Acute posthemorrhagic anemia; U07.1 COVID-19; K64.9 Unspecified hemorrhoids; R07.9 Chest pain, unspecified; E11.9 Type 2 diabetes mellitus without complications; K21.9 Gastro-esophageal reflux disease without esophagitis; Z20.828 Contact with and (suspected) exposure to other viral communicable diseases; I10 Essential (primary) hypertension; D50.9 Iron deficiency anemia, unspecified; I82.612 Acute embolism and thrombosis of superficial veins of left upper extremity; E03.9 Hypothyroidism, unspecified
CPT/HCPCS: 36415; 71045; 71275; 80048; 80053; 82248; 82270; 82607; 82728; 82746; 82962; 83010; 83540; 83550; 83615; 83735; 84100; 84439; 84443; 84481; 84484; 85007; 85025; 85044; 85060; 85610; 85730; 86140; 86850; 86900; 86901; 86920; 93005; 93306; 93970; 93971; 94003; 94150; 99291; J1815; J8499; U0002

== ENCOUNTER 2020-10-27 12:16 | Inpatient (IN) | payer OTHER ==
[2020-10-27] VITALS (8 sets, daily range): BP systolic 116–144; BP diastolic 53–95
[~2020-10-27] VITALS: Ht 149.9 cm; Wt 61.7 kg
[~2020-10-27 12:16] MED LIST changes: +ATORVASTATIN CA40 MG ORAL; +FERROUS SULFAT325 MG ORAL; +GLUCOPHAGE500 MG ORAL; +LOTENSIN40 MG ORAL
--- NOTE | 2020-10-27 13:03 | NUR ---
Cme to er complaints paipitation since yesterday evening on and off denies any chest pain or shortness of breath saline lock in place venous blood send to lab
[2020-10-27 13:19] LABS: ANION GAP 6 mmol/L (5-15); BLOOD UREA NITROGEN 18 mg/dL (7-18); CALCIUM 8.5 MG/DL (8.5-10.1); CARBON DIOXIDE 29 MMOL/L (21-32); CHLORIDE 105 MMOL/L (98-107); CREATININE 0.9 MG/DL (0.55-1.30); POTASSIUM 3.9 MMOL/L (3.5-5.1); SODIUM 140 MMOL/L (136-145)
[2020-10-27 13:20] LABS: HEMATOCRIT 23.7 % (37.0-47.0); HEMOGLOBIN 7.4 G/DL (12.0-16.0); MEAN CORPUSCULAR VOLUME 88 FL (80-99); PLATELET COUNT 177 K/UL (150-450); RED CELL DISTRIBUTION WIDTH 18.8 % (11.6-14.8); WHITE BLOOD COUNT 4.8 K/UL (4.8-10.8)
[2020-10-27 13:23] LABS: ALANINE AMINOTRANSFERASE 28 U/L (12-78); ALBUMIN 3.1 G/DL (3.4-5.0); ASPARTATE AMINO TRANSFERASE 16 U/L (15-37)
[2020-10-27 13:38] LABS: ALKALINE PHOSPHATASE 71 U/L (46-116); BILIRUBIN,TOTAL 0.6 MG/DL (0.2-1.0)
--- NOTE | 2020-10-27 13:44 | Diagnostic Imaging Report ---
Indication: Shortness of breath Technique: XRAY Chest 1v Comparison: 09/24/2020 Findings: Heart size and mediastinal contours are within normal limits for AP technique. There is no focal airspace consolidation, pneumothorax or pleural effusion. Osseous structures demonstrate no acute abnormality. Impression: No radiographic evidence of acute cardiopulmonary disease.
--- NOTE | 2020-10-27 13:45 | NUR ---
ED Nurse Note:pt doesn't appear to be in any distress or shortness of breath.
--- NOTE | 2020-10-27 16:34 | Emergency Room Report ---
History of Present Illness General Chief Complaint: Palpitations Present Illness HPI 60-year-old female with history of anemia and rectal bleeding secondary to internal hemorrhoids as it was established for the last hospitalization at [facility] after colonoscopy, here complaining of 3 days of palpitation especially at rest and dizziness. Reports that she was hospitalized at [facility] for 2 weeks and was discharged with ferrous sulfate has been taking it every day. Patient reports that 2 days ago she started with bleeding again upon defecation. Denies any vaginal bleeding. Reports that has a history of total hysterectomy. Denies abdominal pain, nausea vomiting, chest pain or shortness of breath. Denies any cough or congestion. Last hospitalization [facility] was on September 24, 2020 and patient was also diagnosed with COVID-19. Patient denies any Covid related symptoms at this time. Denies syncope. Speaks in full sentences, answers all questions. Is neurovascularly intact, no unilateral generalized weakness noted. Patient also reports that she is diabetic as well is high cholesterol history and has not taken any medication for the past 2 weeks as she ran out. Patient reports that she has been unable to see PMD since the start of COVID-19. Patient does not recall the name of medication that she normally takes for diabetes as well as hypercholesterolemia. (Rafael Smith) Allergies: Coded Allergies: MORPHINE (Verified Allergy, Unknown, 12/22/17) COVID-19 Screening Contact w/high risk pt: No Experienced COVID-19 symptoms?: No COVID-19 Testing performed PHD INTERN: No (Rafael Smith) Patient History Past Medical History: see triage record Past Surgical History: none Pertinent Family History: none Now: No Immunizations: UTD Reviewed Nursing Documentation: PMH: Agreed; PSxH: Agreed (Rafael Smith) Nursing Documentation-PMH Hx Hypertension: Yes Hx Diabetes: Yes Hx Gastrointestinal Problems: No Hx Neurological Problems: No (Rafael Smith) Review of Systems All Other Systems: negative except mentioned in HPI (Rafael Smith) Physical Exam Vital Signs Date Time Temp Pulse Resp B/P (MAP) Pulse Ox O2 Delivery O2 Flow Rate FiO2 10/27/20 12:33 98.6 92 18 141/70 (93) 98 Room Air Sp02 EP Interpretation: reviewed, normal General Appearance: no apparent distress, alert, GCS 15, non-toxic Head: normocephalic, atraumatic Eyes: bilateral eye normal inspection, bilateral eye PERRL ENT: hearing grossly normal, normal pharynx, no angioedema, normal voice Neck: full range of motion, supple/symm/no masses Respiratory: chest non-tender, lungs clear, normal breath sounds, no rhonchi, no respiratory distress, no retraction, no accessory muscle use, speaking full sentences Cardiovascular #1: regular rate, rhythm, no edema Cardiovascular #2: 2+ carotid (R), 2+ carotid (L), 2+ radial (R), 2+ radial (L), 2+ dorsalis pedis (R), 2+ dorsalis pedis (L) Rectal: deferred Genitourinary: no CVA tenderness, deferred Musculoskeletal: back normal, no calf tenderness Neurologic: alert, motor strength/tone normal, oriented x3, sensory intact, responsive, speech normal Psychiatric: judgement/insight normal, memory normal, mood/affect normal, no suicidal/homicidal ideation Skin: no rash Lymphatic: no adenopathy (Rafael Smith) Medical Decision Making PA Attestation All diagnoses and treatment plans were reviewed and discussed with my supervising physician Dr. Mohan All diagnoses and treatment plans were reviewed and discussed with my supervising physician Dr. Russ (Rafael mSith) Diagnostic Impression: Primary Impression: Symptomatic anemia ER Course 60-year-old female with history of anemia and rectal bleeding secondary to internal hemorrhoids as it was established for the last hospitalization at [facility] after colonoscopy, here complaining of 3 days of palpitation especially at rest and dizziness. Reports that she was hospitalized at [place] for 2 weeks and was discharged with ferrous sulfate has been taking it every day. Patient reports that 2 days ago she started with bleeding again upon defecation. Denies any vaginal bleeding. Reports that has a history of total hysterectomy. Denies abdominal pain, nausea vomiting, chest pain or shortness of breath. Denies any cough or congestion. Last hospitalization [place] was on September 24, 2020 and patient was also diagnosed with COVID-19. Patient denies any Covid related symptoms at this time. Denies syncope. Speaks in full sentences, answers all questions. Is neurovascularly intact, no unilateral generalized weakness noted.Patient reports that she has been unable to see PMD since the start of COVID-19. Patient does not recall the name of medication that she normally takes for diabetes as well as hypercholesterolemia. Ddx considered but are not limited to: [place], Angina, symptomatic anemia, asymptomatic anemia Vital signs: are WNL, pt. is afebrile H&PE are most consistent with symptomatic anemia ORDERS: EKG, Chest XR, cardiac labs ED INTERVENTIONS: NS bolus, packed red cells Patient was admitted with diagnosis of stable asymptomatic anemia to Dr. Feliciano under supervision of Dr.: Jeb Mohan pt stable at time of admission (Rafael Smith) ER Course Please see above note. Patient care reviewed. Agree with plan. Patient receiving transfusions and tolerating this well. (Cj Russ MD) EKG Diagnostic Results Rate: normal Rhythm: NSR ST Segments: no acute changes Other Impression No acute ST changes ASA given to the pt in ED: No (Rafael Smith) Chest X-Ray Diagnostic Results Chest X-Ray Diagnostic Results : Chest X-Ray Ordered: Yes Indication: Other PA Xray: Interpretation reviewed, by supervising MD, and agrees with findings. Interpretation: no consolidation, no effusion, no pneumothorax Impression: No acute disease Electronically Signed by: Rafael ARAGON Scribe Text Findings: Heart size and mediastinal contours are within normal limits for AP technique. There is no focal airspace consolidation, pneumothorax or pleural effusion. Osseous structures demonstrate no acute abnormality. Impression: No radiographic evidence of acute cardiopulmonary disease. (Rafael Smith) Last Vital Signs Date Time Temp Pulse Resp B/P (MAP) Pulse Ox O2 Delivery O2 Flow Rate FiO2 10/27/20 14:20 98.6 77 18 116/53 98 Room Air (Rafael Smith) Disposition: ADMITTED INPATIENT Condition: Serious Referrals: NON PHYSICIAN (PCP) Rafael Smith Oct 27, 2020 16:34 Cj Russ MD Oct 31, 2020 18:20
--- NOTE | 2020-10-27 17:18 | NUR ---
ED Nurse Note:pt resting with eyes closed in no noted distress. will continue to monitor
--- NOTE | 2020-10-27 18:06 | NUR ---
3 RN's checked blood label for safety prior to infusing. started blood at 1755, blood reached pt at 1800 sitting at the bedside supervising.
--- NOTE | 2020-10-27 18:25 | NUR ---
ED Nurse Note:pt resting with eyes closed in no noted distress. v/s within normal range, blood infusing.
--- NOTE | 2020-10-27 18:39 | NUR ---
ED Nurse Note:attempted to call report was told to call back, nurse is busy
[2020-10-27 18:53] LABS: APPEARANCE,URINE CLEAR; BILIRUBIN, URINE NEGATIVE (NEGATIVE); COLOR,URINE PALE YELLOW; GLUCOSE, URINE (UA) 3+ (NEGATIVE); KETONES,URINE NEGATIVE (NEGATIVE); LEUKOCYTE ESTERASE ,URINE NEGATIVE (NEGATIVE); NITRITE,URINE NEGATIVE (NEGATIVE); PH,URINE 7 (4.5-8.0); PROTEIN,URINE NEGATIVE (NEGATIVE); UROBILINOGEN,URINE NORMAL MG/DL (0.0-1.0)
--- NOTE | 2020-10-27 19:01 | NUR ---
Patient is calm cooperative. in no acute distress. PRC infusing at 75ml/hour, no adverse reaction noted. bp 118/75, HR 80, o2satb 99%. Denies any pain, afebrile. voids one time.
--- NOTE | 2020-10-27 20:01 | NUR ---
Patient remains calm and cooperative. Vitals stable. 145/66, 87, 18, 99%, 98.3
--- NOTE | 2020-10-27 20:31 | NUR ---
TRANSFER TO FLOOR: Patient transferred to [facility] room 402 as ordered, per . Report given to DEBBIE Pittman. Belongings given to Patient. Stable at time of transfer. PRC infusing.
--- NOTE | 2020-10-27 20:35 | NUR ---
NURSE NOTES: received report from michael matthews rn.
--- NOTE | 2020-10-27 20:40 | NUR ---
NURSE NOTES: received patient per robi accompanied by the ER transporter.patient is alert and oriented x2. lithuanian speaking but speaks simple iraqi. on room air. no sob. denies any pain or discomfort. with iv access on the right ac running 1st bag of blood transfusion. no adverse reactions noted. no skin issues. all belongings on the bedside with cane.patient provided history but cannot recall home meds. provided bedside commode for safety. oriented to the room set up. bed locked and in lowest position. call light and light button within easy reach. Addendum: 10/28/20 at 0657 by Jessy Nath RN PER PATIENT " SHE HAS HAVING BLEEDING FOR 2 WEEKS DUE TO HEMORRHOIDS" HGB OF 7.4 AND HCT 23.7; 2 BAGS OF BLOOD TRANSFUSION WAS ORDERED. NO EPISODE OF BLEEDING AT THE MOMENT
--- NOTE | 2020-10-27 21:06 | History & Physical ---
History and Physical History & Physicial Feng Feliciano MD Oct 27, 2020 21:06
[2020-10-27] MEDS ORDERED: HYDROcodone/Acetamin 5/325 tab ORAL PRN (21:15)
--- NOTE | 2020-10-27 21:30 | NUR ---
NURSE NOTES: paged dr. kearney for admission orders. awaiting for call back.
--- NOTE | 2020-10-27 21:35 | NUR ---
NURSE NOTES: 1st bag of blood transfusion is done. vitals stable.
--- NOTE | 2020-10-27 22:00 | NUR ---
NURSE NOTES: received admission orders from dr. kearney. part of the admission orders is to give lasix 20 mg iv after 1st bag of blood transfusion then to give the 2nd bag. order noted and carried out. charge nurse made aware
--- NOTE | 2020-10-27 22:35 | NUR ---
NURSE NOTES: 2nd bag of blood transfusion started. with no complaints. vitals stable.
[2020-10-28] VITALS: BP 149/75
--- NOTE | 2020-10-28 02:09 | NUR ---
NURSE NOTES: 2nd bag of blood transfusion completed with no complaints of any adverse reactions. vitals stable. charge nurse made aware
[2020-10-28 04:00] VITALS: BP 114/65
[2020-10-28] MEDS: NovoLOG Insulin Flexpen SUBQ SCH ×4 (05:47→21:24)
--- NOTE | 2020-10-28 06:28 | NUR ---
NURSE HAND-OFF: Important Events on Shift: s/p 2 bags of blood transfusion; 1 episode of bleeding from hemorrhoids(patient said the hemorrhoids is protruding whenever she sqauts and try to bear down)md kearney is aware. Patient Status: stable Diet: cardiac diet-ccho m Pending Orders: occult blood stool Pending Results/Labs: Pending MD notification: paged dr. kearney for the episode of bleeding from the hemorrhoids Latest Vital Signs: Temperature 98.1 , Pulse 77 , B/P 114 /65 , Respiratory Rate 18 , O2 SAT 100 , Room Air, O2 Flow Rate . Vital Sign Comment: Latest Christensen Fall Score: 0 Fall Risk: Low Risk Safety Measures: Call light Within Reach, Bed Alarm Zone 1, Side Rails Side Rails x1, Bed position Low and Locked. Fall Precautions: Patient Fall Education
[2020-10-28 06:37] LABS: BASOPHILS % (AUTO) 0.9 % (0.0-2.0); EOSINOPHILS % (AUTO) 2.6 % (0.0-3.0); HEMATOCRIT 30.7 % (37.0-47.0); HEMOGLOBIN 9.8 G/DL (12.0-16.0); MEAN CORPUSCULAR VOLUME 86 FL (80-99); NEUTROPHILS % (AUTO) 55.5 % (45.0-75.0); PLATELET COUNT 177 K/UL (150-450); RED BLOOD COUNT 3.57 M/UL (4.20-5.40); RED CELL DISTRIBUTION WIDTH 17.5 % (11.6-14.8); WHITE BLOOD COUNT 4.8 K/UL (4.8-10.8)
--- NOTE | 2020-10-28 06:50 | NUR ---
NURSE NOTES: RECEIVED AN ORDER FROM DR. DALEY TO GIVE ANUSOL CRM BID. ORDER NOTED AND CARRIED OUT. CHARGE NURSE MADE AWARE
[2020-10-28 07:01] LABS: % IRON SATURATION 6 % (15-50); IRON 27 ug/dL (50-175); TOTAL IRON BINDING CAPACITY 443 ug/dL (250-450)
--- NOTE | 2020-10-28 07:07 | NUR ---
HAND OFF: REPORT GIVEN TO CARY HAZEL
[2020-10-28 07:10] LABS: ALANINE AMINOTRANSFERASE 26 U/L (12-78); ALBUMIN 3.1 G/DL (3.4-5.0); ALBUMIN/GLOBULIN RATIO 0.9 (1.0-2.7); ALKALINE PHOSPHATASE 63 U/L (46-116); ANION GAP 8 mmol/L (5-15); ASPARTATE AMINO TRANSFERASE 18 U/L (15-37); BLOOD UREA NITROGEN 16 mg/dL (7-18); CALCIUM 8.5 MG/DL (8.5-10.1); CARBON DIOXIDE 29 MMOL/L (21-32); CHLORIDE 106 MMOL/L (98-107); CREATININE 0.7 MG/DL (0.55-1.30); PHOSPHORUS 4.9 MG/DL (2.5-4.9); POTASSIUM 3.4 MMOL/L (3.5-5.1); SODIUM 143 MMOL/L (136-145)
--- NOTE | 2020-10-28 07:35 | NUR ---
NURSE NOTES: REPORT RECEIVED FROM DEBBIE LONG. RECEIVED PATIENT LYING IN BED, AWAKE, ALERT/ORIENTED X4. ABLE TO MAKE NEEDS KNOWN. DENIES PAIN. NO SIGNS AND SYMPTOMS OF ACUTE CARDIO-RESPIRATORY DISTRESS/SHORTNESS OF BREATH, DENIES CHEST PAIN, DIZZINESS OR PALPITATIONS, NO PERIPHERAL EDEMA NOTED. PIV INTACT TO LEFT AC/GAUGE 22 H/L. NO REDNESS/SWELLING NOTED TO SITE. BSC PROVIDED. WILL CONTINUE TO MONITOR. SIDE RAILS UP X2, BED IN LOWEST POSITION FOR SAFETY, ENCOURAGED PATIENT TO UTILIZE CALL LIGHT FOR ASSISTANCE, VERBALIZED UNDERSTANDING, CONTINUE WITH CURRENT PLAN OF CARE.
[2020-10-28 08:00] VITALS: BP 128/78
--- NOTE | 2020-10-28 08:21 | NUR ---
CASE MANAGEMENT:REVIEW 60 YEAR OLD FEMALE PRESENTED TO ER CC; PALPITATIONS SI: SYMPTOMATIC ANEMIA 98.6//92 18 141/70 98% ON RA H/H-7.4/23.7 IS: 1L NS BOLUS X2 TRANSFUSE 2 UNITS PRBC'S CHEST XRAY : TO MED/SURG DCP: FROM HOME
--- NOTE | 2020-10-28 09:00 | NUR ---
NURSE NOTES: PATIENT PREFERS TO APPLY THE ANUSOL RECTALLY. PATIENT UNDERSTAND THE CONCEPT AND INDICATIONS. WILL CONT TO MONITOR.
--- NOTE | 2020-10-28 09:14 | History and Physical Report ---
DATE OF ADMISSION: 10/27/2020 CHIEF COMPLAINT: Palpitation. HISTORY OF PRESENT ILLNESS: This is a 60-year-old female with past medical history significant for internal hemorrhoids with recurrent rectal bleeding with severe anemia with prior history of colonoscopy on the last hospitalization, complaining about 3 days of palpitation, especially at rest and dizziness. Report from the prior hospitalization at [facility] 2 weeks ago was discharged with iron sulfate. Patient has been taking it every day. Two days ago, she started with bleeding again, worsening with defecation. Denies any vaginal bleeding. Patient has a history of total abdominal hysterectomy. Denies any abdominal pain, nausea, vomiting, diarrhea, chest pain, shortness of breath, or cough. The last hospitalization at [facility] was on 09/24/2020, was diagnosed with COVID-19. Denies any COVID-related symptoms. Denies any syncope or fall. Shortly after initial evaluation in the emergency department, patient was admitted to the hospital with severe anemia requiring blood transfusion. PAST MEDICAL HISTORY/PAST SURGICAL HISTORY: Significant for diabetes, dyslipidemia, hypertension, prior history of GI bleed due to the hemorrhoidal bleed. MEDICATIONS AT HOME: Please refer to medication reconciliation. ALLERGIES: To morphine. SOCIAL HISTORY: Denies any smoking, alcohol, or drugs. FAMILY HISTORY: Noncontributory. REVIEW OF SYSTEMS: Mostly as above. PHYSICAL EXAMINATION: VITAL SIGNS: On admission, temperature 98.6, pulse of 92, respirations 18, blood pressure 141/70. GENERAL: Patient is awake, responsive, in no acute distress. HEAD AND NECK: Pupils are equal and reactive to light. Extraocular movements are intact. Neck was supple. No JVD. LUNGS: Good air entry. No wheezing or rales. HEART: S1, S2. Regular rhythm. No murmurs or gallops. ABDOMEN: Soft, nondistended, nontender. Positive bowel sounds. EXTREMITIES: No cyanosis, clubbing, or edema. NEUROLOGIC: Cranial nerves II through XII were grossly normal. Motor is 5/5 in all extremities. Gait is intact. RECTAL/GENITOURINARY: Noted that patient has hemorrhoids. PSYCHIATRIC: Mood and affect is intact. LABORATORY DATA: On admission from the emergency department, WBC of 12.8, hemoglobin 7.4, hematocrit 23, platelets 177. Sodium 140, potassium 2.9, chloride 105, bicarb 29, BUN 18, creatinine 0.9, glucose is 286. Troponin 0.00. Albumin is 3.1. Total protein 6.7. PT of 11, INR 1.0, PTT of 23. Urinalysis, +3 glucose, otherwise negative. Chest x-ray, no radiographic evidence of acute cardiopulmonary disease. ASSESSMENT: 1. Severe anemia, most likely secondary to rectal bleeding as a result of hemorrhoidal bleed. 2. Diabetes type 2. 3. Hypertension. 4. Dyslipidemia. PLAN: Admit patient to medical floor. Transfuse 2 units of packed RBC. Monitor laboratory closely. Discussed case with Dr. Lee from Surgery and Dr. Marie from Gastroenterology. Code status is Full Code. DVT prophylaxis is SCD. Feng Feliciano M.D. DR: WILMER JOB#: [id number] CC:
--- NOTE | 2020-10-28 11:32 | NUR ---
NURSE NOTES: SENT STOOL FOR OB TO LAB. NOTIFIED DR. DALEY WITH LIQUID BLOOD STOOL. NO ACUTE DISTRESS NOTED. AWAITING FOR A CALLBACK. WILL CONT TO MONITOR. Addendum: 10/28/20 at 1213 by CHATO OLIVER LVN new order obtained.
[2020-10-28 12:00] VITALS: BP 150/74
--- NOTE | 2020-10-28 12:13 | NUR ---
NURSE NOTES: SPOKE WITH DR HUNG. WILL CONT TO MONITOR
--- NOTE | 2020-10-28 13:30 | General Progress Note ---
Subjective ROS Limited/Unobtainable: Yes Allergies: Coded Allergies: MORPHINE (Verified Allergy, Unknown, 12/22/17) Objective Last 24 Hour Vital Signs Date Time Temp Pulse Resp B/P (MAP) Pulse Ox O2 Delivery O2 Flow Rate FiO2 10/28/20 12:00 98.0 78 18 150/74 (99) 97 10/28/20 08:46 73 128/78 10/28/20 08:00 97.3 73 18 128/78 (95) 98 10/28/20 04:00 98.1 77 18 114/65 (81) 10/28/20 00:00 98.2 70 18 149/75 (99) 10/27/20 23:32 Room Air 10/27/20 18:40 98.6 75 19 144/75 100 Room Air 10/27/20 18:15 98.7 71 17 140/66 98 Room Air 10/27/20 18:00 98.9 75 20 119/95 98 Room Air 10/27/20 17:55 98.5 80 20 124/70 98 Room Air 10/27/20 16:58 68 20 134/68 98 Room Air 10/27/20 14:20 98.6 77 18 116/53 98 Room Air Intake and Output 10/27/20 10/28/20 19:00 07:00 Intake Total 760 ml Output Total 300 ml Balance -300 ml 760 ml Intake Oral 760 ml Output Urine Total 300 ml # Voids 5 Laboratory Tests 10/27/20 17:20: Urine Color Pale yellow, Urine Appearance Clear, Urine pH 7, Urine Specific Kellogg 1.005, Urine Protein Negative, Urine Glucose (UA) 3+H, Urine Ketones Negative, Urine Blood Negative, Urine Nitrite Negative, Urine Bilirubin Negative, Urine Urobilinogen Normal, Urine Leukocyte Esterase Negative 10/28/20 05:23: POC Whole Blood Glucose 146H 10/28/20 05:25: White Blood Count 4.8, Red Blood Count 3.57L, Hemoglobin 9.8#L, Hematocrit 30.7L , Mean Corpuscular Volume 86, Mean Corpuscular Hemoglobin 27.4, Mean Corpuscular Hemoglobin Concent 31.8L, Red Cell Distribution Width 17.5H, Platelet Count 177, Mean Platelet Volume 9.9, Neutrophils (%) (Auto) 55.5, Lymphocytes (%) (Auto) 30.0, Monocytes (%) (Auto) 11.0H, Eosinophils (%) (Auto) 2.6, Basophils (%) (Auto) 0.9, Sodium Level 143, Potassium Level 3.4L, Chloride Level 106, Carbon Dioxide Level 29, Anion Gap 8, Blood Urea Nitrogen 16, Creatinine 0.7, Estimat Glomerular Filtration Rate > 60, Glucose Level 177#H, Calcium Level 8.5, Phosphorus Level 4.9, Magnesium Level 2.0, Iron Level 27L, Total Iron Binding Capacity 443, Percent Iron Saturation 6L, Unsaturated Iron Binding 416H, Total Bilirubin 1.0, Aspartate Amino Transf (AST/SGOT) 18, Alanine Aminotransferase (ALT/SGPT) 26, Alkaline Phosphatase 63, Total Protein 6.6, Albumin 3.1L, Globulin 3.5, Albumin/Globulin Ratio 0.9L 10/28/20 11:11: Stool Occult Blood [Pending] Height (Feet): 4 Height (Inches): 11.00 Weight (Pounds): 148 General Appearance: no apparent distress EENT: normal ENT inspection Neck: supple Cardiovascular: normal rate Respiratory/Chest: decreased breath sounds Abdomen: normal bowel sounds, non tender, soft Extremities: non-tender Assessment/Plan Problem List: (1) Symptomatic anemia ICD Codes: D64.9 - Anemia, unspecified SNOMED: 686796730 (2) Bleeding hemorrhoids ICD Codes: K64.9 - Unspecified hemorrhoids SNOMED: 36964981 (3) GIB (gastrointestinal bleeding) ICD Codes: K92.2 - Gastrointestinal hemorrhage, unspecified SNOMED: 30745774 (4) DM2 (diabetes mellitus, type 2) ICD Codes: E11.9 - Type 2 diabetes mellitus without complications SNOMED: 93285429 (5) HTN (hypertension) ICD Codes: I10 - Essential (primary) hypertension SNOMED: 19656668 (6) GERD (gastroesophageal reflux disease) ICD Codes: K21.9 - Gastro-esophageal reflux disease without esophagitis SNOMED: 229973769 Assessment/Plan: s/p recent colonoscopy plan Flex sig and banding og hemorrhoids on Saturday Andre Marie MD Oct 28, 2020 13:30
--- NOTE | 2020-10-28 14:46 | NUR ---
NURSE NOTES: OBTAINED ORDER FOR K+3.4 FROM PMD. WILL CONT TO MONITOR.
[2020-10-28 16:00] VITALS: BP 114/64
--- NOTE | 2020-10-28 19:07 | NUR ---
NURSE HAND-OFF: Important Events on Shift:[RECTAL BLEDDING WAS REPORTEDTO DESIGNATED PROVIDERS- DR HUNG AND DR GAMBOA] Patient Status: [STABLE] Diet: [CARDIAC; CCHO MED] Pending Orders: [LABS] Pending Results/Labs:[AM ] Pending MD notification:[] Latest Vital Signs: Temperature 97.4 , Pulse 80 , B/P 114 /64 , Respiratory Rate 18 , O2 SAT 97 , Room Air, O2 Flow Rate . Vital Sign Comment: [] Latest Christensen Fall Score: 0 Fall Risk: Low Risk Safety Measures: Call light Within Reach, Bed Alarm Zone 1, Side Rails Side Rails x2, Bed position Low and Locked. Fall Precautions: Yellow Socks Yellow Gown Door Sign Patient Fall Education Report given to [ARELI].
--- NOTE | 2020-10-28 19:27 | Internal Med Progress Note ---
Subjective Physician Name Feng Feliciano Attending Physician Feng Feliciano MD Current Medications Medications (Trade) Dose Ordered Sig/Luz Maria Route PRN Reason Start Time Stop Time Status Last Admin Dose Admin Acetaminophen (Tylenol) 650 mg Q6H PRN ORAL Mild Pain (Pain Scale 1-3) 10/27/20 21:15 11/26/20 21:14 Acetaminophen (Tylenol) 650 mg Q6H PRN ORAL Temp >100.5 10/27/20 21:15 11/26/20 21:14 Acetaminophen/ Hydrocodone Bitart ([place] 5/325) 1 tab Q6H PRN ORAL For Pain 10/27/20 21:15 11/03/20 21:14 Amlodipine Besylate (Norvasc) 5 mg DAILY ORAL 10/28/20 09:00 11/27/20 08:59 10/28/20 08:46 Dextrose (Dextrose 50%) 25 ml Q30M PRN IV Hypoglycemia 10/27/20 21:15 01/25/21 21:14 Dextrose (Dextrose 50%) 50 ml Q30M PRN IV Hypoglycemia 10/27/20 21:15 01/25/21 21:14 Hydrocortisone (Anusol HC) 1 applic TWICE A DAY RECTAL 10/28/20 09:00 01/26/21 08:59 10/28/20 17:07 Insulin Aspart (NovoLOG) BEFORE MEALS AND HS SUBQ 10/28/20 06:30 01/26/21 06:29 10/28/20 16:19 Ondansetron HCl (Zofran) 4 mg Q6H PRN IVP Nausea & Vomiting 10/27/20 21:15 11/26/20 21:14 Allergies: Coded Allergies: MORPHINE (Verified Allergy, Unknown, 12/22/17) Subjective await, alert, responsive, no acute distress. Denies any shortness of breath or chest pain, complained about rectal bleeding, hemoglobin: 9.8. Objective Last Vital Signs Date Time Temp Pulse Resp B/P (MAP) Pulse Ox O2 Delivery O2 Flow Rate FiO2 10/28/20 16:00 97.4 80 18 114/64 (81) 97 10/28/20 09:00 Room Air Laboratory Tests Test 10/28/20 05:23 10/28/20 05:25 10/28/20 11:11 POC Whole Blood Glucose 146 MG/DL (74-106) H White Blood Count 4.8 K/UL (4.8-10.8) Red Blood Count 3.57 M/UL (4.20-5.40) L Hemoglobin 9.8 G/DL (12.0-16.0) #L Hematocrit 30.7 % (37.0-47.0) L Mean Corpuscular Volume 86 FL (80-99) Mean Corpuscular Hemoglobin 27.4 PG (27.0-31.0) Mean Corpuscular Hemoglobin Concent 31.8 G/DL (32.0-36.0) L Red Cell Distribution Width 17.5 % (11.6-14.8) H Platelet Count 177 K/UL (150-450) Mean Platelet Volume 9.9 FL (6.5-10.1) Neutrophils (%) (Auto) 55.5 % (45.0-75.0) Lymphocytes (%) (Auto) 30.0 % (20.0-45.0) Monocytes (%) (Auto) 11.0 % (1.0-10.0) H Eosinophils (%) (Auto) 2.6 % (0.0-3.0) Basophils (%) (Auto) 0.9 % (0.0-2.0) Sodium Level 143 MMOL/L (136-145) Potassium Level 3.4 MMOL/L (3.5-5.1) L Chloride Level 106 MMOL/L (98-107) Carbon Dioxide Level 29 MMOL/L (21-32) Anion Gap 8 mmol/L (5-15) Blood Urea Nitrogen 16 mg/dL (7-18) Creatinine 0.7 MG/DL (0.55-1.30) Estimat Glomerular Filtration Rate > 60 mL/min (>60) Glucose Level 177 MG/DL (74-106) #H Calcium Level 8.5 MG/DL (8.5-10.1) Phosphorus Level 4.9 MG/DL (2.5-4.9) Magnesium Level 2.0 MG/DL (1.8-2.4) Iron Level 27 ug/dL (50-175) L Total Iron Binding Capacity 443 ug/dL (250-450) Percent Iron Saturation 6 % (15-50) L Unsaturated Iron Binding 416 ug/dL (112-346) H Total Bilirubin 1.0 MG/DL (0.2-1.0) Aspartate Amino Transf (AST/SGOT) 18 U/L (15-37) Alanine Aminotransferase (ALT/SGPT) 26 U/L (12-78) Alkaline Phosphatase 63 U/L (46-116) Total Protein 6.6 G/DL (6.4-8.2) Albumin 3.1 G/DL (3.4-5.0) L Globulin 3.5 g/dL Albumin/Globulin Ratio 0.9 (1.0-2.7) L Stool Occult Blood Pending Intake and Output 10/27/20 10/28/20 19:00 07:00 Intake Total 760 ml Output Total 300 ml Balance -300 ml 760 ml Intake Oral 760 ml Output Urine Total 300 ml # Voids 5 Objective General: No acute distress, awake and alert HEENT: NCAT, sclera anicteric, PERRL, EOMI. Neck: Supple, no significant jugular venous distention, Lungs: Good inspiratory effort, no accessory muscle use, clear to auscultation bilaterally, no Wheeze or Rales. Heart: Regular rate and rhythm, normal S1/S2, no murmurs/gallops Abdomen: soft, nontender, nondistended. Normoactive bowel sounds. / Rectal: Refused and deferred. Extremities: No Cyanosis , clubbing or edema. Neuro: A&O x 3, Able to move all extremities Skin: warm, no rashes or lesions Psych: Normal mood and affect Assessment/Plan Assessment/Plan 1. Severe anemia, most likely secondary to rectal bleeding as a result of hemorrhoidal bleed s/p Transfuse 2 units of packed RBC. 2. Diabetes type 2. 3. Hypertension. 4. Dyslipidemia. PLAN: In medical floor. Monitor laboratory closely. Discussed case with Dr. Lee from Surgery Dr. Marie from Gastroenterology. Code status is Full Code. DVT prophylaxis is SCD. Feng Feliciano MD Oct 28, 2020 19:27
--- NOTE | 2020-10-28 19:48 | NUR ---
NURSE NOTES: RECEIVED PATIENT LYING IN BED, AWAKE, ALERT/ORIENTED X4, VERBALLY RESPONSIVE, ABLE TO COMMUNICATE EFFECTIVELY IN DANISH, PAIN TOLERABLE, NO SIGNS AND SYMPTOMS OF ACUTE CARDIO RESPIRATORY DISTRESS/SHORTNESS OF BREATH, DENIES CHEST PAIN,NO PERIPHERAL EDEMA NOTED. S/P 2 UNITS PRBC, H/H 9.8/30.7. IV INTACT TO RIGHT AC/GAUGE 20, NO REDNESS/SWELLING NOTED TO SITE, SALINE LOCK. EPISODE OF DIARRHEA REPORTED, NO N/V. SIDE RAILS UP X2 FOR MOBILITY, BED IN LOWEST POSITION FOR SAFETY, ENCOURAGED PATIENT TO UTILIZE CALL LIGHT FOR ASSISTANCE, VERBALIZED UNDERSTANDING. NAD.
[2020-10-28 20:00] VITALS: BP 131/85
[2020-10-29] VITALS: BP 132/79
[2020-10-29 04:00] VITALS: BP 114/54
[2020-10-29] MEDS: NovoLOG Insulin Flexpen SUBQ SCH ×4 (06:19→21:22)
--- NOTE | 2020-10-29 06:54 | NUR ---
NURSE HAND-OFF: Important Events on Shift:[UNEVENTFUL NIGHT, BSL 124MG/DL,ASYMPTOMATIC, NO INSULIN COVERAGE, RESTED WELL THROUGHOUT THE NIGHT.] Patient Status: [STABLE,AFEBRILE] Diet: [CARDIAC, CCHO M] Pending Orders: [AM LABS-PLAN FLEX SIGMOID AND BANDING OF HEMORRHOIDS ON SATURDAY PER GI] Pending Results/Labs:[] Pending MD notification:[] Latest Vital Signs: Temperature 98.2 , Pulse 60 , B/P 114 /54 , Respiratory Rate 18 , O2 SAT 98 , Room Air, O2 Flow Rate . Vital Sign Comment: [STABLE, AFEBRILE] Latest Christensen Fall Score: 0 Fall Risk: Low Risk Safety Measures: Call light Within Reach, Bed Alarm Zone 1, Side Rails Side Rails x2, Bed position Low and Locked. Fall Precautions: Yellow Socks Yellow Gown Door Sign Patient Fall Education Report given to [DEBBIE MEZA].
[2020-10-29 08:00] VITALS: BP 151/78
--- NOTE | 2020-10-29 08:45 | General Progress Note ---
Subjective ROS Limited/Unobtainable: Yes Allergies: Coded Allergies: MORPHINE (Verified Allergy, Unknown, 12/22/17) Objective Last 24 Hour Vital Signs Date Time Temp Pulse Resp B/P (MAP) Pulse Ox O2 Delivery O2 Flow Rate FiO2 10/29/20 04:00 98.2 60 18 114/54 (74) 98 10/29/20 00:00 97.9 68 18 132/79 (96) 98 10/28/20 20:58 Room Air 10/28/20 20:00 98.2 77 22 131/85 (100) 97 10/28/20 16:00 97.4 80 18 114/64 (81) 97 10/28/20 12:00 98.0 78 18 150/74 (99) 97 10/28/20 09:00 Room Air 10/28/20 08:46 73 128/78 Intake and Output 10/28/20 10/29/20 19:00 07:00 Intake Total 840 ml 720 ml Balance 840 ml 720 ml Intake Oral 840 ml 720 ml # Voids 3 6 # Bowel Movements 2 1 Laboratory Tests 10/28/20 11:09: POC Whole Blood Glucose 142H 10/28/20 11:11: Stool Occult Blood Positive 10/28/20 16:15: POC Whole Blood Glucose 153H 10/28/20 21:19: POC Whole Blood Glucose [Pending] 10/29/20 05:37: POC Whole Blood Glucose 124H 10/29/20 07:14: White Blood Count [Pending], Red Blood Count [Pending], Hemoglobin [Pending], Hematocrit [Pending], Mean Corpuscular Volume [Pending], Mean Corpuscular Hemoglobin [Pending], Mean Corpuscular Hemoglobin Concent [Pending], Red Cell Di stribution Width [Pending], Platelet Count [Pending], Mean Platelet Volume [Pending], Neutrophils (%) (Auto) [Pending], Lymphocytes (%) (Auto) [Pending], Monocytes (%) (Auto) [Pending], Eosinophils (%) (Auto) [Pending], Basophils (%) (Auto) [Pending] Height (Feet): 4 Height (Inches): 11.00 Weight (Pounds): 148 General Appearance: no apparent distress EENT: normal ENT inspection Neck: supple Cardiovascular: normal rate Respiratory/Chest: decreased breath sounds Abdomen: hypoactive bowel sounds Extremities: non-tender Assessment/Plan Problem List: (1) Symptomatic anemia ICD Codes: D64.9 - Anemia, unspecified SNOMED: 047742030 (2) Bleeding hemorrhoids ICD Codes: K64.9 - Unspecified hemorrhoids SNOMED: 27576288 (3) GIB (gastrointestinal bleeding) ICD Codes: K92.2 - Gastrointestinal hemorrhage, unspecified SNOMED: 94353447 (4) DM2 (diabetes mellitus, type 2) ICD Codes: E11.9 - Type 2 diabetes mellitus without complications SNOMED: 27353745 (5) HTN (hypertension) ICD Codes: I10 - Essential (primary) hypertension SNOMED: 21240730 (6) GERD (gastroesophageal reflux disease) ICD Codes: K21.9 - Gastro-esophageal reflux disease without esophagitis SNOMED: 508835054 Assessment/Plan: s/p recent colonoscopy plan Flex sig and banding og hemorrhoids on Saturday Andre Marie MD Oct 29, 2020 08:45
[2020-10-29 08:55] LABS: BASOPHILS % (AUTO) 0.7 % (0.0-2.0); EOSINOPHILS % (AUTO) 2.9 % (0.0-3.0); HEMATOCRIT 31.5 % (37.0-47.0); HEMOGLOBIN 9.9 G/DL (12.0-16.0); LYMPHOCYTES % (AUTO) 41.8 % (20.0-45.0); MEAN CORPUSCULAR VOLUME 86 FL (80-99); MONOCYTES % (AUTO) 10.6 % (1.0-10.0); PLATELET COUNT 179 K/UL (150-450); RED BLOOD COUNT 3.68 M/UL (4.20-5.40); RED CELL DISTRIBUTION WIDTH 16.5 % (11.6-14.8); WHITE BLOOD COUNT 4.2 K/UL (4.8-10.8)
[2020-10-29 12:00] VITALS: BP 120/69
--- NOTE | 2020-10-29 15:10 | Consultation ---
History of Present Illness General Date patient seen: Oct 29, 2020 Reason for Hospitalization: Palpitations Present Illness HPI Is a 60-year-old female known to me from recent admission who presented with rectal bleeding anemia transfuse PRBC admitted further care and management. Pat ient history of bleeding hemorrhoids recent colonoscopy identifying hemorrhoids no other lesions. Continues to have acute hemorrhoidal bleed intermittently. Also intermittent diarrhea. Surgery called to evaluate assist with care. Patient seen, patient eval, chart reviewed. Case discussed with GI. Allergies: Coded Allergies: MORPHINE (Verified Allergy, Unknown, 12/22/17) COVID-19 Screening Contact w/high risk pt: No Experienced COVID-19 symptoms?: No Medication History Scheduled Aspirin* (Aspirin*), 81 MG ORAL DAILY, (Reported) Atorvastatin Calcium* (Lipitor*), 40 MG ORAL DAILY, (Reported) Benazepril Hcl* (Benazepril Hcl*), 10 MG ORAL DAILY, (Reported) Ferrous Sulfate* (Ferrous Sulfate*), 325 MG ORAL DAILY, (Reported) Metformin Hcl* (Metformin Hcl*), 1,000 MG ORAL BID, (Reported) Nitroglycerin (Nitroglycerin), 0.4 MG SL PRN, (Reported) Omeprazole (Omeprazole), 10 MG ORAL DAILY, (Reported) Oxybutynin Chloride (Oxybutynin Chloride), 5 MG ORAL BID, (Reported) Patient History History Provided By: Patient, Medical Record, PMD Healthcare decision maker Resuscitation status Advanced Directive on File Past Medical/Surgical History Past Medical/Surgical History: (1) Palpitations (2) Elevated TSH (3) Anemia (4) HLD (hyperlipidemia) (5) COVID-19 (6) Bleeding hemorrhoids (7) GERD (gastroesophageal reflux disease) (8) HTN (hypertension) (9) GIB (gastrointestinal bleeding) (10) DM2 (diabetes mellitus, type 2) (11) Symptomatic anemia Family History Family History: Patient reports no known family medical history. Review of Systems Review of Symptoms General ROS: no weight loss or fever Psychological ROS: no depression or mood changes, no memory loss Ophthalmic ROS: no visual changes or eye irritation ENT ROS: no nasal congestion, hearing loss, dizziness Allergy and Immunology ROS: no allergic symptoms or urticaria Hematological and Lymphatic ROS: no swollen glands, unusual bleeding or bruising Endocrine ROS: no polyuria, polydipsia, weight changes, temperature intolerance Respiratory ROS: no cough, shortness of breath, or wheezing Cardiovascular ROS: no chest pain or dyspnea on exertion Gastrointestinal ROS: denies abdominal pain, bright red blood in stool. Musculoskeletal ROS: no myalgias or arthralgias Neurological ROS: no TIA or stroke symptoms Dermatological ROS: no new or changing skin lesions, rashes or pruritis Physical Exam Physical Exam General appearance: alert, cooperative, no distress, appears stated age Head: Normocephalic, without obvious abnormality, atraumatic Eyes: conjunctivae/corneas clear. PERRL, EOM's intact. Fundi benign Throat: Lips, mucosa, and tongue normal. Teeth and gums normal Neck: supple, symmetrical, trachea midline, no adenopathy, thyroid: not enlarged, symmetric, no tenderness/mass/nodules, no carotid bruit and no JVD Lungs: clear to auscultation bilaterally Heart: regular rate and rhythm, S1, S2 normal, no murmur, click, rub or gallop Abdomen: soft, non-tender. Bowel sounds normal. No masses, no organomegaly Extremities: extremities normal, atraumatic, no cyanosis or edema Pulses: 2+ and symmetric Skin: Skin color, texture, turgor normal. No rashes or lesions Neurologic: Grossly normal Last 24 Hour Vital Signs Date Time Temp Pulse Resp B/P (MAP) Pulse Ox O2 Delivery O2 Flow Rate FiO2 10/29/20 12:00 97.5 73 20 120/69 (86) 99 10/29/20 09:46 83 151/78 10/29/20 09:00 Room Air 10/29/20 08:00 97.1 83 18 151/78 (102) 99 10/29/20 04:00 98.2 60 18 114/54 (74) 98 10/29/20 00:00 97.9 68 18 132/79 (96) 98 10/28/20 20:58 Room Air 10/28/20 20:00 98.2 77 22 131/85 (100) 97 10/28/20 16:00 97.4 80 18 114/64 (81) 97 Intake and Output 10/28/20 10/29/20 19:00 07:00 Intake Total 840 ml 720 ml Balance 840 ml 720 ml Intake Oral 840 ml 720 ml # Voids 3 6 # Bowel Movements 2 1 Laboratory Tests Test 10/28/20 16:15 10/28/20 21:19 10/29/20 05:37 10/29/20 07:14 POC Whole Blood Glucose 153 MG/DL (74-106) H Pending 124 MG/DL (74-106) H White Blood Count 4.2 K/UL (4.8-10.8) L Red Blood Count 3.68 M/UL (4.20-5.40) L Hemoglobin 9.9 G/DL (12.0-16.0) L Hematocrit 31.5 % (37.0-47.0) L Mean Corpuscular Volume 86 FL (80-99) Mean Corpuscular Hemoglobin 26.9 PG (27.0-31.0) L Mean Corpuscular Hemoglobin Concent 31.4 G/DL (32.0-36.0) L Red Cell Distribution Width 16.5 % (11.6-14.8) H Platelet Count 179 K/UL (150-450) Mean Platelet Volume 8.8 FL (6.5-10.1) Neutrophils (%) (Auto) 44.0 % (45.0-75.0) L Lymphocytes (%) (Auto) 41.8 % (20.0-45.0) Monocytes (%) (Auto) 10.6 % (1.0-10.0) H Eosinophils (%) (Auto) 2.9 % (0.0-3.0) Basophils (%) (Auto) 0.7 % (0.0-2.0) Test 10/29/20 12:25 POC Whole Blood Glucose 116 MG/DL (74-106) H Height (Feet): 4 Height (Inches): 11.00 Weight (Pounds): 148 Medications Current Medications Medications (Trade) Dose Ordered Sig/Luz Maria Route PRN Reason Start Time Stop Time Status Last Admin Dose Admin Acetaminophen (Tylenol) 650 mg Q6H PRN ORAL Mild Pain (Pain Scale 1-3) 10/27/20 21:15 11/26/20 21:14 Acetaminophen (Tylenol) 650 mg Q6H PRN ORAL Temp >100.5 10/27/20 21:15 11/26/20 21:14 Acetaminophen/ Hydrocodone Bitart ([place] 5/325) 1 tab Q6H PRN ORAL For Pain 10/27/20 21:15 11/03/20 21:14 Amlodipine Besylate (Norvasc) 5 mg DAILY ORAL 10/28/20 09:00 11/27/20 08:59 10/29/20 09:46 Dextrose (Dextrose 50%) 25 ml Q30M PRN IV Hypoglycemia 10/27/20 21:15 01/25/21 21:14 Dextrose (Dextrose 50%) 50 ml Q30M PRN IV Hypoglycemia 10/27/20 21:15 01/25/21 21:14 Hydrocortisone (Anusol HC) 1 applic TWICE A DAY RECTAL 10/28/20 09:00 01/26/21 08:59 10/29/20 09:46 Insulin Aspart (NovoLOG) BEFORE MEALS AND HS SUBQ 10/28/20 06:30 01/26/21 06:29 10/28/20 21:24 Ondansetron HCl (Zofran) 4 mg Q6H PRN IVP Nausea & Vomiting 10/27/20 21:15 11/26/20 21:14 Assessment/Plan Problem List: (1) Bleeding hemorrhoids ICD Codes: K64.9 - Unspecified hemorrhoids SNOMED: 21150594 (2) GERD (gastroesophageal reflux disease) ICD Codes: K21.9 - Gastro-esophageal reflux disease without esophagitis SNOMED: 715056222 (3) HTN (hypertension) ICD Codes: I10 - Essential (primary) hypertension SNOMED: 57488515 (4) GIB (gastrointestinal bleeding) Assessment & Plan: 60-year-old female with GI bleed intermittent episodes of bleeding hemorrhoid. Recent colonoscopy by GI on last admission reviewed and discussed with case. Patient continues to have intermittent bleeding and now presents with anemia and intermittent bleeding and diarrhea. Case discussed with GI and plan for flex sig and hemorrhoidal banding soon. Agree with care plan. If worsening can consider surgical intervention but proceed with GI endoscopic first. Okay for diet. Trend H&H. Thank you will follow with recommendations. ICD Codes: K92.2 - Gastrointestinal hemorrhage, unspecified SNOMED: 97608698 (5) DM2 (diabetes mellitus, type 2) ICD Codes: E11.9 - Type 2 diabetes mellitus without complications SNOMED: 82762052 (6) Symptomatic anemia ICD Codes: D64.9 - Anemia, unspecified SNOMED: 205761222 (7) Palpitations ICD Codes: R00.2 - Palpitations SNOMED: 26176319 (8) Anemia ICD Codes: D64.9 - Anemia, unspecified SNOMED: 871014440 (9) HLD (hyperlipidemia) ICD Codes: E78.5 - Hyperlipidemia, unspecified SNOMED: 64970308 (10) Elevated TSH ICD Codes: R79.89 - Other specified abnormal findings of blood chemistry SNOMED: 678890973 (11) COVID-19 ICD Codes: U07.1 - COVID-19 SNOMED: 995829572 Corbin Lee Oct 29, 2020 15:10
--- NOTE | 2020-10-29 15:34 | NUR ---
CASE MANAGEMENT: REVIEW 10/29/2020 SI: SYMPTOMATIC ANEMIA VS: T 97.5 HR 73 RR 20 B/P 120/69 SATS 99% ON RA LABS: WBC 4.2 GLU 116 IS: ANUSOL REC BID NORVASC PO QD INSULIN ASPART SUBQ AC/HS : TO MED/SURG DCP: FROM HOME
[2020-10-29 16:00] VITALS: BP 110/70
--- NOTE | 2020-10-29 19:21 | Internal Med Progress Note ---
Subjective Date of Service: Oct 29, 2020 Physician Name David Paulino Attending Physician Feng Feliciano MD Current Medications Medications (Trade) Dose Ordered Sig/Luz Maria Route PRN Reason Start Time Stop Time Status Last Admin Dose Admin Acetaminophen (Tylenol) 650 mg Q6H PRN ORAL Mild Pain (Pain Scale 1-3) 10/27/20 21:15 11/26/20 21:14 Acetaminophen (Tylenol) 650 mg Q6H PRN ORAL Temp >100.5 10/27/20 21:15 11/26/20 21:14 Acetaminophen/ Hydrocodone Bitart ([place] 5/325) 1 tab Q6H PRN ORAL For Pain 10/27/20 21:15 11/03/20 21:14 Amlodipine Besylate (Norvasc) 5 mg DAILY ORAL 10/28/20 09:00 11/27/20 08:59 10/29/20 09:46 Dextrose (Dextrose 50%) 25 ml Q30M PRN IV Hypoglycemia 10/27/20 21:15 01/25/21 21:14 Dextrose (Dextrose 50%) 50 ml Q30M PRN IV Hypoglycemia 10/27/20 21:15 01/25/21 21:14 Hydrocortisone (Anusol HC) 1 applic TWICE A DAY RECTAL 10/28/20 09:00 01/26/21 08:59 10/29/20 18:04 Insulin Aspart (NovoLOG) BEFORE MEALS AND HS SUBQ 10/28/20 06:30 01/26/21 06:29 10/28/20 21:24 Ondansetron HCl (Zofran) 4 mg Q6H PRN IVP Nausea & Vomiting 10/27/20 21:15 11/26/20 21:14 Allergies: Coded Allergies: MORPHINE (Verified Allergy, Unknown, 12/22/17) ROS Limited/Unobtainable: No Constitutional: Reports: no symptoms HEENT: Reports: no symptoms Cardiovascular: Reports: no symptoms Gastrointestinal/Abdominal: Reports: rectal bleeding Genitourinary: Reports: no symptoms Neurologic/Psychiatric: Reports: no symptoms Subjective 60 YO F admitted with rectal bleeding. Now severe anemia. Cover for Int Med-Dr Feliciano Objective Last Vital Signs Date Time Temp Pulse Resp B/P (MAP) Pulse Ox O2 Delivery O2 Flow Rate FiO2 10/29/20 16:00 97.8 87 18 110/70 (83) 100 10/29/20 09:00 Room Air Laboratory Tests Test 10/28/20 21:19 10/29/20 05:37 10/29/20 07:14 10/29/20 12:25 POC Whole Blood Glucose Pending 124 MG/DL (74-106) H 116 MG/DL (74-106) H White Blood Count 4.2 K/UL (4.8-10.8) L Red Blood Count 3.68 M/UL (4.20-5.40) L Hemoglobin 9.9 G/DL (12.0-16.0) L Hematocrit 31.5 % (37.0-47.0) L Mean Corpuscular Volume 86 FL (80-99) Mean Corpuscular Hemoglobin 26.9 PG (27.0-31.0) L Mean Corpuscular Hemoglobin Concent 31.4 G/DL (32.0-36.0) L Red Cell Distribution Width 16.5 % (11.6-14.8) H Platelet Count 179 K/UL (150-450) Mean Platelet Volume 8.8 FL (6.5-10.1) Neutrophils (%) (Auto) 44.0 % (45.0-75.0) L Lymphocytes (%) (Auto) 41.8 % (20.0-45.0) Monocytes (%) (Auto) 10.6 % (1.0-10.0) H Eosinophils (%) (Auto) 2.9 % (0.0-3.0) Basophils (%) (Auto) 0.7 % (0.0-2.0) Intake and Output 10/28/20 10/29/20 19:00 07:00 Intake Total 840 ml 720 ml Balance 840 ml 720 ml Intake Oral 840 ml 720 ml # Voids 3 6 # Bowel Movements 2 1 Objective Objective General: No acute distress, awake and alert HEENT: NCAT, sclera anicteric, PERRL, EOMI. Neck: Supple, no significant jugular venous distention, Lungs: Good inspiratory effort, no accessory muscle use, clear to auscultation bilaterally, no Wheeze or Rales. Heart: Regular rate and rhythm, normal S1/S2, no murmurs/gallops Abdomen: soft, nontender, nondistended. Normoactive bowel sounds. / Rectal: Refused and deferred. Extremities: No Cyanosis , clubbing or edema. Neuro: A&O x 3, Able to move all extremities Skin: warm, no rashes or lesions Psych: Normal mood and affect Assessment/Plan Assessment/Plan Assessment/Plan Assessment/Plan 1. Severe anemia, most likely secondary to rectal bleeding as a result of he morrhoidal bleed s/p Transfuse 2 units of packed RBC. 2. Diabetes type 2. 3. Hypertension. 4. Dyslipidemia. PLAN: In medical floor. Monitor laboratory closely. Discussed case with Dr. Lee from Surgery Dr. Marie from Gastroenterology. Code status is Full Code. DVT prophylaxis is SCD. Await flexible sigmoidoscopy and banding on Saturday, Oct 31, 2020 David Paulino MD Oct 29, 2020 19:21
--- NOTE | 2020-10-29 19:23 | NUR ---
NURSE NOTES: RECEIVED PATIENT LYING IN BED, AWAKE, ALERT/ORIENTED X3, VERBALLY RESPONSIVE, DENIES PAIN, IV INTACT TO RIGHT AC/GAUGE 20, NO REDNESS/SWELLING NOTED, SALINE LOCK. NO SIGNS AND SYMPTOMS OF ACUTE CARDIO RESPIRATORY DISTRESS/SHORTNESS OF BREATH, DENIES CHEST PAIN, NO EDEMA NOTED. PUI 2/6, ISOLATION PRECAUTIONS INITIATED. ABDOMEN SOFT/NON DISTENDED/NON TENDER, AUDIBLE BOWEL SOUNDS, PATIENT STATED THAT SHE HAD ONE BOWEL MOVEMENT TODAY, NO DIARRHEA. SIDE RAILS UP X2, BED IN LOWEST POSITION FOR SAFETY, ENCOURAGED PATIENT TO UTILIZE CALL LIGHT FOR ASSISTANCE, VERBALIZED UNDERSTANDING. CONTINUE WITH CURRENT PLAN OF CARE. NAD.
[2020-10-29 20:00] VITALS: BP 129/79
[2020-10-30] VITALS: BP 116/68
[2020-10-30 04:00] VITALS: BP 111/57
[2020-10-30] MEDS: NovoLOG Insulin Flexpen SUBQ SCH ×4 (05:56→20:50)
--- NOTE | 2020-10-30 06:26 | NUR ---
NURSE HAND-OFF: Important Events on Shift:[UNEVENTFUL NIGHT] Patient Status: [RESTED WELL, NAD] Diet: [CARDIAC, CCHO MEDIUM-NPO 10/31/20, START GOLYTELY 10/30 AND 1600, END 2200] Pending Orders: [AM LABS-NO BOWEL MOVEMENT THROUGHOUT THE NIGHT-OBTAIN CONSENT FOR FLEXIBLE SIGMOIDOSCOPY WITH POSSIBLE BIOPSY, HEMOSTASIS, POLYPECTOMY, AND BANDING OF HEMORRHOIDS] Pending Results/Labs:[AM LABS 10/30-10/31] Pending MD notification:[] Latest Vital Signs: Temperature 97.5 , Pulse 78 , B/P 111 /57 , Respiratory Rate 16 , O2 SAT 93 , Room Air, O2 Flow Rate . Vital Sign Comment: [STABLE, AFEBRILE] Latest Christensen Fall Score: 0 Fall Risk: Low Risk Safety Measures: Call light Within Reach, Bed Alarm Zone 1, Side Rails Side Rails x2, Bed position Low and Locked. Fall Precautions: Yellow Socks Yellow Gown Door Sign Patient Fall Education Report given to [DEBBIE PRASAD].
--- NOTE | 2020-10-30 07:45 | NUR ---
NURSE NOTES: RN received the report from Kasey and patient in bed. Patient is aaoX4, shows no s/s of respiratory distress on RA or pain. IV is patent, flushed, dry and intact on RAC. Bed in lowest position and locked. Call light within reach. Bed side commode in place. Care plan communicated. Will continue to monitor.
[2020-10-30 08:00] VITALS: BP 121/69
[2020-10-30 09:10] LABS: EOSINOPHILS % (AUTO) 2.9 % (0.0-3.0); HEMOGLOBIN 9.3 G/DL (12.0-16.0); LYMPHOCYTES % (AUTO) 32.2 % (20.0-45.0); MEAN CORPUSCULAR VOLUME 87 FL (80-99); MONOCYTES % (AUTO) 10.3 % (1.0-10.0); NEUTROPHILS % (AUTO) 53.5 % (45.0-75.0); PLATELET COUNT 190 K/UL (150-450); RED BLOOD COUNT 3.45 M/UL (4.20-5.40); RED CELL DISTRIBUTION WIDTH 17.1 % (11.6-14.8); WHITE BLOOD COUNT 4.7 K/UL (4.8-10.8)
[2020-10-30 09:36] LABS: ANION GAP 8 mmol/L (5-15); BLOOD UREA NITROGEN 20 mg/dL (7-18); CALCIUM 8.1 MG/DL (8.5-10.1); CARBON DIOXIDE 25 MMOL/L (21-32); CHLORIDE 106 MMOL/L (98-107); CREATININE 0.7 MG/DL (0.55-1.30); POTASSIUM 3.8 MMOL/L (3.5-5.1); SODIUM 139 MMOL/L (136-145)
[2020-10-30 12:00] VITALS: BP 127/76
--- NOTE | 2020-10-30 13:16 | Surgery Progress Note ---
Surgery Progress Note Subjective Additional Comments H&H stable. States she feels her still blood coming. As per GI possible scope with banding tomorrow Objective Last 24 Hour Vital Signs Date Time Temp Pulse Resp B/P (MAP) Pulse Ox O2 Delivery O2 Flow Rate FiO2 10/30/20 08:48 74 121/69 10/30/20 08:00 98.3 74 18 121/69 (86) 99 10/30/20 04:00 97.5 78 16 111/57 (75) 93 10/30/20 00:00 97.3 75 16 116/68 (84) 99 10/29/20 21:00 Room Air 10/29/20 20:00 98.2 82 19 129/79 (96) 98 10/29/20 16:00 97.8 87 18 110/70 (83) 100 I&O Intake and Output 10/29/20 10/30/20 19:00 07:00 Intake Total 780 ml Balance 780 ml Intake Oral 420 ml Other 360 ml # Voids 4 2 # Bowel Movements 1 Cardiovascular: RSR Respiratory: clear Abdomen: soft, flat, non-tender, present bowel sounds Extremities: no edema, no tenderness, no cyanosis Laboratory Tests Test 10/29/20 17:22 10/29/20 21:17 10/30/20 05:40 10/30/20 08:55 POC Whole Blood Glucose 144 MG/DL (74-106) H 199 MG/DL (74-106) H 129 MG/DL (74-106) H White Blood Count 4.7 K/UL (4.8-10.8) L Red Blood Count 3.45 M/UL (4.20-5.40) L Hemoglobin 9.3 G/DL (12.0-16.0) L Hematocrit 30.0 % (37.0-47.0) L Mean Corpuscular Volume 87 FL (80-99) Mean Corpuscular Hemoglobin 26.9 PG (27.0-31.0) L Mean Corpuscular Hemoglobin Concent 31.0 G/DL (32.0-36.0) L Red Cell Distribution Width 17.1 % (11.6-14.8) H Platelet Count 190 K/UL (150-450) Mean Platelet Volume 8.4 FL (6.5-10.1) Neutrophils (%) (Auto) 53.5 % (45.0-75.0) Lymphocytes (%) (Auto) 32.2 % (20.0-45.0) Monocytes (%) (Auto) 10.3 % (1.0-10.0) H Eosinophils (%) (Auto) 2.9 % (0.0-3.0) Basophils (%) (Auto) 1.0 % (0.0-2.0) Sodium Level 139 MMOL/L (136-145) Potassium Level 3.8 MMOL/L (3.5-5.1) Chloride Level 106 MMOL/L (98-107) Carbon Dioxide Level 25 MMOL/L (21-32) Anion Gap 8 mmol/L (5-15) Blood Urea Nitrogen 20 mg/dL (7-18) H Creatinine 0.7 MG/DL (0.55-1.30) Estimat Glomerular Filtration Rate > 60 mL/min (>60) Glucose Level 250 MG/DL (74-106) H Calcium Level 8.1 MG/DL (8.5-10.1) L Plan Problems: (1) Bleeding hemorrhoids (2) GERD (gastroesophageal reflux disease) (3) HTN (hypertension) (4) GIB (gastrointestinal bleeding) Assessment & Plan: 60-year-old female with GI bleed intermittent episodes of bleeding hemorrhoid. Recent colonoscopy by GI on last admission reviewed and discussed with case. Patient continues to have intermittent bleeding and now presents with anemia and intermittent bleeding and diarrhea. Case discussed with GI and plan for flex sig and hemorrhoidal banding soon. Agree with care plan. If worsening can consider surgical intervention but proceed with GI endoscopic first. Okay for diet. Trend H&H. Thank you will follow with recommendations. (5) DM2 (diabetes mellitus, type 2) (6) Symptomatic anemia (7) Palpitations (8) Anemia (9) HLD (hyperlipidemia) (10) Elevated TSH (11) COVID-19 Corbin Lee Oct 30, 2020 13:16
--- NOTE | 2020-10-30 15:32 | Internal Med Progress Note ---
Subjective Date of Service: Oct 30, 2020 Physician Name David Paulino Attending Physician Feng Feliciano MD Current Medications Medications (Trade) Dose Ordered Sig/Luz Maria Route PRN Reason Start Time Stop Time Status Last Admin Dose Admin Acetaminophen (Tylenol) 650 mg Q6H PRN ORAL Mild Pain (Pain Scale 1-3) 10/27/20 21:15 11/26/20 21:14 Acetaminophen (Tylenol) 650 mg Q6H PRN ORAL Temp >100.5 10/27/20 21:15 11/26/20 21:14 Acetaminophen/ Hydrocodone Bitart ([place] 5/325) 1 tab Q6H PRN ORAL For Pain 10/27/20 21:15 11/03/20 21:14 Amlodipine Besylate (Norvasc) 5 mg DAILY ORAL 10/28/20 09:00 11/27/20 08:59 10/30/20 08:48 Dextrose (Dextrose 50%) 25 ml Q30M PRN IV Hypoglycemia 10/27/20 21:15 01/25/21 21:14 Dextrose (Dextrose 50%) 50 ml Q30M PRN IV Hypoglycemia 10/27/20 21:15 01/25/21 21:14 Dextrose/ Electrolytes 1,000 ml @ 75 mls/hr [id number] IV 10/30/20 16:00 11/29/20 15:59 Hydrocortisone (Anusol HC) 1 applic TWICE A DAY RECTAL 10/28/20 09:00 01/26/21 08:59 10/30/20 08:51 Insulin Aspart (NovoLOG) BEFORE MEALS AND HS SUBQ 10/28/20 06:30 01/26/21 06:29 10/29/20 21:22 Ondansetron HCl (Zofran) 4 mg Q6H PRN IVP Nausea & Vomiting 10/27/20 21:15 11/26/20 21:14 Polyethylene Glycol/ Electrolytes (Golytely) 4,000 ml ONCE ORAL 10/30/20 16:00 10/30/20 22:00 Allergies: Coded Allergies: MORPHINE (Verified Allergy, Unknown, 12/22/17) ROS Limited/Unobtainable: Yes Subjective 60 YO F admitted with rectal bleeding. Now severe anemia. Cover for Int Elder-Dr Feliciano Objective Last Vital Signs Date Time Temp Pulse Resp B/P (MAP) Pulse Ox O2 Delivery O2 Flow Rate FiO2 2/7/21 12:00 98.0 82 18 127/76 (93) 98 10/30/20 09:00 Room Air Laboratory Tests Test 10/29/20 17:22 10/29/20 21:17 10/30/20 05:40 10/30/20 08:55 POC Whole Blood Glucose 144 MG/DL (74-106) H 199 MG/DL (74-106) H 129 MG/DL (74-106) H White Blood Count 4.7 K/UL (4.8-10.8) L Red Blood Count 3.45 M/UL (4.20-5.40) L Hemoglobin 9.3 G/DL (12.0-16.0) L Hematocrit 30.0 % (37.0-47.0) L Mean Corpuscular Volume 87 FL (80-99) Mean Corpuscular Hemoglobin 26.9 PG (27.0-31.0) L Mean Corpuscular Hemoglobin Concent 31.0 G/DL (32.0-36.0) L Red Cell Distribution Width 17.1 % (11.6-14.8) H Platelet Count 190 K/UL (150-450) Mean Platelet Volume 8.4 FL (6.5-10.1) Neutrophils (%) (Auto) 53.5 % (45.0-75.0) Lymphocytes (%) (Auto) 32.2 % (20.0-45.0) Monocytes (%) (Auto) 10.3 % (1.0-10.0) H Eosinophils (%) (Auto) 2.9 % (0.0-3.0) Basophils (%) (Auto) 1.0 % (0.0-2.0) Sodium Level 139 MMOL/L (136-145) Potassium Level 3.8 MMOL/L (3.5-5.1) Chloride Level 106 MMOL/L (98-107) Carbon Dioxide Level 25 MMOL/L (21-32) Anion Gap 8 mmol/L (5-15) Blood Urea Nitrogen 20 mg/dL (7-18) H Creatinine 0.7 MG/DL (0.55-1.30) Estimat Glomerular Filtration Rate > 60 mL/min (>60) Glucose Level 250 MG/DL (74-106) H Calcium Level 8.1 MG/DL (8.5-10.1) L Intake and Output 10/29/20 10/30/20 19:00 07:00 Intake Total 780 ml Balance 780 ml Intake Oral 420 ml Other 360 ml # Voids 4 2 # Bowel Movements 1 Objective Objective General: No acute distress, awake and alert HEENT: NCAT, sclera anicteric, PERRL, EOMI. Neck: Supple, no significant jugular venous distention, Lungs: Good inspiratory effort, no accessory muscle use, clear to auscultation bilaterally, no Wheeze or Rales. Heart: Regular rate and rhythm, normal S1/S2, no murmurs/gallops Abdomen: soft, nontender, nondistended. Normoactive bowel sounds. / Rectal: Refused and deferred. Extremities: No Cyanosis , clubbing or edema. Neuro: A&O x 3, Able to move all extremities Skin: warm, no rashes or lesions Psych: Normal mood and affect Assessment/Plan Assessment/Plan Assessment/Plan Assessment/Plan 1. Severe anemia, most likely secondary to rectal bleeding as a result of hemorrhoidal bleed s/p Transfuse 2 units of packed RBC. 2. Diabetes type 2. 3. Hypertension. 4. Dyslipidemia. PLAN: In medical floor. Monitor laboratory closely. Discussed case with Dr. Lee from Surgery Dr. Marie from Gastroenterology. Code status is Full Code. DVT prophylaxis is SCD. Await flexible sigmoidoscopy and banding on Saturday, Oct 31, 2020 David Paulino MD Oct 30, 2020 15:32
[2020-10-30 16:00] VITALS: BP 117/64
[2020-10-30] MEDS ORDERED: Golytely 4L ORAL SCH (16:00)
[2020-10-30] MEDS: D5 1/2NS w/KCl 20mEq 1,000 ML IV SCH (16:48)
--- NOTE | 2020-10-30 19:45 | NUR ---
NURSE HAND-OFF: Important Events on Shift:consent signed for procedures tomorrow Patient Status: stable Diet: NPO midnight Pending Orders: n/a Pending Results/Labs:n/a Pending MD notification:n/a Latest Vital Signs: Temperature 97.3 , Pulse 64 , B/P 117 /64 , Respiratory Rate 18 , O2 SAT 99 , Room Air, O2 Flow Rate . Vital Sign Comment: stab;e Latest Christensen Fall Score: 20 Fall Risk: Low Risk Safety Measures: Call light Within Reach, Bed Alarm Zone 1, Side Rails Side Rails x2, Bed position Low and Locked. Fall Precautions: Yellow Socks Yellow Gown Door Sign Patient Fall Education Report given to Kasey.
[2020-10-30 20:00] VITALS: BP 129/80
--- NOTE | 2020-10-30 20:05 | NUR ---
NURSE NOTES: RECEIVED PATIENT IN ROOM, AWAKE, ALERT/ORIENTED X4, SITTING AT SIDE OF BED, TOLERATING GOLYTELY, APPROXIMATELY 1 LITER LEFT TO CONSUME, PATIENT AWARE THAT SHE HAS UNTIL 2200 TO FINISH CONSUMPTION OF GOLYTELY. NO SIGNS AND SYMPTOMS OF ACUTE CARDIO RESPIRATORY DISTRESS/SHORTNESS OF BREATH, DENIES CHEST PAIN, NO PERIPHERAL EDEMA NOTED. IV INTACT TO RIGHT AC/GAUGE 20 IV FLUIDS INFUSING WELL, NO REDNESS/SWELLING NOTED TO SITE. ABDOMEN SOFT/NON DISTENDED/NON TENDER, BLOOD TINGED DIARRHEA, INSTRUCTED PATIENT NOT TO FLUSH AFTER ELIMINATING, VERBALIZED UNDERSTANDING. CONSENT SIGNED BY PATIENT BANDING OF HEMORRHOIDS/FLEXIBLE SIGMOIDOSCOPY WITH POSSIBLE BIOPSY, HEMOSTASIS, POLYPECTOMY. SIDE RAILS UP X2, BED IN LOWEST POSITION FOR SAFETY, ENCOURAGED PATIENT TO UTILIZE CALL LIGHT FOR ASSISTANCE, VERBALIZED UNDERSTANDING. CONTINUE WITH CURRENT PLAN OF CARE. NAD.
[2020-10-31] VITALS (9 sets, daily range): BP systolic 98–149; BP diastolic 58–92
[2020-10-31] MEDS: D5 1/2NS w/KCl 20mEq 1,000 ML IV SCH ×2 (05:30→18:44)
[2020-10-31] MEDS: NovoLOG Insulin Flexpen SUBQ SCH ×4 (06:08→20:39)
--- NOTE | 2020-10-31 06:27 | Pre-Procedure Note/Attestation ---
Pre-Procedure Note/Attestation Complete Prior to Procedure Procedure Narrative: flex sig and banding Indications for Procedure Pre-Operative Diagnosis: rectal bleed Attestation I attest that I discussed the nature of the procedure; its benefits; risks and complications; and alternatives (and the risks and benefits of such alternatives), prior to the procedure, with the patient (or the patient's legal cash applications representative). I attest that, if there was a reasonable possibility of needing a blood transfusion, the patient (or the patient's legal cash applications representative) was given the [facility] standardized written summary, pursuant to the [place] Blood Safety Act ([place] Health and Safety Code # 1645, as amended). I attest that I re-evaluated the patient just prior to the surgery and that there has been no change in the patient's H&P, except as documented below: Andre Marie MD Oct 31, 2020 06:27
--- NOTE | 2020-10-31 07:34 | NUR ---
NURSE NOTES: Received report from Haley Alston LVN. Patient laying down in bed, laying on right side, awake and alert, bed in lowest position, wheels locked, side rails up x 3, call light within reach, in no apparent distress.
[2020-10-31] MEDS ORDERED: fentaNYL 100 mcg/2 mL IV ONE (08:10)
[2020-10-31] MEDS ORDERED: Midazolam 2mg/2ml Inj ONE (08:10)
[2020-10-31] MEDS ORDERED: NS 500ML IVPB ONE (08:25)
--- NOTE | 2020-10-31 08:53 | Anethesia Preoperative Eval ---
Anesthesia Pre-op PMH/ROS General Date of Evaluation: Oct 31, 2020 Time of Evaluation: 08:20 Anesthesiologist: Pat ASA Score: ASA 3 Mallampati Score Class I : Soft palate, uvula, fauces, pillars visible Class II: Soft palate, uvula, fauces visible Class III: Soft palate, base of uvula visible Class IV: Only hard plate visible Mallampati Classification: Class II Surgeon: Cynthia Diagnosis: Rectal bleed Surgical Procedure: Sigmoidoscopy Anesthesia History: none Family History: no anesthesia problems Allergies: Coded Allergies: MORPHINE (Verified Allergy, Unknown, 12/22/17) Medications: see eMAR Patient NPO?: Yes Past Medical History Cardiovascular: Reports: HTN; Denies: CAD, MD, valve dz, arrhythmia, other Pulmonary: Denies: asthma, COPD, CHRISTOS, other Gastrointestinal/Genitourinary: Reports: GERD, other - bleeding hemorrhoids; Denies: CRI, ESRD Neurologic/Psychiatric: Reports: depression/anxiety; Denies: dementia, CVA, TIA, other Endocrine: Reports: DM; Denies: hypothyroidism, steroids, other HEENT: Denies: cataract (L), cataract (R), glaucoma, [place] (L), [place] (R), other Hematology/Immune: Reports: anemia; Denies: DVT, bleeding disorder, other Musculoskeletal/Integumentary: Reports: OA; Denies: RA, DJD, DDD, edema, other PMH Narrative: as above PSxH Narrative: See chart Anesthesia Pre-op Phys. Exam Physician Exam Last Vital Signs Date Time Temp Pulse Resp B/P (MAP) Pulse Ox O2 Delivery O2 Flow Rate FiO2 10/31/20 04:00 97.8 69 18 117/66 (83) 96 10/30/20 21:00 Room Air Constitutional: NAD Neurologic: CN 2-12 intact Cardiovascular: RRR, no M/R/G Respiratory: CTA Gastrointestinal: S/NT/ND Airway Exam Mallampati Score: Class II MO: limited Neck: stiff ROM: limited Teeth: missing Dentures: no upper, no lower Anesthesia Pre-op A/P Labs Hematology Test 10/30/20 08:55 White Blood Count 4.7 K/UL (4.8-10.8) L Red Blood Count 3.45 M/UL (4.20-5.40) L Hemoglobin 9.3 G/DL (12.0-16.0) L Hematocrit 30.0 % (37.0-47.0) L Mean Corpuscular Volume 87 FL (80-99) Mean Corpuscular Hemoglobin 26.9 PG (27.0-31.0) L Mean Corpuscular Hemoglobin Concent 31.0 G/DL (32.0-36.0) L Red Cell Distribution Width 17.1 % (11.6-14.8) H Platelet Count 190 K/UL (150-450) Mean Platelet Volume 8.4 FL (6.5-10.1) Neutrophils (%) (Auto) 53.5 % (45.0-75.0) Lymphocytes (%) (Auto) 32.2 % (20.0-45.0) Monocytes (%) (Auto) 10.3 % (1.0-10.0) H Eosinophils (%) (Auto) 2.9 % (0.0-3.0) Basophils (%) (Auto) 1.0 % (0.0-2.0) Chemistry Test 10/30/20 08:55 10/30/20 11:50 10/30/20 16:23 10/30/20 20:47 Sodium Level 139 MMOL/L (136-145) Potassium Level 3.8 MMOL/L (3.5-5.1) Chloride Level 106 MMOL/L (98-107) Carbon Dioxide Level 25 MMOL/L (21-32) Anion Gap 8 mmol/L (5-15) Blood Urea Nitrogen 20 mg/dL (7-18) H Creatinine 0.7 MG/DL (0.55-1.30) Estimat Glomerular Filtration Rate > 60 mL/min (>60) Glucose Level 250 MG/DL (74-106) H Calcium Level 8.1 MG/DL (8.5-10.1) L POC Whole Blood Glucose 101 MG/DL (74-106) 162 MG/DL (74-106) H Pending Test 10/31/20 05:28 POC Whole Blood Glucose 125 MG/DL (74-106) H Risk Assessment & Plan Assessment: ASA 3 Plan: Jet Harris MD Oct 31, 2020 08:53
--- NOTE | 2020-10-31 08:54 | Immediate Post-Op Evaluation ---
Immediate Post-Op Evalulation Immediate Post-Op Evalulation Procedure: Sigmoidoscopy with hemorrhoids banding Date of Evaluation: Oct 31, 2020 Time of Evaluation: 08:53 IV Fluids: 200 Blood Products: none Estimated Blood Loss: min Urinary Output: none Blood Pressure Systolic: 116 Blood Pressure Diastolic: 72 Pulse Rate: 68 Respiratory Rate: 18 O2 Sat by Pulse Oximetry: 99 Temperature (Fahrenheit): 97.6 Pain Score (1-10): 1 Nausea: No Vomiting: No Patient Status: reacts, patent, none Hydration Status: adequate Jet Stewart MD Oct 31, 2020 08:54
--- NOTE | 2020-10-31 08:58 | Endoscopy Procedure Note ---
Endoscopy Procedure Note General Indication for Procedure: rectal bleed Procedures Performed: flexible sigmoidoscopy Operative Findings/Diagnosis: hemorrhoids Specimen: yes Pt Tolerated Procedure Well: Yes Estimated Blood Loss: none Anesthesia Anesthesiologist: alejo Anesthesia: MAC Inserted Devices Implant(s) used?: No GI Core Measures 50 yrs or older w/o bx or poly: Not Applicable 10yrs. F/U recommended: Not Applicable Andre Marie MD Oct 31, 2020 08:58
[2020-10-31 09:10] LABS: BASOPHILS % (AUTO) 1.5 % (0.0-2.0); EOSINOPHILS % (AUTO) 2.8 % (0.0-3.0); HEMATOCRIT 27.3 % (37.0-47.0); HEMOGLOBIN 8.6 G/DL (12.0-16.0); LYMPHOCYTES % (AUTO) 38.4 % (20.0-45.0); MEAN CORPUSCULAR VOLUME 86 FL (80-99); MONOCYTES % (AUTO) 8.3 % (1.0-10.0); PLATELET COUNT 184 K/UL (150-450); RED BLOOD COUNT 3.19 M/UL (4.20-5.40); RED CELL DISTRIBUTION WIDTH 16.4 % (11.6-14.8); WHITE BLOOD COUNT 3.7 K/UL (4.8-10.8)
--- NOTE | 2020-10-31 09:14 | Procedure Note ---
DATE OF PROCEDURE: 10/31/2020 SURGEON: Andre Marie MD PROCEDURE: Flexible sigmoidoscopy with banding of the hemorrhoids. ANESTHESIA: Per Dr. Stewart. INSTRUMENT: Olympus adult flexible upper endoscope. INDICATION: Hemorrhoidal bleeding, not responding to medication including suppositories, sitz baths, and recurrent admission for GI bleeding REASON FOR PROCEDURE: The procedure, risks, benefits, and possible consequences, including hemorrhage, aspiration, perforation and infection, and alternative treatments, were explained to the patient/legal guardian by Dr. Andre Marie and the patient/legal guardian understood and accepted these risks. DESCRIPTION OF PROCEDURE: After informed consent was obtained and patient was adequately sedated, first rectal exam was performed, which was positive for internal hemorrhoids. Then, the scope was advanced from the rectum into the sigmoid colon. Quality of prep was good. The patient had large bleeding internal hemorrhoids. Using a banding device, three bands were placed on this largest hemorrhoids in the rectum. The patient tolerated the procedure very well without any complications. SUMMARY OF FINDINGS: Large internal hemorrhoids, actively bleeding, status post banding x3. RECOMMENDATIONS: 1. Start diet. 2. Bowel regimen. 3. Monitor labs. 4. Pain control. 5. Discharge planning per primary team. Andre Marie M.D. DR: Lisa JOB#: [id number] CC:
[2020-10-31] MEDS ORDERED: Morphine Sulfate 2mg/ml Inj(IV/IM USE ONLY) IVP PRN (09:15)
[2020-10-31 09:30] LABS: ANION GAP 8 mmol/L (5-15); BLOOD UREA NITROGEN 12 mg/dL (7-18); CARBON DIOXIDE 26 MMOL/L (21-32); CHLORIDE 109 MMOL/L (98-107); CREATININE 0.6 MG/DL (0.55-1.30); POTASSIUM 3.6 MMOL/L (3.5-5.1); SODIUM 143 MMOL/L (136-145)
[2020-10-31] MEDS ORDERED: DiphenhydrAMINE 50mg/ml Inj IVP PRN (09:45)
[2020-10-31] MEDS: Hydromorphone 0.5mg/0.5ml inj IVP PRN ×3 (11:22→23:54)
--- NOTE | 2020-10-31 11:25 | 48 Hour Post Anesthesia Eval ---
Post Anesthesia Evaluation Procedure: Sigmoidoscopy with hemorrhoids banding Date of Evaluation: Oct 31, 2020 Time of Evaluation: 11:23 Blood Pressure Systolic: 124 0: 72 Pulse Rate: 72 Respiratory Rate: 20 Temperature (Fahrenheit): 97.6 O2 Sat by Pulse Oximetry: 98 Airway: patent Nausea: No Vomiting: No Pain Intensity: 3 Hydration Status: adequate Cardiopulmonary Status: stable Mental Status/LOC: patient returned to baseline Follow-up Care/Observations: n/a Post-Anesthesia Complications: none Follow-up care needed: N/A Jet Stewart MD Oct 31, 2020 11:25
--- NOTE | 2020-10-31 12:05 | NUR ---
CASE MANAGEMENT:REVIEW 10/31/20 SI: SYMPTOMATIC ANEMIA SIGMOIDOSCOPY(+) ACTIVELY BLEEDING HEMORRHOIDS ~ BANDED 97.7 67 18 123/63 99% ON RA H/H-8.6/27.3 IS: IVF@75/HR ANUSOL [place] BID NORVASC PO QD IV DILAUDID Q4HRS PRN : TO MED/SURG DCP; FROM HOME PLAN: ANUSOL SITZ BATHS PAIN MGMT START REGULAR DIET
--- NOTE | 2020-10-31 18:02 | Surgery Progress Note ---
Surgery Progress Note Subjective Additional Comments feels some perianal pain no n/v no diarrhea no bleeding scope results noted Objective Last 24 Hour Vital Signs Date Time Temp Pulse Resp B/P (MAP) Pulse Ox O2 Delivery O2 Flow Rate FiO2 10/31/20 16:54 97.7 10/31/20 16:00 98.9 75 18 134/72 (92) 97 10/31/20 12:00 97.7 89 18 140/67 (91) 98 10/31/20 11:52 97.7 10/31/20 11:25 72 20 98 10/31/20 10:20 97.6 10/31/20 09:32 67 123/63 10/31/20 09:00 Room Air 10/31/20 08:55 70 16 149/92 100 Room Air 10/31/20 08:54 68 18 99 10/31/20 08:50 70 16 128/80 100 Nasal Cannula 2 10/31/20 08:45 97.1 65 16 98/66 100 Nasal Cannula 4 10/31/20 08:00 97.7 67 18 123/63 (83) 99 10/31/20 04:00 97.8 69 18 117/66 (83) 96 10/31/20 00:00 96.9 64 16 113/65 (81) 94 10/30/20 21:00 Room Air 10/30/20 20:00 97.6 76 18 129/80 (96) 98 I&O Intake and Output 10/30/20 10/31/20 19:00 07:00 Intake Total 150 ml 4750 ml Balance 150 ml 4750 ml Intake Oral 4000 ml IV Total 150 ml 750 ml # Voids 4 3 # Bowel Movements 3 Cardiovascular: RSR Respiratory: clear Abdomen: soft, flat, non-tender, present bowel sounds Extremities: no edema, no tenderness, no cyanosis Laboratory Tests Test 10/30/20 20:47 10/31/20 05:28 10/31/20 08:50 10/31/20 11:17 POC Whole Blood Glucose Pending 125 MG/DL (74-106) H 179 MG/DL (74-106) H White Blood Count 3.7 K/UL (4.8-10.8) L Red Blood Count 3.19 M/UL (4.20-5.40) L Hemoglobin 8.6 G/DL (12.0-16.0) L Hematocrit 27.3 % (37.0-47.0) L Mean Corpuscular Volume 86 FL (80-99) Mean Corpuscular Hemoglobin 27.1 PG (27.0-31.0) Mean Corpuscular Hemoglobin Concent 31.7 G/DL (32.0-36.0) L Red Cell Distribution Width 16.4 % (11.6-14.8) H Platelet Count 184 K/UL (150-450) Mean Platelet Volume 8.9 FL (6.5-10.1) Neutrophils (%) (Auto) 49.0 % (45.0-75.0) Lymphocytes (%) (Auto) 38.4 % (20.0-45.0) Monocytes (%) (Auto) 8.3 % (1.0-10.0) Eosinophils (%) (Auto) 2.8 % (0.0-3.0) Basophils (%) (Auto) 1.5 % (0.0-2.0) Sodium Level 143 MMOL/L (136-145) Potassium Level 3.6 MMOL/L (3.5-5.1) Chloride Level 109 MMOL/L (98-107) H Carbon Dioxide Level 26 MMOL/L (21-32) Anion Gap 8 mmol/L (5-15) Blood Urea Nitrogen 12 mg/dL (7-18) Creatinine 0.6 MG/DL (0.55-1.30) Estimat Glomerular Filtration Rate > 60 mL/min (>60) Glucose Level 137 MG/DL (74-106) #H Calcium Level 8.0 MG/DL (8.5-10.1) L Test 10/31/20 16:22 POC Whole Blood Glucose 112 MG/DL (74-106) H Plan Problems: (1) Bleeding hemorrhoids Assessment & Plan: The patient had large bleeding internal hemorrhoids. Using a banding device, three bands were placed on this largest hemorrhoids in the rectum. The patient tolerated the procedure very well without any complications. (2) GERD (gastroesophageal reflux disease) (3) HTN (hypertension) (4) GIB (gastrointestinal bleeding) Assessment & Plan: 60-year-old female with GI bleed intermittent episodes of bleeding hemorrhoid. Recent colonoscopy by GI on last admission reviewed and discussed with case. Patient continues to have intermittent bleeding and now presents with anemia and intermittent bleeding and diarrhea. Case discussed with GI and plan for flex sig and hemorrhoidal banding soon. Agree with care plan. If worsening can consider surgical intervention but proceed with GI endoscopic first. Okay for diet. Trend H&H. Thank you will follow with recommendations. (5) DM2 (diabetes mellitus, type 2) (6) Symptomatic anemia (7) Palpitations (8) Anemia (9) HLD (hyperlipidemia) (10) Elevated TSH (11) COVID-19 Corbin Lee Oct 31, 2020 18:02
--- NOTE | 2020-10-31 18:51 | Internal Med Progress Note ---
Subjective Date of Service: Oct 31, 2020 Physician Name PaulinoDavid Attending Physician Feng Feliciano MD Current Medications Medications (Trade) Dose Ordered Sig/Luz Maria Route PRN Reason Start Time Stop Time Status Last Admin Dose Admin Acetaminophen (Tylenol) 650 mg Q6H PRN ORAL Mild Pain (Pain Scale 1-3) 10/27/20 21:15 11/26/20 21:14 Acetaminophen (Tylenol) 650 mg Q6H PRN ORAL Temp >100.5 10/27/20 21:15 11/26/20 21:14 Acetaminophen/ Hydrocodone Bitart ([place] 5/325) 1 tab Q6H PRN ORAL For Pain 10/27/20 21:15 11/03/20 21:14 Amlodipine Besylate (Norvasc) 5 mg DAILY ORAL 10/28/20 09:00 11/27/20 08:59 10/31/20 09:32 Dextrose (Dextrose 50%) 25 ml Q30M PRN IV Hypoglycemia 10/27/20 21:15 01/25/21 21:14 Dextrose (Dextrose 50%) 50 ml Q30M PRN IV Hypoglycemia 10/27/20 21:15 01/25/21 21:14 Dextrose/ Electrolytes 1,000 ml @ 75 mls/hr [id number] IV 10/30/20 16:00 11/29/20 15:59 10/31/20 18:44 Diphenhydramine HCl (Benadryl) 25 mg Q6H PRN IVP Itching 10/31/20 09:45 11/30/20 09:44 10/31/20 09:48 Hydrocortisone (Anusol HC) 1 applic TWICE A DAY RECTAL 10/28/20 09:00 01/26/21 08:59 10/30/20 17:24 Hydromorphone HCl (Dilaudid) 0.5 mg Q4H PRN IVP For Pain 10/31/20 11:15 11/07/20 11:14 10/31/20 16:24 Insulin Aspart (NovoLOG) BEFORE MEALS AND HS SUBQ 10/28/20 06:30 01/26/21 06:29 10/31/20 12:53 Ondansetron HCl (Zofran) 4 mg Q6H PRN IVP Nausea & Vomiting 10/27/20 21:15 11/26/20 21:14 Allergies: Coded Allergies: MORPHINE (Verified Allergy, Unknown, 12/22/17) ROS Limited/Unobtainable: No Constitutional: Reports: no symptoms HEENT: Reports: no symptoms Cardiovascular: Reports: no symptoms Respiratory: Reports: no symptoms Gastrointestinal/Abdominal: Reports: no symptoms Genitourinary: Reports: no symptoms Subjective 60 YO F admitted with rectal bleeding. Now severe anemia. Cover for Int Elder-Dr Feliciano. S/P flexible sigmoidoscopy with banding of hemorrhoids 10/31/20 Objective Last Vital Signs Date Time Temp Pulse Resp B/P (MAP) Pulse Ox O2 Delivery O2 Flow Rate FiO2 10/31/20 16:54 97.7 10/31/20 16:00 75 18 134/72 (92) 97 10/31/20 09:00 Room Air 10/31/20 08:50 2 Laboratory Tests Test 10/30/20 20:47 10/31/20 05:28 10/31/20 08:50 10/31/20 11:17 POC Whole Blood Glucose Pending 125 MG/DL (74-106) H 179 MG/DL (74-106) H White Blood Count 3.7 K/UL (4.8-10.8) L Red Blood Count 3.19 M/UL (4.20-5.40) L Hemoglobin 8.6 G/DL (12.0-16.0) L Hematocrit 27.3 % (37.0-47.0) L Mean Corpuscular Volume 86 FL (80-99) Mean Corpuscular Hemoglobin 27.1 PG (27.0-31.0) Mean Corpuscular Hemoglobin Concent 31.7 G/DL (32.0-36.0) L Red Cell Distribution Width 16.4 % (11.6-14.8) H Platelet Count 184 K/UL (150-450) Mean Platelet Volume 8.9 FL (6.5-10.1) Neutrophils (%) (Auto) 49.0 % (45.0-75.0) Lymphocytes (%) (Auto) 38.4 % (20.0-45.0) Monocytes (%) (Auto) 8.3 % (1.0-10.0) Eosinophils (%) (Auto) 2.8 % (0.0-3.0) Basophils (%) (Auto) 1.5 % (0.0-2.0) Sodium Level 143 MMOL/L (136-145) Potassium Level 3.6 MMOL/L (3.5-5.1) Chloride Level 109 MMOL/L (98-107) H Carbon Dioxide Level 26 MMOL/L (21-32) Anion Gap 8 mmol/L (5-15) Blood Urea Nitrogen 12 mg/dL (7-18) Creatinine 0.6 MG/DL (0.55-1.30) Estimat Glomerular Filtration Rate > 60 mL/min (>60) Glucose Level 137 MG/DL (74-106) #H Calcium Level 8.0 MG/DL (8.5-10.1) L Test 10/31/20 16:22 POC Whole Blood Glucose 112 MG/DL (74-106) H Intake and Output 10/30/20 10/31/20 19:00 07:00 Intake Total 150 ml 4750 ml Balance 150 ml 4750 ml Intake Oral 4000 ml IV Total 150 ml 750 ml # Voids 4 3 # Bowel Movements 3 Objective Objective General: No acute distress, awake and alert HEENT: NCAT, sclera anicteric, PERRL, EOMI. Neck: Supple, no significant jugular venous distention, Lungs: Good inspiratory effort, no accessory muscle use, clear to auscultation bilaterally, no Wheeze or Rales. Heart: Regular rate and rhythm, normal S1/S2, no murmurs/gallops Abdomen: soft, nontender, nondistended. Normoactive bowel sounds. / Rectal: Refused and deferred. Extremities: No Cyanosis , clubbing or edema. Neuro: A&O x 3, Able to move all extremities Skin: warm, no rashes or lesions Psych: Normal mood and affect Assessment/Plan Assessment/Plan Assessment/Plan Assessment/Plan 1. Severe anemia, most likely secondary to rectal bleeding as a result of hemorrhoidal bleed s/p Transfuse 2 units of packed RBC. 2. Diabetes type 2. 3. Hypertension. 4. Dyslipidemia. PLAN: In medical floor. Monitor laboratory closely. Discussed case with Dr. Lee from Surgery Dr. Marie from Gastroenterology. Code status is Full Code. DVT prophylaxis is SCD. S/P flexible sigmoidoscopy and banding on Saturday, Oct 31, 2020 David Paulino MD Oct 31, 2020 18:51
--- NOTE | 2020-10-31 19:28 | NUR ---
NURSE HAND-OFF: Important Events on Shift: Patient had banding of three hemorroids. Pain treated with morphine, reassessed and pain level 8/10. Pain medication changed to Dilaudid and successful pain reduction. Patient Status: In no apparent distress. Diet: Regular diet. Pending Orders: am labs. Pending Results/Labs:am labs. Pending MD notification:N/A Latest Vital Signs: Temperature 97.7 , Pulse 75 , B/P 134 /72 , Respiratory Rate 18 , O2 SAT 97 , Room Air, O2 Flow Rate 2 . Vital Sign Comment: N/A Latest Christensen Fall Score: 20 Fall Risk: Low Risk Safety Measures: Call light Within Reach, Bed Alarm Zone 1, Side Rails Side Rails x2, Bed position Low and Locked. Fall Precautions: Yellow Socks Yellow Gown Door Sign Patient Fall Education Report given to Jai Page RN.
--- NOTE | 2020-10-31 20:13 | NUR ---
NURSE NOTES: Patient in bed, awake, alert and verbally responsive. Able to make needs known. Respiration is even and unlabored. no complaint of pain or discomfort noted. Skin is warm and dry to touch. Abdomen is soft and non distended. Kept clean and comfortable. iv site noted, iv fluid is infusing as ordered. Bed in low and locked position, provided safe environment. Call light is at bedside. Will continue plan of care.
[2020-11-01] VITALS: BP 119/66
[2020-11-01 04:00] VITALS: BP 117/85
[2020-11-01] MEDS: NovoLOG Insulin Flexpen SUBQ SCH ×4 (06:12→20:28)
[2020-11-01 06:40] LABS: BASOPHILS % (AUTO) 0.8 % (0.0-2.0); EOSINOPHILS % (AUTO) 1.5 % (0.0-3.0); HEMATOCRIT 25.7 % (37.0-47.0); HEMOGLOBIN 8.5 G/DL (12.0-16.0); LYMPHOCYTES % (AUTO) 24.5 % (20.0-45.0); MEAN CORPUSCULAR VOLUME 85 FL (80-99); MONOCYTES % (AUTO) 8.5 % (1.0-10.0); NEUTROPHILS % (AUTO) 64.6 % (45.0-75.0); PLATELET COUNT 181 K/UL (150-450); RED BLOOD COUNT 3.02 M/UL (4.20-5.40); RED CELL DISTRIBUTION WIDTH 16.9 % (11.6-14.8); WHITE BLOOD COUNT 6.3 K/UL (4.8-10.8)
--- NOTE | 2020-11-01 07:08 | NUR ---
NURSE HAND-OFF: Important Events on Shift:WNL Patient Status: WNL Diet: REG Pending Orders: Pending Results/Labs: Pending MD notification: Latest Vital Signs: Temperature 97.9 , Pulse 76 , B/P 117 /85 , Respiratory Rate 16 , O2 SAT 98 , Room Air, O2 Flow Rate 2 . Vital Sign Comment: WNL Latest Christensen Fall Score: 20 Fall Risk: Low Risk Safety Measures: Call light Within Reach, Bed Alarm Zone 1, Side Rails Side Rails x2, Bed position Low and Locked. Fall Precautions: Yellow Socks Yellow Gown Door Sign Patient Fall Education Report given to DEBBIE Mccoy.
[2020-11-01 07:15] LABS: ANION GAP 7 mmol/L (5-15); BLOOD UREA NITROGEN 9 mg/dL (7-18); CALCIUM 8.4 MG/DL (8.5-10.1); CARBON DIOXIDE 26 MMOL/L (21-32); CHLORIDE 108 MMOL/L (98-107); CREATININE 0.6 MG/DL (0.55-1.30); POTASSIUM 3.7 MMOL/L (3.5-5.1); SODIUM 141 MMOL/L (136-145)
--- NOTE | 2020-11-01 07:45 | NUR ---
NURSE NOTES: Received report from DEBBIE Vergara. Patient in bed, awake, alert and verbally responsive. Able to make needs known. Breathing even and unlabored on RA. no complaint of pain or discomfort at this time. IV intact and patent infusing as ordered. Bed in low and locked position. Call light is at bedside. Will continue plan of care.
[2020-11-01 08:00] VITALS: BP 141/70
--- NOTE | 2020-11-01 08:52 | General Progress Note ---
Subjective ROS Limited/Unobtainable: No Allergies: Coded Allergies: MORPHINE (Verified Allergy, Unknown, 12/22/17) Objective Last 24 Hour Vital Signs Date Time Temp Pulse Resp B/P (MAP) Pulse Ox O2 Delivery O2 Flow Rate FiO2 11/01/20 04:00 97.9 76 16 117/85 (96) 98 11/01/20 00:00 98.1 87 16 119/66 (83) 98 10/31/20 21:37 Room Air 10/31/20 20:00 98.1 80 18 115/58 (77) 98 10/31/20 16:54 97.7 10/31/20 16:00 98.9 75 18 134/72 (92) 97 10/31/20 12:00 97.7 89 18 140/67 (91) 98 10/31/20 11:52 97.7 10/31/20 11:25 72 20 98 10/31/20 10:20 97.6 10/31/20 09:32 67 123/63 10/31/20 09:00 Room Air 10/31/20 08:55 70 16 149/92 100 Room Air 10/31/20 08:54 68 18 99 Intake and Output 10/31/20 11/01/20 19:00 07:00 Intake Total 825 ml 1200 ml Balance 825 ml 1200 ml Intake Oral 1200 ml IV Total 825 ml # Voids 10 # Bowel Movements 1 Laboratory Tests 10/31/20 11:17: POC Whole Blood Glucose 179H 10/31/20 16:22: POC Whole Blood Glucose 112H 11/01/20 05:00: White Blood Count 6.3#, Red Blood Count 3.02L, Hemoglobin 8.5L, Hematocrit 25.7L , Mean Corpuscular Volume 85, Mean Corpuscular Hemoglobin 28.0, Mean Corpuscular Hemoglobin Concent 32.9, Red Cell Distribution Width 16.9H, Platelet Count 181, Mean Platelet Volume 8.6, Neutrophils (%) (Auto) 64.6, Lymphocytes (%) (Auto) 24.5, Monocytes (%) (Auto) 8.5, Eosinophils (%) (Auto) 1.5, Basophils (%) (Auto) 0.8, Sodium Level 141, Potassium Level 3.7, Chloride Level 108H, Carbon Dioxide Level 26, Anion Gap 7, Blood Urea Nitrogen 9, Creatinine 0.6, Estimat Glomerular Filtration Rate > 60, Glucose Level 121H, Calcium Level 8.4L Height (Feet): 4 Height (Inches): 11.00 Weight (Pounds): 136 General Appearance: no apparent distress EENT: normal ENT inspection Neck: supple Cardiovascular: normal rate Respiratory/Chest: decreased breath sounds Abdomen: normal bowel sounds, non tender, soft Extremities: non-tender Assessment/Plan Problem List: (1) Symptomatic anemia ICD Codes: D64.9 - Anemia, unspecified SNOMED: 882875369 (2) Bleeding hemorrhoids ICD Codes: K64.9 - Unspecified hemorrhoids SNOMED: 95628289 (3) GIB (gastrointestinal bleeding) ICD Codes: K92.2 - Gastrointestinal hemorrhage, unspecified SNOMED: 82160030 (4) DM2 (diabetes mellitus, type 2) ICD Codes: E11.9 - Type 2 diabetes mellitus without complications SNOMED: 41654232 (5) HTN (hypertension) ICD Codes: I10 - Essential (primary) hypertension SNOMED: 32737842 (6) GERD (gastroesophageal reflux disease) ICD Codes: K21.9 - Gastro-esophageal reflux disease without esophagitis SNOMED: 509977262 Assessment/Plan: s/p flex sig and banding pain control' bowel regimen ok for dc Andre Marie MD Nov 01, 2020 08:52
[2020-11-01] MEDS: D5 1/2NS w/KCl 20mEq 1,000 ML IV SCH ×2 (09:01→20:27)
--- NOTE | 2020-11-01 10:04 | NUR ---
ASE MANAGEMENT:REVIEW 11/01/20 SI: SYMPTOMATIC ANEMIA SIGMOIDOSCOPY(+) ACTIVELY BLEEDING HEMORRHOIDS ~ BANDED 97.9 79 20 141/70 100% ON RA H/H-8.5/25.7 IS: IVF@75/HR ANUSOL IL BID NORVASC PO QD IV DILAUDID Q4HRS PRN : TO MED/SURG DCP; FROM HOME PLAN:
--- NOTE | 2020-11-01 11:48 | Surgery Progress Note ---
Surgery Progress Note Subjective Symptoms: improved, tolerating diet, voiding well, passing flatus, pain decreased Objective Last 24 Hour Vital Signs Date Time Temp Pulse Resp B/P (MAP) Pulse Ox O2 Delivery O2 Flow Rate FiO2 11/01/20 09:41 97.9 11/01/20 09:02 76 141/70 11/01/20 09:00 Room Air 11/01/20 08:00 97.9 79 20 141/70 (93) 100 11/01/20 04:00 97.9 76 16 117/85 (96) 98 11/01/20 00:00 98.1 87 16 119/66 (83) 98 10/31/20 21:37 Room Air 10/31/20 20:00 98.1 80 18 115/58 (77) 98 10/31/20 16:54 97.7 10/31/20 16:00 98.9 75 18 134/72 (92) 97 10/31/20 12:00 97.7 89 18 140/67 (91) 98 10/31/20 11:52 97.7 I&O Intake and Output 10/31/20 11/01/20 19:00 07:00 Intake Total 825 ml 1200 ml Balance 825 ml 1200 ml Intake Oral 1200 ml IV Total 825 ml # Voids 10 # Bowel Movements 1 Cardiovascular: RSR Respiratory: clear Abdomen: soft, non-tender, present bowel sounds, non-distended Extremities: no edema, no tenderness, no cyanosis Laboratory Tests Test 10/31/20 16:22 11/01/20 05:00 POC Whole Blood Glucose 112 MG/DL (74-106) H White Blood Count 6.3 K/UL (4.8-10.8) # Red Blood Count 3.02 M/UL (4.20-5.40) L Hemoglobin 8.5 G/DL (12.0-16.0) L Hematocrit 25.7 % (37.0-47.0) L Mean Corpuscular Volume 85 FL (80-99) Mean Corpuscular Hemoglobin 28.0 PG (27.0-31.0) Mean Corpuscular Hemoglobin Concent 32.9 G/DL (32.0-36.0) Red Cell Distribution Width 16.9 % (11.6-14.8) H Platelet Count 181 K/UL (150-450) Mean Platelet Volume 8.6 FL (6.5-10.1) Neutrophils (%) (Auto) 64.6 % (45.0-75.0) Lymphocytes (%) (Auto) 24.5 % (20.0-45.0) Monocytes (%) (Auto) 8.5 % (1.0-10.0) Eosinophils (%) (Auto) 1.5 % (0.0-3.0) Basophils (%) (Auto) 0.8 % (0.0-2.0) Sodium Level 141 MMOL/L (136-145) Potassium Level 3.7 MMOL/L (3.5-5.1) Chloride Level 108 MMOL/L (98-107) H Carbon Dioxide Level 26 MMOL/L (21-32) Anion Gap 7 mmol/L (5-15) Blood Urea Nitrogen 9 mg/dL (7-18) Creatinine 0.6 MG/DL (0.55-1.30) Estimat Glomerular Filtration Rate > 60 mL/min (>60) Glucose Level 121 MG/DL (74-106) H Calcium Level 8.4 MG/DL (8.5-10.1) L Plan Problems: (1) Bleeding hemorrhoids Assessment & Plan: The patient had large bleeding internal hemorrhoids. Using a banding device, three bands were placed on this largest hemorrhoids in the rectum. The patient tolerated the procedure very well without any complications. improved no bleeding d/c plan (2) GERD (gastroesophageal reflux disease) (3) HTN (hypertension) (4) GIB (gastrointestinal bleeding) Assessment & Plan: 60-year-old female with GI bleed intermittent episodes of bl eeding hemorrhoid. Recent colonoscopy by GI on last admission reviewed and discussed with case. Patient continues to have intermittent bleeding and now presents with anemia and intermittent bleeding and diarrhea. Case discussed with GI and plan for flex sig and hemorrhoidal banding soon. Agree with care plan. If worsening can consider surgical intervention but proceed with GI endoscopic first. Okay for diet. Trend H&H. Thank you will follow with recommendations. (5) DM2 (diabetes mellitus, type 2) (6) Symptomatic anemia (7) Palpitations (8) Anemia (9) HLD (hyperlipidemia) (10) Elevated TSH (11) COVID-19 Corbin Lee Nov 01, 2020 11:48
[2020-11-01 12:00] VITALS: BP 133/74
--- NOTE | 2020-11-01 14:23 | NUR ---
INSURANCE CLINICALS/REVIEW FAXED TO [facility] Fax clinicals: [phone] & [phone] CM: Liza Negrete
[2020-11-01 16:00] VITALS: BP 119/61
--- NOTE | 2020-11-01 18:23 | Internal Med Progress Note ---
Subjective Date of Service: Nov 01, 2020 Physician Name LoraDavid Attending Physician Feng Feliciano MD Current Medications Medications (Trade) Dose Ordered Sig/Luz Maria Route PRN Reason Start Time Stop Time Status Last Admin Dose Admin Acetaminophen (Tylenol) 650 mg Q6H PRN ORAL Mild Pain (Pain Scale 1-3) 10/27/20 21:15 11/26/20 21:14 Acetaminophen (Tylenol) 650 mg Q6H PRN ORAL Temp >100.5 10/27/20 21:15 11/26/20 21:14 Acetaminophen/ Hydrocodone Bitart ([place] 5/325) 1 tab Q6H PRN ORAL For Pain 10/27/20 21:15 11/03/20 21:14 11/01/20 09:11 Amlodipine Besylate (Norvasc) 5 mg DAILY ORAL 10/28/20 09:00 11/27/20 08:59 11/01/20 09:02 Dextrose (Dextrose 50%) 25 ml Q30M PRN IV Hypoglycemia 10/27/20 21:15 01/25/21 21:14 Dextrose (Dextrose 50%) 50 ml Q30M PRN IV Hypoglycemia 10/27/20 21:15 01/25/21 21:14 Dextrose/ Electrolytes 1,000 ml @ 75 mls/hr [id number] IV 10/30/20 16:00 11/29/20 15:59 11/01/20 09:01 Diphenhydramine HCl (Benadryl) 25 mg Q6H PRN IVP Itching 10/31/20 09:45 11/30/20 09:44 10/31/20 09:48 Hydrocortisone (Anusol HC) 1 applic TWICE A DAY RECTAL 10/28/20 09:00 01/26/21 08:59 10/30/20 17:24 Hydromorphone HCl (Dilaudid) 0.5 mg Q4H PRN IVP For Pain 10/31/20 11:15 11/07/20 11:14 10/31/20 23:54 Insulin Aspart (NovoLOG) BEFORE MEALS AND HS SUBQ 10/28/20 06:30 01/26/21 06:29 11/01/20 17:07 Ondansetron HCl (Zofran) 4 mg Q6H PRN IVP Nausea & Vomiting 10/27/20 21:15 3/6/21 21:14 Allergies: Coded Allergies: MORPHINE (Verified Allergy, Unknown, 12/22/17) ROS Limited/Unobtainable: No Constitutional: Reports: no symptoms HEENT: Reports: no symptoms Cardiovascular: Reports: no symptoms Respiratory: Reports: no symptoms Gastrointestinal/Abdominal: Reports: no symptoms Genitourinary: Reports: no symptoms Neurologic/Psychiatric: Reports: no symptoms Subjective 60 YO F admitted with rectal bleeding. Now severe anemia. Cover for Int Med-Dr Feliciano. S/P flexible sigmoidoscopy with banding of hemorrhoids 10/31/20 Objective Last Vital Signs Date Time Temp Pulse Resp B/P (MAP) Pulse Ox O2 Delivery O2 Flow Rate FiO2 11/01/20 16:00 97.4 78 20 119/61 (80) 96 11/01/20 09:00 Room Air 10/31/20 08:50 2 Laboratory Tests Test 11/01/20 05:00 White Blood Count 6.3 K/UL (4.8-10.8) # Red Blood Count 3.02 M/UL (4.20-5.40) L Hemoglobin 8.5 G/DL (12.0-16.0) L Hematocrit 25.7 % (37.0-47.0) L Mean Corpuscular Volume 85 FL (80-99) Mean Corpuscular Hemoglobin 28.0 PG (27.0-31.0) Mean Corpuscular Hemoglobin Concent 32.9 G/DL (32.0-36.0) Red Cell Distribution Width 16.9 % (11.6-14.8) H Platelet Count 181 K/UL (150-450) Mean Platelet Volume 8.6 FL (6.5-10.1) Neutrophils (%) (Auto) 64.6 % (45.0-75.0) Lymphocytes (%) (Auto) 24.5 % (20.0-45.0) Monocytes (%) (Auto) 8.5 % (1.0-10.0) Eosinophils (%) (Auto) 1.5 % (0.0-3.0) Basophils (%) (Auto) 0.8 % (0.0-2.0) Sodium Level 141 MMOL/L (136-145) Potassium Level 3.7 MMOL/L (3.5-5.1) Chloride Level 108 MMOL/L (98-107) H Carbon Dioxide Level 26 MMOL/L (21-32) Anion Gap 7 mmol/L (5-15) Blood Urea Nitrogen 9 mg/dL (7-18) Creatinine 0.6 MG/DL (0.55-1.30) Estimat Glomerular Filtration Rate > 60 mL/min (>60) Glucose Level 121 MG/DL (74-106) H Calcium Level 8.4 MG/DL (8.5-10.1) L Microbiology Date/Time Source Procedure Growth Status 10/31/20 11:18 Nasopharynx Coronavirus COVID-19 PCR ([facility]) - Final Complete Intake and Output 10/31/20 11/01/20 19:00 07:00 Intake Total 825 ml 1200 ml Balance 825 ml 1200 ml Intake Oral 1200 ml IV Total 825 ml # Voids 10 # Bowel Movements 1 Objective Objective General: No acute distress, awake and alert HEENT: NCAT, sclera anicteric, PERRL, EOMI. Neck: Supple, no significant jugular venous distention, Lungs: Good inspiratory effort, no accessory muscle use, clear to auscultation bilaterally, no Wheeze or Rales. Heart: Regular rate and rhythm, normal S1/S2, no murmurs/gallops Abdomen: soft, nontender, nondistended. Normoactive bowel sounds. / Rectal: Refused and deferred. Extremities: No Cyanosis , clubbing or edema. Neuro: A&O x 3, Able to move all extremities Skin: warm, no rashes or lesions Psych: Normal mood and affect Assessment/Plan Assessment/Plan Assessment/Plan Assessment/Plan 1. Severe anemia, most likely secondary to rectal bleeding as a result of hemorrhoidal bleed s/p Transfuse 2 units of packed RBC. 2. Diabetes type 2. 3. Hypertension. 4. Dyslipidemia. PLAN: In medical floor. Monitor laboratory closely. Discussed case with Dr. Lee from Surgery Dr. Marie from Gastroenterology. Code status is Full Code. DVT prophylaxis is SCD. S/P flexible sigmoidoscopy and banding on Saturday, Oct 31, 2020 Discharge planning David Paulino MD Nov 01, 2020 18:23
--- NOTE | 2020-11-01 19:23 | NUR ---
NURSE HAND-OFF: Important Events on Shift:[Pain management. monitored blood sugar] Patient Status: [stable] Diet: [reg] Pending Orders: [] Pending Results/Labs:[] Pending MD notification:[] Latest Vital Signs: Temperature 97.4 , Pulse 78 , B/P 119 /61 , Respiratory Rate 20 , O2 SAT 96 , Room Air, O2 Flow Rate 2 . Vital Sign Comment: [stable] Latest Christensen Fall Score: 20 Fall Risk: Low Risk Safety Measures: Call light Within Reach, Bed Alarm Zone 1, Side Rails Side Rails x2, Bed position Low and Locked. Fall Precautions: Yellow Socks Yellow Gown Door Sign Patient Fall Education Report given to [DEBBIE Kim].
--- NOTE | 2020-11-01 19:30 | NUR ---
NURSE NOTES: Received report & pt from DEBBIE Denis. Pt in bed, a&ox4, in room air. No s/s of acute distress & no c/o pain at this time. IV site intact with IVF running as ordered. Plan of care discussed.
[2020-11-01 20:35] VITALS: BP 153/72
--- NOTE | 2020-11-01 22:03 | NUR ---
NURSE NOTES: Tylenol given at 2038 for oral temp 100.5F; Reassessed oral temp 98.2F
--- NOTE | 2020-11-02 | NUR ---
NURSE NOTES: Pt sleeping in bed. In no acute distress.
--- NOTE | 2020-11-02 02:02 | Cardiology Report ---
APPROVED REPORT EKG Measurement Heart [id number] <Conclusion> Normal sinus rhythm Right atrial enlargement Possible Anterior infarct, age undetermined Abnormal ECG
[2020-11-02 05:29] VITALS: BP 130/72
[2020-11-02] MEDS: NovoLOG Insulin Flexpen SUBQ SCH ×4 (05:55→21:00)
--- NOTE | 2020-11-02 06:20 | NUR ---
NURSE NOTES: Tylenol given @ 0530 for oral temp 101.4F; cooling measures provided. Reassessed oral temp 99.5F
--- NOTE | 2020-11-02 06:41 | NUR ---
NURSE HAND-OFF: Important Events on Shift:febrile (tylenol given x2); current temp 99.5 oral. IV hydration. Per pt, less bleeding from rectum (hemorrhoids) than last time Patient Status: stable Diet: regular Pending Orders: Pending Results/Labs: Pending MD notification: Latest Vital Signs: Temperature 99.5 , Pulse 96 , B/P 130 /72 , Respiratory Rate 16 , O2 SAT 97 , Room Air, O2 Flow Rate 2 . Vital Sign Comment: Latest Christensen Fall Score: 20 Fall Risk: Low Risk Safety Measures: Call light Within Reach, Bed Alarm Zone 1, Side Rails Side Rails x2, Bed position Low and Locked. Fall Precautions: Yellow Socks Yellow Gown Door Sign Patient Fall Education Report given to DEBBIE Denis.
[2020-11-02 08:00] VITALS: BP 120/65
[2020-11-02 09:12] LABS: BASOPHILS % (AUTO) 0.4 % (0.0-2.0); EOSINOPHILS % (AUTO) 0.4 % (0.0-3.0); HEMATOCRIT 24.9 % (37.0-47.0); HEMOGLOBIN 8.2 G/DL (12.0-16.0); LYMPHOCYTES % (AUTO) 14.5 % (20.0-45.0); MEAN CORPUSCULAR VOLUME 83 FL (80-99); MONOCYTES % (AUTO) 8.3 % (1.0-10.0); NEUTROPHILS % (AUTO) 76.4 % (45.0-75.0); PLATELET COUNT 169 K/UL (150-450); RED BLOOD COUNT 2.98 M/UL (4.20-5.40); RED CELL DISTRIBUTION WIDTH 15.8 % (11.6-14.8); WHITE BLOOD COUNT 4.3 K/UL (4.8-10.8)
--- NOTE | 2020-11-02 09:13 | General Progress Note ---
Subjective ROS Limited/Unobtainable: Yes Allergies: Coded Allergies: MORPHINE (Verified Allergy, Unknown, 12/22/17) Objective Last 24 Hour Vital Signs Date Time Temp Pulse Resp B/P (MAP) Pulse Ox O2 Delivery O2 Flow Rate FiO2 11/02/20 06:20 99.5 11/02/20 06:00 99.5 11/02/20 05:29 101.4 96 16 130/72 (91) 97 11/01/20 21:09 98.2 11/01/20 21:00 98.2 11/01/20 21:00 Room Air 11/01/20 20:35 100.5 104 18 153/72 (99) 98 11/01/20 16:00 97.4 78 20 119/61 (80) 96 11/01/20 12:00 97.4 90 20 133/74 (93) 100 11/01/20 09:41 97.9 Intake and Output 11/01/20 11/02/20 19:00 07:00 Intake Total 600 ml 1230 ml Balance 600 ml 1230 ml Intake Oral 600 ml 480 ml IV Total 750 ml # Voids 1 2 Laboratory Tests 11/02/20 06:59: White Blood Count [Pending], Red Blood Count [Pending], Hemoglobin [Pending], Hematocrit [Pending], Mean Corpuscular Volume [Pending], Mean Corpuscular Hemoglobin [Pending], Mean Corpuscular Hemoglobin Concent [Pending], Red Cell Distribution Width [Pending], Platelet Count [Pending], Mean Platelet Volume [Pending], Neutrophils (%) (Auto) [Pending], Lymphocytes (%) (Auto) [Pending], Monocytes (%) (Auto) [Pending], Eosinophils (%) (Auto) [Pending], Basophils (%) (Auto) [Pending], Sodium Level [Pending], Potassium Level [Pending], Chloride Level [Pending], Carbon Dioxide Level [Pending], Blood Urea Nitrogen [Pending], Creatinine [Pending], Estimat Glomerular Filtration Rate [Pending], Glucose Level [Pending], Calcium Level [Pending] Height (Feet): 4 Height (Inches): 11.00 Weight (Pounds): 136 General Appearance: no apparent distress EENT: normal ENT inspection Neck: supple Cardiovascular: normal rate Respiratory/Chest: lungs clear Abdomen: normal bowel sounds, non tender, soft Extremities: non-tender Assessment/Plan Problem List: (1) Symptomatic anemia ICD Codes: D64.9 - Anemia, unspecified SNOMED: 429644779 (2) Bleeding hemorrhoids ICD Codes: K64.9 - Unspecified hemorrhoids SNOMED: 22561775 (3) GIB (gastrointestinal bleeding) ICD Codes: K92.2 - Gastrointestinal hemorrhage, unspecified SNOMED: 92075128 (4) DM2 (diabetes mellitus, type 2) ICD Codes: E11.9 - Type 2 diabetes mellitus without complications SNOMED: 96036062 (5) HTN (hypertension) ICD Codes: I10 - Essential (primary) hypertension SNOMED: 89827639 (6) GERD (gastroesophageal reflux disease) ICD Codes: K21.9 - Gastro-esophageal reflux disease without esophagitis SNOMED: 083173450 Assessment/Plan: s/p flex sig and banding improved rectal bleed odell low grade fever last night pain control' bowel regimen ok for dc Andre Marie MD Nov 02, 2020 09:13
[2020-11-02 09:15] LABS: ANION GAP 9 mmol/L (5-15); BLOOD UREA NITROGEN 8 mg/dL (7-18); CARBON DIOXIDE 24 MMOL/L (21-32); CHLORIDE 104 MMOL/L (98-107); CREATININE 0.7 MG/DL (0.55-1.30); POTASSIUM 3.5 MMOL/L (3.5-5.1); SODIUM 137 MMOL/L (136-145)
--- NOTE | 2020-11-02 10:28 | NUR ---
CASE MANAGEMENT:REVIEW 11/02/20 SI: SYMPTOMATIC ANEMIA SIGMOIDOSCOPY(+) ACTIVELY BLEEDING HEMORRHOIDS ~ BANDED 101.4 94 18 120/65 98% ON RA H/H-8.2/24.9 IS: IVF@75/HR ANUSOL [place] BID NORVASC PO QD NORCO PO Q6HRS PRN IV DILAUDID Q4HRS PRN : TO MED/SURG DCP; FROM HOME PLAN: HOME HEALTH UPON DISCHARGE
[2020-11-02] MEDS: D5 1/2NS w/KCl 20mEq 1,000 ML IV SCH (10:40)
[2020-11-02 12:00] VITALS: BP 122/66
--- NOTE | 2020-11-02 12:47 | NUR ---
INSURANCE CLINICALS/REVIEW FAXED TO [facility] Fax clinicals: [phone] & [phone] CM: Liza Negrete
--- NOTE | 2020-11-02 13:00 | Internal Med Progress Note ---
Subjective Date of Service: Nov 02, 2020 Physician Name David Paulino Attending Physician Feng Feliciano MD Current Medications Medications (Trade) Dose Ordered Sig/Luz Maria Route PRN Reason Start Time Stop Time Status Last Admin Dose Admin Acetaminophen (Tylenol) 650 mg Q6H PRN ORAL Temp >100.5 10/27/20 21:15 11/26/20 21:14 11/02/20 12:00 Acetaminophen (Tylenol) 650 mg Q6H PRN ORAL Mild Pain (Pain Scale 1-3) 10/27/20 21:15 11/26/20 21:14 Acetaminophen/ Hydrocodone Bitart ([place] 5/325) 1 tab Q6H PRN ORAL For Pain 10/27/20 21:15 11/03/20 21:14 11/01/20 09:11 Amlodipine Besylate (Norvasc) 5 mg DAILY ORAL 10/28/20 09:00 11/27/20 08:59 11/02/20 09:17 Dextrose (Dextrose 50%) 25 ml Q30M PRN IV Hypoglycemia 10/27/20 21:15 01/25/21 21:14 Dextrose (Dextrose 50%) 50 ml Q30M PRN IV Hypoglycemia 10/27/20 21:15 01/25/21 21:14 Dextrose/ Electrolytes 1,000 ml @ 75 mls/hr [id number] IV 10/30/20 16:00 11/29/20 15:59 11/02/20 10:40 Diphenhydramine HCl (Benadryl) 25 mg Q6H PRN IVP Itching 10/31/20 09:45 11/30/20 09:44 10/31/20 09:48 Hydrocortisone (Anusol HC) 1 applic TWICE A DAY RECTAL 10/28/20 09:00 01/26/21 08:59 10/30/20 17:24 Hydromorphone HCl (Dilaudid) 0.5 mg Q4H PRN IVP For Pain 10/31/20 11:15 11/07/20 11:14 10/31/20 23:54 Insulin Aspart (NovoLOG) BEFORE MEALS AND HS SUBQ 10/28/20 06:30 01/26/21 06:29 11/02/20 11:59 Ondansetron HCl (Zofran) 4 mg Q6H PRN IVP Nausea & Vomiting 10/27/20 21:15 11/26/20 21:14 Allergies: Coded Allergies: MORPHINE (Verified Allergy, Unknown, 12/22/17) ROS Limited/Unobtainable: No Constitutional: Reports: no symptoms HEENT: Reports: no symptoms Cardiovascular: Reports: no symptoms Respiratory: Reports: no symptoms Gastrointestinal/Abdominal: Reports: no symptoms Genitourinary: Reports: no symptoms Neurologic/Psychiatric: Reports: no symptoms Subjective 60 YO F admitted with rectal bleeding. Now severe anemia. Cover for Int Med-Dr Feliciano. S/P flexible sigmoidoscopy with banding of hemorrhoids 10/31/20. Fever to 101.4 F Objective Last Vital Signs Date Time Temp Pulse Resp B/P (MAP) Pulse Ox O2 Delivery O2 Flow Rate FiO2 11/02/20 09:17 94 120/65 11/02/20 08:00 98.2 18 98 11/01/20 21:00 Room Air 10/31/20 08:50 2 Laboratory Tests Test 11/02/20 06:59 White Blood Count 4.3 K/UL (4.8-10.8) L Red Blood Count 2.98 M/UL (4.20-5.40) L Hemoglobin 8.2 G/DL (12.0-16.0) L Hematocrit 24.9 % (37.0-47.0) L Mean Corpuscular Volume 83 FL (80-99) Mean Corpuscular Hemoglobin 27.4 PG (27.0-31.0) Mean Corpuscular Hemoglobin Concent 32.8 G/DL (32.0-36.0) Red Cell Distribution Width 15.8 % (11.6-14.8) H Platelet Count 169 K/UL (150-450) Mean Platelet Volume 8.5 FL (6.5-10.1) Neutrophils (%) (Auto) 76.4 % (45.0-75.0) H Lymphocytes (%) (Auto) 14.5 % (20.0-45.0) L Monocytes (%) (Auto) 8.3 % (1.0-10.0) Eosinophils (%) (Auto) 0.4 % (0.0-3.0) Basophils (%) (Auto) 0.4 % (0.0-2.0) Sodium Level 137 MMOL/L (136-145) Potassium Level 3.5 MMOL/L (3.5-5.1) Chloride Level 104 MMOL/L (98-107) Carbon Dioxide Level 24 MMOL/L (21-32) Anion Gap 9 mmol/L (5-15) Blood Urea Nitrogen 8 mg/dL (7-18) Creatinine 0.7 MG/DL (0.55-1.30) Estimat Glomerular Filtration Rate > 60 mL/min (>60) Glucose Level 152 MG/DL (74-106) H Calcium Level 8.0 MG/DL (8.5-10.1) L Microbiology Date/Time Source Procedure Growth Status 10/31/20 11:18 Nasopharynx Coronavirus COVID-19 PCR ([facility]) - Final Complete Intake and Output 11/01/20 11/02/20 19:00 07:00 Intake Total 600 ml 1230 ml Balance 600 ml 1230 ml Intake Oral 600 ml 480 ml IV Total 750 ml # Voids 1 2 Objective Objective General: No acute distress, awake and alert HEENT: NCAT, sclera anicteric, PERRL, EOMI. Neck: Supple, no significant jugular venous distention, Lungs: Good inspiratory effort, no accessory muscle use, clear to auscultation bilaterally, no Wheeze or Rales. Heart: Regular rate and rhythm, normal S1/S2, no murmurs/gallops Abdomen: soft, nontender, nondistended. Normoactive bowel sounds. / Rectal: Refused and deferred. Extremities: No Cyanosis , clubbing or edema. Neuro: A&O x 3, Able to move all extremities Skin: warm, no rashes or lesions Psych: Normal mood and affect Assessment/Plan Assessment/Plan Assessment/Plan Assessment/Plan 1. Severe anemia, most likely secondary to rectal bleeding as a result of hemorrhoidal bleed s/p Transfuse 2 units of packed RBC. 2. Diabetes type 2. 3. Hypertension. 4. Dyslipidemia. 5. Post op fever PLAN: In medical floor. Monitor laboratory closely. Discussed case with Dr. Lee from Surgery Dr. Marie from Gastroenterology. Code status is Full Code. DVT prophylaxis is SCD. S/P flexible sigmoidoscopy and banding on Saturday, Oct 31, 2020 Blood cult, CXR, Urine cult, COVID 19, Inf Dis consult David Paulino MD Nov 02, 2020 13:00
--- NOTE | 2020-11-02 13:09 | Surgery Progress Note ---
Surgery Progress Note Subjective Symptoms: improved, tolerating diet, voiding well, passing flatus, pain decreased Objective Last 24 Hour Vital Signs Date Time Temp Pulse Resp B/P (MAP) Pulse Ox O2 Delivery O2 Flow Rate FiO2 11/02/20 09:17 94 120/65 11/02/20 08:00 98.2 94 18 120/65 (83) 98 11/02/20 06:20 99.5 11/02/20 06:00 99.5 11/02/20 05:29 101.4 96 16 130/72 (91) 97 11/01/20 21:09 98.2 11/01/20 21:00 98.2 11/01/20 21:00 Room Air 11/01/20 20:35 100.5 104 18 153/72 (99) 98 11/01/20 16:00 97.4 78 20 119/61 (80) 96 I&O Intake and Output 11/01/20 11/02/20 19:00 07:00 Intake Total 600 ml 1230 ml Balance 600 ml 1230 ml Intake Oral 600 ml 480 ml IV Total 750 ml # Voids 1 2 Cardiovascular: RSR Respiratory: clear Abdomen: soft, non-tender, present bowel sounds, non-distended Extremities: no edema, no tenderness, no cyanosis Laboratory Tests Test 11/02/20 06:59 White Blood Count 4.3 K/UL (4.8-10.8) L Red Blood Count 2.98 M/UL (4.20-5.40) L Hemoglobin 8.2 G/DL (12.0-16.0) L Hematocrit 24.9 % (37.0-47.0) L Mean Corpuscular Volume 83 FL (80-99) Mean Corpuscular Hemoglobin 27.4 PG (27.0-31.0) Mean Corpuscular Hemoglobin Concent 32.8 G/DL (32.0-36.0) Red Cell Distribution Width 15.8 % (11.6-14.8) H Platelet Count 169 K/UL (150-450) Mean Platelet Volume 8.5 FL (6.5-10.1) Neutrophils (%) (Auto) 76.4 % (45.0-75.0) H Lymphocytes (%) (Auto) 14.5 % (20.0-45.0) L Monocytes (%) (Auto) 8.3 % (1.0-10.0) Eosinophils (%) (Auto) 0.4 % (0.0-3.0) Basophils (%) (Auto) 0.4 % (0.0-2.0) Sodium Level 137 MMOL/L (136-145) Potassium Level 3.5 MMOL/L (3.5-5.1) Chloride Level 104 MMOL/L (98-107) Carbon Dioxide Level 24 MMOL/L (21-32) Anion Gap 9 mmol/L (5-15) Blood Urea Nitrogen 8 mg/dL (7-18) Creatinine 0.7 MG/DL (0.55-1.30) Estimat Glomerular Filtration Rate > 60 mL/min (>60) Glucose Level 152 MG/DL (74-106) H Calcium Level 8.0 MG/DL (8.5-10.1) L Plan Problems: (1) Bleeding hemorrhoids Assessment & Plan: The patient had large bleeding internal hemorrhoids. Using a banding device, three bands were placed on this largest hemorrhoids in the rectum. The patient tolerated the procedure very well without any complications. improved no bleeding d/c plan (2) GERD (gastroesophageal reflux disease) (3) HTN (hypertension) (4) GIB (gastrointestinal bleeding) Assessment & Plan: 60-year-old female with GI bleed intermittent episodes of bleeding hemorrhoid. Recent colonoscopy by GI on last admission reviewed and discussed with case. Patient continues to have intermittent bleeding and now presents with anemia and intermittent bleeding and diarrhea. Case discussed with GI and plan for flex sig and hemorrhoidal banding soon. Agree with care plan. If worsening can consider surgical intervention but proceed with GI endoscopic first. Okay for diet. Trend H&H. Thank you will follow with recommendations. (5) DM2 (diabetes mellitus, type 2) (6) Symptomatic anemia (7) Palpitations (8) Anemia (9) HLD (hyperlipidemia) (10) Elevated TSH (11) COVID-19 Corbin Lee Nov 02, 2020 13:09
--- NOTE | 2020-11-02 13:19 | NUR ---
NURSE NOTES: Report given to DEBBIE White due to reassignment.
--- NOTE | 2020-11-02 13:30 | NUR ---
NURSE NOTES: Patient has been having on and off fever since yesterday. piccoloist let Dr. Paulino aware that covid test came back negative, no ID, no antibiotics. Dr. Paulino put some orders.
--- NOTE | 2020-11-02 13:30 | NUR ---
NURSE NOTES: RN received report from Cira and patient in bed. Patient is aaoX4, shows no s/s of respiratory distress on RA or pain. IV access present and asymptomatic. Call light within reach and able to make needs known. Bed in lowest position and locked. Isolation precautions in place. Will continue to monitor.
--- NOTE | 2020-11-02 15:30 | NUR ---
NURSE NOTES: RN swabbed the patient's left nostril for Covid test, PCR. Urine is collected for urine culture. Both specimens are sent to the lab.
[2020-11-02 16:00] VITALS: BP 125/81
--- NOTE | 2020-11-02 19:17 | Diagnostic Imaging Report ---
Indication: Cough Technique: One view of the chest Comparison: 10/27/2020 Findings: Lungs and pleural spaces are clear. Heart size is normal. No significant change Impression: No acute process
--- NOTE | 2020-11-02 19:30 | NUR ---
Nurses Notes Pt awake alert oriented x4. Pt able to make needs known. Breathing on room air sating 98%. unlabored and even no signs of respiratory distress noted at this time. COVID precautions enforced. IV to right hand infusing D5 0.45% NS w/kcl 20meq @75ml/hr. BS ACHS. no s/s of hyper/hypoglycemia noted. Pt has bed side commode to void. Bed in lowest position call light in reach. will continue to monitor for treatment and care
--- NOTE | 2020-11-02 19:30 | NUR ---
NURSE HAND-OFF: Important Events on Shift:fever, tests to see where the infection is, UA, PCR for Covid done Patient Status: Diet: regular Pending Orders: Pending Results/Labs:PCR, UA Pending MD notification: Latest Vital Signs: Temperature 97.3 , Pulse 86 , B/P 125 /81 , Respiratory Rate 18 , O2 SAT 98 , Room Air, O2 Flow Rate 2 . Vital Sign Comment: stable Latest Christensen Fall Score: 20 Fall Risk: Low Risk Safety Measures: Call light Within Reach, Bed Alarm Zone 1, Side Rails Side Rails x2, Bed position Low and Locked. Fall Precautions: Yellow Socks Yellow Gown Door Sign Patient Fall Education Report given to Dia.
[2020-11-02 20:00] VITALS: BP 117/60
--- NOTE | 2020-11-02 20:00 | NUR ---
Nurse Notes Fever reported 101. 5 Cooling measures done Tylenol 650mg given will continue to monitor patient condition
[2020-11-03] VITALS: BP 113/60
[2020-11-03] MEDS: D5 1/2NS w/KCl 20mEq 1,000 ML IV SCH ×2 (00:22→13:39)
[2020-11-03 04:00] VITALS: BP 123/66
[2020-11-03] MEDS: HYDROcodone/Acetamin 5/325 tab ORAL PRN (06:14)
[2020-11-03 06:28] LABS: HEMATOCRIT 27.3 % (37.0-47.0); HEMOGLOBIN 8.8 G/DL (12.0-16.0); MEAN CORPUSCULAR VOLUME 84 FL (80-99); PLATELET COUNT 163 K/UL (150-450); RED BLOOD COUNT 3.24 M/UL (4.20-5.40); RED CELL DISTRIBUTION WIDTH 15.7 % (11.6-14.8)
[2020-11-03] MEDS: NovoLOG Insulin Flexpen SUBQ SCH ×4 (06:30→20:44)
[2020-11-03 06:38] LABS: ANION GAP 6 mmol/L (5-15); BLOOD UREA NITROGEN 8 mg/dL (7-18); CALCIUM 8.7 MG/DL (8.5-10.1); CARBON DIOXIDE 29 MMOL/L (21-32); CHLORIDE 108 MMOL/L (98-107); CREATININE 0.6 MG/DL (0.55-1.30); POTASSIUM 4.1 MMOL/L (3.5-5.1); SODIUM 143 MMOL/L (136-145)
--- NOTE | 2020-11-03 07:25 | NUR ---
Nurses Note Report given to Marlena
--- NOTE | 2020-11-03 07:26 | NUR ---
NURSE NOTES: Received hand-off report from Dia Hastings RN. Patient in stable condition, states very minimal bleeding in stool, noted and observed trace amount of blood in stool, otherwise patient no active bleeding noted anywhere else. Patient is alert and oriented x4, breathing even and unlabored, respirations 16 on room air. Bed alarm is on, bed in lowest and locked position, call light within reach.
[2020-11-03 08:00] VITALS: BP 117/71
--- NOTE | 2020-11-03 08:32 | Consultation ---
History of Present Illness General Date patient seen: Nov 03, 2020 Time patient seen: 11:10 Chief Complaint: Palpitations Referring physician: Dr. Paulino Reason for Consultation: Fevers Present Illness HPI 60yo F who was admitted 10/28 for anemia 2/2 rectal bleeding from hemorrhoids, s/p flex sig w/ banding 10/31, now w/ ongoing fevers for which ID is consulted. Pt reports fevers the last couple of days, including chills yesterday. No more this morning as of yet. Had a SIERRA, improved w/ a pain medicine this morning. No N/V, no abd pain, no dysuria, no rashes, no issues w/ her lines. No diarrhea. Her rectal bleeding is still present but much improved from prior. No resp complaints. Overall doing well. Allergies: Coded Allergies: MORPHINE (Verified Allergy, Unknown, 12/22/17) Medication History Scheduled Aspirin* (Aspirin*), 81 MG ORAL DAILY, (Reported) Atorvastatin Calcium* (Lipitor*), 40 MG ORAL DAILY, (Reported) Benazepril Hcl* (Benazepril Hcl*), 10 MG ORAL DAILY, (Reported) Ferrous Sulfate* (Ferrous Sulfate*), 325 MG ORAL DAILY, (Reported) Metformin Hcl* (Metformin Hcl*), 1,000 MG ORAL BID, (Reported) Nitroglycerin (Nitroglycerin), 0.4 MG SL PRN, (Reported) Omeprazole (Omeprazole), 10 MG ORAL DAILY, (Reported) Oxybutynin Chloride (Oxybutynin Chloride), 5 MG ORAL BID, (Reported) Patient History Healthcare decision maker Resuscitation status Advanced Directive on File Review of Systems ROS Narrative 10-point ROS neg except as noted in HPI Physical Exam HEENT: atraumatic Physical Exam Narrative Gen: NAD HEENT: NCAT, EOMI, PERRL Pulm: BL chest rise on RA, non-labored Abd: Soft, NTND Ext: No c/c/e Skin: No visible rashes Neuro: Awake, alert, interactive Last 24 Hour Vital Signs Date Time Temp Pulse Resp B/P (MAP) Pulse Ox O2 Delivery O2 Flow Rate FiO2 11/03/20 04:00 97.9 71 16 123/66 (85) 100 11/03/20 00:00 99.1 76 16 113/60 (77) 98 11/02/20 21:00 Room Air 2/10/21 20:54 99.1 11/02/20 20:00 101.5 90 17 117/60 (79) 98 11/02/20 16:00 97.3 86 18 125/81 (96) 98 11/02/20 12:30 99.0 11/02/20 12:00 100.2 90 18 122/66 (84) 97 11/02/20 09:17 94 120/65 11/02/20 09:00 Room Air Intake and Output 11/02/20 11/03/20 19:00 07:00 Intake Total 1215 ml 435 ml Balance 1215 ml 435 ml Intake Oral 840 ml IV Total 375 ml 75 ml Other 360 ml # Voids 3 2 Laboratory Tests Test 11/03/20 04:50 White Blood Count 3.0 K/UL (4.8-10.8) L Red Blood Count 3.24 M/UL (4.20-5.40) L Hemoglobin 8.8 G/DL (12.0-16.0) L Hematocrit 27.3 % (37.0-47.0) L Mean Corpuscular Volume 84 FL (80-99) Mean Corpuscular Hemoglobin 27.3 PG (27.0-31.0) Mean Corpuscular Hemoglobin Concent 32.4 G/DL (32.0-36.0) Red Cell Distribution Width 15.7 % (11.6-14.8) H Platelet Count 163 K/UL (150-450) Mean Platelet Volume 8.7 FL (6.5-10.1) Neutrophils (%) (Auto) % (45.0-75.0) Lymphocytes (%) (Auto) % (20.0-45.0) Monocytes (%) (Auto) % (1.0-10.0) Eosinophils (%) (Auto) % (0.0-3.0) Basophils (%) (Auto) % (0.0-2.0) Sodium Level 143 MMOL/L (136-145) Potassium Level 4.1 MMOL/L (3.5-5.1) Chloride Level 108 MMOL/L (98-107) H Carbon Dioxide Level 29 MMOL/L (21-32) Anion Gap 6 mmol/L (5-15) Blood Urea Nitrogen 8 mg/dL (7-18) Creatinine 0.6 MG/DL (0.55-1.30) Estimat Glomerular Filtration Rate > 60 mL/min (>60) Glucose Level 110 MG/DL (74-106) H Calcium Level 8.7 MG/DL (8.5-10.1) Height (Feet): 4 Height (Inches): 11.00 Weight (Pounds): 136 Medications Current Medications Medications (Trade) Dose Ordered Sig/Luz Maria Route PRN Reason Start Time Stop Time Status Last Admin Dose Admin Acetaminophen (Tylenol) 650 mg Q6H PRN ORAL Temp >100.5 10/27/20 21:15 11/26/20 21:14 11/02/20 20:24 Acetaminophen (Tylenol) 650 mg Q6H PRN ORAL Mild Pain (Pain Scale 1-3) 10/27/20 21:15 11/26/20 21:14 Acetaminophen/ Hydrocodone Bitart ([place] 5/325) 1 tab Q6H PRN ORAL For Pain 11/02/20 17:45 11/09/20 17:44 11/03/20 06:14 Amlodipine Besylate (Norvasc) 5 mg DAILY ORAL 10/28/20 09:00 11/27/20 08:59 11/02/20 09:17 Dextrose (Dextrose 50%) 25 ml Q30M PRN IV Hypoglycemia 10/27/20 21:15 01/25/21 21:14 Dextrose (Dextrose 50%) 50 ml Q30M PRN IV Hypoglycemia 10/27/20 21:15 01/25/21 21:14 Dextrose/ Electrolytes 1,000 ml @ 75 mls/hr [id number] IV 10/30/20 16:00 11/29/20 15:59 11/03/20 00:22 Diphenhydramine HCl (Benadryl) 25 mg Q6H PRN IVP Itching 10/31/20 09:45 11/30/20 09:44 10/31/20 09:48 Hydrocortisone (Anusol HC) 1 applic TWICE A DAY RECTAL 10/28/20 09:00 01/26/21 08:59 11/02/20 18:41 Hydromorphone HCl (Dilaudid) 0.5 mg Q4H PRN IVP For Pain 10/31/20 11:15 11/07/20 11:14 10/31/20 23:54 Insulin Aspart (NovoLOG) BEFORE MEALS AND HS SUBQ 10/28/20 06:30 01/26/21 06:29 11/02/20 21:00 Ondansetron HCl (Zofran) 4 mg Q6H PRN IVP Nausea & Vomiting 10/27/20 21:15 11/26/20 21:14 Assessment/Plan Assessment/Plan: 60yo F with: Fevers Leukopenia 10/31 COVID PCR neg 11/02 COVID PCR p BCx p UCx p Anemia 10/25 rectal bleeding from hemorrhoids, s/p flex sig w/ banding 10/31 Cr 0.6 H/o COVID, relatively asymptomatic 09/25/20 COVID rapid test positive 09/26 CTA chest neg for PE and airspace disease H/o L cephalic DVT PMH: DM2 HTN GARRY Hemorrhoids Plan: Start Zosyn given ongoing fevers F/u /10 BCx, UCx, COVID PCR Trend temp curve Trend leukopenia Monitor CBC/CMP Monitor temp curve, hemodynamics Monitor resp status D/w RN Thank you for this consult. [facility] will continue to follow. Odilia Sommer M.D. Nov 03, 2020 08:32
--- NOTE | 2020-11-03 09:13 | NUR ---
RD ASSESSMENT & RECOMMENDATIONS SEE CARE ACTIVITY FOR COMPLETE ASSESSMENT DAILY ESTIMATED NEEDS: Needs based on DM, pulmonary 62kg 25-30 kcals/kg 4152-7199 total kcals 1-1.5 g protein/kg 62-93 g total protein 25-30 mL/kg 7300-7179 total fluid mLs NUTRITION DIAGNOSIS: Altered nutrition related lab values r/t hemorrhoids as evidenced by low Hgb (8.3), s/p colonoscopy. CURRENT DIET: Regular PO DIET RECOMMENDATIONS: CCHO LOW/ LOW FIBER/SOFT DIET ADDITIONAL RECOMMENDATIONS: 1) maintain daily wts 2) good glycemic control, monitor for hypoglycemia On added D5
[2020-11-03] MEDS: Piperacillin/Tazobactam 3.375 GM in NS 110 ML IVPB SCH ×3 (09:25→23:00)
[2020-11-03 12:00] VITALS: BP 128/72
--- NOTE | 2020-11-03 12:35 | General Progress Note ---
Subjective ROS Limited/Unobtainable: Yes Allergies: Coded Allergies: MORPHINE (Verified Allergy, Unknown, 12/22/17) Objective Last 24 Hour Vital Signs Date Time Temp Pulse Resp B/P (MAP) Pulse Ox O2 Delivery O2 Flow Rate FiO2 11/03/20 09:00 85 117/71 11/03/20 08:00 97.9 85 18 117/71 (86) 98 11/03/20 04:00 97.9 71 16 123/66 (85) 100 11/03/20 00:00 99.1 76 16 113/60 (77) 98 11/02/20 21:00 Room Air 11/02/20 20:54 99.1 11/02/20 20:00 101.5 90 17 117/60 (79) 98 11/02/20 16:00 97.3 86 18 125/81 (96) 98 Intake and Output 11/02/20 11/03/20 19:00 07:00 Intake Total 1215 ml 435 ml Balance 1215 ml 435 ml Intake Oral 840 ml IV Total 375 ml 75 ml Other 360 ml # Voids 3 2 Laboratory Tests 11/03/20 04:50: White Blood Count 3.0L, Red Blood Count 3.24L, Hemoglobin 8.8L, Hematocrit 27.3L , Mean Corpuscular Volume 84, Mean Corpuscular Hemoglobin 27.3, Mean Corpuscular Hemoglobin Concent 32.4, Red Cell Distribution Width 15.7H, Platelet Count 163, Mean Platelet Volume 8.7, Neutrophils (%) (Auto) , Lymphocytes (%) (Auto) , Monocytes (%) (Auto) , Eosinophils (%) (Auto) , Basophils (%) (Auto) , Sodium Level 143, Potassium Level 4.1, Chloride Level 108H, Carbon Dioxide Level 29, Anion Gap 6, Blood Urea Nitrogen 8, Creatinine 0.6, Estimat Glomerular Filtration Rate > 60, Glucose Level 110H, Calcium Level 8.7 Height (Feet): 4 Height (Inches): 11.00 Weight (Pounds): 136 General Appearance: no apparent distress EENT: normal ENT inspection Neck: supple Cardiovascular: normal rate Respiratory/Chest: decreased breath sounds Abdomen: normal bowel sounds, non tender, soft Extremities: non-tender Assessment/Plan Problem List: (1) Symptomatic anemia ICD Codes: D64.9 - Anemia, unspecified SNOMED: 574976608 (2) Bleeding hemorrhoids ICD Codes: K64.9 - Unspecified hemorrhoids SNOMED: 55126821 (3) GIB (gastrointestinal bleeding) ICD Codes: K92.2 - Gastrointestinal hemorrhage, unspecified SNOMED: 84742297 (4) DM2 (diabetes mellitus, type 2) ICD Codes: E11.9 - Type 2 diabetes mellitus without complications SNOMED: 62453686 (5) HTN (hypertension) ICD Codes: I10 - Essential (primary) hypertension SNOMED: 09835552 (6) GERD (gastroesophageal reflux disease) ICD Codes: K21.9 - Gastro-esophageal reflux disease without esophagitis SNOMED: 019639182 Assessment/Plan: s/p flex sig and banding improved rectal bleed odell low grade fever last night pain control' bowel regimen ok for dc Andre Marie MD Nov 03, 2020 12:35
--- NOTE | 2020-11-03 13:17 | NUR ---
CASE MANAGEMENT:REVIEW 11/03/20 SI: SYMPTOMATIC ANEMIA SIGMOIDOSCOPY(+) ACTIVELY BLEEDING HEMORRHOIDS ~ BANDED 97.9 85 18 117/71 98% ON RA WBC-3.0 H/H-8.8/27.3 IS: IV ZOSYN Q8HRS IVF@75/HR ANUSOL [place] BID NORVASC PO QD NORCO PO Q6HRS PRN IV DILAUDID Q4HRS PRN : TO MED/SURG DCP; FROM HOME PLAN: HOME HEALTH UPON DISCHARGE
--- NOTE | 2020-11-03 13:22 | Surgery Progress Note ---
Surgery Progress Note Subjective Symptoms: improved, tolerating diet, voiding well, passing flatus, BM, pain decreased Objective Last 24 Hour Vital Signs Date Time Temp Pulse Resp B/P (MAP) Pulse Ox O2 Delivery O2 Flow Rate FiO2 11/03/20 09:00 85 117/71 11/03/20 08:00 97.9 85 18 117/71 (86) 98 11/03/20 04:00 97.9 71 16 123/66 (85) 100 11/03/20 00:00 99.1 76 16 113/60 (77) 98 11/02/20 21:00 Room Air 11/02/20 20:54 99.1 11/02/20 20:00 101.5 90 17 117/60 (79) 98 11/02/20 16:00 97.3 86 18 125/81 (96) 98 I&O Intake and Output 11/02/20 11/03/20 19:00 07:00 Intake Total 1215 ml 435 ml Balance 1215 ml 435 ml Intake Oral 840 ml IV Total 375 ml 75 ml Other 360 ml # Voids 3 2 Cardiovascular: RSR Respiratory: clear Abdomen: soft, flat, non-tender, present bowel sounds, non-distended Extremities: no edema, no tenderness, no cyanosis Laboratory Tests Test 11/03/20 04:50 White Blood Count 3.0 K/UL (4.8-10.8) L Red Blood Count 3.24 M/UL (4.20-5.40) L Hemoglobin 8.8 G/DL (12.0-16.0) L Hematocrit 27.3 % (37.0-47.0) L Mean Corpuscular Volume 84 FL (80-99) Mean Corpuscular Hemoglobin 27.3 PG (27.0-31.0) Mean Corpuscular Hemoglobin Concent 32.4 G/DL (32.0-36.0) Red Cell Distribution Width 15.7 % (11.6-14.8) H Platelet Count 163 K/UL (150-450) Mean Platelet Volume 8.7 FL (6.5-10.1) Neutrophils (%) (Auto) % (45.0-75.0) Lymphocytes (%) (Auto) % (20.0-45.0) Monocytes (%) (Auto) % (1.0-10.0) Eosinophils (%) (Auto) % (0.0-3.0) Basophils (%) (Auto) % (0.0-2.0) Sodium Level 143 MMOL/L (136-145) Potassium Level 4.1 MMOL/L (3.5-5.1) Chloride Level 108 MMOL/L (98-107) H Carbon Dioxide Level 29 MMOL/L (21-32) Anion Gap 6 mmol/L (5-15) Blood Urea Nitrogen 8 mg/dL (7-18) Creatinine 0.6 MG/DL (0.55-1.30) Estimat Glomerular Filtration Rate > 60 mL/min (>60) Glucose Level 110 MG/DL (74-106) H Calcium Level 8.7 MG/DL (8.5-10.1) Plan Problems: (1) Bleeding hemorrhoids Assessment & Plan: The patient had large bleeding internal hemorrhoids. Using a banding device, three bands were placed on this largest hemorrhoids in the rectum. The patient tolerated the procedure very well without any complications. improved no bleeding d/c plan (2) GERD (gastroesophageal reflux disease) (3) HTN (hypertension) (4) GIB (gastrointestinal bleeding) Assessment & Plan: 60-year-old female with GI bleed intermittent episodes of bleeding hemorrhoid. Recent colonoscopy by GI on last admission reviewed and discussed with case. Patient continues to have intermittent bleeding and now presents with anemia and intermittent bleeding and diarrhea. Case discussed with GI and plan for flex sig and hemorrhoidal banding soon. Agree with care plan. If worsening can consider surgical intervention but proceed with GI endoscopic first. Okay for diet. Trend H&H. Thank you will follow with recommendations. (5) DM2 (diabetes mellitus, type 2) (6) Symptomatic anemia (7) Palpitations (8) Anemia (9) HLD (hyperlipidemia) (10) Elevated TSH (11) COVID-19 Corbin Lee Nov 03, 2020 13:21
--- NOTE | 2020-11-03 13:51 | Internal Med Progress Note ---
Subjective Physician Name Feng Feliciano Attending Physician Feng Feliciano MD Current Medications Medications (Trade) Dose Ordered Sig/Luz Maria Route PRN Reason Start Time Stop Time Status Last Admin Dose Admin Acetaminophen (Tylenol) 650 mg Q6H PRN ORAL Temp >100.5 10/27/20 21:15 11/26/20 21:14 11/02/20 20:24 Acetaminophen (Tylenol) 650 mg Q6H PRN ORAL Mild Pain (Pain Scale 1-3) 10/27/20 21:15 11/26/20 21:14 Acetaminophen/ Hydrocodone Bitart ([place] 5/325) 1 tab Q6H PRN ORAL For Pain 11/02/20 17:45 11/09/20 17:44 11/03/20 06:14 Amlodipine Besylate (Norvasc) 5 mg DAILY ORAL 10/28/20 09:00 11/27/20 08:59 11/02/20 09:17 Dextrose (Dextrose 50%) 25 ml Q30M PRN IV Hypoglycemia 10/27/20 21:15 01/25/21 21:14 Dextrose (Dextrose 50%) 50 ml Q30M PRN IV Hypoglycemia 10/27/20 21:15 01/25/21 21:14 Dextrose/ Electrolytes 1,000 ml @ 75 mls/hr [id number] IV 10/30/20 16:00 11/29/20 15:59 11/03/20 13:39 Diphenhydramine HCl (Benadryl) 25 mg Q6H PRN IVP Itching 10/31/20 09:45 11/30/20 09:44 10/31/20 09:48 Hydrocortisone (Anusol HC) 1 applic TWICE A DAY RECTAL 10/28/20 09:00 01/26/21 08:59 11/03/20 09:29 Hydromorphone HCl (Dilaudid) 0.5 mg Q4H PRN IVP For Pain 10/31/20 11:15 11/07/20 11:14 10/31/20 23:54 Insulin Aspart (NovoLOG) BEFORE MEALS AND HS SUBQ 10/28/20 06:30 01/26/21 06:29 11/03/20 12:25 Ondansetron HCl (Zofran) 4 mg Q6H PRN IVP Nausea & Vomiting 10/27/20 21:15 11/26/20 21:14 Piperacillin Sod/ Tazobactam Sod 3.375 gm/Sodium Chloride 110 ml @ 27.5 mls/hr EVERY 8 HOURS IVPB 11/03/20 09:30 11/08/20 09:29 11/03/20 13:39 Allergies: Coded Allergies: MORPHINE (Verified Allergy, Unknown, 12/22/17) Subjective await, alert, responsive, no acute distress. Denies any shortness of breath or chest pain, hemoglobin: 8.8. spike a fever last night 101.5 Objective Last Vital Signs Date Time Temp Pulse Resp B/P (MAP) Pulse Ox O2 Delivery O2 Flow Rate FiO2 11/03/20 09:00 85 117/71 11/03/20 08:00 97.9 18 98 11/02/20 21:00 Room Air 10/31/20 08:50 2 Laboratory Tests Test 11/03/20 04:50 White Blood Count 3.0 K/UL (4.8-10.8) L Red Blood Count 3.24 M/UL (4.20-5.40) L Hemoglobin 8.8 G/DL (12.0-16.0) L Hematocrit 27.3 % (37.0-47.0) L Mean Corpuscular Volume 84 FL (80-99) Mean Corpuscular Hemoglobin 27.3 PG (27.0-31.0) Mean Corpuscular Hemoglobin Concent 32.4 G/DL (32.0-36.0) Red Cell Distribution Width 15.7 % (11.6-14.8) H Platelet Count 163 K/UL (150-450) Mean Platelet Volume 8.7 FL (6.5-10.1) Neutrophils (%) (Auto) % (45.0-75.0) Lymphocytes (%) (Auto) % (20.0-45.0) Monocytes (%) (Auto) % (1.0-10.0) Eosinophils (%) (Auto) % (0.0-3.0) Basophils (%) (Auto) % (0.0-2.0) Sodium Level 143 MMOL/L (136-145) Potassium Level 4.1 MMOL/L (3.5-5.1) Chloride Level 108 MMOL/L (98-107) H Carbon Dioxide Level 29 MMOL/L (21-32) Anion Gap 6 mmol/L (5-15) Blood Urea Nitrogen 8 mg/dL (7-18) Creatinine 0.6 MG/DL (0.55-1.30) Estimat Glomerular Filtration Rate > 60 mL/min (>60) Glucose Level 110 MG/DL (74-106) H Calcium Level 8.7 MG/DL (8.5-10.1) Microbiology Date/Time Source Procedure Growth Status 11/02/20 15:40 Urine,Clean Catch Urine Culture - Preliminary NO GROWTH Resulted Intake and Output 11/02/20 11/03/20 19:00 07:00 Intake Total 1215 ml 435 ml Balance 1215 ml 435 ml Intake Oral 840 ml IV Total 375 ml 75 ml Other 360 ml # Voids 3 2 Objective General: No acute distress, awake and alert HEENT: NCAT, sclera anicteric, PERRL, EOMI. Neck: Supple, no significant jugular venous distention, Lungs: Good inspiratory effort, no accessory muscle use, clear to auscultation bilaterally, no Wheeze or Rales. Heart: Regular rate and rhythm, normal S1/S2, no murmurs/gallops Abdomen: soft, nontender, nondistended. Normoactive bowel sounds. / Rectal: Refused and deferred. Extremities: No Cyanosis , clubbing or edema. Neuro: A&O x 3, Able to move all extremities Skin: warm, no rashes or lesions Psych: Normal mood and affect Assessment/Plan Assessment/Plan 1. Severe anemia, most likely secondary to rectal bleeding as a result of hemorrhoidal bleed s/p Transfuse 2 units of packed RBC --> S/P Sigmoidoscopy with hemorrhoids banding on 10/31/2020. 2. Diabetes type 2. 3. Hypertension. 4. Dyslipidemia. PLAN: In medical floor. Monitor laboratory closely. Discussed case with Dr. Lee from Surgery Dr. Marie from Gastroenterology. Code status is Full Code. DVT prophylaxis is SCD. Discharge home in a.m. if patient is afebrile. Feng Feliciano MD Nov 03, 2020 13:51
[2020-11-03 16:00] VITALS: BP 127/75
--- NOTE | 2020-11-03 17:22 | NUR ---
INSURANCE CLINICALS/REVIEW FAXED TO [facility] Fax clinicals: [phone] & [phone] CM: Liza Negrete
--- NOTE | 2020-11-03 19:24 | NUR ---
NURSE HAND-OFF: Important Events on Shift: no bleeding noted, no incidents noted Patient Status: stable condition, full code Diet: regular Pending Orders: [] Pending Results/Labs:[] Pending MD notification:[] Latest Vital Signs: Temperature 97.7 , Pulse 72 , B/P 127 /75 , Respiratory Rate 18 , O2 SAT 98 , Room Air, O2 Flow Rate 2 . Vital Sign Comment: [] Latest Christensen Fall Score: 20 Fall Risk: Low Risk Safety Measures: Call light Within Reach, Bed Alarm Zone 1, Side Rails Side Rails x2, Bed position Low and Locked. Fall Precautions: Yellow Socks Yellow Gown Door Sign Patient Fall Education Report given to Tammy Werner RN.
[2020-11-03 20:00] VITALS: BP 122/63
--- NOTE | 2020-11-03 20:00 | NUR ---
NURSE NOTES: RECEIVED PATIENT LYING IN BED, AWAKE, ALERT/ORIENTED X4, VERBALLY RESPONSIVE, NO SIGNS AND SYMPTOMS OF ACUTE CARDIO RESPIRATORY DISTRESS/SHORTNESS OF BREATH, DENIES CHEST PAIN, NO EDEMA NOTED. IV INTACT TO RIGHT HAND/RIGHT FOREARM, NO REDNESS/SWELLING NOTED, TOLERATING IV FLUIDS. S/P 2 UNITS PRBC/FLEXIBLE SIGMOIDOSCOPY WITH BANDING OF HEMORRHOIDS SECONDARY TO RECTAL BLEED, PER PATIENT, NO SIGNS OF BLEEDING. DISCHARGE PLAN HOME WITH HOME HEALTH 11/04 IF AFEBRILE. DENIES GI DISCOMFORT, NO N/V/D. SIDE RAILS UP X2 FOR MOBILITY, BED IN LOWEST POSITION FOR SAFETY, ENCOURAGED PATIENT TO UTILIZE CALL LIGHT FOR ASSISTANCE, VERBALIZED UNDERSTANDING. CONTINUE WITH CURRENT PLAN OF CARE. NAD.
[2020-11-04] VITALS: BP 107/58
[2020-11-04] MEDS: D5 1/2NS w/KCl 20mEq 1,000 ML IV SCH (02:56)
[2020-11-04 04:00] VITALS: BP 106/56
[2020-11-04] MEDS: Piperacillin/Tazobactam 3.375 GM in NS 110 ML IVPB SCH (05:39)
--- NOTE | 2020-11-04 06:14 | General Progress Note ---
Subjective ROS Limited/Unobtainable: No Allergies: Coded Allergies: MORPHINE (Verified Allergy, Unknown, 12/22/17) Objective Last 24 Hour Vital Signs Date Time Temp Pulse Resp B/P (MAP) Pulse Ox O2 Delivery O2 Flow Rate FiO2 11/04/20 04:00 98.1 64 18 106/56 (73) 98 11/04/20 00:00 98.2 64 20 107/58 (74) 98 11/03/20 21:00 Room Air 11/03/20 20:00 97.8 78 20 122/63 (82) 98 11/03/20 16:00 97.7 72 18 127/75 (92) 98 11/03/20 12:00 98.1 72 17 128/72 (90) 99 11/03/20 09:00 85 117/71 11/03/20 09:00 Room Air 11/03/20 08:00 97.9 85 18 117/71 (86) 98 Intake and Output 11/03/20 11/04/20 19:00 07:00 Intake Total 1915 ml 1355.0 ml Output Total 700 ml Balance 1915 ml 655.0 ml Intake Oral 1840 ml 720 ml IV Total 75 ml 635.0 ml Output Urine Total 700 ml # Voids 6 5 # Bowel Movements 1 1 Height (Feet): 4 Height (Inches): 11.00 Weight (Pounds): 136 General Appearance: no apparent distress EENT: normal ENT inspection Neck: supple Cardiovascular: normal rate Respiratory/Chest: decreased breath sounds Abdomen: hypoactive bowel sounds Extremities: non-tender Assessment/Plan Problem List: (1) Symptomatic anemia ICD Codes: D64.9 - Anemia, unspecified SNOMED: 532405988 (2) Bleeding hemorrhoids ICD Codes: K64.9 - Unspecified hemorrhoids SNOMED: 11910949 (3) GIB (gastrointestinal bleeding) ICD Codes: K92.2 - Gastrointestinal hemorrhage, unspecified SNOMED: 18830552 (4) DM2 (diabetes mellitus, type 2) ICD Codes: E11.9 - Type 2 diabetes mellitus without complications SNOMED: 76079948 (5) HTN (hypertension) ICD Codes: I10 - Essential (primary) hypertension SNOMED: 87336308 (6) GERD (gastroesophageal reflux disease) ICD Codes: K21.9 - Gastro-esophageal reflux disease without esophagitis SNOMED: 991914210 Assessment/Plan: s/p flex sig and banding improved rectal bleedt pain control' bowel regimen ok for dc Andre Marie MD Nov 04, 2020 06:14
[2020-11-04] MEDS: NovoLOG Insulin Flexpen SUBQ SCH ×2 (06:30→12:11)
--- NOTE | 2020-11-04 07:14 | NUR ---
NURSE HAND-OFF: Important Events on Shift:[UNEVENTFUL NIGHT, BM X1, NO DIARRHEA] Patient Status: [AFEBRILE THROUGHOUT THE NIGHT, DCP HOME WITH HOME HEALTH 11/04 IF AFEBRILE] Diet: [REGULAR] Pending Orders: [N/A] Pending Results/Labs:[] Pending MD notification:[] Latest Vital Signs: Temperature 98.1 , Pulse 64 , B/P 106 /56 , Respiratory Rate 18 , O2 SAT 98 , Room Air, O2 Flow Rate 2 . Vital Sign Comment: [STABLE, AFEBRILE] Latest Christensen Fall Score: 20 Fall Risk: Low Risk Safety Measures: Call light Within Reach, Bed Alarm Zone 1, Side Rails Side Rails x2, Bed position Low and Locked. Fall Precautions: Yellow Socks Yellow Gown Door Sign Patient Fall Education Report given to [DEBBIE DAVIES].
--- NOTE | 2020-11-04 07:25 | NUR ---
nurse notes received patient resting comfortably in bed eating breakfast, patient awake, alert, oriented x4, no sign of distress , on RA, denies pain or discomfort, IVF patent and infusing well, on fall and aspiration precaution, plan of care was discussed verbalized understanding, 4 P's in progress call light w/n reach will continue to monitor patient condition marly gold
--- NOTE | 2020-11-04 07:47 | Infectious Diseases Prog Note ---
Assessment/Plan 60yo F with: Fevers Leukopenia 10/31 COVID PCR neg 11/02 COVID PCR p BCx p UCx NTD Anemia 2/2 rectal bleeding from hemorrhoids, s/p flex sig w/ banding 10/31 Cr 0.6 H/o COVID, relatively asymptomatic 09/25/20 COVID rapid test positive 09/26 CTA chest neg for PE and airspace disease H/o L cephalic DVT PMH: DM2 HTN GARRY Hemorrhoids Plan: Cont Zosyn #2 given fevers If remains AF and HDS with neg Blood cx, then OK to d/c home off abx from ID standpoint with close PCP f/u F/u 11/02 BCx, COVID PCR Trend temp curve Trend leukopenia Monitor CBC/CMP Monitor temp curve, hemodynamics Monitor resp status D/w RN Thank you for this consult. [facility] will continue to follow. Subjective Allergies: Coded Allergies: MORPHINE (Verified Allergy, Unknown, 12/22/17) AF NAD on RA Doing well, no more fevers Rectal bleeding mostly gone now Feeling overall improved WBC 3.4 Objective Last 24 Hour Vital Signs Date Time Temp Pulse Resp B/P (MAP) Pulse Ox O2 Delivery O2 Flow Rate FiO2 11/04/20 04:00 98.1 64 18 106/56 (73) 98 11/04/20 00:00 98.2 64 20 107/58 (74) 98 11/03/20 21:00 Room Air 11/03/20 20:00 97.8 78 20 122/63 (82) 98 11/03/20 16:00 97.7 72 18 127/75 (92) 98 11/03/20 12:00 98.1 72 17 128/72 (90) 99 11/03/20 09:00 85 117/71 11/03/20 09:00 Room Air 11/03/20 08:00 97.9 85 18 117/71 (86) 98 Height (Feet): 4 Height (Inches): 11.00 Weight (Pounds): 136 Respiratory/Chest: chest wall non-tender Gen: NAD in bed HEENT: NCAT, EOMI, PERRL CV: RRR Pulm: CTAB Abd: Soft, NTND Ext: No c/c/e Neuro: Awake Microbiology Date/Time Source Procedure Growth Status 11/02/20 15:40 Urine,Clean Catch Urine Culture - Preliminary NO GROWTH Resulted Current Medications Medications (Trade) Dose Ordered Sig/Luz Maria Route PRN Reason Start Time Stop Time Status Last Admin Dose Admin Acetaminophen (Tylenol) 650 mg Q6H PRN ORAL Temp >100.5 10/27/20 21:15 11/26/20 21:14 11/02/20 20:24 Acetaminophen (Tylenol) 650 mg Q6H PRN ORAL Mild Pain (Pain Scale 1-3) 10/27/20 21:15 11/26/20 21:14 Acetaminophen/ Hydrocodone Bitart ([place] 5/325) 1 tab Q6H PRN ORAL For Pain 11/02/20 17:45 11/09/20 17:44 11/03/20 06:14 Amlodipine Besylate (Norvasc) 5 mg DAILY ORAL 10/28/20 09:00 11/27/20 08:59 11/02/20 09:17 Dextrose (Dextrose 50%) 25 ml Q30M PRN IV Hypoglycemia 10/27/20 21:15 01/25/21 21:14 Dextrose (Dextrose 50%) 50 ml Q30M PRN IV Hypoglycemia 10/27/20 21:15 01/25/21 21:14 Dextrose/ Electrolytes 1,000 ml @ 75 mls/hr [id number] IV 10/30/20 16:00 11/29/20 15:59 11/04/20 02:56 Diphenhydramine HCl (Benadryl) 25 mg Q6H PRN IVP Itching 10/31/20 09:45 11/30/20 09:44 10/31/20 09:48 Hydrocortisone (Anusol HC) 1 applic TWICE A DAY RECTAL 10/28/20 09:00 01/26/21 08:59 11/03/20 17:16 Hydromorphone HCl (Dilaudid) 0.5 mg Q4H PRN IVP For Pain 10/31/20 11:15 11/07/20 11:14 10/31/20 23:54 Insulin Aspart (NovoLOG) BEFORE MEALS AND HS SUBQ 10/28/20 06:30 01/26/21 06:29 11/03/20 20:44 Ondansetron HCl (Zofran) 4 mg Q6H PRN IVP Nausea & Vomiting 10/27/20 21:15 11/26/20 21:14 Piperacillin Sod/ Tazobactam Sod 3.375 gm/Sodium Chloride 110 ml @ 27.5 mls/hr EVERY 8 HOURS IVPB 11/03/20 09:30 11/08/20 09:29 11/04/20 05:39 Odilia Sommer M.D. Nov 04, 2020 07:47
[2020-11-04 08:30] VITALS: BP 119/64
[2020-11-04] MEDS: HYDROcodone/Acetamin 5/325 tab ORAL PRN (08:53)
[2020-11-04 09:06] LABS: HEMATOCRIT 27.2 % (37.0-47.0); HEMOGLOBIN 8.6 G/DL (12.0-16.0); MEAN CORPUSCULAR VOLUME 85 FL (80-99); PLATELET COUNT 182 K/UL (150-450); RED BLOOD COUNT 3.18 M/UL (4.20-5.40); RED CELL DISTRIBUTION WIDTH 15.8 % (11.6-14.8); WHITE BLOOD COUNT 3.4 K/UL (4.8-10.8)
--- NOTE | 2020-11-04 10:52 | NUR ---
CASE MANAGEMENT:REVIEW 11/04/20 SI: SYMPTOMATIC ANEMIA SIGMOIDOSCOPY(+) ACTIVELY BLEEDING HEMORRHOIDS ~ BANDED 98.8 76 20 119/64 98% ON RA H/H-8.6/27.2 IS: IV ZOSYN Q8HRS IVF@75/HR ANUSOL OH BID NORVASC PO QD NORCO PO Q6HRS PRN IV DILAUDID Q4HRS PRN : TO MED/SURG DCP; FROM HOME PLAN: HOME HEALTH UPON DISCHARGE
--- NOTE | 2020-11-04 11:20 | Internal Med Progress Note ---
Subjective Physician Name Feng Feliciano Attending Physician Feng Feliciano MD Current Medications Medications (Trade) Dose Ordered Sig/Luz Maria Route PRN Reason Start Time Stop Time Status Last Admin Dose Admin Acetaminophen (Tylenol) 650 mg Q6H PRN ORAL Temp >100.5 10/27/20 21:15 11/26/20 21:14 11/02/20 20:24 Acetaminophen (Tylenol) 650 mg Q6H PRN ORAL Mild Pain (Pain Scale 1-3) 10/27/20 21:15 11/26/20 21:14 Acetaminophen/ Hydrocodone Bitart ([place] 5/325) 1 tab Q6H PRN ORAL For Pain 11/02/20 17:45 11/09/20 17:44 11/04/20 08:53 Amlodipine Besylate (Norvasc) 5 mg DAILY ORAL 11/05/20 09:00 11/27/20 08:59 Dextrose (Dextrose 50%) 25 ml Q30M PRN IV Hypoglycemia 10/27/20 21:15 01/25/21 21:14 Dextrose (Dextrose 50%) 50 ml Q30M PRN IV Hypoglycemia 10/27/20 21:15 01/25/21 21:14 Dextrose/ Electrolytes 1,000 ml @ 75 mls/hr [id number] IV 10/30/20 16:00 11/29/20 15:59 11/04/20 02:56 Diphenhydramine HCl (Benadryl) 25 mg Q6H PRN IVP Itching 10/31/20 09:45 11/30/20 09:44 10/31/20 09:48 Hydrocortisone (Anusol HC) 1 applic TWICE A DAY RECTAL 10/28/20 09:00 01/26/21 08:59 11/04/20 08:50 Hydromorphone HCl (Dilaudid) 0.5 mg Q4H PRN IVP For Pain 10/31/20 11:15 11/07/20 11:14 10/31/20 23:54 Insulin Aspart (NovoLOG) BEFORE MEALS AND HS SUBQ 10/28/20 06:30 01/26/21 06:29 11/03/20 20:44 Ondansetron HCl (Zofran) 4 mg Q6H PRN IVP Nausea & Vomiting 10/27/20 21:15 11/26/20 21:14 Piperacillin Sod/ Tazobactam Sod 3.375 gm/Sodium Chloride 110 ml @ 27.5 mls/hr EVERY 8 HOURS IVPB 11/03/20 09:30 11/08/20 09:29 11/04/20 05:39 Allergies: Coded Allergies: MORPHINE (Verified Allergy, Unknown, 12/22/17) Subjective await, alert, responsive, no acute distress. Denies any shortness of breath or chest pain, hemoglobin: 8.6. Objective Last Vital Signs Date Time Temp Pulse Resp B/P (MAP) Pulse Ox O2 Delivery O2 Flow Rate FiO2 11/04/20 08:50 76 119/64 11/04/20 08:30 98.8 20 98 11/04/20 08:25 Room Air 10/31/20 08:50 2 Laboratory Tests Test 11/04/20 08:30 White Blood Count 3.4 K/UL (4.8-10.8) L Red Blood Count 3.18 M/UL (4.20-5.40) L Hemoglobin 8.6 G/DL (12.0-16.0) L Hematocrit 27.2 % (37.0-47.0) L Mean Corpuscular Volume 85 FL (80-99) Mean Corpuscular Hemoglobin 27.2 PG (27.0-31.0) Mean Corpuscular Hemoglobin Concent 31.8 G/DL (32.0-36.0) L Red Cell Distribution Width 15.8 % (11.6-14.8) H Platelet Count 182 K/UL (150-450) Mean Platelet Volume 8.9 FL (6.5-10.1) Neutrophils (%) (Auto) % (45.0-75.0) Lymphocytes (%) (Auto) % (20.0-45.0) Monocytes (%) (Auto) % (1.0-10.0) Eosinophils (%) (Auto) % (0.0-3.0) Basophils (%) (Auto) % (0.0-2.0) Differential Total Cells Counted 100 Neutrophils % (Manual) 48 % (45-75) Lymphocytes % (Manual) 43 % (20-45) Monocytes % (Manual) 3 % (1-10) Eosinophils % (Manual) 5 % (0-3) H Basophils % (Manual) 1 % (0-2) Band Neutrophils 0 % (0-8) Platelet Estimate Adequate Platelet Morphology Normal Hypochromasia 2+ Anisocytosis 1+ Microbiology Date/Time Source Procedure Growth Status 11/02/20 15:40 Urine,Clean Catch Urine Culture - Preliminary NO GROWTH Resulted Intake and Output 11/03/20 11/04/20 19:00 07:00 Intake Total 1915 ml 1682.5 ml Output Total 700 ml Balance 1915 ml 982.5 ml Intake Oral 1840 ml 720 ml IV Total 75 ml 962.5 ml Output Urine Total 700 ml # Voids 6 5 # Bowel Movements 1 1 Objective General: No acute distress, awake and alert HEENT: NCAT, sclera anicteric, PERRL, EOMI. Neck: Supple, no significant jugular venous distention, Lungs: Good inspiratory effort, no accessory muscle use, clear to auscultation bilaterally, no Wheeze or Rales. Heart: Regular rate and rhythm, normal S1/S2, no murmurs/gallops Abdomen: soft, nontender, nondistended. Normoactive bowel sounds. / Rectal: Refused and deferred. Extremities: No Cyanosis , clubbing or edema. Neuro: A&O x 3, Able to move all extremities Skin: warm, no rashes or lesions Psych: Normal mood and affect Assessment/Plan Assessment/Plan 1. Severe anemia, most likely secondary to rectal bleeding as a result of hemorrhoidal bleed s/p Transfuse 2 units of packed RBC --> S/P Sigmoidoscopy with hemorrhoids banding on 10/31/2020. 2. Diabetes type 2. 3. Hypertension. 4. Dyslipidemia. PLAN: In medical floor. Monitor laboratory closely. Discussed case with Dr. Lee from Surgery Dr. Marie from Gastroenterology. Code status is Full Code. DVT prophylaxis is SCD. Discharge home in a.m. if patient is afebrile. Feng Feliciano MD Nov 04, 2020 11:20
[2020-11-04 12:03] VITALS: BP 114/63
--- NOTE | 2020-11-04 12:57 | NUR ---
nurse notes discharge to home with home health obtained, patient agreed with the plan of care, discharge instruction packet handed to patient , discharge teaching done all questions answered verbalized understanding patient called family for pickle maker waiting for transportation marly gold
--- NOTE | 2020-11-04 14:50 | NUR ---
nurse notes discharged in stable condition with all belongings taken, wheeled by QUALITY REVIEW TRAINER to the parking area, discharged via private car accompanied by daughter marly gold
--- NOTE | 2020-11-04 18:33 | Surgery Progress Note ---
Surgery Progress Note Subjective Symptoms: improved, tolerating diet, voiding well, passing flatus, BM Objective Last 24 Hour Vital Signs Date Time Temp Pulse Resp B/P (MAP) Pulse Ox O2 Delivery O2 Flow Rate FiO2 11/04/20 12:03 99.0 61 20 114/63 (80) 98 11/04/20 08:50 76 119/64 11/04/20 08:30 98.8 76 20 119/64 (82) 98 11/04/20 08:25 Room Air 11/04/20 04:00 98.1 64 18 106/56 (73) 98 11/04/20 00:00 98.2 64 20 107/58 (74) 98 11/03/20 21:00 Room Air 11/03/20 20:00 97.8 78 20 122/63 (82) 98 I&O Intake and Output 11/03/20 11/04/20 19:00 07:00 Intake Total 1915 ml 1682.5 ml Output Total 700 ml Balance 1915 ml 982.5 ml Intake Oral 1840 ml 720 ml IV Total 75 ml 962.5 ml Output Urine Total 700 ml # Voids 6 5 # Bowel Movements 1 1 Cardiovascular: RSR Respiratory: clear Abdomen: soft, flat, non-tender, present bowel sounds Extremities: no edema, no tenderness, no cyanosis Laboratory Tests Test 11/04/20 08:30 White Blood Count 3.4 K/UL (4.8-10.8) L Red Blood Count 3.18 M/UL (4.20-5.40) L Hemoglobin 8.6 G/DL (12.0-16.0) L Hematocrit 27.2 % (37.0-47.0) L Mean Corpuscular Volume 85 FL (80-99) Mean Corpuscular Hemoglobin 27.2 PG (27.0-31.0) Mean Corpuscular Hemoglobin Concent 31.8 G/DL (32.0-36.0) L Red Cell Distribution Width 15.8 % (11.6-14.8) H Platelet Count 182 K/UL (150-450) Mean Platelet Volume 8.9 FL (6.5-10.1) Neutrophils (%) (Auto) % (45.0-75.0) Lymphocytes (%) (Auto) % (20.0-45.0) Monocytes (%) (Auto) % (1.0-10.0) Eosinophils (%) (Auto) % (0.0-3.0) Basophils (%) (Auto) % (0.0-2.0) Differential Total Cells Counted 100 Neutrophils % (Manual) 48 % (45-75) Lymphocytes % (Manual) 43 % (20-45) Monocytes % (Manual) 3 % (1-10) Eosinophils % (Manual) 5 % (0-3) H Basophils % (Manual) 1 % (0-2) Band Neutrophils 0 % (0-8) Platelet Estimate Adequate Platelet Morphology Normal Hypochromasia 2+ Anisocytosis 1+ Plan Problems: (1) Bleeding hemorrhoids Assessment & Plan: The patient had large bleeding internal hemorrhoids. Using a banding device, three bands were placed on this largest hemorrhoids in the rectum. The patient tolerated the procedure very well without any complications. improved no bleeding d/c plan (2) GERD (gastroesophageal reflux disease) (3) HTN (hypertension) (4) GIB (gastrointestinal bleeding) Assessment & Plan: 60-year-old female with GI bleed intermittent episodes of bleeding hemorrhoid. Recent colonoscopy by GI on last admission reviewed and discussed with case. Patient continues to have intermittent bleeding and now presents with anemia and intermittent bleeding and diarrhea. Case discussed with GI and plan for flex sig and hemorrhoidal banding soon. Agree with care plan. If worsening can consider surgical intervention but proceed with GI endoscopic first. Okay for diet. Trend H&H. Thank you will follow with recommendations. (5) DM2 (diabetes mellitus, type 2) (6) Symptomatic anemia (7) Palpitations (8) Anemia (9) HLD (hyperlipidemia) (10) Elevated TSH (11) COVID-19 Corbin Lee Nov 04, 2020 18:33
--- NOTE | 2020-11-07 13:47 | Discharge Summary ---
Discharge Summary Discharge Summary _ Date of admission: 10/28/2020 Date of discharge: 11/04/[address] Feliciano History of Present Illness and Brief Hospital Course Ms. Biggs is a 60-year-old female with past medical history of anemia and rectal bleeding secondary to internal hemorrhoids, who presented to the ED for evaluation of palpitation at rest associated with dizziness x3 days. Of note, patient was recently hospitalized at [place] for 2 weeks and was discharged with ferrous sulfate. Patient reports that she started to have rectal bleeding upon defecation 2 days prior to presentation. The initial chest x-ray was negative for acute disease. EKG showed no acute ST changes. Patient was admitted to the hospital for further management. Patient was transfused with 2 units of packed RBC given low hemoglobin level on admission. Stool occult blood was positive. She underwent flexible sigmoidoscopy with banding. 3 bands were placed on the largest hemorrhoid in the rectum. Patient tolerated the procedure well without any complication. Patient developed a fever and was given Zosyn. Follow-up urine culture and blood culture were negative. Patient was closely monitored after the procedure. Patient's H&H remained stable. Patient was medically stable for discharge and was discharged home on 11/04/2020. Patient tested negative for COVID-19 via PCR on 10/31/2020 and 11/02/2020. Consultants: Surgery Dr. Lee Infectious disease Dr. Sommer Discharge Condition None improved and stable Final diagnoses Leukopenia Anemia, secondary to rectal bleeding from hemorrhoids Internal hemorrhoids Diabetes mellitus Hypertension Hyperlipidemia History of GERD Gastrointestinal bleeding Symptomatic anemia Palpitation I have been assigned to dictate discharge summary for this account. I was not involved in the patient's management Dragan Hendricks Nov 07, 2020 13:47
== END 2020-11-04 14:50 | disposition home or self-care (01) | DRG 226 ==
LOC: EMR 13:04 → 4E 15:42 → EDBEDREQ 17:57 → OBSVTOIN 10-28 01:30
PROC: 30233N1 Transfusion of Nonautologous Red Blood Cells into Peripheral Vein, Percutaneous Approach (ICD-10-PCS; 2020-10-27)
PROC: 06LY4CC Occlusion of Hemorrhoidal Plexus with Extraluminal Device, Percutaneous Endoscopic Approach (ICD-10-PCS; principal; 2020-10-31 08:35)
DX: K64.8 Other hemorrhoids (principal); E11.9 Type 2 diabetes mellitus without complications; I10 Essential (primary) hypertension; K21.9 Gastro-esophageal reflux disease without esophagitis; F41.8 Other specified anxiety disorders; D50.0 Iron deficiency anemia secondary to blood loss (chronic); E78.5 Hyperlipidemia, unspecified; R00.2 Palpitations; Z88.6 Allergy status to analgesic agent; Z86.16 Personal history of COVID-19; R50.9 Fever, unspecified
CPT/HCPCS: 36415; 71045; 80048; 80053; 81003; 82270; 82962; 83540; 83550; 83735; 84100; 84484; 85007; 85025; 85610; 85730; 86850; 86900; 86901; 86920; 87040; 87086; 93005; 94003; 94150; 96361; 96365; 99285; J1815; J2250; J8499